=== PATIENT | male | born 1950 | race Caucasian/White ===

== ENCOUNTER 2019-05-24 11:34 | Inpatient (IN) | payer MEDICARE, MEDICAID ==
[~2019-05-24] VITALS: Ht 167.6 cm; Wt 90.9 kg
--- NOTE | 2019-05-24 12:18 | PHYS DOC ---
Past History Past Medical History: Anemia (Iron deficiency), Anxiety, Arthritis, GERD, Hypertension, Schizophrenia Past Medical History Borderline personality disorder, schizoaffective disorder, stiffness of right knee, generalized muscle weakness, cognitive delay, irritable bowel syndrome Limited secondary to baseline cognitive delay Past Surgical History Limited secondary to baseline cognitive delay Smoking: Quit Greater Than 1 Year Alcohol Use: None Drug Use: None Social History Limited secondary to baseline cognitive delay Adult General Chief Complaint Chief Complaint: PSYCH EVALUATION HPI HPI 68-year-old male with past medical history of cognitive delay presents from halfway for medical screening examination for inpatient psychiatric placement with [facility] unit. Patient apparently has been more aggressive with staff at the halfway prompting them to send him for further evaluation. No history of trauma. No history of fever or chills. History of present illness limited secondary to patient's baseline cognitive delay. Review of Systems Review of Systems Constitutional: Denies fever or chills Respiratory: Denies cough or shortness of breath GI: Denies abdominal pain, nausea, or vomiting Review of systems limited secondary to baseline cognitive delay. Physical Exam Physical Exam Constitutional: Well developed, well nourished, no acute distress, non-toxic appearance HENT: Normocephalic, atraumatic, oropharynx moist Eyes: PERRL, EOMI, conjunctiva normal, no discharge Neck: Normal range of motion, no tenderness, supple Cardiovascular: Heart rate normal, regular rhythm Lungs & Thorax: Bilateral breath sounds clear to auscultation, no wheezing Abdomen: Soft, no tenderness Skin: Warm, dry, no erythema, no rash Back: No tenderness, no CVA tenderness Extremities: No tenderness, ROM intact, no edema Neurologic: Alert, confused, slurred speech, slow verbal response, no focal deficits noted Psychologic: Affect flat, judgment normal EKG EKG @1215 NSR at 66bpm, NO ST elevation, RBBB, occasional PAC, QRS 130ms, QT/QTc 404/425ms, nonspecific t wave inversion III and V1-V3 Radiology/Procedures Radiology/Procedures [] Course & Med Decision Making Course & Med Decision Making Pertinent Lab studies reviewed. (See chart for details) Patient presents from halfway for medical screening examination pending inpatient psychiatric placement with [facility]. Vital signs stable upon arrival. EKG stable. Labs obtained and posted to chart. Initial blood sugar slightly low. Patient had reported he was hungry upon arrival. Lunch tray provided. Repeat blood glucose normal. Patient deemed medically clear for continuation with admission to [facility] and further evaluation and treatment with Dr. Golden (psych). Eric Disclaimer Dragon Disclaimer This electronic medical record was generated, in whole or in part, using a voice recognition dictation system. Departure Departure: Impression: Primary Impression: Medical clearance for psychiatric admission Disposition: ADMITTED INPATIENT ([facility]) Condition: STABLE Referrals: JOEL BAUTISTA DO (PCP) TIMBO DILLARD DO May 24, 2019 12:18
[2019-05-24 12:42] LABS: BASO % 1 % (0-3); EOS # 0.3 x10^3/uL (0.0-0.7); EOS % 6 % (0-3); HEMATOCRIT 37.1 % (39.0-53.0); LYMPH # 1.5 x10^3/uL (1.0-4.8); LYMPH % 34 % (24-48); MEAN CORPUSCULAR HEMOGLOBIN 30 pg (25-35); MEAN CORPUSCULAR HGB CONC 32 g/dL (31-37); MEAN CORPUSCULAR VOLUME 92 fL (79-100); MONO # 0.5 x10^3/uL (0.0-1.1); MONO % 12 % (0-9); NEUT % 48 % (31-73); PLATELET COUNT 158 x10^3/uL (140-400); RED BLOOD COUNT 4.05 x10^6/uL (4.30-5.70); RED CELL DISTRIBUTION WIDTH 16.5 % (11.5-14.5); WHITE BLOOD COUNT 4.3 x10^3/uL (4.0-11.0)
[2019-05-24 12:56] LABS: CALCIUM 8.5 mg/dL (8.5-10.1); CREATININE 0.7 mg/dL (0.7-1.3); GFR 112.8
[2019-05-24 12:57] LABS: BARBITURATES NEG (NEG); BENZODIAZEPINES NEG (NEG); CANNABINOIDS NEG (NEG); COCAINE NEG (NEG); METHADONE NEG (NEG); OPIATES NEG (NEG); PHENCYCLIDINE NEG (NEG)
[2019-05-24 12:58] LABS: AMPHETAMINE/METHAMPHETAMINE NEG (NEG)
[2019-05-24 12:59] LABS: VAL ACID 111 mcg/mL (50-100)
[2019-05-24 13:03] LABS: ACETAMIN < 2.0 mcg/mL (10-30); SALIC 0.9 mg/dL (2.8-20.0)
[2019-05-24 13:12] LABS: ALBUMIN 2.9 g/dL (3.4-5.0); ALBUMIN/GLOBULIN RATIO 0.8 (1.0-1.7); MAGNESIUM 1.8 mg/dL (1.8-2.4); TOTAL BILIRUBIN 0.1 mg/dL (0.2-1.0); TOTAL PROTEIN 6.4 g/dL (6.4-8.2)
[2019-05-24 13:16] LABS: BILIRUBIN,URINE NEG (NEG); CLARITY,URINE CLEAR; COLOR,URINE YELLOW; GLUCOSE,URINE NEG (NEG); NITRITE,URINE NEG (NEG); UROBILINOGEN,URINE 0.2 mg/dL (0.2 mg/dL)
[2019-05-24 13:17] LABS: BACTERIA,URINE 0 /HPF (0-FEW); HYALINE CASTS, URINE FEW /HPF
--- NOTE | 2019-05-24 13:30 | EKG ---
[address] [address] Test Date: 2019-05-24 Test Time: 12:15:19 Pat Name: JUAN FERRO Department: Room: Gender: M Channel Program Manager: : 1950 Requested By: TIMBO DILLARD Order Number: [id number] Reading MD: Janusz Keita Measurements Intervals [place] Rate: 66 P: 35 CT: 146 QRS: 19 QRSD: 130 T: 4 QT: 404 QTc: 425 Interpretive Statements SINUS RHYTHM ATRIAL PREMATURE COMPLEX(ES) RIGHT BUNDLE BRANCH BLOCK ABNORMAL ECG Electronically Signed On 06-17-2019 8:36:53 CDT by Janusz Keita
--- NOTE | 2019-05-24 14:00 | NUR ---
Admission Note with Justification for Admission to [facility] Patient admitted to [facility] for protective oversight for emergency stabilization of acute psychiatric crisis. Pt admitted from: Hospital ER Mode of arrival: EMS Accompanied By: EMS Precipitating behaviors that initiated intake and admission: Description of failure of out patient attempts at stabilization in previous setting list behavior and medication trials: medication change, redirection, room change Behaviors and assessment findings upon admission: Patient presented calm with minor obsessions about playing cards. Patient willing to socialize with staff and other residents. Plan: Admit for protective oversight for adjustment and stabilization of medications, behaviors and mood. Intense treatment regimen including groups, medication adjustments, therapy, consistent regimen for ADL's, self care, and sleep hygiene. Daily monitoring by Inpatient staff, Psychiatry, and Medical Physician.
[2019-05-24] MEDS ORDERED: FERR325T14 PO (15:53)
[2019-05-24] MEDS ORDERED: LEVO25TA4 PO (15:53)
[2019-05-24] MEDS ORDERED: LORA-254 PO (15:53)
[2019-05-24] MEDS ORDERED: ACET500C2 PO (15:53)
[2019-05-24] MEDS ORDERED: HALO5AMP2 IM (15:53)
[2019-05-24] MEDS ORDERED: SENN8.8S5 PO (15:53)
[2019-05-24] MEDS ORDERED: TAMS0.4C97 PO (15:53)
[2019-05-24] MEDS ORDERED: OXCA600T9 PO (15:53)
[2019-05-24] MEDS ORDERED: PALI234D IM (15:53)
[2019-05-24] MEDS ORDERED: LORA-254 IM (15:53)
[2019-05-24] MEDS ORDERED: TRAZ-125 PO (15:53)
[2019-05-24] MEDS ORDERED: MAG-27 PO (15:53)
[2019-05-24] MEDS ORDERED: LORA10TA55 PO (15:53)
[2019-05-24] MEDS ORDERED: OMEP20CA16 PO (15:53)
[2019-05-24] MEDS ORDERED: OLAN5TAB9 PO (15:53)
[2019-05-24] MEDS ORDERED: POTA20TA4 PO (15:53)
[2019-05-24] MEDS ORDERED: MEDR2.5T28 PO (15:53)
[2019-05-24] MEDS ORDERED: TOLT4CAP12 PO (15:53)
[2019-05-24] MEDS ORDERED: BENZ2TAB5 PO (15:53)
[2019-05-24] MEDS ORDERED: POLY2500 PO (15:53)
[2019-05-24] MEDS ORDERED: FURO40TA4 PO (15:53)
[2019-05-24] MEDS ORDERED: CALC625T8 PO (15:53)
[2019-05-24] MEDS ORDERED: DIVA-53 PO ×2 (15:53)
[2019-05-24] MEDS ORDERED: MAGN24003 PO (15:53)
[2019-05-24] MEDS ORDERED: FLUT9.9S NS (15:53)
[2019-05-24] MEDS ORDERED: OLAN5TAB3 PO (15:53)
[2019-05-24] MEDS ORDERED: ACETAMINOPHEN 325 MG TABLET PO PRN (16:00)
[2019-05-24] MEDS ORDERED: MAG HYDROX/AL HYDROX/SIMETH 30 ML ORAL.SUSP PO PRN (16:00)
[2019-05-24] MEDS ORDERED: METHYL SALICYLATE/MENTHOL TOPICAL OINTMENT 57GM TUBE. TP PRN (16:00)
[2019-05-24] MEDS ORDERED: SIMETH PO PRN (18:00)
[2019-05-24] MEDS ORDERED: AL HYDROX PO PRN (18:00)
[2019-05-24] MEDS ORDERED: MAGNESIUM HYDROXIDE PO PRN (18:00)
[2019-05-24] MEDS ORDERED: MAG HYDROX PO PRN (18:00)
[2019-05-24 18:13] VITALS: BP 116/76
[2019-05-24] MEDS ORDERED: LORA2VIA6 IM (18:15)
[2019-05-24] MEDS: OLANZapine 5 MG TABLET PO SCH (20:10)
[2019-05-24] MEDS: SENNOSIDES 8.6 MG TABLET PO SCH (20:11)
[2019-05-24] MEDS: BENZTROPINE MESYLATE 1 MG TABLET PO SCH (20:11)
[2019-05-24] MEDS: OXYBUTYNIN CHLORIDE 5 MG TABLET PO SCH (20:12)
[2019-05-24] MEDS: DIVALPROEX ER 500 MG TAB.ER.24H PO SCH (20:12)
[2019-05-24] MEDS: traZODone 100 MG TABLET. PO SCH (20:12)
[2019-05-24] MEDS: LORazepam 1 MG TABLET PO SCH (20:13)
--- NOTE | 2019-05-24 21:18 | PDOC ---
Exam Note: Ramos Note: Please also refer to the separate dictated note~for this date of service dictated separately. Discussed the patient with Nursing staff reviewed the chart.~Reviewed interim history and current functioning. Reviewed vital signs,~Labs/ Radiology~and current medications noted below. Continue current treatment with the changes noted in the dictated addendum note Assessment: Vital Signs/I&O: Vital Signs Date Time Temp Pulse Resp B/P (MAP) Pulse Ox O2 Delivery O2 Flow Rate FiO2 05/24/19 18:13 98.7 59 18 116/76 (89) 99 Room Air Labs: Laboratory Tests Test 05/24/19 12:17 05/24/19 12:20 05/24/19 13:20 Urine Collection Type Unknown Urine Color Yellow Urine Clarity Clear Urine pH 6.0 Urine Specific Duncan 1.015 Urine Protein Neg (NEG-TRACE) Urine Glucose (UA) Neg mg/dL (NEG) Urine Ketones (Stick) Neg mg/dL (NEG) Urine Blood Neg (NEG) Urine Nitrite Neg (NEG) Urine Bilirubin Neg (NEG) Urine Urobilinogen Dipstick 0.2 mg/dL (0.2 mg/dL) Urine Leukocyte Esterase Trace (NEG) Urine RBC 3-5 /HPF (0-2) Urine WBC 5-10 /HPF (0-4) Urine Squamous Epithelial Cells None /LPF Urine Bacteria 0 /HPF (0-FEW) Urine Hyaline Casts Few /HPF Urine Mucus Slight /LPF Urine Opiates Screen Neg (NEG) Urine Methadone Screen Neg (NEG) Urine Barbiturates Neg (NEG) Urine Phencyclidine Screen Neg (NEG) Urine Amphetamine/Methamphetamine Neg (NEG) Urine Benzodiazepines Screen Neg (NEG) Urine Cocaine Screen Neg (NEG) Urine Cannabinoids Screen Neg (NEG) Urine Ethyl Alcohol Neg (NEG) White Blood Count 4.3 x10^3/uL (4.0-11.0) Red Blood Count 4.05 x10^6/uL (4.30-5.70) L Hemoglobin 12.0 g/dL (13.0-17.5) L Hematocrit 37.1 % (39.0-53.0) L Mean Corpuscular Volume 92 fL (79-100) Mean Corpuscular Hemoglobin 30 pg (25-35) Mean Corpuscular Hemoglobin Concent 32 g/dL (31-37) Red Cell Distribution Width 16.5 % (11.5-14.5) H Platelet Count 158 x10^3/uL (140-400) Neutrophils (%) (Auto) 48 % (31-73) Lymphocytes (%) (Auto) 34 % (24-48) Monocytes (%) (Auto) 12 % (0-9) H Eosinophils (%) (Auto) 6 % (0-3) H Basophils (%) (Auto) 1 % (0-3) Neutrophils # (Auto) 2.0 x10^3uL (1.8-7.7) Lymphocytes # (Auto) 1.5 x10^3/uL (1.0-4.8) Monocytes # (Auto) 0.5 x10^3/uL (0.0-1.1) Eosinophils # (Auto) 0.3 x10^3/uL (0.0-0.7) Basophils # (Auto) 0.0 x10^3/uL (0.0-0.2) Prothrombin Time 9.9 SEC (9.4-11.4) Prothrombin Time INR 1.0 (0.9-1.1) Activated Partial Thromboplast Time 24 SEC (23-33) Sodium Level 145 mmol/L (136-145) Potassium Level 4.0 mmol/L (3.5-5.1) Chloride Level 106 mmol/L (98-107) Carbon Dioxide Level 28 mmol/L (21-32) Anion Gap 11 (6-14) Blood Urea Nitrogen 18 mg/dL (8-26) Creatinine 0.7 mg/dL (0.7-1.3) Estimated GFR (Cockcroft-Gault) 112.8 BUN/Creatinine Ratio 26 (6-20) H Glucose Level 66 mg/dL (70-99) L Calcium Level 8.5 mg/dL (8.5-10.1) Magnesium Level 1.8 mg/dL (1.8-2.4) Total Bilirubin 0.1 mg/dL (0.2-1.0) L Aspartate Amino Transferase (AST) 17 U/L (15-37) Alanine Aminotransferase (ALT) 19 U/L (16-63) Alkaline Phosphatase 89 U/L (46-116) Creatine Kinase 34 U/L (39-308) L Creatine Kinase MB (Mass) 1.6 ng/mL (0.0-3.6) Creatine Kinase MB Relative Index 4.7 % (0-4) H Troponin I Quantitative 0.031 ng/mL (0-0.055) Total Protein 6.4 g/dL (6.4-8.2) Albumin 2.9 g/dL (3.4-5.0) L Albumin/Globulin Ratio 0.8 (1.0-1.7) L Salicylates Level 0.9 mg/dL (2.8-20.0) L Salicylate Last Dose Date Unknown Salicylate Last Dose Time Unknown Acetaminophen Level < 2.0 mcg/mL (10-30) L Acetaminophen Last Dose Date Unknown Acetaminophen Last Dose Time Unknown Valproic Acid Level 111 mcg/mL (50-100) H Valproic Acid Last Dose Date 05/24/19 Valproic Acid Last Dose Time 0600 Ethyl Alcohol Level < 10 mg/dL (0-10) Glucose (Fingerstick) 98 mg/dL (70-99) Current Medications: Meds: Current Medications Medications (Trade) Dose Ordered Sig/Kylah Route PRN Reason Start Time Stop Time Status Last Admin Dose Admin Lorazepam (Ativan) 2 mg BID PO 05/24/19 21:00 05/24/19 20:13 Olanzapine (ZyPREXA) 5 mg TID PO 05/24/19 21:00 05/24/19 20:10 Trazodone HCl (Desyrel) 100 mg QHS PO 05/24/19 21:00 05/24/19 20:12 Benztropine Mesylate (Cogentin) 2 mg BID PO 05/24/19 21:00 05/24/19 20:11 Divalproex Sodium (Depakote Er) 1,000 mg QHS PO 05/24/19 21:00 05/24/19 20:12 Oxcarbazepine (Trileptal) 600 mg BID PO 05/24/19 21:00 05/24/19 20:10 Sennosides (Senna) 8.6 mg QHS PO 05/24/19 21:00 05/24/19 20:11 Oxybutynin Chloride (Ditropan) 5 mg [id number] PO 05/24/19 21:00 05/24/19 20:12 I have reviewed the current psychotropics carefully including drug interactions. Risk benefit ratio favors no change other than as noted in my dictated progress note. Diagnosis: Problems: (1) Medical clearance for psychiatric admission (2) Anxiety disorder (3) Schizoaffective disorder, chronic condition with acute exacerbation (4) Borderline intellectual disability NIKKI SHIELDS MD May 24, 2019 21:18
--- NOTE | 2019-05-24 22:00 | NUR ---
Patient is in the hallway outside the nurses station on assumption of care. He appears to be napping comfortably in his wheelchair. Shortly after change of shift, patient began to knock on the window. He complained of being cold. Staff brought him into day room and asked if he wanted a blanket. At that point, he became agitated. Yelling and unable to be redirected. He was brought to the [facility] to deescalate. He continued to yell loudly, repeating "I want to go bed NOW!". This casualty underwriter approached him to ask him why he was so upset. He responded with a glare. Also was asked how he prefers to take his pills, which he did not answer either. He was told that he would be able to go to bed once he had taken his medications and calmed down a bit. He proceeded to continue to yell repeatedly about wanting to go to bed and wanting his medications. This casualty underwriter brought his medications, which he took whole, a few at a time on a spoon. A short time later, staff x2 assisted him to bed, without issue.
[2019-05-25] MEDS: LEVOTHYROXINE 25 MCG TABLET. PO SCH (06:04)
[2019-05-25 06:30] VITALS: BP 134/83
[2019-05-25] MEDS ORDERED: DIVALPROEX ER 500 MG TAB.ER.24H PO SCH (09:00)
[2019-05-25] MEDS: POLYETHYLENE GLYCOL 3350 17 GM PACKET. PO SCH (09:00)
[2019-05-25] MEDS: TAMSULOSIN 0.4 MG CAP.ER.24H. PO SCH (10:00)
[2019-05-25] MEDS: OXYBUTYNIN CHLORIDE 5 MG TABLET PO SCH ×3 (10:00→19:50)
[2019-05-25] MEDS: PANTOPRAZOLE 40 MG TABLET. PO SCH (10:00)
[2019-05-25] MEDS: LORazepam 1 MG TABLET PO SCH ×2 (10:00→19:50)
[2019-05-25] MEDS: FUROSEMIDE 40 MG TABLET PO SCH (10:00)
[2019-05-25] MEDS: FERROUS SULFATE 325 MG TABLET. PO SCH (10:01)
[2019-05-25] MEDS: CETIRIZINE HCL 10 MG TABLET PO SCH (10:01)
[2019-05-25] MEDS: CALCIUM POLYCARBOPHIL 625 MG TABLET PO SCH (10:01)
[2019-05-25] MEDS: OLANZapine 5 MG TABLET PO SCH ×3 (10:01→19:48)
[2019-05-25] MEDS: POTASSIUM CHLORIDE 20 MEQ TABLET.ER. PO SCH (10:02)
[2019-05-25] MEDS: BENZTROPINE MESYLATE 1 MG TABLET PO SCH ×2 (10:02→19:49)
[2019-05-25] MEDS: FLUTICASONE 50MCG/NASAL SPRAY 16GM BOTTLE. NS SCH (10:03)
[2019-05-25 10:16] LABS: THYROID STIM HORMONE (TSH) 3.613 uIU/mL (0.358-3.740)
--- NOTE | 2019-05-25 11:37 | NUR ---
Nursing note: At shift change, pt in hallway demanding to be helped to the bathroom. Pt was redirected and helped in the bathroom. Pt remained calm throughout breakfast and was compliant with his meds whole. He was preoccupied about wanting to play cards, "it's no fun being bored, I need someone to play with me". Pt is currently sitting in the day room conversing with staff. Will continue to monitor.
[2019-05-25 12:07] LABS: THYROXINE 8.1 ug/dL (4.5-12.0)
--- NOTE | 2019-05-25 13:47 | NUR ---
Nursing note: Pt was in the day room when he became disruptive during the activity group. Pt was yelling out at staff and using foul language. He was unable to be redirected, so he was brought to the secure hallway for deescalation. Scheduled 1400 meds were given. Will continue to monitor.
--- NOTE | 2019-05-25 14:07 | CONS ---
DATE OF CONSULTATION: 05/25/2019 REASON FOR CONSULTATION: Medical management. HISTORY OF PRESENT ILLNESS: The patient is a 68-year-old male patient, a resident at [facility], who was admitted on account of being increasingly angry with anger outburst, name calling and yelling at staff, kicking and hitting doors and okeefe, threatening peer and hoping they will , increased agitation and spitting on staff, all this in a background of schizoaffective disorder and intellectual disability. The patient has multiple medical problems including iron-deficiency anemia, gastroesophageal reflux disease, hypertension, irritable bowel syndrome, and muscle weakness. PAST SURGICAL HISTORY: Significant for what seems to be exploratory laparotomy that was complicated by infection with large scar in the midline of the abdomen. PAST PSYCHIATRIC HISTORY: Significant for borderline personality disorder, has also schizoaffective disorder, generalized anxiety disorder, paranoid schizophrenia and intellectual disability. ALLERGIES: He is allergic to AMOXICILLIN, CIPROFLOXACIN, and SOAP. MEDICATIONS: He is currently on loratadine 10 mg once a day, Flomax 0.4 mg daily, ferrous sulfate 325 mg once a day, acetaminophen 500 mg every 6 hours, divalproex 1500 mg daily, divalproex 1000 mg at bedtime, oxcarbazepine 600 mg twice a day. He is on trazodone 100 mg at bedtime, olanzapine for Zyprexa 5 mg 3 times a day, olanzapine 5 mg every 8 hours. Paliperidone palmitate for Invega Sustenna 234 mg in 1.5 mL intramuscular every month, lorazepam 2 mg twice a day, benztropine mesylate 1 mg twice a day, potassium chloride 20 mEq once a day, furosemide 40 mg once a day, Flonase 1 spray to each nostril daily, Mylanta 30 mL every 4 hours as needed, calcium polycarbophil 625 mg daily, magnesium hydroxide for Milk of Magnesia 30 mL p.o. daily p.r.n. for constipation, Senna 8.8 mg at bedtime. He is on omeprazole 20 mg once a day, medroxyprogesterone, he is on 7.5 mg for sexual aggression. He is on levothyroxine sodium 25 mcg once a day and tolterodine tartrate extended release 4 mg at bedtime, and polyethylene glycol 17 grams daily. FAMILY HISTORY: Noncontributory. SOCIAL HISTORY: He is a resident at [facility]. PHYSICAL EXAMINATION: GENERAL: When I saw him, he was sitting comfortably in his wheelchair, in no apparent respiratory distress. There is no pallor, jaundice, cyanosis or thyromegaly. No jugular venous distention. No limb edema. VITAL SIGNS: His heart rate was 72, blood pressure was 134/83, temperature 97.5, respiratory rate was 18 and oxygen saturation was 96%. HEAD, EYES, EARS, NOSE AND THROAT: Showed normocephalic, atraumatic. NECK: Supple. CARDIAC: Normal first and second heart sounds. No gallop, rub or murmur. CHEST: Clear to auscultation. No crepitation or rhonchi. ABDOMEN: Distended, soft with a midline surgical scar. No tenderness. No guarding or rigidity. No organomegaly. Bowel sounds normal. NEUROLOGIC: He is awake, alert, responding appropriately. All cranial nerves are intact. He moves upper extremities to much good extent than lower extremities, apparently he is mostly bed bound. He is apparently a 2-person assist. LABORATORY DATA: Showed a white cell count 4300, hemoglobin 12, hematocrit 37, MCV 92, and platelet count 258,000. His chemistry showed a serum sodium of 145, potassium 4, chloride 106, bicarbonate 28, anion gap of 11, BUN 18, creatinine 0.7, estimated GFR was 112 mL per minute. His glucose was 66, calcium was 8.5, magnesium was 1.8. Serum iron, TIBC and iron saturation are all consistent with iron-deficiency anemia. His total bilirubin, AST, ALT, alkaline phosphatase were normal. His total protein was 6.4, albumin 2.9. His serum triglycerides was 109. Total cholesterol 143, LDL was 69, VLDL was 21, HDL cholesterol was 52 and ratio was 2. His TSH was 3.613. His prothrombin time, INR and aPTT are normal. Urinalysis was essentially unremarkable and toxic screen was negative. IMPRESSION: In summary, this is a 68-year-old male patient, a resident at [facility], who was admitted on account of increased anger outbursts, name calling, yelling at staff, kicking and hitting doors and okeefe, threatening peers and hoping they will , increased agitation, spitting on staff, all this in a background of schizoaffective disorder. Medically, he has multiple medical problems including hypertension, gastroesophageal reflux disease, irritable bowel syndrome, iron-deficiency anemia and muscle weakness and inability to walk. He is mostly wheelchair bound; however, all in all, he seemed to be medically stable. His vital signs are all within normal range and his lab works are also well within acceptable range. PLAN: My plans is obviously to follow all his lab works that are still pending at the time of this dictation and make any necessary recommendation. Thank you, Dr. Golden, for allowing me to participate in the care of this patient. SYDNEY PETERS MD DR: JANEY/shawn JOB#: [id number] / [id number]
[2019-05-25 15:50] VITALS: BP 113/72
[2019-05-25] MEDS: traZODone 100 MG TABLET. PO SCH (19:49)
[2019-05-25] MEDS: SENNOSIDES 8.6 MG TABLET PO SCH (19:49)
[2019-05-25] MEDS: DIVALPROEX ER 500 MG TAB.ER.24H PO SCH (19:49)
--- NOTE | 2019-05-25 21:12 | PDOC ---
Exam Note: Ramos Note: Please also refer to the separate dictated note~for this date of service dictated separately.~Patient seen individually. Discussed the patient with Nursing staff reviewed the chart.~Reviewed interim history and current functioning. Reviewed vital signs,~Labs/ Radiology~and current medications noted below. Continue current treatment with the changes noted in the dictated addendum note Assessment: Vital Signs/I&O: Vital Signs Date Time Temp Pulse Resp B/P (MAP) Pulse Ox O2 Delivery O2 Flow Rate FiO2 05/25/19 15:50 97.6 74 16 113/72 (86) 98 05/24/19 18:13 Room Air I & O 05/24/19 05/24/19 05/25/19 15:00 23:00 07:00 Intake Total 240 ml Balance 240 ml Current Medications: Meds: Current Medications Medications (Trade) Dose Ordered Sig/Kylah Route PRN Reason Start Time Stop Time Status Last Admin Dose Admin Calcium Polycarbophil (Fibercon) 625 mg DAILY PO 05/25/19 09:00 05/25/19 10:01 Ferrous Sulfate (Feosol) 325 mg DAILY PO 05/25/19 09:00 05/25/19 10:01 Furosemide (Lasix) 40 mg DAILY PO 05/25/19 09:00 05/25/19 10:00 Levothyroxine Sodium (Synthroid) 25 mcg DAILY06 PO 05/25/19 06:00 05/25/19 06:04 Medroxyprogesterone Acetate (Provera) 7.5 mg DAILY PO 05/25/19 09:00 05/25/19 10:01 Potassium Chloride (Klor-Con) 20 meq DAILYWBKFT PO 05/25/19 08:00 05/25/19 10:02 Tamsulosin HCl (Flomax) 0.4 mg DAILY PO 05/25/19 09:00 05/25/19 10:00 Divalproex Sodium (Depakote Er) 1,500 mg DAILY PO 05/25/19 09:00 05/25/19 10:01 Fluticasone Propionate (Flonase) 2 spray DAILY NS 05/25/19 09:00 05/25/19 10:03 Cetirizine HCl (ZyrTEC) 10 mg DAILY PO 05/25/19 09:00 05/25/19 10:01 Pantoprazole Sodium (Protonix) 40 mg DAILYAC PO 05/25/19 07:30 05/25/19 10:00 I have reviewed the current psychotropics carefully including drug interactions. Risk benefit ratio favors no change other than as noted in my dictated progress note. Diagnosis: Problems: (1) Medical clearance for psychiatric admission (2) Anxiety disorder (3) Schizoaffective disorder, chronic condition with acute exacerbation (4) Borderline intellectual disability NIKKI SHIELDS MD May 25, 2019 21:12
--- NOTE | 2019-05-25 21:43 | HP ---
ADMIT DATE: 05/24/2019 PSYCHIATRIC ADMISSION HISTORY/EVALUATION IDENTIFYING DATA: The patient is a 68-year-old male referred to us from [facility] in [place], [place] by Dr. Romero, his primary care physician. The patient has a diagnosis of schizoaffective disorder, bipolar type and intellectual disability. He has been having increasing angry outburst, name calling and yelling at staff, kicking, hitting doors and okeefe, threatening peers and hoping they will . He has been spitting at staff. Agitation has been unmanageable at the facility. He has failed outpatient psychiatric interventions resulting in this referral. CHIEF COMPLAINT: "I am okay." The patient has intellectual disability and overall functioning is compromised by this. He is seated in a wheelchair. HISTORY OF PRESENT ILLNESS: The patient has a history of schizoaffective disorder, bipolar type. He has been residing at the above facility for some time, but recently getting more psychotic, agitated. He has had sleep and appetite changes, worsening paranoia. No active suicidal or homicidal ideation. PAST PSYCHIATRIC HISTORY: As above and also has a history of borderline personality disorder. Possible paranoid schizophrenia. ALLERGIES: AMOXIL, CIPRO, AND BAR SOAP. ACCU-CHEKS: None. DIET: Regular, cut meats. Ambulates in wheelchair with 1 or 2-person assist. CODE STATUS: Full code. CURRENT PSYCHOTROPICS: Depakote 500 mg a.m. and 1000 mg at bedtime, Provera 7.5 mg daily, Trileptal 600 mg b.i.d., trazodone 100 mg at bedtime, Zyprexa 5 mg t.i.d., Zyprexa p.r.n., Invega Sustenna 254 mg IM q. monthly, Ativan 2 mg b.i.d. FAMILY HISTORY: Noncontributory. SOCIAL HISTORY: No history of alcohol, drug abuse, physical, sexual or elder abuse. He is not known to be a perpetrator. REACTION TO HOSPITALIZATION: The patient oblivious of this. ASSETS: Supportive living at the above facility. MENTAL STATUS EXAMINATION: The patient was seated in a wheelchair. He was seen in the evening of 05/24/2019. He is oriented to himself, at times situations. Eye contact is poor. Speech moderate latency, often responses monosyllabic. Abstraction fair, computation impaired, language function intact, attention span short. Mood and affect withdrawn. He appears paranoid, quite distractible. No active suicidal or homicidal ideation. LABORATORY DATA: Reviewed. IMPRESSION: Schizoaffective disorder, bipolar type, mixed with psychotic features, intellectual disability, impulse control disorder; anxiety disorder, unspecified. Rest as above. PLAN: Admit to Geropsychiatry Unit at [facility]. I will see the patient daily individually from a psychiatric standpoint. Medical followup with Dr. Leonardo. Continue the patient on his current labs. Check a valproic acid level, adjust to reach therapeutic level. Rest unchanged for now. We may have to adjust his antipsychotics and if clear psychotic symptoms persist despite his current dosage of Invega and Zyprexa, we may have to change the Zyprexa to Risperdal. We will make all these decisions post baseline assessment. Estimated length of stay 10-12 days. DISPOSITION: [facility] back [facility] when [facility]. MAN Jaylene SHIELDS MD DR: VIELKA/shawn JOB#: [id number] / [id number]
--- NOTE | 2019-05-25 23:54 | NUR ---
Pt located in the [facility] this evening. Pt yelling out "I want to go to bed now! Put me to bed now!" Pt informed that he would not be taken to bed until he was given his medications and he stopped yelling. Pt then called this RN a "fucking whore." Pt continued yelling on and off until medication administration. When this RN approached pt, pt apologized for calling names. Pt compliant with whole medications, taken a few at a time. Pt continued to be impatient, hollering out that he was ready for bed until taken to his room. Pt currently sleeping in bed.
[2019-05-26 00:06] LABS: HEMOGLOBIN A1C 4.9 % (4.8-5.6)
[2019-05-26] MEDS: LEVOTHYROXINE 25 MCG TABLET. PO SCH (06:00)
[2019-05-26 06:17] VITALS: BP 117/70
[2019-05-26] MEDS: FERROUS SULFATE 325 MG TABLET. PO SCH (08:02)
[2019-05-26] MEDS: PANTOPRAZOLE 40 MG TABLET. PO SCH (08:02)
[2019-05-26] MEDS: CALCIUM POLYCARBOPHIL 625 MG TABLET PO SCH (08:02)
[2019-05-26] MEDS: POTASSIUM CHLORIDE 20 MEQ TABLET.ER. PO SCH (08:02)
[2019-05-26] MEDS: CETIRIZINE HCL 10 MG TABLET PO SCH (08:02)
[2019-05-26] MEDS: FUROSEMIDE 40 MG TABLET PO SCH (08:02)
[2019-05-26] MEDS: BENZTROPINE MESYLATE 1 MG TABLET PO SCH ×2 (08:02→20:04)
[2019-05-26] MEDS: LORazepam 1 MG TABLET PO SCH ×2 (08:03→20:04)
[2019-05-26] MEDS: TAMSULOSIN 0.4 MG CAP.ER.24H. PO SCH (08:03)
[2019-05-26] MEDS: OLANZapine 5 MG TABLET PO SCH ×3 (08:03→20:05)
[2019-05-26] MEDS: OXYBUTYNIN CHLORIDE 5 MG TABLET PO SCH ×3 (08:03→20:05)
[2019-05-26] MEDS: DIVALPROEX ER 500 MG TAB.ER.24H PO SCH (08:03)
[2019-05-26] MEDS: POLYETHYLENE GLYCOL 3350 17 GM PACKET. PO SCH (08:04)
[2019-05-26] MEDS: FLUTICASONE 50MCG/NASAL SPRAY 16GM BOTTLE. NS SCH (08:04)
--- NOTE | 2019-05-26 09:22 | NUR ---
Patient compliant with medication and assessment. Patient has no further needs at this time. Patient states his stomach hurts after breakfast.
--- NOTE | 2019-05-26 14:53 | NUR ---
Patient made sexually inappropriate remarks to female staff.
[2019-05-26 15:27] VITALS: BP 135/92
[2019-05-26] MEDS: traZODone 100 MG TABLET. PO SCH (20:05)
[2019-05-26] MEDS: DIVALPROEX ER 250 MG TAB.ER.24H. PO SCH (20:05)
[2019-05-26] MEDS: SENNOSIDES 8.6 MG TABLET PO SCH (20:05)
--- NOTE | 2019-05-26 22:24 | PDOC ---
Exam Note: Ramos Note: Please also refer to the separate dictated note~for this date of service dictated separately.~Patient seen individually. Discussed the patient with Nursing staff reviewed the chart.~Reviewed interim history and current functioning. Reviewed vital signs,~Labs/ Radiology~and current medications noted below. Continue current treatment with the changes noted in the dictated addendum note Assessment: Vital Signs/I&O: Vital Signs Date Time Temp Pulse Resp B/P (MAP) Pulse Ox O2 Delivery O2 Flow Rate FiO2 05/26/19 15:27 97.8 86 22 135/92 (106) 98 05/24/19 18:13 Room Air I & O 05/25/19 05/25/19 05/26/19 15:00 23:00 07:00 Intake Total 720 ml 360 ml Balance 720 ml 360 ml Current Medications: Meds: Current Medications Medications (Trade) Dose Ordered Sig/Kylah Route PRN Reason Start Time Stop Time Status Last Admin Dose Admin Divalproex Sodium (Depakote Er) 750 mg QHS PO 05/26/19 21:00 05/26/19 20:05 Divalproex Sodium (Depakote Er) 500 mg DAILY PO 05/26/19 09:00 05/26/19 08:03 I have reviewed the current psychotropics carefully including drug interactions. Risk benefit ratio favors no change other than as noted in my dictated progress note. Diagnosis: Problems: (1) Medical clearance for psychiatric admission (2) Anxiety disorder (3) Schizoaffective disorder, chronic condition with acute exacerbation (4) Borderline intellectual disability (5) Impulse control disorder NIKKI SHIELDS MD May 26, 2019 22:24
--- NOTE | 2019-05-26 22:30 | NUR ---
Pt has been labile all evening. Pt yelling out on and off, cursing and calling staff names and then apologizing. Compliant with whole medications given to him on a spoon. Pt currently sleeping in bed.
[2019-05-27] MEDS: LEVOTHYROXINE 25 MCG TABLET. PO SCH (05:58)
[2019-05-27 06:13] VITALS: BP 136/64
[2019-05-27] MEDS: busPIRone 5 MG TABLET. PO SCH ×3 (08:23→17:09)
[2019-05-27] MEDS: FUROSEMIDE 40 MG TABLET PO SCH (08:23)
[2019-05-27] MEDS: OXYBUTYNIN CHLORIDE 5 MG TABLET PO SCH ×3 (08:24→20:20)
[2019-05-27] MEDS: FERROUS SULFATE 325 MG TABLET. PO SCH (08:24)
[2019-05-27] MEDS: LORazepam 1 MG TABLET PO SCH ×2 (08:24→20:20)
[2019-05-27] MEDS: POLYETHYLENE GLYCOL 3350 17 GM PACKET. PO SCH (08:24)
[2019-05-27] MEDS: POTASSIUM CHLORIDE 20 MEQ TABLET.ER. PO SCH (08:25)
[2019-05-27] MEDS: BENZTROPINE MESYLATE 1 MG TABLET PO SCH ×2 (08:25→20:20)
[2019-05-27] MEDS: CETIRIZINE HCL 10 MG TABLET PO SCH (08:25)
[2019-05-27] MEDS: OLANZapine 5 MG TABLET PO SCH ×3 (08:25→20:20)
[2019-05-27] MEDS: FLUTICASONE 50MCG/NASAL SPRAY 16GM BOTTLE. NS SCH (08:26)
[2019-05-27] MEDS: DIVALPROEX ER 500 MG TAB.ER.24H PO SCH (08:26)
[2019-05-27] MEDS: PANTOPRAZOLE 40 MG TABLET. PO SCH (08:26)
[2019-05-27] MEDS: CALCIUM POLYCARBOPHIL 625 MG TABLET PO SCH (08:26)
[2019-05-27] MEDS: TAMSULOSIN 0.4 MG CAP.ER.24H. PO SCH (08:26)
--- NOTE | 2019-05-27 11:07 | NUR ---
Nursing note: Pt in dining room for morning meds and assessment. He was compliant with his meds whole and cooperative with assessment. Pt was preoccupied about finding someone to play "rummy" with him. Pt has been yelling out on and off this morning about being bored and not having someone to play cards with. He was encouraged to participate in groups this morning. Pt is currently sitting in the day room and has had no other behaviors. Will continue to monitor.
--- NOTE | 2019-05-27 13:07 | NUR ---
PSYCHOSOCIAL ASSESSMENT ADMISSION DATE: 05/24/19 CONTACT INFORMATION: DPOA/Guardian Contact Name: Naa Nuñez, public executive services administrator guardian Contact Phone #: [phone] ETHNIC ORIGIN: REASONS FOR ADMISSION: Aggressive Agitated Homicidal Ideation Poor impulse control Destructive to property ADDITIONAL ADMISSION COMMENTS: Per intake, Gregory has been having increased angry outbursts, name calling and yelling at staff,kicking and hitting doors/okeefe, threatening peers with hopes that they will , agitation, and spitting on staff. REASON FOR ADMISSION IN PATIENT/FAMILY'S OWN WORDS: Per Gregory, "My hips broke." [facility] report out patient interventions have failed and they are unable to manage Gregory at this time. PATIENT/FAMILY EXPECTATIONS FOR ADMISSION: Mood and behavior stabilization. LIVING SITUATION: Patient lives with: [facility] Other living arrangements: [facility] Contact Name: Flash LAURO Contact Address: [address] [place] [address] Contact Phone #: [phone] Contact Fax #: [phone] FAMILY RELATIONS: Marital Status: Single # of Marriages: 0 # of Children: 0 [facility] Family Support: Gregory reports he never and has no children. Additional Comments r/t Family: SIGNIFICANT PSYCHIATRIC/MEDICAL HISTORY: Psychiatric/Treatment History: Gregory reported to have previous in patient psychiatric hospitalizations. [facility] does not know if he has or not. Pertinent Family History: Unknown HISTORICAL DATA: Childhood Environment: Gregory was born in [facility]. He states that he was adopted from an orphanage by Julius and Luis Kang. He later says his parents broke up and he had a step mom named Pam. Gregory reports he had three brothers and three sisters. He shared that all of his sibling, other than his brother Efren ([facility]) in a house fire. Gregory recalled his childhood with fond memories and as "very good." He reports his parents as . Trauma History: None reported Drug Abuse History last 12 months: None reported. Gregory reports he has a history of smoking, denied alcohol or drug use. 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 service: None Holiness background: Gregory reported his samaritan preference as Yarsanism. Sexual orientation: Heterosexual Educational Level: Gregory reported graduating from high school in [place] [facility]. Past/Present Interests/Hobbies: Gregory enjoys playing cards, Monopoly, classic rock music, and shows others how he can wiggle his ears. Financial support/resources: Gregory receives [place] Medicaid assistance. Monthly income: Unknown Person handling finances: Naa Nuñez, guardian Do you have a history of legal problems: None reported Cultural considerations: None reported SOCIAL RELATIONSHIPS-CURRENT/PAST: Psychiatrist: Tele-psychiatrist, Angel Cline PCP: Dr. Ruiz Counselor/Therapist: None at this time [facility]: n/a Support Group: None Speech Communication Instructor/Staffing Mgr: [facility] LAURO Other relationships: Staff at [employer] STRENGTHS & WEAKNESSES: Patient's strengths: Good verbal skills Ambulatory Approachable Patient's weaknesses: Intellectual disability Aggressive Poor family support PRELIMINARY PLAN OF TREATMENT: Preliminary plan: Control Abnormal behavior Medication stabilization Monitor med effects No homicidal ideation Promote coping skills Other preliminary treatment comments: Gregory will be encouraged to participate in and recreational therapy groups while on the unit. DISCHARGE PLANNING: Discharge planning/disposition: [facility] Additional discharge needs identified: Follow up with PCP and tele-psychiatrist ADDITIONAL INFORMATION: Other Pertinent Data: 1:1 with Gregory this morning to introduce self and support related to recent admit. Had observed Gregory earlier in the morning to have a raised tone of voice and verbal aggression directed towards staff because staff was unavailable to play a card game with him. Gregory is alert and was oriented to person and time. He recalled place as "lock up". Orientation provided as to name of hospital. Gregory's speech is garbled and difficult to understand. Uncertain as to the accuracy of what he shared for the above psychosocial. Gregory became tearful during the interview expressing a desire to return to [facility]. Reassurance provided that he would once stable. Inquired with Gregory if he remembered times at [facility] when he became angry and he responded "sometimes." At end of interview, Gregory accepted SW invite to go to the day room for upcoming group activities. Will reach out to legal guardian for additional information and invite to participate in team meeting on 05/30/2019. Addendum: 06/05/19 at 1206 by HERNAN SOUZA SW LAUREN read and approves Psychosocial Assessment.
--- NOTE | 2019-05-27 14:30 | NUR ---
ACTIVITY THERAPY ASSESSMENT Completed based on observation, attempted interview, and [facility] notes. Pt. was in the day room and wanted to play cards, rummy specifically. PIPE FINISHING SUPERVISOR attempted to play cards, Pt. refused to play anything other than rummy. Pt. tried to explain the rules/ scoring and the two attempted to play; however, Pt. was unable to follow the actual concept/guidelines of the game. He did not seem to mind this fact. He interjected a few times how excited he was to get to "go home." He had messy face and hands, drooled as his mouth stayed out and lower lip drooped down. Pt's speech was difficult to understand and PIPE FINISHING SUPERVISOR asked him to repeat himself many times. Notes indicate Pt. can be sexually inappropriate, during interview, Pt. commented that he wanted a kiss from PIPE FINISHING SUPERVISOR. PIPE FINISHING SUPERVISOR reinforced appropriate boundaries and Pt. smiled and joked about it. Pt. talked about wanting to play 'Charles Mix in the Corner,' which PIPE FINISHING SUPERVISOR attempted; however, Pt. was unaware of actual rules. Overall, Pt. was not interested in answering assessment questions. He will need repeat prompting and direct support in groups. He has been observed to be labile- impatient/ yelling out one moment and then quickly apologizing. Pt's note indicate he has an intellectual disability, likes Cameramay and classic [employer] music, and is able to wiggle his ears. Initial goal aimed to increase engagement: Pt. will participate in at least five Activity Therapy groups per week.
[2019-05-27 16:03] VITALS: BP 124/81
--- NOTE | 2019-05-27 16:26 | PN ---
DATE: 05/25/2019 PSYCHIATRIC PROGRESS NOTE This late entry 05/25/2019 covers elements not covered in my initial note. SUBJECTIVE: I met with the patient evening of 05/25/2019. Per YUE Stephens, the patient slept 8 hours previous night. Previous night, he was agitated, yelling, appearing helpless, not cooperative with doing some of the ADLs, he can conceivably do by himself. He is calling nursing staff by rather derogatory profanities "f..., bitch, f..., whore" per Kat. He has been yelling, wanting to go to bed. REVIEW OF SYSTEMS: Ambulation impaired, in wheelchair. No CV, , pulmonary, eye, ENT system symptoms on review. Reliability poor due to his intellectual disability, confusion. MENTAL STATUS EXAMINATION: Oriented to himself, at times situation. Insight, judgment, recent memory is impaired. Language function intact. Speech moderate latency, often responses monosyllabic. No active suicidal or homicidal ideation. LABORATORY DATA: Reviewed. IMPRESSION: Schizoaffective disorder, bipolar type, intellectual disability, impulse control disorder, anxiety disorder, unspecified. PLAN: The patient's valproic acid level is 111 above the upper limit of normal, could be worsening his agitation. We will reduce the Depakote from 500 a.m. and 1000 at bedtime to 500 a.m., 750 at bedtime. Check CBC, CMP, valproic acid level in 3 days. Maintain Provera 7.5 mg a day, Trileptal 600 b.i.d., trazodone 100 at bedtime, Zyprexa 5 mg t.i.d., but we may need to change this and Invega Sustenna ____ mg IM monthly, Ativan 2 mg b.i.d. We may need to taper this. We will adjust further as clinically indicated. NIKKI SHIELDS MD DR: VIELKA/shawn JOB#: [id number] / [id number]
[2019-05-27] MEDS: traZODone 100 MG TABLET. PO SCH (20:20)
[2019-05-27] MEDS: DIVALPROEX ER 250 MG TAB.ER.24H. PO SCH (20:20)
[2019-05-27] MEDS: SENNOSIDES 8.6 MG TABLET PO SCH (20:21)
--- NOTE | 2019-05-27 21:37 | PDOC ---
Exam Note: Ramos Note: Please also refer to the separate dictated note~for this date of service dictated separately.~Patient seen individually. Discussed the patient with Nursing staff reviewed the chart.~Reviewed interim history and current functioning. Reviewed vital signs,~Labs/ Radiology~and current medications noted below. Continue current treatment with the changes noted in the dictated addendum note Assessment: Vital Signs/I&O: Vital Signs Date Time Temp Pulse Resp B/P (MAP) Pulse Ox O2 Delivery O2 Flow Rate FiO2 05/27/19 16:03 97.5 80 16 124/81 (95) 98 05/24/19 18:13 Room Air I & O 05/26/19 05/26/19 05/27/19 15:00 23:00 07:00 Intake Total 720 ml 360 ml Balance 720 ml 360 ml Current Medications: Meds: Current Medications Medications (Trade) Dose Ordered Sig/Kylah Route PRN Reason Start Time Stop Time Status Last Admin Dose Admin Buspirone HCl (Buspar) 5 mg TID@0900,1300,1700 PO 05/27/19 09:00 05/27/19 17:09 I have reviewed the current psychotropics carefully including drug interactions. Risk benefit ratio favors no change other than as noted in my dictated progress note. Diagnosis: Problems: (1) Impulse control disorder (2) Anxiety disorder (3) Schizoaffective disorder, chronic condition with acute exacerbation (4) Borderline intellectual disability NIKKI SHIELDS MD May 27, 2019 21:37
--- NOTE | 2019-05-27 23:06 | NUR ---
Pt located in his room sleeping since shift change. Pt irritable with being woken up to take his medications, repeatedly stating "I want to go back to sleep. Let me go back to sleep." Pt compliant with whole medications and then went right back to sleep.
--- NOTE | 2019-05-28 00:46 | PN ---
DATE: 05/26/2019 PSYCHIATRIC PROGRESS NOTE This late entry 05/26/2019 covers elements not covered in my initial note. SUBJECTIVE: I met with the patient evening of 05/26/2019. The patient slept 6-3/4 hours previous night per YUE Stephens. He has been yelling off and on calling staff by derogatory names and foul language and then apologizes. He has been bumping his wheelchair into other patients', disruptive, anxious, labile in his mood. REVIEW OF SYSTEMS: Ambulation impaired, in wheelchair. No CV, , pulmonary, eye system symptoms on review. MENTAL STATUS EXAM: Oriented to himself, situation. Speech moderate latency, often responses monosyllabic. Eye contact is poor. Psychomotor activity varies. He appears somewhat paranoid and impulsive, dysphoric in his mood at times and labile at other times. No active suicidal or homicidal ideation. Attention span is short. Language function intact. LABORATORY DATA: Reviewed. IMPRESSION: Schizoaffective disorder, bipolar type, intellectual disability, impulse control disorder. PLAN: Depakote has been reduced since it was above the upper limit of normal to see if this would help the agitation, continue 500 a.m., 750 at bedtime along with Provera, Trileptal, trazodone, scheduled Zyprexa, Invega Sustenna, Cogentin and Ativan. We will add BuSpar 5 mg 3 times a day 9, 1 and 5 and then try and taper the Ativan and Cogentin since Ativan could be causing some paradoxical disinhibition as well. MAN Jyalene SHIELDS MD DR: VIELKA/shawn JOB#: [id number] / [id number]
[2019-05-28] MEDS: LEVOTHYROXINE 25 MCG TABLET. PO SCH (06:16)
[2019-05-28 06:19] VITALS: BP 110/65
--- NOTE | 2019-05-28 06:33 | NUR ---
Pt very flirtatious this morning. Pt requested to sing this RN a song called "great big beautiful doll." Pt stated this RN was more beautiful than a bouquet of marisol and he wishes he could be this beautiful. Pt stated he just wanted to "stare at you all day."
[2019-05-28] MEDS: LORazepam 1 MG TABLET PO SCH ×2 (08:50→20:03)
[2019-05-28] MEDS: busPIRone 5 MG TABLET. PO SCH ×3 (08:50→18:00)
[2019-05-28] MEDS: OLANZapine 5 MG TABLET PO SCH ×3 (08:51→20:03)
[2019-05-28] MEDS: OXYBUTYNIN CHLORIDE 5 MG TABLET PO SCH ×3 (08:51→20:02)
[2019-05-28] MEDS: BENZTROPINE MESYLATE 1 MG TABLET PO SCH ×2 (08:51→20:03)
[2019-05-28] MEDS: PANTOPRAZOLE 40 MG TABLET. PO SCH (08:51)
[2019-05-28] MEDS: POTASSIUM CHLORIDE 20 MEQ TABLET.ER. PO SCH (08:51)
[2019-05-28] MEDS: CETIRIZINE HCL 10 MG TABLET PO SCH (08:51)
[2019-05-28] MEDS: DIVALPROEX ER 500 MG TAB.ER.24H PO SCH (08:52)
[2019-05-28] MEDS: TAMSULOSIN 0.4 MG CAP.ER.24H. PO SCH (08:52)
[2019-05-28] MEDS: FERROUS SULFATE 325 MG TABLET. PO SCH (08:52)
[2019-05-28] MEDS: FUROSEMIDE 40 MG TABLET PO SCH (08:53)
[2019-05-28] MEDS: CALCIUM POLYCARBOPHIL 625 MG TABLET PO SCH (08:53)
[2019-05-28] MEDS: POLYETHYLENE GLYCOL 3350 17 GM PACKET. PO SCH (08:53)
[2019-05-28] MEDS: FLUTICASONE 50MCG/NASAL SPRAY 16GM BOTTLE. NS SCH (08:54)
--- NOTE | 2019-05-28 10:22 | NUR ---
Left message for gerson Carr, with intent to review information that Gregory provided for psychosocial assessment and invite to participate in team meeting on 05/30/19. Awaiting return phone call. Addendum: 05/28/19 at 1531 by NAA SOMMERS SW Received return phone call from gerson Jacome. Naa shared that Gregory had lived at [facility] from [phone]. Gregory then moved to [facility] in [facility] from [phone] when he moved to [facility]. Naa is unable to participate in team meeting on 05/30/19 as she has another commitment but is agreeable to have [facility] be involved if they are available.
--- NOTE | 2019-05-28 15:35 | NUR ---
Nursing note: Pt approached this RN in the dining room at breakfast saying "You're so beautiful, I could just look at you all day. We're going to get . When are we getting ?" Pt was able to be redirected at that time. Pt was med compliant and cooperative with assessment. He was yelling out at times this morning about being bored and wanting someone to play cards with him. Pt was given a brianna and remained occupied for a short time, but eventually became inpatient when he requested a specific genre of music and it took staff some time to get it put on. He began to once again yell out and was disruptive in the day room. The brianna was taken away and pt was brought to the secure hallway. The pt remained in the hallway for abut 10 minutes before going to lunch. Pt went to bed shortly after lunch. Pt received 1300 and 1400 meds late d/t pt being asleep. Will continue to monitor.
[2019-05-28 16:02] VITALS: BP 138/81
[2019-05-28] MEDS: hydrOXYzine HCL 25 MG TABLET PO PRN (18:36)
--- NOTE | 2019-05-28 18:42 | NUR ---
Nursing note: Pt became disruptive and started yelling out after supper, cursing, and calling staff names. Pt brought to the secure hallway for deescalation where he continued to yell out and demanding to go to bed. Pt began yelling at this RN "You're a whore! Bitch! Slut! Whore!" Dr. Golden on unit during pt outburst and provided orders. PRN given. When medication administered, pt started crying and became very apologetic, hugging this nurse and asking forgiveness also saying "I'll be quiet as a [employer] mouse." Pt is currently sitting quietly in [facility]. Will continue to monitor.
--- NOTE | 2019-05-28 19:17 | PN ---
DATE: 05/27/2019 PSYCHIATRIC PROGRESS NOTE This late entry 05/27/2019 covers elements not covered in my initial note. SUBJECTIVE: I met with the patient in the evening. Overall, per YUE Archer, the patient slept 6-3/4 hours previous night. Previous night, he was yelling during cares, agitated, labile in his mood, but did redirect later, apologizing to staff. During the day, he has been yelling as well, wanting someone to play cards with him. REVIEW OF SYSTEMS: Ambulation impaired, in wheelchair, complains of some tiredness. No CV, , pulmonary, eye, ENT system symptoms on review. Reliability poor. MENTAL STATUS EXAM: Oriented to himself and situation. Speech has some latency, can be loud at times. Abstraction fair, computation impaired, language function intact, attention span short. Mood and affect remains labile. LABORATORY DATA: Reviewed. IMPRESSION: Schizoaffective disorder, bipolar type, mixed with psychotic features, intellectual disability, impulse control disorder; anxiety disorder, unspecified. PLAN: Continue current psychotropics from initial note. Repeat a valproic acid level. Reduce the Depakote since the prior level was 111 over the upper limit of normal. Continue current psychotropics and he remains on Provera 7.5 mg a day, Trileptal 600 b.i.d., trazodone 100 mg at bedtime, Zyprexa 5 t.i.d., Invega Sustenna, Cogentin and Ativan. May reduce and taper the Cogentin and Ativan in due course. NIKKI SHIELDS MD DR: VIELKA/shawn JOB#: [id number] / [id number]
[2019-05-28] MEDS: traZODone 100 MG TABLET. PO SCH (20:02)
[2019-05-28] MEDS: SENNOSIDES 8.6 MG TABLET PO SCH (20:02)
[2019-05-28] MEDS: DIVALPROEX ER 250 MG TAB.ER.24H. PO SCH (20:03)
--- NOTE | 2019-05-28 21:36 | PDOC ---
Exam Note: Ramos Note: Please also refer to the separate dictated note~for this date of service dictated separately.~Patient seen individually. Discussed the patient with Nursing staff reviewed the chart.~Reviewed interim history and current functioning. Reviewed vital signs,~Labs/ Radiology~and current medications noted below. Continue current treatment with the changes noted in the dictated addendum note Assessment: Vital Signs/I&O: Vital Signs Date Time Temp Pulse Resp B/P (MAP) Pulse Ox O2 Delivery O2 Flow Rate FiO2 05/28/19 16:02 97.8 69 16 138/81 (100) 98 05/24/19 18:13 Room Air I & O 05/27/19 05/27/19 05/28/19 15:00 23:00 07:00 Intake Total 840 ml 60 ml Balance 840 ml 60 ml Current Medications: Meds: Current Medications Medications (Trade) Dose Ordered Sig/Kylah Route PRN Reason Start Time Stop Time Status Last Admin Dose Admin Hydroxyzine HCl (Atarax) 50 mg PRN Q6HRS PRN PO ITCHING 05/28/19 18:45 05/28/19 18:36 I have reviewed the current psychotropics carefully including drug interactions. Risk benefit ratio favors no change other than as noted in my dictated progress note. Diagnosis: Problems: (1) Impulse control disorder (2) Medical clearance for psychiatric admission (3) Anxiety disorder (4) Schizoaffective disorder, chronic condition with acute exacerbation (5) Borderline intellectual disability NIKKI SHIELDS MD May 28, 2019 21:36
--- NOTE | 2019-05-28 23:08 | NUR ---
Pt located in the [facility] this evening. Pt continuously yelling/ screaming that he wants to go to bed. Pt informed that he would be taken to bed after he received his medications. And that he would not receive his medications until he could stop yelling for 5 minutes. Pt eventually compliant, took his medications and was taken to bed.
[2019-05-29] MEDS: LEVOTHYROXINE 25 MCG TABLET. PO SCH (05:52)
[2019-05-29 06:18] VITALS: BP 141/85
[2019-05-29 07:06] LABS: ALBUMIN 2.8 g/dL (3.4-5.0); ALBUMIN/GLOBULIN RATIO 0.7 (1.0-1.7); ALK PHOS 85 U/L (46-116); ALT (SGPT) 24 U/L (16-63); ANION GAP 6 (6-14); AST (SGOT) 27 U/L (15-37); BLOOD UREA NITROGEN 18 mg/dL (8-26); BUN/CREATININE RATIO 23 (6-20); CALCIUM 8.9 mg/dL (8.5-10.1); CARBON DIOXIDE 33 mmol/L (21-32); CHLORIDE 102 mmol/L (98-107); CREATININE 0.8 mg/dL (0.7-1.3); GFR 96.7; GLUCOSE 102 mg/dL (70-99); POTASSIUM 3.9 mmol/L (3.5-5.1); SODIUM 141 mmol/L (136-145); TOTAL BILIRUBIN 0.2 mg/dL (0.2-1.0); TOTAL PROTEIN 6.7 g/dL (6.4-8.2)
[2019-05-29 07:07] LABS: VAL ACID 55 mcg/mL (50-100)
[2019-05-29] MEDS: FERROUS SULFATE 325 MG TABLET. PO SCH (07:58)
[2019-05-29] MEDS: TAMSULOSIN 0.4 MG CAP.ER.24H. PO SCH (07:58)
[2019-05-29] MEDS: POTASSIUM CHLORIDE 20 MEQ TABLET.ER. PO SCH (07:58)
[2019-05-29] MEDS: DIVALPROEX ER 500 MG TAB.ER.24H PO SCH (07:58)
[2019-05-29] MEDS: FUROSEMIDE 40 MG TABLET PO SCH (07:58)
[2019-05-29] MEDS: PANTOPRAZOLE 40 MG TABLET. PO SCH (07:58)
[2019-05-29] MEDS: LORazepam 1 MG TABLET PO SCH ×2 (07:58→19:57)
[2019-05-29] MEDS: OXYBUTYNIN CHLORIDE 5 MG TABLET PO SCH ×3 (07:59→19:57)
[2019-05-29] MEDS: OLANZapine 5 MG TABLET PO SCH ×2 (07:59→13:41)
[2019-05-29] MEDS: busPIRone 5 MG TABLET. PO SCH ×3 (07:59→17:51)
[2019-05-29] MEDS: POLYETHYLENE GLYCOL 3350 17 GM PACKET. PO SCH (07:59)
[2019-05-29] MEDS: CALCIUM POLYCARBOPHIL 625 MG TABLET PO SCH (07:59)
[2019-05-29] MEDS: BENZTROPINE MESYLATE 1 MG TABLET PO SCH ×2 (07:59→19:57)
[2019-05-29] MEDS: CETIRIZINE HCL 10 MG TABLET PO SCH (07:59)
[2019-05-29] MEDS: FLUTICASONE 50MCG/NASAL SPRAY 16GM BOTTLE. NS SCH (09:00)
[2019-05-29 09:03] LABS: BASO % 0 % (0-3); EOS # 0.1 x10^3/uL (0.0-0.7); EOS % 3 % (0-3); HEMATOCRIT 38.6 % (39.0-53.0); HEMOGLOBIN 12.9 g/dL (13.0-17.5); LYMPH % 24 % (24-48); MEAN CORPUSCULAR HEMOGLOBIN 30 pg (25-35); MEAN CORPUSCULAR HGB CONC 33 g/dL (31-37); MEAN CORPUSCULAR VOLUME 91 fL (79-100); MONO # 0.4 x10^3/uL (0.0-1.1); MONO % 10 % (0-9); NEUT # 2.6 x10^3uL (1.8-7.7); NEUT % 63 % (31-73); PLATELET COUNT 162 x10^3/uL (140-400); RED BLOOD COUNT 4.24 x10^6/uL (4.30-5.70); RED CELL DISTRIBUTION WIDTH 16.5 % (11.5-14.5); WHITE BLOOD COUNT 4.1 x10^3/uL (4.0-11.0)
--- NOTE | 2019-05-29 09:31 | PN ---
DATE: 05/28/2019 This late entry date of service 05/28/2019 covers elements not covered in my initial note. SUBJECTIVE: I met with the patient evening of 05/28/2019. Per YUE Gastelum, the patient slept 10 hours previous night. He was in bed, at shift change somewhat irritable with medications. Took his medications later and slept all night. He was yelling in the morning, compliant with medications, sexually inappropriate. By the evening when I met with him, he was extremely labile, yelling, screaming, agitated, banging on doors, had to be placed in the west Hallway to reduce stimuli. Nothing seemed to help very much and we did add hydroxyzine 25 mg 1 or 2 q. 4 hours p.r.n. anxiety, agitation since he is already on the scheduled Ativan and Depakote. He was also sexually inappropriate. REVIEW OF SYSTEMS: Ambulation impaired, in wheelchair. No CV, , pulmonary, eye, ENT system symptoms on review. Reliability varies. MENTAL STATUS EXAM: Oriented to himself and situation. Speech loud, disruptive, abstraction fair, computation impaired, language function intact, attention span short. He is quite paranoid. No suicidal or homicidal ideation. Mood and affect are labile. LABORATORY DATA: Reviewed. IMPRESSION: Schizoaffective disorder, bipolar type, mixed with psychotic features, intellectual disability. Rest unchanged. PLAN: Add hydroxyzine as above. Increase Provera from 7.5 mg a day to 10 mg a day due to his sexually inappropriate behaviors. Maintain Trileptal, Depakote along with scheduled Zyprexa 5 mg t.i.d., trazodone 100 mg at bedtime, Invega Sustenna, Ativan 2 mg b.i.d. scheduled and Cogentin 2 mg b.i.d., BuSpar 5 mg t.i.d. We will make further adjustments as clinically indicated. NIKKI SHIELDS MD DR: VIELKA/shawn JOB#: [id number] / [id number]
--- NOTE | 2019-05-29 09:55 | NUR ---
Patient is located in dining room at time of mediations and assessment. Patient is compliant with medications whole with juice. Patient is hyperverbal during the assessment saying "nurse" over and over. Patient is obsessive over the game "rummy" and asks staff to play the game with him. Paolo continued to call out after breakfast while rolling in his W/C down the cueva saying "natasha, natasha" over and over again. Paolo is currently sitting in day room at this time. Will continue to monitor.
--- NOTE | 2019-05-29 10:44 | NUR ---
Gregory was able to participate in SW group this morning with LAURO assistance by repeating messages so that he was able to hear. Gregory was able to talk about a dog that he previously had named Lady and that he would like to play cards today. He also requested to use the Chari in order to listen to old time rock and roll. Gregory became tearful when he spoke about his father dying and missing him. Support offered. Call placed to LAURO Vidales at [facility], who accepted invite to be involved in team meeting via phone to be held on 05/30/19.
[2019-05-29 12:15] LABS: % BANDS 3 % (0-9); % BASOS 1 % (0-3); % EOS 2 % (0-5); % LYMPHS 29 % (24-48); % MONOS 5 % (0-10); % SEGS 60 % (35-66)
[2019-05-29 12:22] LABS: PLT ESTIMATE ADEQUATE (ADEQUATE)
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
[2019-05-29 15:36] VITALS: BP 137/94
[2019-05-29] MEDS: SENNOSIDES 8.6 MG TABLET PO SCH (19:56)
[2019-05-29] MEDS: risperiDONE 0.5 MG TABLET. PO SCH (19:57)
[2019-05-29] MEDS: DIVALPROEX ER 250 MG TAB.ER.24H. PO SCH (19:58)
[2019-05-29] MEDS: traZODone 100 MG TABLET. PO SCH (19:58)
--- NOTE | 2019-05-29 21:45 | PDOC ---
Exam Note: Ramos Note: Please also refer to the separate dictated note~for this date of service dictated separately.~Patient seen individually. Discussed the patient with Nursing staff reviewed the chart.~Reviewed interim history and current functioning. Reviewed vital signs,~Labs/ Radiology~and current medications noted below. Continue current treatment with the changes noted in the dictated addendum note Assessment: Vital Signs/I&O: Vital Signs Date Time Temp Pulse Resp B/P (MAP) Pulse Ox O2 Delivery O2 Flow Rate FiO2 05/29/19 15:36 97.8 70 16 137/94 (108) 100 05/24/19 18:13 Room Air I & O 05/28/19 05/28/19 05/29/19 15:00 23:00 07:00 Intake Total 960 ml 360 ml Balance 960 ml 360 ml Labs: Laboratory Tests Test 05/29/19 06:36 05/29/19 08:52 Sodium Level 141 mmol/L (136-145) Potassium Level 3.9 mmol/L (3.5-5.1) Chloride Level 102 mmol/L (98-107) Carbon Dioxide Level 33 mmol/L (21-32) H Anion Gap 6 (6-14) Blood Urea Nitrogen 18 mg/dL (8-26) Creatinine 0.8 mg/dL (0.7-1.3) Estimated GFR (Cockcroft-Gault) 96.7 BUN/Creatinine Ratio 23 (6-20) H Glucose Level 102 mg/dL (70-99) H Calcium Level 8.9 mg/dL (8.5-10.1) Total Bilirubin 0.2 mg/dL (0.2-1.0) Aspartate Amino Transferase (AST) 27 U/L (15-37) Alanine Aminotransferase (ALT) 24 U/L (16-63) Alkaline Phosphatase 85 U/L (46-116) Total Protein 6.7 g/dL (6.4-8.2) Albumin 2.8 g/dL (3.4-5.0) L Albumin/Globulin Ratio 0.7 (1.0-1.7) L Valproic Acid Level 55 mcg/mL (50-100) Valproic Acid Last Dose Date 05/28/19 Valproic Acid Last Dose Time 2100 White Blood Count 4.1 x10^3/uL (4.0-11.0) Red Blood Count 4.24 x10^6/uL (4.30-5.70) L Hemoglobin 12.9 g/dL (13.0-17.5) L Hematocrit 38.6 % (39.0-53.0) L Mean Corpuscular Volume 91 fL (79-100) Mean Corpuscular Hemoglobin 30 pg (25-35) Mean Corpuscular Hemoglobin Concent 33 g/dL (31-37) Red Cell Distribution Width 16.5 % (11.5-14.5) H Platelet Count 162 x10^3/uL (140-400) Neutrophils (%) (Auto) 63 % (31-73) Lymphocytes (%) (Auto) 24 % (24-48) Monocytes (%) (Auto) 10 % (0-9) H Eosinophils (%) (Auto) 3 % (0-3) Basophils (%) (Auto) 0 % (0-3) Neutrophils # (Auto) 2.6 x10^3uL (1.8-7.7) Lymphocytes # (Auto) 1.0 x10^3/uL (1.0-4.8) Monocytes # (Auto) 0.4 x10^3/uL (0.0-1.1) Eosinophils # (Auto) 0.1 x10^3/uL (0.0-0.7) Basophils # (Auto) 0.0 x10^3/uL (0.0-0.2) Segmented Neutrophils % 60 % (35-66) Band Neutrophils % 3 % (0-9) Lymphocytes % 29 % (24-48) Monocytes % 5 % (0-10) Eosinophils % 2 % (0-5) Basophils % 1 % (0-3) Platelet Estimate Adequate (ADEQUATE) Current Medications: Meds: Current Medications Medications (Trade) Dose Ordered Sig/Kylah Route PRN Reason Start Time Stop Time Status Last Admin Dose Admin Medroxyprogesterone Acetate (Provera) 10 mg DAILY PO 05/29/19 09:00 05/29/19 08:37 Risperidone (RisperDAL) 0.5 mg TID PO 05/29/19 21:00 05/29/19 19:57 I have reviewed the current psychotropics carefully including drug interactions. Risk benefit ratio favors no change other than as noted in my dictated progress note. Diagnosis: Problems: (1) Impulse control disorder (2) Medical clearance for psychiatric admission (3) Anxiety disorder (4) Schizoaffective disorder, chronic condition with acute exacerbation (5) Borderline intellectual disability (6) Bipolar disorder, curr episode mixed, severe, with psychotic features NIKKI SHIELDS MD May 29, 2019 21:45
--- NOTE | 2019-05-30 00:30 | NUR ---
Nursing Note The patient was located in the day room for his assessment and medication. The patient took his medication whole and was appropriate during interactions with this nurse. The patient asked for headphone to listen to music and was pleased when this nurse provided them. The patient is currently sleeping in his room.
[2019-05-30] MEDS: LEVOTHYROXINE 25 MCG TABLET. PO SCH (05:36)
[2019-05-30 07:05] VITALS: BP 109/63
[2019-05-30] MEDS: POLYETHYLENE GLYCOL 3350 17 GM PACKET. PO SCH (08:54)
[2019-05-30] MEDS: TAMSULOSIN 0.4 MG CAP.ER.24H. PO SCH (08:55)
[2019-05-30] MEDS: BENZTROPINE MESYLATE 1 MG TABLET PO SCH ×2 (08:55→20:22)
[2019-05-30] MEDS: FUROSEMIDE 40 MG TABLET PO SCH (08:55)
[2019-05-30] MEDS: LORazepam 1 MG TABLET PO SCH ×2 (08:56→20:22)
[2019-05-30] MEDS: risperiDONE 0.5 MG TABLET. PO SCH ×3 (08:56→20:22)
[2019-05-30] MEDS: POTASSIUM CHLORIDE 20 MEQ TABLET.ER. PO SCH (08:56)
[2019-05-30] MEDS: busPIRone 5 MG TABLET. PO SCH ×3 (08:56→17:22)
[2019-05-30] MEDS: OXYBUTYNIN CHLORIDE 5 MG TABLET PO SCH ×3 (08:56→20:22)
[2019-05-30] MEDS: CETIRIZINE HCL 10 MG TABLET PO SCH (08:56)
[2019-05-30] MEDS: DIVALPROEX ER 500 MG TAB.ER.24H PO SCH (08:56)
[2019-05-30] MEDS: CALCIUM POLYCARBOPHIL 625 MG TABLET PO SCH (08:56)
[2019-05-30] MEDS: PANTOPRAZOLE 40 MG TABLET. PO SCH (08:57)
[2019-05-30] MEDS: FERROUS SULFATE 325 MG TABLET. PO SCH (08:57)
[2019-05-30] MEDS: FLUTICASONE 50MCG/NASAL SPRAY 16GM BOTTLE. NS SCH (08:57)
--- NOTE | 2019-05-30 09:37 | NUR ---
WEEKLY ACTIVITY THERAPY NOTE Date of Admission: 05/24/2019 Date of AT Assessment: 05/27/2019 Goal aimed: to increase engagement Initial Goal: Pt. will participate in at least five Activity Therapy groups per week. Weekly progress towards goal: goal evaluation begins next week Group participation level: three groups since admission, mostly minimal Weekly highlights: calm and enjoys playing cards 1:1 with staff Behaviors observed: disruptive in group setting, requires direct prompting; however he is difficult to redirect, yelling out, hyper-focused on playing cards, wanders/ poor personal space Plan: no change to goal Beneficial adaptations: wireless headphones/ brianna music, Rummy (cards)
--- NOTE | 2019-05-30 12:59 | TX PLAN ---
Interdisciplinary Tx Plan Admission Information May 24, 2019 at 13:49 Legal Status (on Admission): Voluntary, Court Appointed Guardian DPOA/Guardian Name: Naa Nuñez Contact Verified Code Status: Full Code Allergies: Coded Allergies: amoxicillin (Verified Allergy, Unknown, 05/24/19) ciprofloxacin (Verified Allergy, Unknown, 05/24/19) soap (Verified Allergy, Unknown, 05/24/19) Diagnoses Primary Diagnosis: Schizoaffective d/o, intellectual disability Reasons for Admission: Aggressive, Agitated, Homicidal Ideation, Poor impulse control Problem in Patient's Words: Per Jose Francisco, "My hips broke." Additional Admission Comments: Per [facility] facility, Jose Francisco's aggressive behaviors have escalated to a point that they are unable to manage him at this time. Problems Active Problems: Angry outbursts Sexually inappropriate comments Agitation requiring de-escalation in the quiet cueva Can be disruptve at times during group activities Inactive Problems: Medication compliant Cooperative with nursing assessments Pt Strengths/Limitations Ability for Onia: Poor Cognitive Functioning/Ability: Poor Communication Skills/Ability: Fair Financial Resources: Fair Insight/Judgement: Poor Intellectual Ability: Poor Physical Health: Fair Social Skills: Fair Stability in Family: Poor Verbal Skills: Fair Discharge Criteria Discharge Criteria: Adequate arrangements @DC, Improved behavior, Improved mood/thought Preliminary Discharge Plan Preliminary DC Plan: Shelter Special Precautions Special Precautions: Agitation/Assault Fall Risk: High Initial D/C Plan [facility] Identified Discharge Needs: F/U with PCP and telepsychiatrist Additional Needs Facility will look into getting Jose Francisco headphones in which he can listen to music on. Currently Utilized Resources Currently Utilized Resources/P: 24 hour care at [facility] PCP access Telepsychiatrist access Identified Problems/Hx/Goals Objectives/Short-Term Goals Short Term Goals: Control abnormal behavior, Dec. Aggression, Dec. Outbursts, Medication Stabilization, Monitor Med Effects, Promote Coping Skill Short Term Goals in Patient's: Per [facility], mood and behavior stabilization. Interventions/Frequency Staff Interventions/Frequency&: Nursing provides routine safety checks, adl support, medication administration, and assessments. Psychiatry visits 3-5 times weekly. SW visits twice weekly. Recreational and SW group involvement as Gregory desires. 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 Social: Gregory enjoys playing card games, listening to old time rock and roll music Education: Gregory reported graduating from high school in [employer] [facility] [facility]. Community Follow-up PCP Telepsychiatrist Community Provider/Family Inpu: [facility] participated in treatment team call held on 05/30/19 to coordinate care. Naa Nuñez, guardian, was unable to attend team call. 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
--- NOTE | 2019-05-30 13:24 | NUR ---
Nursing note: Pt in dining room for morning meds and assessment. He was compliant with meds whole and cooperative with assessment. Pt has been preoccupied today about listening to music. He repeatedly asks staff to "fix" the music for him and quickly becomes impatient when it takes a little bit to get it to work. Pt had some inappropriate comments this morning telling this RN "You're my baby doll. If I have to go another day without seeing you, I'm going to go nuts." This inappropriate behavior was discussed with him and pt responded "I'm sorry, but I wouldn't have said it if it wasn't true". After many attempts at redirection, pt was eventually redirected. He is currently in the day room playing rummy. Will continue to monitor.
[2019-05-30 16:18] VITALS: BP 112/65
--- NOTE | 2019-05-30 18:32 | NUR ---
Nursing note: Pt started yelling out in the day room and demanding to go to bed. Staff was busy and was unable to assist pt at that time to bed so he was asked to wait a few minutes. Pt became disruptive and was unable to be redirected. He was brought to the secure cueva where he continued to yell out and use foul language and calling staff names. Pt is currently sitting quietly in the secure cueva. Will continue to monitor.
[2019-05-30] MEDS: DIVALPROEX ER 250 MG TAB.ER.24H. PO SCH (20:22)
[2019-05-30] MEDS: traZODone 100 MG TABLET. PO SCH (20:22)
[2019-05-30] MEDS: SENNOSIDES 8.6 MG TABLET PO SCH (20:25)
--- NOTE | 2019-05-30 21:39 | PDOC ---
Exam Note: Ramos Note: Please also refer to the separate dictated note~for this date of service dictated separately.~Patient seen individually. Discussed the patient with Nursing staff reviewed the chart.~Reviewed interim history and current functioning. Reviewed vital signs,~Labs/ Radiology~and current medications noted below. Continue current treatment with the changes noted in the dictated addendum note Assessment: Vital Signs/I&O: Vital Signs Date Time Temp Pulse Resp B/P (MAP) Pulse Ox O2 Delivery O2 Flow Rate FiO2 05/30/19 16:18 98.1 76 20 112/65 (81) 95 05/24/19 18:13 Room Air I & O 05/29/19 05/29/19 05/30/19 15:00 23:00 07:00 Intake Total 1080 ml 360 ml Balance 1080 ml 360 ml Current Medications: I have reviewed the current psychotropics carefully including drug interactions. Risk benefit ratio favors no change other than as noted in my dictated progress note. Diagnosis: Problems: (1) Impulse control disorder (2) Bipolar disorder, curr episode mixed, severe, with psychotic features (3) Medical clearance for psychiatric admission (4) Anxiety disorder (5) Schizoaffective disorder, chronic condition with acute exacerbation (6) Borderline intellectual disability NIKKI SHIELDS MD May 30, 2019 21:39
--- NOTE | 2019-05-31 03:34 | NUR ---
Nursing Note The patient was calm and compliant with cares and assessment. The patient had an episode of loose stools this shift at shift change. The patient was very pleasant during all interactions this shift. The patient is currently sleeping in his room.
[2019-05-31 05:46] VITALS: BP 106/68
[2019-05-31] MEDS: LEVOTHYROXINE 25 MCG TABLET. PO SCH (06:09)
[2019-05-31] MEDS: POLYETHYLENE GLYCOL 3350 17 GM PACKET. PO SCH (08:59)
[2019-05-31] MEDS: POTASSIUM CHLORIDE 20 MEQ TABLET.ER. PO SCH (09:00)
[2019-05-31] MEDS: CALCIUM POLYCARBOPHIL 625 MG TABLET PO SCH (09:00)
[2019-05-31] MEDS: FUROSEMIDE 40 MG TABLET PO SCH (09:01)
[2019-05-31] MEDS: risperiDONE 0.5 MG TABLET. PO SCH ×3 (09:01→20:49)
[2019-05-31] MEDS: busPIRone 5 MG TABLET. PO SCH ×3 (09:01→17:16)
[2019-05-31] MEDS: BENZTROPINE MESYLATE 1 MG TABLET PO SCH ×2 (09:01→20:50)
[2019-05-31] MEDS: DIVALPROEX ER 500 MG TAB.ER.24H PO SCH (09:01)
[2019-05-31] MEDS: FERROUS SULFATE 325 MG TABLET. PO SCH (09:02)
[2019-05-31] MEDS: LORazepam 1 MG TABLET PO SCH ×2 (09:02→20:50)
[2019-05-31] MEDS: TAMSULOSIN 0.4 MG CAP.ER.24H. PO SCH (09:02)
[2019-05-31] MEDS: PANTOPRAZOLE 40 MG TABLET. PO SCH (09:02)
[2019-05-31] MEDS: OXYBUTYNIN CHLORIDE 5 MG TABLET PO SCH ×3 (09:02→20:49)
[2019-05-31] MEDS: CETIRIZINE HCL 10 MG TABLET PO SCH (09:02)
[2019-05-31] MEDS: FLUTICASONE 50MCG/NASAL SPRAY 16GM BOTTLE. NS SCH (09:03)
--- NOTE | 2019-05-31 11:01 | NUR ---
1:1 with Jose Francisco this morning. He was up in the day room, approached this worker, and proceeded to sing several songs out loud. One of his peers began interacting with him and complimenting him on his singing. Gregory also showed off his ability to wiggle his ears, wiggle his nose, and wiggle both simultaneously. Jose Francisco tends to be needy of staff attention. He does enjoy music and was listening to music with headphones earlier in the day which is an activity he can pursue on his own.
--- NOTE | 2019-05-31 11:50 | NUR ---
Faxed current notes, medication list, and labs to LAURO Vidales at [facility], for review.
[2019-05-31 15:41] VITALS: BP 131/73
--- NOTE | 2019-05-31 15:44 | NUR ---
Location of Patient during Assessment: Behaviors Mood and Affect this shift: compliant with meds, calm, cooperative, can be impatient Medication Compliant: Takes meds whole, w/ water Assessment Compliant: pt is compliant with care treans Response After Interventions:
--- NOTE | 2019-05-31 20:18 | PN ---
DATE: 05/29/2019 PSYCHIATRIC PROGRESS NOTE This late entry 05/28 covers elements not covered in my initial note. SUBJECTIVE: I met with the patient evening of 05/28. Per YUE Avalos, the patient has remained hyperverbal, but not using profanities. He slept 8 hours previous night. Valproic acid level is 55. Rest of the labs unremarkable. REVIEW OF SYSTEMS: Ambulation impaired, in wheelchair. No CV, , pulmonary, eye, ENT system symptoms on review. Reliability poor. MENTAL STATUS EXAM: Oriented to himself. Insight, judgment, recent memory is impaired. Language function intact. Attention span short. Mood and affect remain somewhat labile, but improved. No active suicidal or homicidal ideation. LABORATORY DATA: Reviewed. IMPRESSION: Schizoaffective disorder, bipolar type, intellectual disability. PLAN: Change the Zyprexa 5 mg t.i.d. to Risperdal 0.5 mg 3 times a day. He intermittently is quite psychotic, agitated, aggressive, even though he has been a little better on 05/28 and the Risperdal should be more efficacious for this. Continue rest unchanged. MAN Jaylene SHIELDS MD DR: VIELKA/shawn JOB#: [id number] / [id number]
[2019-05-31] MEDS: traZODone 100 MG TABLET. PO SCH (20:49)
[2019-05-31] MEDS: SENNOSIDES 8.6 MG TABLET PO SCH (20:49)
[2019-05-31] MEDS: DIVALPROEX ER 250 MG TAB.ER.24H. PO SCH (20:50)
--- NOTE | 2019-05-31 21:21 | PDOC ---
Exam Note: Ramos Note: Please also refer to the separate dictated note~for this date of service dictated separately.~Patient seen individually. Discussed the patient with Nursing staff reviewed the chart.~Reviewed interim history and current functioning. Reviewed vital signs,~Labs/ Radiology~and current medications noted below. Continue current treatment with the changes noted in the dictated addendum note Assessment: Vital Signs/I&O: Vital Signs Date Time Temp Pulse Resp B/P (MAP) Pulse Ox O2 Delivery O2 Flow Rate FiO2 05/31/19 15:41 97.8 76 18 131/73 (92) 97 I & O 05/30/19 05/30/19 05/31/19 15:00 23:00 07:00 Intake Total 960 ml 480 ml Balance 960 ml 480 ml Current Medications: I have reviewed the current psychotropics carefully including drug interactions. Risk benefit ratio favors no change other than as noted in my dictated progress note. Diagnosis: Problems: (1) Impulse control disorder (2) Bipolar disorder, curr episode mixed, severe, with psychotic features (3) Medical clearance for psychiatric admission (4) Anxiety disorder (5) Schizoaffective disorder, chronic condition with acute exacerbation (6) Borderline intellectual disability NIKKI SHIELDS MD May 31, 2019 21:21
--- NOTE | 2019-05-31 23:58 | NUR ---
Nursing Note The patient was located in the quiet cueva initially this shift R/T yelling and being disruptive in the day room. The patient was assessed and given medication while in his room. The patient was calm and cooperative with his assessment and medication pass. The patient is currently sleeping in his room.
[2019-06-01] MEDS: LEVOTHYROXINE 25 MCG TABLET. PO SCH (06:00)
[2019-06-01] MEDS: PANTOPRAZOLE 40 MG TABLET. PO SCH (07:30)
[2019-06-01] MEDS: POTASSIUM CHLORIDE 20 MEQ TABLET.ER. PO SCH (08:00)
--- NOTE | 2019-06-01 08:30 | PN ---
DATE: 05/30/2019 PSYCHIATRIC PROGRESS NOTE This late entry 05/30/2019 covers elements not covered in my initial note. SUBJECTIVE: I met with the patient in the evening and staffed a treatment team meeting earlier in the day. Appetite 100%, sleeping average 7 hours. Staff from the senior care at [place] attended the treatment team meeting. We reviewed the patient's diagnosis, progress, ongoing mood lability with some improvement. REVIEW OF SYSTEMS: Ambulation impaired, in wheelchair. Vague somatic symptoms. No CV, , PULMONARY, EYE system symptoms on review. MENTAL STATUS EXAM: Oriented to himself and situation. Speech has some latency, can be rapid at times. Abstraction fair, computation impaired, language function intact. Mood and affect remains somewhat labile. LABORATORY DATA: Reviewed. IMPRESSION: Unchanged from initial note. PLAN: No change from initial note. Valproic acid level therapeutic at 55. We will adjust further as clinically indicated. May need to increase the Risperdal. NIKKI SHIELDS MD DR: VIELKA/shawn JOB#: [id number] / [id number]
--- NOTE | 2019-06-01 08:31 | PN ---
DATE: 05/31/2019 PSYCHIATRIC PROGRESS NOTE This late entry 05/31/2019 covers elements not covered in my initial note. SUBJECTIVE: I met with the patient evening of 05/31/2019. Per nursing report, the patient has been quite anxious, labile in his mood, impatient. Slept 7-1/2 hours previous night. He is a 2-person assist for ambulation. REVIEW OF SYSTEMS: Ambulation impaired, in wheelchair. No CV, , PULMONARY, EYE system symptoms on review. MENTAL STATUS EXAM: Oriented to himself and situation. Speech coherent, can be rapid at times. Abstraction fair, computation impaired, language function intact. Mood and affect somewhat labile, but showing improvement. LABORATORY DATA: Reviewed. IMPRESSION: Unchanged from initial note. PLAN: No change from initial note. MAN Jaylene SHIELDS MD DR: VIELKA/shawn JOB#: [id number] / [id number]
[2019-06-01] MEDS: DIVALPROEX ER 500 MG TAB.ER.24H PO SCH (09:00)
[2019-06-01] MEDS: LORazepam 1 MG TABLET PO SCH ×2 (09:00→21:00)
[2019-06-01] MEDS: TAMSULOSIN 0.4 MG CAP.ER.24H. PO SCH (09:00)
[2019-06-01] MEDS: BENZTROPINE MESYLATE 1 MG TABLET PO SCH ×2 (09:00→21:00)
[2019-06-01] MEDS: risperiDONE 0.5 MG TABLET. PO SCH ×3 (09:00→21:00)
[2019-06-01] MEDS: CETIRIZINE HCL 10 MG TABLET PO SCH (09:00)
[2019-06-01] MEDS: busPIRone 5 MG TABLET. PO SCH ×3 (09:00→16:50)
[2019-06-01] MEDS: FERROUS SULFATE 325 MG TABLET. PO SCH (09:00)
[2019-06-01] MEDS: OXYBUTYNIN CHLORIDE 5 MG TABLET PO SCH ×3 (09:00→21:00)
[2019-06-01] MEDS: CALCIUM POLYCARBOPHIL 625 MG TABLET PO SCH (09:00)
[2019-06-01] MEDS: FUROSEMIDE 40 MG TABLET PO SCH (09:00)
[2019-06-01] MEDS: FLUTICASONE 50MCG/NASAL SPRAY 16GM BOTTLE. NS SCH (09:00)
[2019-06-01] MEDS: POLYETHYLENE GLYCOL 3350 17 GM PACKET. PO SCH (09:00)
[2019-06-01 13:49] VITALS: BP 110/72
[2019-06-01 16:22] VITALS: BP 130/83
--- NOTE | 2019-06-01 17:44 | NUR ---
Nursing Note Pt yells "Nurse, Nurse, Nurse" constantly. When he gets attention of staff, he asks questions like, do you like rock music, or how old are you, do you like winter? Very benign questions, but intrusive none the less. Will interrupt conversations and assessments with other patients to ask these questions. Doesn't take well to redirection either. Will pout and only talk louder to get attention. Told nurses aid that he hoped she woke up tomorrow because she wouldn't give him hot chocolate. Pt in hallway threatening to put himself to bed currently.
[2019-06-01] MEDS: SENNOSIDES 8.6 MG TABLET PO SCH (21:00)
[2019-06-01] MEDS: DIVALPROEX ER 250 MG TAB.ER.24H. PO SCH (21:00)
[2019-06-01] MEDS: traZODone 100 MG TABLET. PO SCH (21:00)
--- NOTE | 2019-06-01 21:11 | PN ---
DATE: 06/01/2019 SUBJECTIVE: The patient was seen today, met with the staff, chart reviewed and also covering for Dr. Golden. The patient continues to have behavior problems, restless, yelling at staff, kicking, hitting doors, also at times threatening. The patient continues to exhibit mood swings, irritability, also increased anxiety. OBSERVATION: VITAL SIGNS: Temperature 97.1, blood pressure 110/72, pulse 76, O2 sat 94. GENERAL: Slept about 8 hours last night. CURRENT MEDICATIONS: The patient's current medications include Invega Sustenna 234 mg q. monthly IM, Risperdal 0.5 mg t.i.d., BuSpar 5 mg t.i.d., Depakote ER 750 mg at night and 500 mg daily. The patient is also on Trileptal 600 mg b.i.d., trazodone 100 mg at night, lorazepam 2 mg b.i.d., also olanzapine 5 mg q.8 hours p.r.n. The patient currently not exhibiting any side effects. The patient is constantly demanding, wanting to go home. The patient also has difficulty with comprehension and also limited vision. The patient tends to be explosive with this temper and also issues with impulse control. LABORATORY DATA: The patient's lab reviewed. ASSESSMENT: AXIS I: 1. Schizoaffective disorder, bipolar type, mixed, with psychotic features. 2. Impulse control disorder, unspecified. 3. Generalized anxiety disorder. AXIS II: Intellectual disability. PLAN: To continue with the treatment. The patient currently not having any side effects to medications. SCOTTIE ROBERT MD DR: JIMMY/shawn JOB#: [id number] / [id number]
[2019-06-02] MEDS: hydrOXYzine HCL 25 MG TABLET PO PRN (03:28)
[2019-06-02 05:19] VITALS: BP 120/71
[2019-06-02] MEDS: LEVOTHYROXINE 25 MCG TABLET. PO SCH (05:22)
[2019-06-02] MEDS: risperiDONE 0.5 MG TABLET. PO SCH ×3 (09:31→20:26)
[2019-06-02] MEDS: POLYETHYLENE GLYCOL 3350 17 GM PACKET. PO SCH (09:31)
[2019-06-02] MEDS: CETIRIZINE HCL 10 MG TABLET PO SCH (09:31)
[2019-06-02] MEDS: PANTOPRAZOLE 40 MG TABLET. PO SCH (09:31)
[2019-06-02] MEDS: OXYBUTYNIN CHLORIDE 5 MG TABLET PO SCH ×3 (09:31→20:24)
[2019-06-02] MEDS: DIVALPROEX ER 500 MG TAB.ER.24H PO SCH (09:31)
[2019-06-02] MEDS: POTASSIUM CHLORIDE 20 MEQ TABLET.ER. PO SCH (09:31)
[2019-06-02] MEDS: FUROSEMIDE 40 MG TABLET PO SCH (09:32)
[2019-06-02] MEDS: CALCIUM POLYCARBOPHIL 625 MG TABLET PO SCH (09:32)
[2019-06-02] MEDS: busPIRone 5 MG TABLET. PO SCH ×3 (09:32→16:57)
[2019-06-02] MEDS: BENZTROPINE MESYLATE 1 MG TABLET PO SCH ×2 (09:32→20:25)
[2019-06-02] MEDS: FERROUS SULFATE 325 MG TABLET. PO SCH (09:32)
[2019-06-02] MEDS: TAMSULOSIN 0.4 MG CAP.ER.24H. PO SCH (09:32)
[2019-06-02] MEDS: LORazepam 1 MG TABLET PO SCH ×2 (09:32→20:25)
[2019-06-02] MEDS: FLUTICASONE 50MCG/NASAL SPRAY 16GM BOTTLE. NS SCH (09:33)
--- NOTE | 2019-06-02 11:31 | NUR ---
Nursing Note Pt calm, and interactive. Pt compliant with meds whole and was appropriate during interactions. Patient asked for headphone to listen to music and was pleased when this nurse provided them. No aggression. No agitation.
--- NOTE | 2019-06-02 13:46 | PN ---
DATE: 06/02/2019 SUBJECTIVE: The patient was seen today, met with the staff, chart reviewed and also covering for Dr. Golden. The patient's behavior remains the same. He is on wheelchair, constantly pacing and also having emotional outbursts, crying spells, constantly wanting to go home. The patient is also having difficulty with impulse control and low frustration tolerance. The patient also is hard of hearing and also poor vision. The patient apparently has not made any threatening behavior towards the staff or other residents. OBSERVATION: VITAL SIGNS: Temperature 97.7, blood pressure 120/71, pulse 78, respirations 20, O2 sat 96%. GENERAL: Slept about 8 hours last night. This patient's appetite is normal. The patient is not presenting with any medical complaints. LABORATORY DATA: The patient's lab reviewed. MEDICATIONS: The patient's current medications include Invega Sustenna 234 mg q. monthly IM, Risperdal 0.5 mg t.i.d. p.o., BuSpar 5 mg t.i.d. p.o. and Depakote ER 750 mg at night and 500 mg daily. The patient is also on Trileptal 600 mg b.i.d., trazodone 100 mg at night and lorazepam 2 mg b.i.d. p.o. The patient is also on olanzapine 5 mg q. 8 hours p.r.n. The patient denies of any side effects to medications. ASSESSMENT: Schizoaffective disorder, bipolar type, mixed with psychotic features; impulse control disorder, unspecified and generalized anxiety disorder. PLAN: To continue with the treatment. The patient is not exhibiting any major problems with not need to change the medication at this time. LENGTH OF STAY: 3-5 days. SCOTTIE ROBERT MD DR: JIMMY/shawn JOB#: [id number] / [id number]
[2019-06-02 15:33] VITALS: BP 150/80
[2019-06-02] MEDS: DIVALPROEX ER 250 MG TAB.ER.24H. PO SCH (20:24)
[2019-06-02] MEDS: traZODone 100 MG TABLET. PO SCH (20:25)
[2019-06-02] MEDS: SENNOSIDES 8.6 MG TABLET PO SCH (20:25)
--- NOTE | 2019-06-02 23:07 | NUR ---
Patient cooperative with assessment and medication administration. Patient took medications whole without difficulty. Patient demanding attention, continually interrupting when this nurse was working with another patient. Impatient when he wanted to go to bed and had to wait for someone to help him. Interactive, no agitation or aggression noted at this time.
[2019-06-03] MEDS: LEVOTHYROXINE 25 MCG TABLET. PO SCH (05:13)
[2019-06-03 05:56] VITALS: BP 114/70
[2019-06-03 07:42] LABS: BASO % 1 % (0-3); EOS # 0.1 x10^3/uL (0.0-0.7); EOS % 3 % (0-3); HEMOGLOBIN 11.6 g/dL (13.0-17.5); LYMPH # 0.9 x10^3/uL (1.0-4.8); LYMPH % 26 % (24-48); MEAN CORPUSCULAR HEMOGLOBIN 30 pg (25-35); MEAN CORPUSCULAR HGB CONC 33 g/dL (31-37); MEAN CORPUSCULAR VOLUME 91 fL (79-100); MONO # 0.5 x10^3/uL (0.0-1.1); MONO % 13 % (0-9); NEUT # 2.1 x10^3uL (1.8-7.7); NEUT % 58 % (31-73); PLATELET COUNT 157 x10^3/uL (140-400); RED BLOOD COUNT 3.84 x10^6/uL (4.30-5.70); RED CELL DISTRIBUTION WIDTH 16.7 % (11.5-14.5); WHITE BLOOD COUNT 3.6 x10^3/uL (4.0-11.0)
[2019-06-03 08:00] LABS: ALBUMIN 2.7 g/dL (3.4-5.0); ALBUMIN/GLOBULIN RATIO 0.8 (1.0-1.7); CALCIUM 8.6 mg/dL (8.5-10.1); CREATININE 0.8 mg/dL (0.7-1.3); GFR 96.7; POTASSIUM 3.6 mmol/L (3.5-5.1); TOTAL BILIRUBIN 0.1 mg/dL (0.2-1.0); TOTAL PROTEIN 6.2 g/dL (6.4-8.2)
[2019-06-03] MEDS: POTASSIUM CHLORIDE 20 MEQ TABLET.ER. PO SCH (08:48)
[2019-06-03] MEDS: CALCIUM POLYCARBOPHIL 625 MG TABLET PO SCH (08:48)
[2019-06-03] MEDS: FERROUS SULFATE 325 MG TABLET. PO SCH (08:48)
[2019-06-03] MEDS: DIVALPROEX ER 500 MG TAB.ER.24H PO SCH (08:48)
[2019-06-03] MEDS: TAMSULOSIN 0.4 MG CAP.ER.24H. PO SCH (08:48)
[2019-06-03] MEDS: PANTOPRAZOLE 40 MG TABLET. PO SCH (08:49)
[2019-06-03] MEDS: FUROSEMIDE 40 MG TABLET PO SCH (08:49)
[2019-06-03] MEDS: BENZTROPINE MESYLATE 1 MG TABLET PO SCH ×2 (08:49→19:35)
[2019-06-03] MEDS: LORazepam 1 MG TABLET PO SCH ×2 (08:49→19:35)
[2019-06-03] MEDS: risperiDONE 0.5 MG TABLET. PO SCH ×3 (08:49→19:36)
[2019-06-03] MEDS: busPIRone 5 MG TABLET. PO SCH ×3 (08:49→15:34)
[2019-06-03] MEDS: OXYBUTYNIN CHLORIDE 5 MG TABLET PO SCH ×3 (08:49→19:35)
[2019-06-03] MEDS: FLUTICASONE 50MCG/NASAL SPRAY 16GM BOTTLE. NS SCH (08:50)
[2019-06-03] MEDS: CETIRIZINE HCL 10 MG TABLET PO SCH (08:50)
[2019-06-03] MEDS: POLYETHYLENE GLYCOL 3350 17 GM PACKET. PO SCH (08:50)
--- NOTE | 2019-06-03 14:09 | NUR ---
Nursing Note Pt demanding, attention seeking, and impatient--wants to play cards all day--however listens and cooperates once needs are met. Pt compliant with meds and cares. No agitation at this time.
[2019-06-03] MEDS: hydrOXYzine HCL 25 MG TABLET PO PRN (15:35)
--- NOTE | 2019-06-03 16:07 | NUR ---
PRN Pt outside the N nurses' station, yelling, demanding to speak w his SW. Pt reassured SW will speak to him once shes available. Pt agitated, crying, tried multiple redirection but difficult to redirect. PRN administered per eMAR.
[2019-06-03 16:30] VITALS: BP 114/67
[2019-06-03] MEDS: DIVALPROEX ER 250 MG TAB.ER.24H. PO SCH (19:35)
[2019-06-03] MEDS: traZODone 100 MG TABLET. PO SCH (19:36)
[2019-06-03] MEDS: SENNOSIDES 8.6 MG TABLET PO SCH (19:36)
--- NOTE | 2019-06-03 21:44 | PDOC ---
Exam Note: Ramos Note: Please also refer to the separate dictated note~for this date of service dictated separately.~Patient seen individually. Discussed the patient with Nursing staff reviewed the chart.~Reviewed interim history and current functioning. Reviewed vital signs,~Labs/ Radiology~and current medications noted below. Continue current treatment with the changes noted in the dictated addendum note Assessment: Vital Signs/I&O: Vital Signs Date Time Temp Pulse Resp B/P (MAP) Pulse Ox O2 Delivery O2 Flow Rate FiO2 06/03/19 16:30 98.6 68 20 114/67 (83) 94 06/02/19 05:19 Room Air I & O 06/02/19 06/02/19 06/03/19 15:00 23:00 07:00 Intake Total 1080 ml 600 ml Balance 1080 ml 600 ml Labs: Laboratory Tests Test 06/03/19 07:07 White Blood Count 3.6 x10^3/uL (4.0-11.0) L Red Blood Count 3.84 x10^6/uL (4.30-5.70) L Hemoglobin 11.6 g/dL (13.0-17.5) L Hematocrit 35.0 % (39.0-53.0) L Mean Corpuscular Volume 91 fL (79-100) Mean Corpuscular Hemoglobin 30 pg (25-35) Mean Corpuscular Hemoglobin Concent 33 g/dL (31-37) Red Cell Distribution Width 16.7 % (11.5-14.5) H Platelet Count 157 x10^3/uL (140-400) Neutrophils (%) (Auto) 58 % (31-73) Lymphocytes (%) (Auto) 26 % (24-48) Monocytes (%) (Auto) 13 % (0-9) H Eosinophils (%) (Auto) 3 % (0-3) Basophils (%) (Auto) 1 % (0-3) Neutrophils # (Auto) 2.1 x10^3uL (1.8-7.7) Lymphocytes # (Auto) 0.9 x10^3/uL (1.0-4.8) L Monocytes # (Auto) 0.5 x10^3/uL (0.0-1.1) Eosinophils # (Auto) 0.1 x10^3/uL (0.0-0.7) Basophils # (Auto) 0.0 x10^3/uL (0.0-0.2) Sodium Level 142 mmol/L (136-145) Potassium Level 3.6 mmol/L (3.5-5.1) Chloride Level 104 mmol/L (98-107) Carbon Dioxide Level 30 mmol/L (21-32) Anion Gap 8 (6-14) Blood Urea Nitrogen 17 mg/dL (8-26) Creatinine 0.8 mg/dL (0.7-1.3) Estimated GFR (Cockcroft-Gault) 96.7 BUN/Creatinine Ratio 21 (6-20) H Glucose Level 86 mg/dL (70-99) Calcium Level 8.6 mg/dL (8.5-10.1) Total Bilirubin 0.1 mg/dL (0.2-1.0) L Aspartate Amino Transferase (AST) 16 U/L (15-37) Alanine Aminotransferase (ALT) 19 U/L (16-63) Alkaline Phosphatase 90 U/L (46-116) Total Protein 6.2 g/dL (6.4-8.2) L Albumin 2.7 g/dL (3.4-5.0) L Albumin/Globulin Ratio 0.8 (1.0-1.7) L Current Medications: Meds: Current Medications Medications (Trade) Dose Ordered Sig/Kylah Route PRN Reason Start Time Stop Time Status Last Admin Dose Admin Benztropine Mesylate (Cogentin) 2 mg QHS PO 06/03/19 21:00 06/03/19 19:35 I have reviewed the current psychotropics carefully including drug interactions. Risk benefit ratio favors no change other than as noted in my dictated progress note. Diagnosis: Problems: (1) Impulse control disorder (2) Bipolar disorder, curr episode mixed, severe, with psychotic features (3) Medical clearance for psychiatric admission (4) Anxiety disorder (5) Schizoaffective disorder, chronic condition with acute exacerbation (6) Borderline intellectual disability NIKKI SHIELDS MD Jun 03, 2019 21:44
[2019-06-04] MEDS: LEVOTHYROXINE 25 MCG TABLET. PO SCH (06:00)
[2019-06-04 06:21] VITALS: BP 113/70
[2019-06-04] MEDS: PANTOPRAZOLE 40 MG TABLET. PO SCH (08:19)
[2019-06-04] MEDS: CETIRIZINE HCL 10 MG TABLET PO SCH (08:19)
[2019-06-04] MEDS: POLYETHYLENE GLYCOL 3350 17 GM PACKET. PO SCH (08:19)
[2019-06-04] MEDS: FERROUS SULFATE 325 MG TABLET. PO SCH (08:20)
[2019-06-04] MEDS: DIVALPROEX ER 500 MG TAB.ER.24H PO SCH (08:23)
[2019-06-04] MEDS: busPIRone 5 MG TABLET. PO SCH ×3 (08:23→18:01)
[2019-06-04] MEDS: POTASSIUM CHLORIDE 20 MEQ TABLET.ER. PO SCH (08:23)
[2019-06-04] MEDS: FUROSEMIDE 40 MG TABLET PO SCH (08:24)
[2019-06-04] MEDS: risperiDONE 0.5 MG TABLET. PO SCH ×3 (08:24→20:44)
[2019-06-04] MEDS: OXYBUTYNIN CHLORIDE 5 MG TABLET PO SCH ×3 (08:24→20:44)
[2019-06-04] MEDS: TAMSULOSIN 0.4 MG CAP.ER.24H. PO SCH (08:24)
[2019-06-04] MEDS: FLUTICASONE 50MCG/NASAL SPRAY 16GM BOTTLE. NS SCH (08:28)
[2019-06-04] MEDS: LORazepam 1 MG TABLET PO SCH ×2 (08:28→20:44)
[2019-06-04] MEDS: BENZTROPINE MESYLATE 1 MG TABLET PO SCH ×2 (08:28→20:44)
[2019-06-04] MEDS: CALCIUM POLYCARBOPHIL 625 MG TABLET PO SCH (08:29)
[2019-06-04] MEDS: OLANZapine 5 MG TABLET PO PRN (13:23)
--- NOTE | 2019-06-04 13:34 | PN ---
DATE: 06/03/2019 PSYCHIATRIC PROGRESS NOTE This late entry 06/03/2019 covers elements not covered in my initial note. SUBJECTIVE: I met with the patient evening of 06/03/2019. The patient did a little better during the day, but by the evening, he was extremely agitated, labile, had to be in the west hallway, disruptive, yelling, screaming. He gets more agitated because he wants to go to bed around 6:00 p.m., then his night meds have to be given to him at 9:00 p.m. We will change the schedule of the night meds to 6:00 p.m. to help with this. REVIEW OF SYSTEMS: Ambulation impaired, in wheelchair. No CV, , pulmonary, eye system symptoms on review. Reliability poor. MENTAL STATUS EXAM: Oriented to himself and situation. Speech moderate latency, often responses monosyllabic. Abstraction fair, computation impaired, language function intact, attention span short. Mood and affect remains intermittently labile. LABORATORY DATA: Reviewed. IMPRESSION: Unchanged from initial note. PLAN: Valproic acid level therapeutic at 55. Continue Depakote current dosage along with Provera, Trileptal, Risperdal, trazodone, Invega Sustenna, Atarax, Ativan 2 mg b.i.d. Reduce Cogentin from 2 mg b.i.d. down to 1.5 in the morning and 2 mg at night. Rest unchanged for now. NIKKI SHIELDS MD DR: VIELKA/shawn JOB#: [id number] / [id number]
--- NOTE | 2019-06-04 14:35 | NUR ---
Pt in dining room for morning meds and assessment. Pt yelling and being disruptive. Pt taken to quiet cueva where he continued to be loud and disruptive, calling staff names, flipping them off. Pt was offered his medications but continued yelling at this nurse. This nurse informed pt he could have meds once he calmed down and quit yelling.
[2019-06-04 15:57] VITALS: BP 139/83
[2019-06-04] MEDS: traZODone 100 MG TABLET. PO SCH (20:44)
[2019-06-04] MEDS: SENNOSIDES 8.6 MG TABLET PO SCH (20:44)
[2019-06-04] MEDS: DIVALPROEX ER 250 MG TAB.ER.24H. PO SCH (20:44)
--- NOTE | 2019-06-04 21:38 | PDOC ---
Exam Note: Ramos Note: Please also refer to the separate dictated note~for this date of service dictated separately.~Patient seen individually. Discussed the patient with Nursing staff reviewed the chart.~Reviewed interim history and current functioning. Reviewed vital signs,~Labs/ Radiology~and current medications noted below. Continue current treatment with the changes noted in the dictated addendum note Assessment: Vital Signs/I&O: Vital Signs Date Time Temp Pulse Resp B/P (MAP) Pulse Ox O2 Delivery O2 Flow Rate FiO2 06/04/19 15:57 98.2 74 18 139/83 (101) 100 06/04/19 06:21 Room Air I & O 06/03/19 06/03/19 06/04/19 15:00 23:00 07:00 Intake Total 720 ml 320 ml Balance 720 ml 320 ml Current Medications: Meds: Current Medications Medications (Trade) Dose Ordered Sig/Kylah Route PRN Reason Start Time Stop Time Status Last Admin Dose Admin Benztropine Mesylate (Cogentin) 1.5 mg DAILY PO 06/04/19 09:00 06/04/19 08:28 I have reviewed the current psychotropics carefully including drug interactions. Risk benefit ratio favors no change other than as noted in my dictated progress note. Diagnosis: Problems: (1) Impulse control disorder (2) Bipolar disorder, curr episode mixed, severe, with psychotic features (3) Medical clearance for psychiatric admission (4) Anxiety disorder (5) Schizoaffective disorder, chronic condition with acute exacerbation (6) Borderline intellectual disability NIKKI SHIELDS MD Jun 04, 2019 21:38
--- NOTE | 2019-06-05 01:21 | NUR ---
Pt in his room for meds and assessment. Pt states repeatedly,"I am so tired. I just want to sleep. My eyes are heavy." Pt pleasant and cooperative for cares and medications. Will continue to monitor.
[2019-06-05] MEDS: LEVOTHYROXINE 25 MCG TABLET. PO SCH (05:32)
[2019-06-05 05:42] VITALS: BP 137/77
[2019-06-05] MEDS: FUROSEMIDE 40 MG TABLET PO SCH (07:46)
[2019-06-05] MEDS: BENZTROPINE MESYLATE 1 MG TABLET PO SCH ×2 (07:46→19:43)
[2019-06-05] MEDS: PANTOPRAZOLE 40 MG TABLET. PO SCH (07:47)
[2019-06-05] MEDS: DIVALPROEX ER 500 MG TAB.ER.24H PO SCH (07:47)
[2019-06-05] MEDS: CETIRIZINE HCL 10 MG TABLET PO SCH (07:47)
[2019-06-05] MEDS: POTASSIUM CHLORIDE 20 MEQ TABLET.ER. PO SCH (07:47)
[2019-06-05] MEDS: risperiDONE 0.5 MG TABLET. PO SCH ×3 (07:47→19:44)
[2019-06-05] MEDS: CALCIUM POLYCARBOPHIL 625 MG TABLET PO SCH (07:47)
[2019-06-05] MEDS: busPIRone 5 MG TABLET. PO SCH ×3 (07:47→17:31)
[2019-06-05] MEDS: POLYETHYLENE GLYCOL 3350 17 GM PACKET. PO SCH (07:48)
[2019-06-05] MEDS: FERROUS SULFATE 325 MG TABLET. PO SCH (07:48)
[2019-06-05] MEDS: LORazepam 1 MG TABLET PO SCH ×2 (07:48→19:43)
[2019-06-05] MEDS: TAMSULOSIN 0.4 MG CAP.ER.24H. PO SCH (07:48)
[2019-06-05] MEDS: OXYBUTYNIN CHLORIDE 5 MG TABLET PO SCH ×3 (07:48→19:43)
[2019-06-05] MEDS: traZODone 50 MG TABLET. PO SCH ×2 (07:53→13:10)
[2019-06-05] MEDS: FLUTICASONE 50MCG/NASAL SPRAY 16GM BOTTLE. NS SCH (07:54)
--- NOTE | 2019-06-05 09:53 | PN ---
DATE: 06/04/2019 PSYCHIATRIC PROGRESS NOTE. This late entry of 06/04/2019 covers the elements not covered in my initial note. SUBJECTIVE: I met with the patient in the evening of 06/04/2019. Per YUE Otero, the patient slept 8-1/2 hours previous night. Per nursing report, the patient has been a "mess". He has been yelling, angry, labile, cursing at staff, calling staff derogatory names, restless, agitated. REVIEW OF SYSTEMS: Ambulation impaired, in wheelchair. No CV, , pulmonary, eye system symptoms on review. He has vague somatic symptoms, fixated, obsessed as I met with him about being discharged. MENTAL STATUS EXAM: Oriented to himself, at times situation. Speech is coherent, rapid, loud at times. Abstraction fair, computation impaired, language function intact, attention span short. Mood and affect labile, paranoid, delusional. LABORATORY DATA: Reviewed. No active suicidal or homicidal ideation. IMPRESSION: Schizoaffective disorder, bipolar type, mixed with psychotic features, intellectual disability; anxiety disorder, unspecified; impulse control disorder, unspecified. PLAN: Start trazodone scheduled 12.5 mg 9 a.m., 1:00 p.m., 5:00 p.m. Continue rest of the psychotropics unchanged. Cogentin has been reduced down to 1.5 mg a.m., 2 mg at bedtime. We will reduce further in due course. Continue Invega Sustenna, Provera, Depakote, Trileptal, Ativan which may need to be reduced, BuSpar Atarax is p.r.n. MAN Jaylene SHIELDS MD DR: VIELKA/shawn JOB#: [id number] / [id number]
--- NOTE | 2019-06-05 09:56 | NUR ---
Patient is located in dining room at time of at time of medication administration and assessment. Patient is pleasant and compliant with assessment and medications. Patient is needy and hyperverbal stating "natasha" over and over again. Patient is asking for help with things multiple times during meal even after staff told patient they would address his needs. Patient is participating in group in day room at this time. Will continue to monitor.
--- NOTE | 2019-06-05 10:44 | NUR ---
1:1 with Gregory in afternoon on 06/04/19 and this morning. Gregory apologized to SW at both interactions for the name calling and use of profanities on the morning of 06/04/19 after SW had encouraged him to calm himself. This morning, discussed with Gregory alternate behavior at times when he becomes angry. Gregory expressed he could go to his room until he calms down. SW encouraged Gregory to do this the next time he feels angry. Gregory participated in SW group this morning and then requested to listen to music on the [employer]. SW provided Chari and headphones per request.
[2019-06-05] MEDS: hydrOXYzine HCL 25 MG TABLET PO PRN (13:11)
[2019-06-05 16:27] VITALS: BP 135/77
[2019-06-05] MEDS: traZODone 100 MG TABLET. PO SCH (19:43)
[2019-06-05] MEDS: SENNOSIDES 8.6 MG TABLET PO SCH (19:43)
[2019-06-05] MEDS: DIVALPROEX ER 250 MG TAB.ER.24H. PO SCH (19:44)
--- NOTE | 2019-06-05 21:57 | PDOC ---
Exam Note: Ramos Note: Please also refer to the separate dictated note~for this date of service dictated separately.~Patient seen individually. Discussed the patient with Nursing staff reviewed the chart.~Reviewed interim history and current functioning. Reviewed vital signs,~Labs/ Radiology~and current medications noted below. Continue current treatment with the changes noted in the dictated addendum note Assessment: Vital Signs/I&O: Vital Signs Date Time Temp Pulse Resp B/P (MAP) Pulse Ox O2 Delivery O2 Flow Rate FiO2 06/05/19 16:27 97.5 76 20 135/77 (96) 95 06/05/19 05:42 Room Air I & O 06/04/19 06/04/19 06/05/19 15:00 23:00 07:00 Intake Total 840 ml 120 ml Balance 840 ml 120 ml Current Medications: Meds: Current Medications Medications (Trade) Dose Ordered Sig/Kylah Route PRN Reason Start Time Stop Time Status Last Admin Dose Admin Trazodone HCl (Desyrel) 12.5 mg TIDWMEALS PO 06/05/19 09:00 06/05/19 17:03 DC 06/05/19 13:10 I have reviewed the current psychotropics carefully including drug interactions. Risk benefit ratio favors no change other than as noted in my dictated progress note. Diagnosis: Problems: (1) Impulse control disorder (2) Bipolar disorder, curr episode mixed, severe, with psychotic features (3) Medical clearance for psychiatric admission (4) Anxiety disorder (5) Schizoaffective disorder, chronic condition with acute exacerbation (6) Borderline intellectual disability NIKKI SHIELDS MD Jun 05, 2019 21:57
--- NOTE | 2019-06-06 01:39 | NUR ---
Last evening pt was sleeping in Wc and requested to go to bed. He was not answering questions but did take meds whole off of a spoon without difficulty. He was cooperative with HS care and has been sleeping well.
[2019-06-06] MEDS: LEVOTHYROXINE 25 MCG TABLET. PO SCH (05:46)
[2019-06-06 05:48] VITALS: BP 111/72
[2019-06-06] MEDS: DIVALPROEX ER 500 MG TAB.ER.24H PO SCH (08:28)
[2019-06-06] MEDS: busPIRone 5 MG TABLET. PO SCH ×3 (08:28→17:06)
[2019-06-06] MEDS: TAMSULOSIN 0.4 MG CAP.ER.24H. PO SCH (08:28)
[2019-06-06] MEDS: risperiDONE 0.5 MG TABLET. PO SCH ×3 (08:28→21:08)
[2019-06-06] MEDS: OXYBUTYNIN CHLORIDE 5 MG TABLET PO SCH ×3 (08:29→21:09)
[2019-06-06] MEDS: FERROUS SULFATE 325 MG TABLET. PO SCH (08:29)
[2019-06-06] MEDS: POTASSIUM CHLORIDE 20 MEQ TABLET.ER. PO SCH (08:29)
[2019-06-06] MEDS: CALCIUM POLYCARBOPHIL 625 MG TABLET PO SCH (08:29)
[2019-06-06] MEDS: BENZTROPINE MESYLATE 1 MG TABLET PO SCH ×2 (08:29→21:08)
[2019-06-06] MEDS: FUROSEMIDE 40 MG TABLET PO SCH (08:29)
[2019-06-06] MEDS: CETIRIZINE HCL 10 MG TABLET PO SCH (08:30)
[2019-06-06] MEDS: PANTOPRAZOLE 40 MG TABLET. PO SCH (08:30)
[2019-06-06] MEDS: LORazepam 1 MG TABLET PO SCH ×2 (08:30→21:09)
[2019-06-06] MEDS: traZODone 50 MG TABLET. PO SCH ×3 (08:30→17:06)
[2019-06-06] MEDS: FLUTICASONE 50MCG/NASAL SPRAY 16GM BOTTLE. NS SCH (08:31)
[2019-06-06] MEDS: POLYETHYLENE GLYCOL 3350 17 GM PACKET. PO SCH (08:38)
--- NOTE | 2019-06-06 11:08 | NUR ---
WEEKLY ACTIVITY THERAPY NOTE Date of Admission: 05/24/2019 Date of AT Assessment: 05/27/2019 Goal aimed: to increase engagement Initial Goal: Pt. will participate in at least five Activity Therapy groups per week. Weekly progress towards goal: 4/5 Group participation level: 2 min, 2 full Weekly highlights: fully engaged in both groups on Monday Behaviors observed: often playing cards with individual staff, wandering often, more redirectable this week, often asking if staff is s 'Mainframe Software Developer.' Plan: no change to goal Beneficial adaptations: wireless headphones/ brianna music, Rummy (cards)
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
--- NOTE | 2019-06-06 14:00 | NUR ---
Social work student (SWS) and pt spent 45 minutes playing cards. SWS has learned to set boundaries with pt, since pt is extremely attention-seeking at times. Pt does not differentiate between positive or negative attention as long as he gets it. SWS has learned to greet pt in the morning and then instruct him of SWS's availability that particular day. This practice sets up the pt's expectations and he then understands why SWS cannot respond to him immediately. Pt has insight into his past actions. For example, he does show remorse when he knows that he has misbehaved or has been rude. He also likes to know when activities will happen, such as playing cards or snacks. Letting him know when something will happen may help him be more patient.
[2019-06-06 15:58] VITALS: BP 117/78
--- NOTE | 2019-06-06 20:16 | PN ---
DATE: 06/05/2019 PSYCHIATRIC PROGRESS NOTE This late entry 06/05/2019 covers elements not covered in my initial note. SUBJECTIVE: I met with the patient in the evening. Per YUE Avalos, the patient slept 8-1/2 hours previous night. He has been hyperverbal, demanding, calling the nursing staff, the B word and yelling, extremely labile in his mood. REVIEW OF SYSTEMS: Ambulation impaired, in wheelchair. No CV, , pulmonary, eye system symptoms on review. MENTAL STATUS EXAM: Oriented to himself and situation. Speech is coherent, abstraction fair, computation impaired, language function intact, attention span short. Mood and affect labile. LABORATORY DATA: Reviewed. IMPRESSION: Unchanged from initial note. PLAN: We initiated trazodone 12.5 mg t.i.d. We will increase to 25 mg t.i.d. Continue rest of the psychotropics unchanged for now. NIKKI SHIELDS MD DR: VIELKA/shawn JOB#: [id number] / [id number]
[2019-06-06] MEDS: DIVALPROEX ER 250 MG TAB.ER.24H. PO SCH (21:08)
[2019-06-06] MEDS: SENNOSIDES 8.6 MG TABLET PO SCH (21:09)
[2019-06-06] MEDS: traZODone 100 MG TABLET. PO SCH (21:09)
--- NOTE | 2019-06-06 22:59 | PDOC ---
Exam Note: Ramos Note: Please also refer to the separate dictated note~for this date of service dictated separately.~Patient seen individually. Discussed the patient with Nursing staff reviewed the chart.~Reviewed interim history and current functioning. Reviewed vital signs,~Labs/ Radiology~and current medications noted below. Continue current treatment with the changes noted in the dictated addendum note Assessment: Vital Signs/I&O: Vital Signs Date Time Temp Pulse Resp B/P (MAP) Pulse Ox O2 Delivery O2 Flow Rate FiO2 06/06/19 15:58 98.6 68 16 117/78 (91) 96 06/05/19 05:42 Room Air I & O 06/05/19 06/05/19 06/06/19 15:00 23:00 07:00 Intake Total 600 ml 840 ml Balance 600 ml 840 ml Current Medications: Meds: Current Medications Medications (Trade) Dose Ordered Sig/Kylah Route PRN Reason Start Time Stop Time Status Last Admin Dose Admin Trazodone HCl (Desyrel) 25 mg TIDWMEALS PO 06/06/19 08:00 06/06/19 17:06 I have reviewed the current psychotropics carefully including drug interactions. Risk benefit ratio favors no change other than as noted in my dictated progress note. Diagnosis: Problems: (1) Impulse control disorder (2) Bipolar disorder, curr episode mixed, severe, with psychotic features (3) Medical clearance for psychiatric admission (4) Anxiety disorder (5) Schizoaffective disorder, chronic condition with acute exacerbation (6) Borderline intellectual disability NIKKI SHIELDS MD Jun 06, 2019 22:59
--- NOTE | 2019-06-07 00:48 | NUR ---
At shift change pt was sleeping in wc. When he awoke he was shouting and cursing at staff demanding to go to bed. Pt placed in quiet room and fell back to sleep.Upon reawakening he took HS meds whole then went to bed and was cooperative with cares.
[2019-06-07] MEDS: LEVOTHYROXINE 25 MCG TABLET. PO SCH (05:41)
[2019-06-07 06:20] VITALS: BP 113/68
[2019-06-07] MEDS: busPIRone 5 MG TABLET. PO SCH ×3 (08:23→17:00)
[2019-06-07] MEDS: TAMSULOSIN 0.4 MG CAP.ER.24H. PO SCH (08:23)
[2019-06-07] MEDS: traZODone 50 MG TABLET. PO SCH ×3 (08:23→17:00)
[2019-06-07] MEDS: FERROUS SULFATE 325 MG TABLET. PO SCH (08:23)
[2019-06-07] MEDS: FUROSEMIDE 40 MG TABLET PO SCH (08:23)
[2019-06-07] MEDS: risperiDONE 0.5 MG TABLET. PO SCH ×3 (08:24→21:26)
[2019-06-07] MEDS: CALCIUM POLYCARBOPHIL 625 MG TABLET PO SCH (08:24)
[2019-06-07] MEDS: POLYETHYLENE GLYCOL 3350 17 GM PACKET. PO SCH (08:24)
[2019-06-07] MEDS: DIVALPROEX ER 500 MG TAB.ER.24H PO SCH (08:24)
[2019-06-07] MEDS: OXYBUTYNIN CHLORIDE 5 MG TABLET PO SCH ×3 (08:24→21:26)
[2019-06-07] MEDS: POTASSIUM CHLORIDE 20 MEQ TABLET.ER. PO SCH (08:24)
[2019-06-07] MEDS: CETIRIZINE HCL 10 MG TABLET PO SCH (08:25)
[2019-06-07] MEDS: BENZTROPINE MESYLATE 1 MG TABLET PO SCH ×2 (08:25→21:26)
[2019-06-07] MEDS: PANTOPRAZOLE 40 MG TABLET. PO SCH (08:25)
[2019-06-07] MEDS: LORazepam 1 MG TABLET PO SCH ×2 (08:26→21:27)
[2019-06-07] MEDS: FLUTICASONE 50MCG/NASAL SPRAY 16GM BOTTLE. NS SCH (08:27)
--- NOTE | 2019-06-07 09:57 | PN ---
DATE: 06/06/2019 PSYCHIATRIC PROGRESS NOTE This late entry 06/06/2019 covers elements not covered in my initial note. SUBJECTIVE: The patient was staffed at a treatment team meeting with the entire team in the morning and Flash, social service staff attended from [facility]. The patient is sleeping 7-1/4 hours. Appetite 100%. He is doing a little better, but he still has episodic yelling, screaming, marked mood lability, having to be placed in the West Hallway, but seems to be gradually improving. REVIEW OF SYSTEMS: Ambulation impaired, in wheelchair. No CV, , pulmonary, eye system symptoms on review. MENTAL STATUS EXAM: Oriented to himself and situation. Speech is coherent, can be rapid at times. Abstraction fair, computation impaired, language function intact. Mood and affect remains labile. LABORATORY DATA: Reviewed. IMPRESSION: Schizoaffective disorder, bipolar type, mixed with psychotic features, intellectual disability. Rest unchanged. PLAN: No change from initial note. MAN Jaylene SHIELDS MD DR: VIELKA/shawn JOB#: [id number] / [id number]
[2019-06-07] MEDS: PHENOL ORAL SPRAY 177ML BOTTLE. PO PRN (15:42)
--- NOTE | 2019-06-07 15:51 | NUR ---
Pt up in for meals and out to groups. Has been asking staff to marrying him. Pt started c/o sore throat this afternoon. T 99.2. Unable to visualized tough as pt has a large proturbant tongue. Order received to swab for strep and order for Chloraseptic spay. Resting quietly in bed at this time.
[2019-06-07 16:20] VITALS: BP 115/71
--- NOTE | 2019-06-07 19:00 | NUR ---
Dr Golden requested pt be screened for perez virus.Notified supervisor mold yard. Faxed up screen document , criteria for testing. Pt met protocol. PPE applied with assistance. Pt had one oropharyngeal swab and one nasal swab. Pt also swabbed for Flu A/B. Pt very resistive with swabs. Specimens obtained and sent to lab.
[2019-06-07 20:46] LABS: INFLUENZA A PATIENT NEGATIVE (NEGATIVE); INFLUENZA B PATIENT NEGATIVE (NEGATIVE)
[2019-06-07] MEDS: SENNOSIDES 8.6 MG TABLET PO SCH (21:26)
[2019-06-07] MEDS: traZODone 100 MG TABLET. PO SCH (21:26)
[2019-06-07] MEDS: ACETAMINOPHEN 500 MG TABLET PO PRN (21:26)
[2019-06-07] MEDS: DIVALPROEX ER 250 MG TAB.ER.24H. PO SCH (21:27)
--- NOTE | 2019-06-07 21:45 | NUR ---
Pt has been sleeping in bed this shift. He was awaken for meds and is drowsy but responsive and said he " feels like shit" he ate ice and cream and pudding took his meds whole and went back to sleep. Vss T 99.2 oral. Tylenol given for CO sore throat.
[2019-06-07 22:16] VITALS: BP 123/75
--- NOTE | 2019-06-07 22:43 | PDOC ---
Exam Note: Ramos Note: Please also refer to the separate dictated note~for this date of service dictated separately.~Discussed the patient with Nursing staff reviewed the chart.~Reviewed interim history and current functioning. Reviewed vital signs,~Labs/ Radiology~and current medications noted below. Continue current treatment with the changes noted in the dictated addendum note Assessment: Vital Signs/I&O: Vital Signs Date Time Temp Pulse Resp B/P (MAP) Pulse Ox O2 Delivery O2 Flow Rate FiO2 06/07/19 22:16 99.2 83 20 123/75 (91) 95 Room Air I & O 06/06/19 06/06/19 06/07/19 15:00 23:00 07:00 Intake Total 600 ml 720 ml Balance 600 ml 720 ml Labs: Laboratory Tests Test 06/07/19 15:00 06/07/19 18:40 Group A Streptococcus Rapid Negative (NEGATIVE) Influenza Type A (Rapid) Negative (NEGATIVE) Influenza Type B (Rapid) Negative (NEGATIVE) Current Medications: Meds: Current Medications Medications (Trade) Dose Ordered Sig/Kylah Route PRN Reason Start Time Stop Time Status Last Admin Dose Admin Throat Lozenges (Chloraseptic) 1 spray PRN Q2HR PRN PO SORE THROAT 06/07/19 15:15 06/07/19 15:42 I have reviewed the current psychotropics carefully including drug interactions. Risk benefit ratio favors no change other than as noted in my dictated progress note. Diagnosis: Problems: (1) Impulse control disorder (2) Bipolar disorder, curr episode mixed, severe, with psychotic features (3) Medical clearance for psychiatric admission (4) Anxiety disorder (5) Schizoaffective disorder, chronic condition with acute exacerbation (6) Borderline intellectual disability NIKKI SHIELDS MD Jun 07, 2019 22:43
[2019-06-08] MEDS ORDERED: ALBUTEROL SULFATE 2.5 MG/3 ML NEBU. NEB PRN (03:45)
--- NOTE | 2019-06-08 04:00 | NUR ---
Pt awake and c/o SOA repositioned and RTTX given. He is more alert this morning. Still co being sick, PRNs given for co sore throat and generalized pain. He requested music and tablet provided playing hits from the 60's.
[2019-06-08] MEDS: hydrOXYzine HCL 25 MG TABLET PO PRN ×2 (04:05→09:30)
[2019-06-08] MEDS: PHENOL ORAL SPRAY 177ML BOTTLE. PO PRN (04:05)
[2019-06-08] MEDS: LEVOTHYROXINE 25 MCG TABLET. PO SCH (04:05)
[2019-06-08] MEDS: ACETAMINOPHEN 500 MG TABLET PO PRN (04:06)
[2019-06-08 04:45] VITALS: BP 108/69
[2019-06-08 06:47] VITALS: BP 146/76
[2019-06-08] MEDS: busPIRone 5 MG TABLET. PO SCH ×3 (09:18→17:47)
[2019-06-08] MEDS: DIVALPROEX ER 500 MG TAB.ER.24H PO SCH (09:18)
[2019-06-08] MEDS: POLYETHYLENE GLYCOL 3350 17 GM PACKET. PO SCH (09:18)
[2019-06-08] MEDS: traZODone 50 MG TABLET. PO SCH ×3 (09:19→17:47)
[2019-06-08] MEDS: CETIRIZINE HCL 10 MG TABLET PO SCH (09:19)
[2019-06-08] MEDS: TAMSULOSIN 0.4 MG CAP.ER.24H. PO SCH (09:19)
[2019-06-08] MEDS: FERROUS SULFATE 325 MG TABLET. PO SCH (09:19)
[2019-06-08] MEDS: OXYBUTYNIN CHLORIDE 5 MG TABLET PO SCH ×3 (09:19→21:20)
[2019-06-08] MEDS: risperiDONE 0.5 MG TABLET. PO SCH ×3 (09:20→21:20)
[2019-06-08] MEDS: CALCIUM POLYCARBOPHIL 625 MG TABLET PO SCH (09:20)
[2019-06-08] MEDS: BENZTROPINE MESYLATE 1 MG TABLET PO SCH ×2 (09:20→21:20)
[2019-06-08] MEDS: FUROSEMIDE 40 MG TABLET PO SCH (09:20)
[2019-06-08] MEDS: PANTOPRAZOLE 40 MG TABLET. PO SCH (09:20)
[2019-06-08] MEDS: POTASSIUM CHLORIDE 20 MEQ TABLET.ER. PO SCH (09:21)
[2019-06-08] MEDS: FLUTICASONE 50MCG/NASAL SPRAY 16GM BOTTLE. NS SCH (09:23)
[2019-06-08] MEDS: LORazepam 1 MG TABLET PO SCH ×2 (09:23→21:20)
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
--- NOTE | 2019-06-08 10:30 | NUR ---
Pt put self on floor in room. Mats placed on floor. Pt lying on floor.
[2019-06-08] MEDS: HALOPERIDOL LACT 5 MG/ML VIAL. IM SCH (11:15)
--- NOTE | 2019-06-08 14:00 | NUR ---
Pt yelling out that he is hungry and wants in wc. Pt up in wc. Tray given. Took meds without difficulty.
[2019-06-08 15:58] VITALS: BP 138/83
--- NOTE | 2019-06-08 16:00 | NUR ---
Pt yelling out he is tired. Wants to return to bed. Pt placed back in bed. Has not had a temp this shift. Condition has not appeared to worsen.
[2019-06-08] MEDS: traZODone 100 MG TABLET. PO SCH (21:20)
[2019-06-08] MEDS: SENNOSIDES 8.6 MG TABLET PO SCH (21:20)
[2019-06-08] MEDS: DIVALPROEX ER 250 MG TAB.ER.24H. PO SCH (21:20)
--- NOTE | 2019-06-08 22:35 | PDOC ---
Exam Note: Ramos Note: Please also refer to the separate dictated note~for this date of service dictated separately. Discussed the patient with Nursing staff reviewed the chart.~Reviewed interim history and current functioning. Reviewed vital signs,~Labs/ Radiology~and current medications noted below. Continue current treatment with the changes noted in the dictated addendum note Assessment: Vital Signs/I&O: Vital Signs Date Time Temp Pulse Resp B/P (MAP) Pulse Ox O2 Delivery O2 Flow Rate FiO2 06/08/19 15:58 97.9 92 17 138/83 (101) 94 06/08/19 06:47 Room Air I & O 06/07/19 06/07/19 06/08/19 15:00 23:00 07:00 Intake Total 960 ml 340 ml 450 ml Balance 960 ml 340 ml 450 ml Current Medications: Meds: Current Medications Medications (Trade) Dose Ordered Sig/Kylah Route PRN Reason Start Time Stop Time Status Last Admin Dose Admin Albuterol Sulfate (Ventolin) 2.5 mg PRN Q4HRS PRN NEB SHORTNESS OF BREATH 06/08/19 03:45 06/08/19 04:07 Haloperidol Lactate (Haldol) 5 mg DAILY IM 06/08/19 11:15 06/08/19 11:15 I have reviewed the current psychotropics carefully including drug interactions. Risk benefit ratio favors no change other than as noted in my dictated progress note. Diagnosis: Problems: (1) Impulse control disorder (2) Bipolar disorder, curr episode mixed, severe, with psychotic features (3) Medical clearance for psychiatric admission (4) Anxiety disorder (5) Schizoaffective disorder, chronic condition with acute exacerbation (6) Borderline intellectual disability NIKKI SHIELDS MD Jun 08, 2019 22:35
--- NOTE | 2019-06-08 23:50 | NUR ---
Pt located in his room all evening, sleeping in bed. Pt irritable when woken up and resistive to medication. Pt eventually compliant with whole medications. Pt denied pain. Stated that he wanted to go back to sleep.
[2019-06-09] MEDS: ACETAMINOPHEN 500 MG TABLET PO PRN (01:17)
[2019-06-09] MEDS: LEVOTHYROXINE 25 MCG TABLET. PO SCH (05:33)
[2019-06-09 06:08] VITALS: BP 140/84
[2019-06-09] MEDS: HALOPERIDOL LACT 5 MG/ML VIAL. IM SCH (09:00)
[2019-06-09] MEDS: risperiDONE 0.5 MG TABLET. PO SCH ×3 (09:04→21:02)
[2019-06-09] MEDS: POLYETHYLENE GLYCOL 3350 17 GM PACKET. PO SCH (09:04)
[2019-06-09] MEDS: CETIRIZINE HCL 10 MG TABLET PO SCH (09:04)
[2019-06-09] MEDS: busPIRone 5 MG TABLET. PO SCH ×3 (09:04→18:30)
[2019-06-09] MEDS: CALCIUM POLYCARBOPHIL 625 MG TABLET PO SCH (09:05)
[2019-06-09] MEDS: LORazepam 1 MG TABLET PO SCH ×2 (09:05→21:03)
[2019-06-09] MEDS: PANTOPRAZOLE 40 MG TABLET. PO SCH (09:05)
[2019-06-09] MEDS: FUROSEMIDE 40 MG TABLET PO SCH (09:05)
[2019-06-09] MEDS: TAMSULOSIN 0.4 MG CAP.ER.24H. PO SCH (09:05)
[2019-06-09] MEDS: POTASSIUM CHLORIDE 20 MEQ TABLET.ER. PO SCH (09:05)
[2019-06-09] MEDS: DIVALPROEX ER 500 MG TAB.ER.24H PO SCH (09:05)
[2019-06-09] MEDS: FLUTICASONE 50MCG/NASAL SPRAY 16GM BOTTLE. NS SCH (09:06)
[2019-06-09] MEDS: FERROUS SULFATE 325 MG TABLET. PO SCH (09:06)
[2019-06-09] MEDS: BENZTROPINE MESYLATE 1 MG TABLET PO SCH ×2 (09:06→21:03)
[2019-06-09] MEDS: OXYBUTYNIN CHLORIDE 5 MG TABLET PO SCH ×3 (09:06→21:03)
[2019-06-09] MEDS: traZODone 50 MG TABLET. PO SCH ×3 (09:06→18:31)
--- NOTE | 2019-06-09 09:39 | RAD ---
EXAM: CHEST 1 VIEW History: Congestion COMPARISON: None available. TECHNIQUE: Single portable radiograph of the chest FINDINGS: The cardiac silhouette is unremarkable. Minimal linear left lung base airspace opacity. The costophrenic sulci are clear and well demarcated. IMPRESSION: Minimal linear left base airspace opacity likely atelectasis or infiltrate. Follow-up to resolution. Electronically signed by: Timur Lund MD (06/09/2019 9:36 AM) [id number]
[2019-06-09 12:20] LABS: ALBUMIN 2.4 g/dL (3.4-5.0); ALBUMIN/GLOBULIN RATIO 0.6 (1.0-1.7); CALCIUM 8.9 mg/dL (8.5-10.1); CREATININE 0.8 mg/dL (0.7-1.3); GFR 96.7; POTASSIUM 4.3 mmol/L (3.5-5.1); TOTAL BILIRUBIN 0.3 mg/dL (0.2-1.0); TOTAL PROTEIN 6.7 g/dL (6.4-8.2)
[2019-06-09 13:50] LABS: BASO % 0 % (0-3); EOS # 0.1 x10^3/uL (0.0-0.7); EOS % 1 % (0-3); LYMPH # 1.3 x10^3/uL (1.0-4.8); LYMPH % 16 % (24-48); MEAN CORPUSCULAR HEMOGLOBIN 30 pg (25-35); MEAN CORPUSCULAR HGB CONC 33 g/dL (31-37); MEAN CORPUSCULAR VOLUME 90 fL (79-100); MONO # 0.8 x10^3/uL (0.0-1.1); MONO % 10 % (0-9); NEUT # 5.9 x10^3uL (1.8-7.7); NEUT % 73 % (31-73); PLATELET COUNT 183 x10^3/uL (140-400); RED BLOOD COUNT 3.98 x10^6/uL (4.30-5.70); RED CELL DISTRIBUTION WIDTH 16.4 % (11.5-14.5); WHITE BLOOD COUNT 8.1 x10^3/uL (4.0-11.0)
[2019-06-09 14:23] LABS: % BANDS 7 % (0-9); % LYMPHS 13 % (24-48); % MONOS 13 % (0-10); % SEGS 67 % (35-66); NUCLEATED RBC 1; PLT ESTIMATE ADEQUATE (ADEQUATE)
[2019-06-09 14:24] LABS: POLYCHROMASIA PRESENT; TOXIC GRANULATION PRESENT
[2019-06-09 14:25] LABS: ANISOCYTOSIS SLIGHT
--- NOTE | 2019-06-09 18:52 | NUR ---
Pt has been isolated to room. Yelling out most times. Pt is now hoarse. Pt has not been febrile. CXR shown to dr Leonardo. No new orders. Has been compliant with meds and cares.
[2019-06-09] MEDS: SENNOSIDES 8.6 MG TABLET PO SCH (21:02)
[2019-06-09] MEDS: traZODone 100 MG TABLET. PO SCH (21:02)
[2019-06-09] MEDS: DIVALPROEX ER 250 MG TAB.ER.24H. PO SCH (21:03)
--- NOTE | 2019-06-09 21:43 | PDOC ---
Exam Note: Ramos Note: Please also refer to the separate dictated note~for this date of service dictated separately. Discussed the patient with Nursing staff reviewed the chart.~Reviewed interim history and current functioning. Reviewed vital signs,~Labs/ Radiology~and current medications noted below. Continue current treatment with the changes noted in the dictated addendum note Assessment: Vital Signs/I&O: Vital Signs Date Time Temp Pulse Resp B/P (MAP) Pulse Ox O2 Delivery O2 Flow Rate FiO2 06/09/19 06:08 97.9 85 20 140/84 (102) 94 06/08/19 06:47 Room Air I & O 06/08/19 06/08/19 06/09/19 15:00 23:00 07:00 Intake Total 0 ml 300 ml Balance 0 ml 300 ml Labs: Laboratory Tests Test 06/09/19 10:30 06/09/19 13:30 Sodium Level 141 mmol/L (136-145) Potassium Level 4.3 mmol/L (3.5-5.1) Chloride Level 105 mmol/L (98-107) Carbon Dioxide Level 27 mmol/L (21-32) Anion Gap 9 (6-14) Blood Urea Nitrogen 18 mg/dL (8-26) Creatinine 0.8 mg/dL (0.7-1.3) Estimated GFR (Cockcroft-Gault) 96.7 BUN/Creatinine Ratio 23 (6-20) H Glucose Level 143 mg/dL (70-99) H Calcium Level 8.9 mg/dL (8.5-10.1) Total Bilirubin 0.3 mg/dL (0.2-1.0) Aspartate Amino Transferase (AST) 27 U/L (15-37) Alanine Aminotransferase (ALT) 13 U/L (16-63) L Alkaline Phosphatase 112 U/L (46-116) Total Protein 6.7 g/dL (6.4-8.2) Albumin 2.4 g/dL (3.4-5.0) L Albumin/Globulin Ratio 0.6 (1.0-1.7) L White Blood Count 8.1 x10^3/uL (4.0-11.0) Red Blood Count 3.98 x10^6/uL (4.30-5.70) L Hemoglobin 12.0 g/dL (13.0-17.5) L Hematocrit 36.0 % (39.0-53.0) L Mean Corpuscular Volume 90 fL (79-100) Mean Corpuscular Hemoglobin 30 pg (25-35) Mean Corpuscular Hemoglobin Concent 33 g/dL (31-37) Red Cell Distribution Width 16.4 % (11.5-14.5) H Platelet Count 183 x10^3/uL (140-400) Neutrophils (%) (Auto) 73 % (31-73) Lymphocytes (%) (Auto) 16 % (24-48) L Monocytes (%) (Auto) 10 % (0-9) H Eosinophils (%) (Auto) 1 % (0-3) Basophils (%) (Auto) 0 % (0-3) Neutrophils # (Auto) 5.9 x10^3uL (1.8-7.7) Lymphocytes # (Auto) 1.3 x10^3/uL (1.0-4.8) Monocytes # (Auto) 0.8 x10^3/uL (0.0-1.1) Eosinophils # (Auto) 0.1 x10^3/uL (0.0-0.7) Basophils # (Auto) 0.0 x10^3/uL (0.0-0.2) Segmented Neutrophils % 67 % (35-66) H Band Neutrophils % 7 % (0-9) Lymphocytes % 13 % (24-48) L Monocytes % 13 % (0-10) H Nucleated Red Blood Cells 1 Toxic Granulation Present Platelet Estimate Adequate (ADEQUATE) Large Platelets Occ Polychromasia Present Anisocytosis Slight Current Medications: I have reviewed the current psychotropics carefully including drug interactions. Risk benefit ratio favors no change other than as noted in my dictated progress note. Diagnosis: Problems: (1) Impulse control disorder (2) Bipolar disorder, curr episode mixed, severe, with psychotic features (3) Medical clearance for psychiatric admission (4) Anxiety disorder (5) Schizoaffective disorder, chronic condition with acute exacerbation (6) Borderline intellectual disability NIKKI SHIELDS MD Jun 09, 2019 21:43
--- NOTE | 2019-06-09 23:36 | NUR ---
Pt located in his room all evening. Pt sleeping but was compliant with whole medications. Pt states that he's not sick and feels better. Pt currently laying in bed listening to music on the brianna.
[2019-06-10] MEDS: LEVOTHYROXINE 25 MCG TABLET. PO SCH (05:15)
[2019-06-10 05:30] VITALS: BP 119/71
[2019-06-10] MEDS: HALOPERIDOL LACT 5 MG/ML VIAL. IM SCH (09:51)
[2019-06-10] MEDS: LORazepam 1 MG TABLET PO SCH ×2 (09:56→20:47)
[2019-06-10] MEDS: FUROSEMIDE 40 MG TABLET PO SCH (09:56)
[2019-06-10] MEDS: TAMSULOSIN 0.4 MG CAP.ER.24H. PO SCH (09:56)
[2019-06-10] MEDS: PANTOPRAZOLE 40 MG TABLET. PO SCH (09:56)
[2019-06-10] MEDS: risperiDONE 0.5 MG TABLET. PO SCH ×3 (09:56→20:46)
[2019-06-10] MEDS: POTASSIUM CHLORIDE 20 MEQ TABLET.ER. PO SCH (09:56)
[2019-06-10] MEDS: FERROUS SULFATE 325 MG TABLET. PO SCH (09:57)
[2019-06-10] MEDS: POLYETHYLENE GLYCOL 3350 17 GM PACKET. PO SCH (09:57)
[2019-06-10] MEDS: OXYBUTYNIN CHLORIDE 5 MG TABLET PO SCH ×3 (09:57→20:47)
[2019-06-10] MEDS: FLUTICASONE 50MCG/NASAL SPRAY 16GM BOTTLE. NS SCH (09:57)
[2019-06-10] MEDS: DIVALPROEX ER 500 MG TAB.ER.24H PO SCH (09:58)
[2019-06-10] MEDS: CETIRIZINE HCL 10 MG TABLET PO SCH (09:58)
[2019-06-10] MEDS: BENZTROPINE MESYLATE 1 MG TABLET PO SCH ×2 (09:58→20:47)
[2019-06-10] MEDS: busPIRone 5 MG TABLET. PO SCH ×3 (09:58→15:38)
[2019-06-10] MEDS: traZODone 50 MG TABLET. PO SCH ×3 (09:59→15:39)
[2019-06-10] MEDS: CALCIUM POLYCARBOPHIL 625 MG TABLET PO SCH (10:00)
--- NOTE | 2019-06-10 10:39 | NUR ---
Notified LAURO Vidales at [facility], and Joanne, public real estate services administrator's public health assistant, of potential exposure to confirmed Covid-19 case. Informed of unit being quarantined thru 06/18/19. LAURO will continue to update [facility] and public real estate services administrator regularly.
--- NOTE | 2019-06-10 13:59 | PN ---
DATE: 06/09/2019 PSYCHIATRIC PROGRESS NOTE This late entry date 06/09/2019 covers elements not covered in my initial note of 06/09/2019. SUBJECTIVE: Per Natalia RN, chest x-ray is negative. The patient remains quite labile, paranoid, has to be still in isolation, received IM Haldol 5 mg, seemed to be helpful. Mood lability persists, but slightly less agitated, even able to take responsibility that he can get out of his room if he is able to control behaviors and his COVID test is negative. IMPRESSION: Schizoaffective disorder, bipolar type, intellectual disability, rule out COVID-19 infection. Rest unchanged. PLAN: Continue current psychotropics including scheduled Haldol for now. MAN Jaylene SHIELDS MD DR: VIELKA/shawn JOB#: [id number] / [id number]
--- NOTE | 2019-06-10 14:00 | PN ---
DATE: 06/07/2019 This late entry 06/07/2019 covers elements not covered in my initial note. SUBJECTIVE: Per YUE Fisher, the patient has been making some sexually suggestive statements, asking nursing staff if they would him. He does have upper respiratory tract infection and has been running a fever and lab studies have been done by Dr. Leonardo and a COVID-19 test has been sent off as well. Apparently, one of the staff members turned up positive for COVID-19 just earlier on the and had received this information from YUE Ziegler, nurse commercial sales manager, evening of 06/07/2019. The patient has been placed in the [facility] to isolate himself and he has been extremely labile in his mood, yelling, screaming, spitting on staff, which is a significant risk given the above Infectious Disease. He has received 2 mg of Ativan p.o. already as part of his 2 mg b.i.d. scheduled Ativan and we will go ahead and start Haldol 5 mg IM daily for his psychotic symptoms, and mood lability. His ambulation is impaired in wheelchair. Mood lability remains fairly prominent. He is otherwise oriented to himself and situation. Speech rapid, loud at times. Abstraction fair, computation impaired. Mood and affect labile. LABORATORY DATA: Reviewed. IMPRESSION: Unchanged from initial note. PLAN: Start the scheduled IM Haldol. Await results of COVID-19 testing. Rest unchanged. MAN Jaylene SHIELDS MD DR: VIELKA/shawn JOB#: [id number] / [id number]
[2019-06-10 16:16] VITALS: BP 149/71
--- NOTE | 2019-06-10 17:38 | NUR ---
Patient in room all shift. Stated he doesn't feel well, VSS. Patient agitated early this shift, yelling out. Scheduled IM Haldol given and patient calmed down. No additional behaviors this shift. Lab advised that the COVID test was done but not the COVID-19 test. CN did another swab and it was taken to the lab. CXR completed and was negative. Patient currently in room listening to music on the [employer]. Will continue to monitor.
[2019-06-10] MEDS: DIVALPROEX ER 250 MG TAB.ER.24H. PO SCH (20:47)
[2019-06-10] MEDS: traZODone 100 MG TABLET. PO SCH (20:47)
[2019-06-10] MEDS: SENNOSIDES 8.6 MG TABLET PO SCH (20:47)
--- NOTE | 2019-06-10 21:45 | PDOC ---
Exam Note: Ramos Note: Please also refer to the separate dictated note~for this date of service dictated separately. Discussed the patient with Nursing staff reviewed the chart.~Reviewed interim history and current functioning. Reviewed vital signs,~Labs/ Radiology~and current medications noted below. Continue current treatment with the changes noted in the dictated addendum note Assessment: Vital Signs/I&O: Vital Signs Date Time Temp Pulse Resp B/P (MAP) Pulse Ox O2 Delivery O2 Flow Rate FiO2 06/10/19 16:16 98.0 83 18 149/71 (97) 96 06/08/19 06:47 Room Air I & O 06/09/19 06/09/19 06/10/19 15:00 23:00 07:00 Intake Total 360 ml 720 ml Balance 360 ml 720 ml Current Medications: I have reviewed the current psychotropics carefully including drug interactions. Risk benefit ratio favors no change other than as noted in my dictated progress note. Diagnosis: Problems: (1) Impulse control disorder (2) Bipolar disorder, curr episode mixed, severe, with psychotic features (3) Medical clearance for psychiatric admission (4) Anxiety disorder (5) Schizoaffective disorder, chronic condition with acute exacerbation (6) Borderline intellectual disability NIKKI SHIELDS MD Jun 10, 2019 21:45
--- NOTE | 2019-06-10 22:48 | NUR ---
Pt laying in bed all evening. Compliant with whole medications. Yelling on and off. States he is not sick anymore. Pt currently laying in bed listening to music on the [employer].
[2019-06-11] MEDS: LEVOTHYROXINE 25 MCG TABLET. PO SCH (05:26)
[2019-06-11 06:22] VITALS: BP 138/87
[2019-06-11] MEDS: OXYBUTYNIN CHLORIDE 5 MG TABLET PO SCH ×3 (09:45→21:08)
[2019-06-11] MEDS: risperiDONE 0.5 MG TABLET. PO SCH ×3 (09:45→21:08)
[2019-06-11] MEDS: DIVALPROEX ER 500 MG TAB.ER.24H PO SCH (09:46)
[2019-06-11] MEDS: traZODone 50 MG TABLET. PO SCH ×3 (09:47→17:36)
[2019-06-11] MEDS: FERROUS SULFATE 325 MG TABLET. PO SCH (09:47)
[2019-06-11] MEDS: PANTOPRAZOLE 40 MG TABLET. PO SCH (09:48)
[2019-06-11] MEDS: TAMSULOSIN 0.4 MG CAP.ER.24H. PO SCH (09:48)
[2019-06-11] MEDS: FUROSEMIDE 40 MG TABLET PO SCH (09:48)
[2019-06-11] MEDS: CETIRIZINE HCL 10 MG TABLET PO SCH (09:48)
[2019-06-11] MEDS: POTASSIUM CHLORIDE 20 MEQ TABLET.ER. PO SCH (09:48)
[2019-06-11] MEDS: LORazepam 1 MG TABLET PO SCH ×2 (09:49→21:08)
[2019-06-11] MEDS: busPIRone 5 MG TABLET. PO SCH ×3 (09:49→17:36)
[2019-06-11] MEDS: CALCIUM POLYCARBOPHIL 625 MG TABLET PO SCH (09:49)
[2019-06-11] MEDS: HALOPERIDOL LACT 5 MG/ML VIAL. IM SCH (09:49)
[2019-06-11] MEDS: BENZTROPINE MESYLATE 1 MG TABLET PO SCH ×2 (09:49→21:08)
[2019-06-11] MEDS: POLYETHYLENE GLYCOL 3350 17 GM PACKET. PO SCH (09:50)
[2019-06-11] MEDS: FLUTICASONE 50MCG/NASAL SPRAY 16GM BOTTLE. NS SCH (09:50)
[2019-06-11 15:35] VITALS: BP 108/67
--- NOTE | 2019-06-11 15:57 | NUR ---
Patient remains in ISO, in bed at assumption of care. Yelling out at the beginning of the shift, saying he was all better. Morning medications given without difficulty. Patient compliant with assessment and medication administration. LCTA but diminished, no complaints of pain or discomfort. Patient in chair for meals. Calm and no further yelling this afternoon. Patient appreciative of care given. Will continue to monitor.
[2019-06-11] MEDS: OLANZapine 5 MG TABLET PO PRN (18:24)
[2019-06-11] MEDS: DIVALPROEX ER 250 MG TAB.ER.24H. PO SCH (21:08)
[2019-06-11] MEDS: traZODone 100 MG TABLET. PO SCH (21:08)
[2019-06-11] MEDS: SENNOSIDES 8.6 MG TABLET PO SCH (21:08)
--- NOTE | 2019-06-11 22:45 | NUR ---
Pt laying in bed this evening. Pt sleeping when approached but was compliant with cares and medications. Pt stated he felt better and was afebrile. Pt then went back to sleep without incident.
[2019-06-12] MEDS: OLANZapine 5 MG TABLET PO PRN (01:45)
--- NOTE | 2019-06-12 01:45 | NUR ---
Pt awake and yelling out. Pt restless, causing his bed alarm to sound numerous times. Pt declined drink or snack. PRN Zyprexa administered. Pt currently laying in bed listening to the [employer]ari.
[2019-06-12] MEDS: LEVOTHYROXINE 25 MCG TABLET. PO SCH (05:25)
[2019-06-12 06:00] VITALS: BP 137/78
--- NOTE | 2019-06-12 07:21 | PDOC ---
Exam Note: Ramos Note: This is a late entry for 06/08/2019. Currently, the unit is shutdown for any admissions and discharges as directed by the Centers for Disease Control (CDC) and the [facility] ([facility]) because of Coronavirus (COVID-19) exposure on the unit. S/O: This note covers elements not covered in my initial note. The patient was reviewed with nursing staff, reviewed the chart and TeleHealth Services provided for this date for the patient. Discussed the patient with YUE Gee. Nursing staff had called me as an emergency earlier. Patient is quite agitated. His Coronavirus swab has been sent and results are awaited. He has been extremely labile in his mood since he had to be isolated on the unit and resents this. He becomes paranoid, psychotic and Haldol 5 mg IM seems to be helping scheduled for this. MSE: Alert, oriented to place, situation. Speech has some latency, coherent. He is quite obsessive, repetitive, wanting to get out of isolation, difficulty with his insight understanding why he has to be in restricted quarters. Abstraction fair. Computation impaired. Language function intact. Mood and affect somewhat labile. Labs: Reviewed. Imp: Schizoaffective disorder bipolar type, mixed with psychotic features. Intellectual disability. Plan: Continue psychotropics mentioned in my initial note. Haldol IM scheduled has been added daily. Assessment: Vital Signs/I&O: Vital Signs Date Time Temp Pulse Resp B/P (MAP) Pulse Ox O2 Delivery O2 Flow Rate FiO2 06/12/19 06:00 98.0 79 20 137/78 (97) 94 06/08/19 06:47 Room Air I & O 06/11/19 06/11/19 06/12/19 15:00 23:00 07:00 Intake Total 360 ml 580 ml Balance 360 ml 580 ml Current Medications: I have reviewed the current psychotropics carefully including drug interactions. Risk benefit ratio favors no change other than as noted in my dictated progress note. Diagnosis: Problems: (1) Impulse control disorder (2) Bipolar disorder, curr episode mixed, severe, with psychotic features (3) Medical clearance for psychiatric admission (4) Anxiety disorder (5) Schizoaffective disorder, chronic condition with acute exacerbation (6) Borderline intellectual disability NIKKI SHIELDS MD Jun 12, 2019 07:21
--- NOTE | 2019-06-12 08:16 | PDOC ---
Exam Note: Ramos Note: This is a late entry for 06/10/2019. Currently, the unit is shutdown for any admissions and discharges as directed by the Centers for Disease Control (CDC) and the [facility] ([facility]) because of Coronavirus (COVID-19) exposure on the unit. S/O: This note covers elements not covered in my initial note. The patient was reviewed with nursing staff, reviewed the chart and TeleHealth Services provided for this date for the patient. Discussed the patient with YUE Allen. His COVID- 19 test has had to be repeated since the proper specimen was not sent. He did receive his IM Haldol 5 mg seems to be better at temperature 98.3 degrees. MSE: Alert, oriented to place, situation. Speech has some latency, coherent. He is quite obsessive. Abstraction fair. Computation impaired. Language function intact. Mood and affect somewhat labile. Labs: Reviewed. Imp: Schizoaffective disorder bipolar type, mixed with psychotic features. Intellectual disability. Plan: No change from my initial note. Assessment: Vital Signs/I&O: Vital Signs Date Time Temp Pulse Resp B/P (MAP) Pulse Ox O2 Delivery O2 Flow Rate FiO2 06/12/19 06:00 98.0 79 20 137/78 (97) 94 06/08/19 06:47 Room Air I & O 06/11/19 06/11/19 06/12/19 15:00 23:00 07:00 Intake Total 360 ml 580 ml Balance 360 ml 580 ml Current Medications: I have reviewed the current psychotropics carefully including drug interactions. Risk benefit ratio favors no change other than as noted in my dictated progress note. Diagnosis: Problems: (1) Impulse control disorder (2) Bipolar disorder, curr episode mixed, severe, with psychotic features (3) Medical clearance for psychiatric admission (4) Anxiety disorder (5) Schizoaffective disorder, chronic condition with acute exacerbation (6) Borderline intellectual disability NIKKI SHIELDS MD Jun 12, 2019 08:16
--- NOTE | 2019-06-12 08:45 | PDOC ---
Exam Note: Ramos Note: This is a late entry for 06/11/2019. Currently, the unit is shutdown for any admissions and discharges as directed by the Centers for Disease Control (CDC) and the [facility] ([facility]) because of Coronavirus (COVID-19) exposure on the unit. S/O: This note covers elements not covered in my initial note. The patient was reviewed with nursing staff, reviewed the chart and TeleHealth Services provided for this date for the patient. The patient was seen on a video-conferencing call coordinated with Thomas TURNER, nursing staff on the unit whose appropriately protected with personal protective equipment and mask on the unit. Discussed the patient with YUE Allen. He slept 9 hours, was yelling in the morning. Received IM Haldol 5 mg scheduled and did better, took a nap in a chair, then responded to music and was less agitated. ROS: Ambulation impaired in wheelchair. No CV, GI/ system symptoms on review. MSE: Oriented to himself, situation. Speech is coherent. Abstraction fair per nursing report. Mood remains somewhat labile but better than before. Much better with the IM Haldol scheduled 5 mg. Paranoia appears better. No suicidal or homicidal ideation. Labs: Reviewed. Imp: Schizoaffective disorder bipolar type, mixed with psychotic features. Intellectual disability. Plan: Continue psychotropics from initial note. Repeat COVID-19 test is awaited. Assessment: Vital Signs/I&O: Vital Signs Date Time Temp Pulse Resp B/P (MAP) Pulse Ox O2 Delivery O2 Flow Rate FiO2 06/12/19 06:00 98.0 79 20 137/78 (97) 94 06/08/19 06:47 Room Air I & O 06/11/19 06/11/19 06/12/19 15:00 23:00 07:00 Intake Total 360 ml 580 ml Balance 360 ml 580 ml Current Medications: I have reviewed the current psychotropics carefully including drug interactions. Risk benefit ratio favors no change other than as noted in my dictated progress note. Diagnosis: Problems: (1) Impulse control disorder (2) Bipolar disorder, curr episode mixed, severe, with psychotic features (3) Medical clearance for psychiatric admission (4) Anxiety disorder (5) Schizoaffective disorder, chronic condition with acute exacerbation (6) Borderline intellectual disability NIKKI SHIELDS MD Jun 12, 2019 08:45
[2019-06-12] MEDS: POLYETHYLENE GLYCOL 3350 17 GM PACKET. PO SCH (08:47)
[2019-06-12] MEDS: FLUTICASONE 50MCG/NASAL SPRAY 16GM BOTTLE. NS SCH (08:47)
[2019-06-12] MEDS: BENZTROPINE MESYLATE 1 MG TABLET PO SCH ×2 (08:48→21:26)
[2019-06-12] MEDS: busPIRone 5 MG TABLET. PO SCH ×3 (08:49→15:51)
[2019-06-12] MEDS: CETIRIZINE HCL 10 MG TABLET PO SCH (08:49)
[2019-06-12] MEDS: FUROSEMIDE 40 MG TABLET PO SCH (08:49)
[2019-06-12] MEDS: POTASSIUM CHLORIDE 20 MEQ TABLET.ER. PO SCH (08:49)
[2019-06-12] MEDS: FERROUS SULFATE 325 MG TABLET. PO SCH (08:49)
[2019-06-12] MEDS: TAMSULOSIN 0.4 MG CAP.ER.24H. PO SCH (08:49)
[2019-06-12] MEDS: DIVALPROEX ER 500 MG TAB.ER.24H PO SCH (08:49)
[2019-06-12] MEDS: HALOPERIDOL LACT 5 MG/ML VIAL. IM SCH (08:49)
[2019-06-12] MEDS: PANTOPRAZOLE 40 MG TABLET. PO SCH (08:50)
[2019-06-12] MEDS: CALCIUM POLYCARBOPHIL 625 MG TABLET PO SCH (08:50)
[2019-06-12] MEDS: risperiDONE 0.5 MG TABLET. PO SCH ×3 (08:50→21:26)
[2019-06-12] MEDS: OXYBUTYNIN CHLORIDE 5 MG TABLET PO SCH ×3 (08:50→21:26)
[2019-06-12] MEDS: traZODone 50 MG TABLET. PO SCH ×3 (08:51→15:51)
[2019-06-12] MEDS: LORazepam 1 MG TABLET PO SCH ×2 (08:52→21:31)
--- NOTE | 2019-06-12 12:52 | NUR ---
IP: patient is PUI for COVID-19, requires contact and droplet precautions unless performing aerosolizing procedure then airborne and contact precautions are utilized.
[2019-06-12 16:18] VITALS: BP 120/70
[2019-06-12] MEDS: NYSTATIN 100,000 UNITS/ML ORAL SUSPENSION 60ML BOTTLE. SWSW SCH ×2 (18:00→21:29)
--- NOTE | 2019-06-12 18:27 | NUR ---
Patient alert and oriented x 2-3 this shift. Patient is cooperative with cares and meds. Continues to yell out through shift. PRN administed x 1 this shift due to patient yelling and crying out.
[2019-06-12] MEDS: traZODone 100 MG TABLET. PO SCH (21:26)
[2019-06-12] MEDS: SENNOSIDES 8.6 MG TABLET PO SCH (21:26)
[2019-06-12] MEDS: DIVALPROEX ER 250 MG TAB.ER.24H. PO SCH (21:31)
--- NOTE | 2019-06-12 22:58 | NUR ---
Nursing Note The patient was located in his room this shift per Isolation protocol. The patient was calm and compliant with his medication and took them whole. The pt was cooperative during his assessment. The patients temp and oxygen were both within normal range. The patient is currently sleeping in his room.
--- NOTE | 2019-06-12 23:06 | PDOC ---
Exam Note: Ramos Note: S/O: This note covers elements not covered in my initial note. The patient was reviewed with nursing staff, reviewed the chart. Discussed with YUE Macedo. The patient remains in isolation because of his COVID-19 being awaited. This has to be repeated since the initial test swab was incorrect. He has been yelling screaming, throwing things. Did receive IM Haldol 5 mg. ROS: Ambulation impaired in wheelchair. No CV, , Pulmonary, Eye system symptoms on review. MSE: Oriented to himself, at times situation. Speech is coherent, can be loud and rapid at times. Abstraction fair. Computation impaired. Language function intact. Attention span short. Mood and affect remains labile. Labs: Reviewed. Imp: Schizoaffective disorder bipolar type, mixed with psychotic features. Intellectual disability. Plan: Unchanged from initial note. Assessment: Vital Signs/I&O: Vital Signs Date Time Temp Pulse Resp B/P (MAP) Pulse Ox O2 Delivery O2 Flow Rate FiO2 06/12/19 16:18 98.3 68 16 120/70 (87) 95 Room Air I & O 06/11/19 06/11/19 06/12/19 15:00 23:00 07:00 Intake Total 360 ml 580 ml Balance 360 ml 580 ml Current Medications: Meds: Current Medications Medications (Trade) Dose Ordered Sig/Kylah Route PRN Reason Start Time Stop Time Status Last Admin Dose Admin Nystatin (Mycostatin) 5 ml QID SWSW 06/12/19 18:00 06/22/19 17:59 06/12/19 21:29 I have reviewed the current psychotropics carefully including drug interactions. Risk benefit ratio favors no change other than as noted in my dictated progress note. Diagnosis: Problems: (1) Impulse control disorder (2) Bipolar disorder, curr episode mixed, severe, with psychotic features (3) Medical clearance for psychiatric admission (4) Anxiety disorder (5) Schizoaffective disorder, chronic condition with acute exacerbation (6) Borderline intellectual disability NIKKI SHIELDS MD Jun 12, 2019 23:06
[2019-06-13] MEDS: LEVOTHYROXINE 25 MCG TABLET. PO SCH (05:42)
[2019-06-13 06:25] VITALS: BP 132/79
[2019-06-13] MEDS: POLYETHYLENE GLYCOL 3350 17 GM PACKET. PO SCH (07:59)
[2019-06-13] MEDS: TAMSULOSIN 0.4 MG CAP.ER.24H. PO SCH (08:00)
[2019-06-13] MEDS: OXYBUTYNIN CHLORIDE 5 MG TABLET PO SCH ×3 (08:00→22:04)
[2019-06-13] MEDS: BENZTROPINE MESYLATE 1 MG TABLET PO SCH ×2 (08:01→22:05)
[2019-06-13] MEDS: busPIRone 5 MG TABLET. PO SCH ×3 (08:04→16:13)
[2019-06-13] MEDS: DIVALPROEX ER 500 MG TAB.ER.24H PO SCH (08:04)
[2019-06-13] MEDS: CALCIUM POLYCARBOPHIL 625 MG TABLET PO SCH (08:05)
[2019-06-13] MEDS: risperiDONE 0.5 MG TABLET. PO SCH ×3 (08:05→22:04)
[2019-06-13] MEDS: FUROSEMIDE 40 MG TABLET PO SCH (08:05)
[2019-06-13] MEDS: CETIRIZINE HCL 10 MG TABLET PO SCH (08:05)
[2019-06-13] MEDS: PANTOPRAZOLE 40 MG TABLET. PO SCH (08:05)
[2019-06-13] MEDS: traZODone 50 MG TABLET. PO SCH ×3 (08:05→16:13)
[2019-06-13] MEDS: FLUTICASONE 50MCG/NASAL SPRAY 16GM BOTTLE. NS SCH (08:06)
[2019-06-13] MEDS: POTASSIUM CHLORIDE 20 MEQ TABLET.ER. PO SCH (08:06)
[2019-06-13] MEDS: FERROUS SULFATE 325 MG TABLET. PO SCH (08:06)
[2019-06-13] MEDS: LORazepam 1 MG TABLET PO SCH ×2 (08:08→22:05)
[2019-06-13] MEDS: NYSTATIN 100,000 UNITS/ML ORAL SUSPENSION 60ML BOTTLE. SWSW SCH ×4 (08:17→22:04)
[2019-06-13] MEDS: HALOPERIDOL LACT 5 MG/ML VIAL. IM SCH (08:18)
[2019-06-13] MEDS ORDERED: PALIPERIDONE PALMITATE 234 MG/1.5 ML SYRINGE KIT. IM SCH (09:00)
--- NOTE | 2019-06-13 11:34 | TX PLAN ---
Interdisciplinary Tx Plan Admission Information May 24, 2019 at 13:49 Legal Status (on Admission): Voluntary, Court Appointed Guardian DPOA/Guardian Name: Naa Nuñez Contact Verified Code Status: Full Code Allergies: Coded Allergies: amoxicillin (Verified Allergy, Unknown, 05/24/19) ciprofloxacin (Verified Allergy, Unknown, 05/24/19) soap (Verified Allergy, Unknown, 05/24/19) Diagnoses Primary Diagnosis: Schizoaffective d/o, intellectual disability Reasons for Admission: Aggressive, Agitated, Homicidal Ideation, Poor impulse control Problem in Patient's Words: Per [place], "My hips broke." Additional Admission Comments: Per [facility] facility, Jose Francisco's aggressive behaviors have escalated to a point that they are unable to manage him at this time. Problems Active Problems: Angry outbursts Sexually inappropriate comments Agitation requiring de-escalation in the quiet cueva Can be disruptve at times during group activities Inactive Problems: Medication compliant Cooperative with nursing assessments Pt Strengths/Limitations Ability for [place]: Poor Cognitive Functioning/Ability: Poor Communication Skills/Ability: Fair Financial Resources: Fair Insight/Judgement: Poor Intellectual Ability: Poor Physical Health: Fair Social Skills: Fair Stability in Family: Poor Verbal Skills: Fair Discharge Criteria Discharge Criteria: Adequate arrangements @DC, Improved behavior, Improved mood/thought Preliminary Discharge Plan Preliminary DC Plan: [facility] Special Precautions Special Precautions: Agitation/Assault Fall Risk: High Initial D/C Plan [facility] Identified Discharge Needs: F/U with PCP and telepsychiatrist Currently Utilized Resources Currently Utilized Resources/P: 24 hour care at [facility] PCP access Telepsychiatrist access Identified Problems/Hx/Goals Objectives/Short-Term Goals Short Term Goals: Control abnormal behavior, Dec. Aggression, Dec. Outbursts, Medication Stabilization, Monitor Med Effects, Promote Coping Skill Short Term Goals in Patient's: Per [facility], mood and behavior stabilization. Interventions/Frequency Staff Interventions/Frequency&: Nursing provides routine safety checks, adl support, medication administration, and assessments. Psychiatry visits 3-5 times weekly. SW visits twice weekly. Recreational and SW group involvement as Gregory desires. 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 Social: Gregory enjoys playing card games, listening to old time rock and roll music Education: Gregory reported graduating from high school in [facility]. Community Follow-up PCP Telepsychiatrist Community Provider/Family Inpu: [facility] participated in treatment team call held on 05/30/19 to coordinate care. Naa Nuñez, guardian, was unable to attend team call. Treatment Plan Explained Patient/Adjunct Communications Faculty Member had this treatment plan explained to him/her as indicated by the signature below and has been given the opportunity to ask questions and make suggestions: Date: Patient/Adjunct Communications Faculty Member Signature: Status Update Update WEEKLY UPDATE/PROGRESS NOTE: Gregory is averaging 75% of meal intakes and 6.5 hours of sleep at night. He has been confined to his room since 06/07/19 awaiting results of Covid-19 testing. Per staff report, Gregory has een provided with a Chari that he is able to listen to music on. Gregory has been compliant with taking his medications. He does yell out at times throughout the day. [facility] has been notified of 14 day quarantine on [facility]. SW will follow up next week and continue to coordinate d/c planning once safe to do so. NAA SOMMERS Jun 13, 2019 11:34
[2019-06-13] MEDS: OLANZapine 5 MG TABLET PO PRN (11:52)
--- NOTE | 2019-06-13 18:00 | NUR ---
Patient put self on floor x 2 this shift. Patient states he did it because he wants out of room. Educated patient on reasons for precautions. Patient did not verbally verified understanding of education. Patient stated that he was not injured and denies hitting head. Vitals assessed and patient currently sitting in chair eating dinner at this time. Patient also yelled loudly on and off through out shift.
[2019-06-13] MEDS: traZODone 100 MG TABLET. PO SCH (22:04)
[2019-06-13] MEDS: DIVALPROEX ER 250 MG TAB.ER.24H. PO SCH (22:04)
[2019-06-13] MEDS: SENNOSIDES 8.6 MG TABLET PO SCH (22:04)
[2019-06-13] MEDS: MAGNESIUM HYDROXIDE 2,400 MG/30 ML ORAL.SUSP. PO PRN (23:44)
--- NOTE | 2019-06-13 23:44 | PDOC ---
Exam Note: Ramos Note: S/O: This note covers elements not covered in my initial note. Discussed the patient with nursing staff, reviewed the chart. In the morning, the patient had treatment team meeting with the entire team nursing staff, social service staff and myself. He was reviewed over the telephone call in the evening with nursing staff as well. Appetite is 75%. Sleeping average is 6-1/2 hours. He continues to have some ongoing mood lability, yelling, screaming at times, difficult to redirect, but does better with the IM Haldol 5 mg and Zyprexa p.r.n. ROS: He is in a wheelchair and per nursing report does complain of some tiredness. No CV, , Pulmonary, Eye system symptoms on review. MSE: Oriented to himself, at times situation. Speech is coherent and rapid at times. Abstraction fair. Computation impaired. Language function intact. Attention span short. Mood and affect remains labile. Labs: Reviewed. Imp: Schizoaffective disorder bipolar type, mixed with psychotic features. Intellectual disability. Plan: Unchanged from initial note. Assessment: Vital Signs/I&O: Vital Signs Date Time Temp Pulse Resp B/P (MAP) Pulse Ox O2 Delivery O2 Flow Rate FiO2 06/13/19 06:25 98.3 84 20 132/79 (96) 92 Room Air I & O 06/12/19 06/12/19 06/13/19 15:00 23:00 07:00 Intake Total 0 ml Balance 0 ml Current Medications: Meds: Current Medications Medications (Trade) Dose Ordered Sig/Kylah Route PRN Reason Start Time Stop Time Status Last Admin Dose Admin Paliperidone Palmitate (Invega Sustenna) 234 mg QMONTH IM 06/13/19 09:00 06/13/19 08:18 I have reviewed the current psychotropics carefully including drug interactions. Risk benefit ratio favors no change other than as noted in my dictated progress note. Diagnosis: Problems: (1) Impulse control disorder (2) Bipolar disorder, curr episode mixed, severe, with psychotic features (3) Medical clearance for psychiatric admission (4) Anxiety disorder (5) Schizoaffective disorder, chronic condition with acute exacerbation (6) Borderline intellectual disability NIKKI SHIELDS MD Jun 13, 2019 23:44
--- NOTE | 2019-06-14 02:56 | NUR ---
Nursing Note The patient was located in his room for his assessment and medication pass. The patient was found to be sitting on the floor in front of his chair. The patient stated he slid from the chair to the ground. The patient yelled and was irritable during HS cares. The patient took his medication whole. The patient is currently sleeping in his room.
[2019-06-14] MEDS: LEVOTHYROXINE 25 MCG TABLET. PO SCH (06:35)
[2019-06-14 06:49] VITALS: BP 138/77
[2019-06-14] MEDS: FLUTICASONE 50MCG/NASAL SPRAY 16GM BOTTLE. NS SCH (08:48)
[2019-06-14] MEDS: NYSTATIN 100,000 UNITS/ML ORAL SUSPENSION 60ML BOTTLE. SWSW SCH ×4 (08:49→21:58)
[2019-06-14] MEDS: POLYETHYLENE GLYCOL 3350 17 GM PACKET. PO SCH (08:49)
[2019-06-14] MEDS: traZODone 50 MG TABLET. PO SCH ×3 (08:49→17:00)
[2019-06-14] MEDS: DIVALPROEX ER 500 MG TAB.ER.24H PO SCH (08:50)
[2019-06-14] MEDS: BENZTROPINE MESYLATE 1 MG TABLET PO SCH ×2 (08:50→21:50)
[2019-06-14] MEDS: POTASSIUM CHLORIDE 20 MEQ TABLET.ER. PO SCH (08:51)
[2019-06-14] MEDS: PANTOPRAZOLE 40 MG TABLET. PO SCH (08:51)
[2019-06-14] MEDS: busPIRone 5 MG TABLET. PO SCH ×3 (08:51→17:00)
[2019-06-14] MEDS: OXYBUTYNIN CHLORIDE 5 MG TABLET PO SCH ×3 (08:51→21:50)
[2019-06-14] MEDS: FUROSEMIDE 40 MG TABLET PO SCH (08:51)
[2019-06-14] MEDS: LORazepam 1 MG TABLET PO SCH ×2 (08:52→21:50)
[2019-06-14] MEDS: CALCIUM POLYCARBOPHIL 625 MG TABLET PO SCH (08:52)
[2019-06-14] MEDS: TAMSULOSIN 0.4 MG CAP.ER.24H. PO SCH (08:52)
[2019-06-14] MEDS: FERROUS SULFATE 325 MG TABLET. PO SCH (08:52)
[2019-06-14] MEDS: CETIRIZINE HCL 10 MG TABLET PO SCH (08:52)
[2019-06-14] MEDS: risperiDONE 0.5 MG TABLET. PO SCH ×3 (08:52→21:50)
[2019-06-14] MEDS: HALOPERIDOL LACT 5 MG/ML VIAL. IM SCH (08:53)
--- NOTE | 2019-06-14 11:41 | NUR ---
Call placed to Naa, public red hat open stack administrator, to provide update on Gregory. Call placed to Flash, [facility], with intent to update. Left message for Flash with request for return phone call. Awaiting call. Addendum: 06/14/19 at 1400 by NAA RESTREPO Spoke to Flash and provided update. Faxed current notes, medication list, and labs for Flash to review.
--- NOTE | 2019-06-14 15:47 | NUR ---
Pt up in bed for meals. Has yelled out intermittently throughout day. Has been compliant with meds and cares. Pt remains in isolation.
[2019-06-14 17:00] VITALS: BP 126/76
[2019-06-14] MEDS: ENOXAPARIN 40 MG/0.4 ML SYRINGE. SQ SCH (21:49)
[2019-06-14] MEDS: traZODone 100 MG TABLET. PO SCH (21:50)
[2019-06-14] MEDS: SENNOSIDES 8.6 MG TABLET PO SCH (21:50)
[2019-06-14] MEDS: DIVALPROEX ER 250 MG TAB.ER.24H. PO SCH (21:51)
--- NOTE | 2019-06-15 02:26 | NUR ---
Nursing Note The patient was located in his room for his assessment and medication pass. The patient took his medication whole and was cooperative for his assessment and HS cares. The patient displayed repetitive speech throughout cares. The patient is currently sleeping in his room.
[2019-06-15] MEDS: LEVOTHYROXINE 25 MCG TABLET. PO SCH (05:46)
[2019-06-15 06:07] VITALS: BP 111/72
[2019-06-15] MEDS: POLYETHYLENE GLYCOL 3350 17 GM PACKET. PO SCH (09:00)
[2019-06-15] MEDS: FUROSEMIDE 40 MG TABLET PO SCH (09:07)
[2019-06-15] MEDS: CETIRIZINE HCL 10 MG TABLET PO SCH (09:07)
[2019-06-15] MEDS: risperiDONE 0.5 MG TABLET. PO SCH ×3 (09:07→21:11)
[2019-06-15] MEDS: OXYBUTYNIN CHLORIDE 5 MG TABLET PO SCH ×3 (09:08→21:11)
[2019-06-15] MEDS: traZODone 50 MG TABLET. PO SCH ×3 (09:09→16:27)
[2019-06-15] MEDS: busPIRone 5 MG TABLET. PO SCH ×3 (09:09→16:27)
[2019-06-15] MEDS: DIVALPROEX ER 500 MG TAB.ER.24H PO SCH (09:09)
[2019-06-15] MEDS: BENZTROPINE MESYLATE 1 MG TABLET PO SCH ×2 (09:09→21:11)
[2019-06-15] MEDS: LORazepam 1 MG TABLET PO SCH ×2 (09:10→21:11)
[2019-06-15] MEDS: FERROUS SULFATE 325 MG TABLET. PO SCH (09:10)
[2019-06-15] MEDS: POTASSIUM CHLORIDE 20 MEQ TABLET.ER. PO SCH (09:10)
[2019-06-15] MEDS: CALCIUM POLYCARBOPHIL 625 MG TABLET PO SCH (09:10)
[2019-06-15] MEDS: FLUTICASONE 50MCG/NASAL SPRAY 16GM BOTTLE. NS SCH (09:10)
[2019-06-15] MEDS: PANTOPRAZOLE 40 MG TABLET. PO SCH (09:10)
[2019-06-15] MEDS: TAMSULOSIN 0.4 MG CAP.ER.24H. PO SCH (09:10)
[2019-06-15] MEDS: HALOPERIDOL LACT 5 MG/ML VIAL. IM SCH (09:11)
[2019-06-15] MEDS: ENOXAPARIN 40 MG/0.4 ML SYRINGE. SQ SCH (09:12)
[2019-06-15] MEDS: NYSTATIN 100,000 UNITS/ML ORAL SUSPENSION 60ML BOTTLE. SWSW SCH ×4 (09:14→21:12)
--- NOTE | 2019-06-15 15:34 | NUR ---
Pt up in bed for meals. Up in chair after lunch. Pt has yelled out intermittently. Has been compliant with meds and cares thus far.
[2019-06-15 16:56] VITALS: BP 133/85
[2019-06-15] MEDS: DIVALPROEX ER 250 MG TAB.ER.24H. PO SCH (21:11)
[2019-06-15] MEDS: traZODone 100 MG TABLET. PO SCH (21:11)
[2019-06-15] MEDS: SENNOSIDES 8.6 MG TABLET PO SCH (21:11)
--- NOTE | 2019-06-15 23:25 | NUR ---
Nursing Note The patient was located in his room sitting in his chair when approached by this nurse for assessment and medication pass. The patient took his medication whole and was pleasant during interactions with this nurse. The patient is currently sleeping in his room.
[2019-06-16] MEDS: LEVOTHYROXINE 25 MCG TABLET. PO SCH (05:53)
[2019-06-16 06:36] VITALS: BP 128/82
--- NOTE | 2019-06-16 07:53 | PDOC ---
Exam Note: Ramos Note: S/O: This note is a late entry for DOS 06/14/2019 covers elements not covered in my initial note. Discussed the patient with nursing staff, reviewed the chart. Discussed with Marlen TURNER. I never talked to him in the evening because he is on the restricted protocol due to COVID-19. He has been yelling at times, screaming but gets agitated, isolated due to his COVID-19 restrictions. He is running no fever. We are still awaiting the COVID-19 screening test. ROS: Per nursing staff impaired ambulation in wheelchair. No CV, , Pulmonary, Eye system symptoms on review. MSE: Oriented to himself, at times situation. Speech is coherent, rapid. Abstraction fair. Computation impaired. Language function intact. Attention span short. Mood and affect remains labile. Labs: Reviewed. Imp: Schizoaffective disorder bipolar type, mixed with psychotic features. Intellectual disability. Plan: Unchanged from initial note. Assessment: Vital Signs/I&O: Vital Signs Date Time Temp Pulse Resp B/P (MAP) Pulse Ox O2 Delivery O2 Flow Rate FiO2 06/16/19 06:36 97.5 63 20 128/82 (97) 93 Room Air I & O 06/15/19 06/15/19 06/16/19 15:00 23:00 07:00 Intake Total 600 ml 360 ml 360 ml Balance 600 ml 360 ml 360 ml Current Medications: I have reviewed the current psychotropics carefully including drug interactions. Risk benefit ratio favors no change other than as noted in my dictated progress note. Diagnosis: Problems: (1) Impulse control disorder (2) Bipolar disorder, curr episode mixed, severe, with psychotic features (3) Medical clearance for psychiatric admission (4) Anxiety disorder (5) Schizoaffective disorder, chronic condition with acute exacerbation (6) Borderline intellectual disability NIKKI SHIELDS MD Jun 16, 2019 07:52
--- NOTE | 2019-06-16 08:18 | PDOC ---
Exam Note: Ramos Note: S/O: This note is a late entry for DOS 06/15/2019 covers elements not covered in my initial note. Discussed the patient with nursing staff, reviewed the chart. Discussed with YUE Delong. He had continued outbursts when he throws things, throws food, compliant with medications. He gets frustrated being in the isolated unit consequent to the COVID-19, probably positive status. ROS: Ambulation impaired in wheelchair. No CV, , Eye system symptoms on review. MSE: Oriented to himself, situation. Speech is coherent, has some latency. Abstraction fair. Computation impaired. Language function intact. Mood and affect remains labile. Labs: Reviewed. Imp: Schizoaffective disorder bipolar type, mixed with psychotic features. Intellectual disability. Plan: Unchanged from initial note. Assessment: Vital Signs/I&O: Vital Signs Date Time Temp Pulse Resp B/P (MAP) Pulse Ox O2 Delivery O2 Flow Rate FiO2 06/16/19 06:36 97.5 63 20 128/82 (97) 93 Room Air I & O 06/15/19 06/15/19 06/16/19 15:00 23:00 07:00 Intake Total 600 ml 360 ml 360 ml Balance 600 ml 360 ml 360 ml Current Medications: I have reviewed the current psychotropics carefully including drug interactions. Risk benefit ratio favors no change other than as noted in my dictated progress note. Diagnosis: Problems: (1) Impulse control disorder (2) Bipolar disorder, curr episode mixed, severe, with psychotic features (3) Medical clearance for psychiatric admission (4) Anxiety disorder (5) Schizoaffective disorder, chronic condition with acute exacerbation (6) Borderline intellectual disability NIKKI SHIELDS MD Jun 16, 2019 08:18
[2019-06-16] MEDS: HALOPERIDOL LACT 5 MG/ML VIAL. IM SCH (08:47)
[2019-06-16] MEDS: PANTOPRAZOLE 40 MG TABLET. PO SCH (08:47)
[2019-06-16] MEDS: ENOXAPARIN 40 MG/0.4 ML SYRINGE. SQ SCH (08:47)
[2019-06-16] MEDS: busPIRone 5 MG TABLET. PO SCH ×3 (08:48→17:06)
[2019-06-16] MEDS: BENZTROPINE MESYLATE 1 MG TABLET PO SCH ×2 (08:48→19:57)
[2019-06-16] MEDS: risperiDONE 0.5 MG TABLET. PO SCH ×3 (08:48→19:57)
[2019-06-16] MEDS: POLYETHYLENE GLYCOL 3350 17 GM PACKET. PO SCH (08:48)
[2019-06-16] MEDS: OXYBUTYNIN CHLORIDE 5 MG TABLET PO SCH ×3 (08:49→19:56)
[2019-06-16] MEDS: TAMSULOSIN 0.4 MG CAP.ER.24H. PO SCH (08:49)
[2019-06-16] MEDS: traZODone 50 MG TABLET. PO SCH ×3 (08:49→17:07)
[2019-06-16] MEDS: LORazepam 1 MG TABLET PO SCH ×2 (08:49→19:57)
[2019-06-16] MEDS: FERROUS SULFATE 325 MG TABLET. PO SCH (08:49)
[2019-06-16] MEDS: CETIRIZINE HCL 10 MG TABLET PO SCH (08:50)
[2019-06-16] MEDS: CALCIUM POLYCARBOPHIL 625 MG TABLET PO SCH (08:50)
[2019-06-16] MEDS: POTASSIUM CHLORIDE 20 MEQ TABLET.ER. PO SCH (08:50)
[2019-06-16] MEDS: FUROSEMIDE 40 MG TABLET PO SCH (08:50)
[2019-06-16] MEDS: NYSTATIN 100,000 UNITS/ML ORAL SUSPENSION 60ML BOTTLE. SWSW SCH ×4 (08:51→19:57)
[2019-06-16] MEDS: FLUTICASONE 50MCG/NASAL SPRAY 16GM BOTTLE. NS SCH (08:51)
[2019-06-16] MEDS: DIVALPROEX ER 500 MG TAB.ER.24H PO SCH (08:51)
[2019-06-16 09:52] LABS: BASO % 0 % (0-3); EOS # 0.2 x10^3/uL (0.0-0.7); EOS % 4 % (0-3); HEMATOCRIT 36.1 % (39.0-53.0); HEMOGLOBIN 12.1 g/dL (13.0-17.5); LYMPH # 1.1 x10^3/uL (1.0-4.8); LYMPH % 22 % (24-48); MEAN CORPUSCULAR HEMOGLOBIN 30 pg (25-35); MEAN CORPUSCULAR HGB CONC 34 g/dL (31-37); MEAN CORPUSCULAR VOLUME 91 fL (79-100); MONO # 0.5 x10^3/uL (0.0-1.1); MONO % 11 % (0-9); NEUT # 3.2 x10^3uL (1.8-7.7); NEUT % 63 % (31-73); PLATELET COUNT 252 x10^3/uL (140-400); RED BLOOD COUNT 3.98 x10^6/uL (4.30-5.70); RED CELL DISTRIBUTION WIDTH 15.7 % (11.5-14.5)
[2019-06-16 09:56] LABS: ALBUMIN 2.6 g/dL (3.4-5.0); ALBUMIN/GLOBULIN RATIO 0.6 (1.0-1.7); CALCIUM 8.9 mg/dL (8.5-10.1); CREATININE 0.9 mg/dL (0.7-1.3); GFR 84.4; POTASSIUM 3.9 mmol/L (3.5-5.1); TOTAL BILIRUBIN 0.2 mg/dL (0.2-1.0); TOTAL PROTEIN 6.8 g/dL (6.4-8.2)
--- NOTE | 2019-06-16 15:36 | NUR ---
Pt condition has been unchanged. Compliant with meds and cares.
[2019-06-16 18:14] VITALS: BP 132/85
[2019-06-16] MEDS: traZODone 100 MG TABLET. PO SCH (19:57)
[2019-06-16] MEDS: SENNOSIDES 8.6 MG TABLET PO SCH (19:57)
[2019-06-16] MEDS: DIVALPROEX ER 250 MG TAB.ER.24H. PO SCH (19:57)
--- NOTE | 2019-06-16 21:03 | NUR ---
Pt located in his room per isolation protocol at shift change. Pt yelling out from his room and during cares this evening. Pt placed himself on the floor while staff attempting to assist him. Pt sustained a small laceration to the posterior side of foot beneath his toe. Gauze applied to the area. Pt arguing with staff, delusional- pt states that another staff member told him that his bed was in the hallway and that's where he sleeps. Several staff members attempted to re-direct him but he was argumentative and yelling. Pt was compliant with his HS medications administered whole and is currently resting quietly in bed.
--- NOTE | 2019-06-16 22:41 | PDOC ---
Exam Note: Ramos Note: S/O: This note covers elements not covered in my initial note. Discussed the patient with nursing staff, reviewed the chart. Nursing report in the morning was by Marlen RN and Alberta RN in the evening. Patient continues to have episodes of yelling, screaming, being quite labile, paranoid at times. He totally detests staying in the isolation room since his COVID-19 screen test is not yet returned and had to be repeated due to a bad specimen. He can be quite abrasive and labile on the unit. ROS: Per nursing report ambulation impaired in wheelchair. He has vague somatic symptoms. No CV, , Pulmonary, Eye system symptoms on review. MSE: Oriented to himself, situation. Speech is coherent, rapid, loud at times. Abstraction fair. Computation impaired. Language function intact. Attention span short. Mood and affect remains labile. Labs: Reviewed. Imp: Schizoaffective disorder bipolar type, mixed with psychotic features. Int ellectual disability. Plan: Continue psychotropics mentioned under his current psychotropics regimen. Assessment: Vital Signs/I&O: Vital Signs Date Time Temp Pulse Resp B/P (MAP) Pulse Ox O2 Delivery O2 Flow Rate FiO2 06/16/19 18:14 97.4 67 18 132/85 (101) 94 Room Air I & O 06/15/19 06/15/19 06/16/19 15:00 23:00 07:00 Intake Total 600 ml 360 ml 360 ml Balance 600 ml 360 ml 360 ml Labs: Laboratory Tests Test 06/16/19 09:10 White Blood Count 5.0 x10^3/uL (4.0-11.0) Red Blood Count 3.98 x10^6/uL (4.30-5.70) L Hemoglobin 12.1 g/dL (13.0-17.5) L Hematocrit 36.1 % (39.0-53.0) L Mean Corpuscular Volume 91 fL (79-100) Mean Corpuscular Hemoglobin 30 pg (25-35) Mean Corpuscular Hemoglobin Concent 34 g/dL (31-37) Red Cell Distribution Width 15.7 % (11.5-14.5) H Platelet Count 252 x10^3/uL (140-400) Neutrophils (%) (Auto) 63 % (31-73) Lymphocytes (%) (Auto) 22 % (24-48) L Monocytes (%) (Auto) 11 % (0-9) H Eosinophils (%) (Auto) 4 % (0-3) H Basophils (%) (Auto) 0 % (0-3) Neutrophils # (Auto) 3.2 x10^3uL (1.8-7.7) Lymphocytes # (Auto) 1.1 x10^3/uL (1.0-4.8) Monocytes # (Auto) 0.5 x10^3/uL (0.0-1.1) Eosinophils # (Auto) 0.2 x10^3/uL (0.0-0.7) Basophils # (Auto) 0.0 x10^3/uL (0.0-0.2) Sodium Level 141 mmol/L (136-145) Potassium Level 3.9 mmol/L (3.5-5.1) Chloride Level 103 mmol/L (98-107) Carbon Dioxide Level 32 mmol/L (21-32) Anion Gap 6 (6-14) Blood Urea Nitrogen 18 mg/dL (8-26) Creatinine 0.9 mg/dL (0.7-1.3) Estimated GFR (Cockcroft-Gault) 84.4 BUN/Creatinine Ratio 20 (6-20) Glucose Level 88 mg/dL (70-99) Calcium Level 8.9 mg/dL (8.5-10.1) Total Bilirubin 0.2 mg/dL (0.2-1.0) Aspartate Amino Transferase (AST) 13 U/L (15-37) L Alanine Aminotransferase (ALT) 12 U/L (16-63) L Alkaline Phosphatase 87 U/L (46-116) Total Protein 6.8 g/dL (6.4-8.2) Albumin 2.6 g/dL (3.4-5.0) L Albumin/Globulin Ratio 0.6 (1.0-1.7) L Current Medications: I have reviewed the current psychotropics carefully including drug interactions. Risk benefit ratio favors no change other than as noted in my dictated progress note. Diagnosis: Problems: (1) Impulse control disorder (2) Bipolar disorder, curr episode mixed, severe, with psychotic features (3) Medical clearance for psychiatric admission (4) Anxiety disorder (5) Schizoaffective disorder, chronic condition with acute exacerbation (6) Borderline intellectual disability NIKKI SHIELDS MD Jun 16, 2019 22:41
[2019-06-17] MEDS: LEVOTHYROXINE 25 MCG TABLET. PO SCH (05:17)
[2019-06-17 06:05] VITALS: BP 134/80
[2019-06-17] MEDS: FLUTICASONE 50MCG/NASAL SPRAY 16GM BOTTLE. NS SCH (08:51)
[2019-06-17] MEDS: NYSTATIN 100,000 UNITS/ML ORAL SUSPENSION 60ML BOTTLE. SWSW SCH ×4 (08:51→20:58)
[2019-06-17] MEDS: ENOXAPARIN 40 MG/0.4 ML SYRINGE. SQ SCH (08:52)
[2019-06-17] MEDS: POLYETHYLENE GLYCOL 3350 17 GM PACKET. PO SCH (08:52)
[2019-06-17] MEDS: CALCIUM POLYCARBOPHIL 625 MG TABLET PO SCH (08:53)
[2019-06-17] MEDS: FUROSEMIDE 40 MG TABLET PO SCH (08:53)
[2019-06-17] MEDS: TAMSULOSIN 0.4 MG CAP.ER.24H. PO SCH (08:53)
[2019-06-17] MEDS: BENZTROPINE MESYLATE 1 MG TABLET PO SCH ×2 (08:54→20:56)
[2019-06-17] MEDS: FERROUS SULFATE 325 MG TABLET. PO SCH (08:54)
[2019-06-17] MEDS: PANTOPRAZOLE 40 MG TABLET. PO SCH (08:54)
[2019-06-17] MEDS: CETIRIZINE HCL 10 MG TABLET PO SCH (08:55)
[2019-06-17] MEDS: POTASSIUM CHLORIDE 20 MEQ TABLET.ER. PO SCH (08:55)
[2019-06-17] MEDS: OXYBUTYNIN CHLORIDE 5 MG TABLET PO SCH ×3 (08:55→20:56)
[2019-06-17] MEDS: traZODone 50 MG TABLET. PO SCH ×3 (08:55→17:24)
[2019-06-17] MEDS: DIVALPROEX ER 500 MG TAB.ER.24H PO SCH (08:55)
[2019-06-17] MEDS: busPIRone 5 MG TABLET. PO SCH ×3 (08:55→17:24)
[2019-06-17] MEDS: LORazepam 1 MG TABLET PO SCH ×2 (08:55→20:55)
[2019-06-17] MEDS: HALOPERIDOL LACT 5 MG/ML VIAL. IM SCH (08:56)
[2019-06-17] MEDS: risperiDONE 0.5 MG TABLET. PO SCH ×3 (08:58→20:55)
--- NOTE | 2019-06-17 15:16 | NUR ---
Patient is alert, oriented to self and knows he is in hospital. Pt is in isolation currently awaiting results of COVID-19 testing. Results still pending as of today. Pt was calm and compliant this morning with cares and medications. RN played cards and listened to music with patient for about 45 minutes. During lunch, patient became very demanding and impatient. Pt yelling repetitive statements, "i need 4 pillows, i need 4 blankets" Pt has been yelling for "Melissa to come play cards again" repetitively despite being told nurse has other cares to do. Pt sitting up in chair now, still yelling. TM.
[2019-06-17 15:59] VITALS: BP 125/84
[2019-06-17] MEDS: traZODone 100 MG TABLET. PO SCH (20:55)
[2019-06-17] MEDS: SENNOSIDES 8.6 MG TABLET PO SCH (20:56)
[2019-06-17] MEDS: DIVALPROEX ER 250 MG TAB.ER.24H. PO SCH (20:56)
--- NOTE | 2019-06-17 22:46 | PDOC ---
Exam Note: Ramos Note: S/O: This note covers elements not covered in my initial note. Discussed the patient with nursing staff, reviewed the chart. Nursing report in the morning was by Melissa TURNER and in the evening with Alberta TURNER. Patient slept 7-3/4 hours. He has been yelling, screaming, quite labile in his mood wanting to get out of the seclusion room where he has been placed while we are awaiting the results of COVID-19 testing. Melissa the nursing staff played cards with him and for this extended period of time he did actually quite well. When he gets agitated he puts himself on the floor. ROS: Ambulation impaired. No CV, , Pulmonary, Eye system symptoms on review. Reliability poor. MSE: Oriented to himself, situation. Speech is coherent, can be rapid, loud at times per nursing report. Abstraction fair. Computation impaired. Language function intact. Attention span short. Mood and affect remains labile. Labs: Reviewed. Imp: Schizoaffective disorder bipolar type, mixed with psychotic features. Intellectual disability. Plan: Continue psychotropics mentioned in the current psychotropic medication list. Assessment: Vital Signs/I&O: Vital Signs Date Time Temp Pulse Resp B/P (MAP) Pulse Ox O2 Delivery O2 Flow Rate FiO2 06/17/19 15:59 97.5 76 20 125/84 (98) 90 Room Air I & O 06/16/19 06/16/19 06/17/19 15:00 23:00 07:00 Intake Total 360 ml 300 ml Balance 360 ml 300 ml Current Medications: I have reviewed the current psychotropics carefully including drug interactions. Risk benefit ratio favors no change other than as noted in my dictated progress note. Diagnosis: Problems: (1) Impulse control disorder (2) Bipolar disorder, curr episode mixed, severe, with psychotic features (3) Medical clearance for psychiatric admission (4) Anxiety disorder (5) Schizoaffective disorder, chronic condition with acute exacerbation (6) Borderline intellectual disability NIKKI SHIELDS MD Jun 17, 2019 22:46
--- NOTE | 2019-06-18 00:18 | NUR ---
Nursing Note The patient was located in his room for his assessment medication pass. The patient was calm and cooperative with medications and his assessment. The patient took his medication whole. The patient is currently sleeping in his room.
[2019-06-18] MEDS: LEVOTHYROXINE 25 MCG TABLET. PO SCH (05:57)
[2019-06-18] MEDS: ACETAMINOPHEN 500 MG TABLET PO PRN (06:12)
[2019-06-18 06:30] VITALS: BP 130/75
--- NOTE | 2019-06-18 06:31 | NUR ---
Nursing Note The patient complained of neck pain this morning and was given PRN Tylenol PER PRN order.
[2019-06-18] MEDS: HALOPERIDOL LACT 5 MG/ML VIAL. IM SCH (07:45)
[2019-06-18] MEDS: OXYBUTYNIN CHLORIDE 5 MG TABLET PO SCH ×3 (07:46→20:46)
[2019-06-18] MEDS: PANTOPRAZOLE 40 MG TABLET. PO SCH (07:46)
[2019-06-18] MEDS: POLYETHYLENE GLYCOL 3350 17 GM PACKET. PO SCH (07:50)
[2019-06-18] MEDS: BENZTROPINE MESYLATE 1 MG TABLET PO SCH ×2 (07:51→20:46)
[2019-06-18] MEDS: DIVALPROEX ER 500 MG TAB.ER.24H PO SCH (07:51)
[2019-06-18] MEDS: FUROSEMIDE 40 MG TABLET PO SCH (07:52)
[2019-06-18] MEDS: traZODone 50 MG TABLET. PO SCH ×3 (07:52→17:00)
[2019-06-18] MEDS: CETIRIZINE HCL 10 MG TABLET PO SCH (07:52)
[2019-06-18] MEDS: risperiDONE 0.5 MG TABLET. PO SCH ×3 (07:52→20:46)
[2019-06-18] MEDS: POTASSIUM CHLORIDE 20 MEQ TABLET.ER. PO SCH (07:52)
[2019-06-18] MEDS: CALCIUM POLYCARBOPHIL 625 MG TABLET PO SCH (07:52)
[2019-06-18] MEDS: ENOXAPARIN 40 MG/0.4 ML SYRINGE. SQ SCH (07:53)
[2019-06-18] MEDS: TAMSULOSIN 0.4 MG CAP.ER.24H. PO SCH (07:53)
[2019-06-18] MEDS: FLUTICASONE 50MCG/NASAL SPRAY 16GM BOTTLE. NS SCH (07:53)
[2019-06-18] MEDS: FERROUS SULFATE 325 MG TABLET. PO SCH (07:53)
[2019-06-18] MEDS: busPIRone 5 MG TABLET. PO SCH ×3 (07:53→17:00)
[2019-06-18] MEDS: LORazepam 1 MG TABLET PO SCH ×2 (07:53→20:48)
[2019-06-18] MEDS: NYSTATIN 100,000 UNITS/ML ORAL SUSPENSION 60ML BOTTLE. SWSW SCH ×4 (07:54→20:45)
[2019-06-18 12:07] LABS: RVP ADENOVIRUS Negative (Negative); RVP INFLUENZA A Negative (Negative); RVP INFLUENZA B Negative (Negative); RVP MATAPNEUMOVIRUS Negative (Negative); RVP PARAINFLUENZA 2 Negative (Negative); RVP PARAINFLUENZA 3 Negative (Negative); RVP RHINOVIRUS Negative (Negative); RVP RSV A Negative (Negative); RVP RSV B Negative (Negative)
[2019-06-18 15:29] VITALS: BP 120/87
--- NOTE | 2019-06-18 17:57 | NUR ---
Patient alert and oriented x 2-3 this shift. Patient is cooperative with cares and meds. Continues to yell out through shift.
[2019-06-18] MEDS: SENNOSIDES 8.6 MG TABLET PO SCH (20:45)
[2019-06-18] MEDS: DIVALPROEX ER 250 MG TAB.ER.24H. PO SCH (20:46)
[2019-06-18] MEDS: traZODone 100 MG TABLET. PO SCH (20:46)
--- NOTE | 2019-06-18 21:52 | PDOC ---
Exam Note: Ramos Note: Please also refer to the separate dictated note~for this date of service dictated separately. Discussed the patient with Nursing staff reviewed the chart.~Reviewed interim history and current functioning. Reviewed vital signs,~Labs/ Radiology~and current medications noted below. Continue current treatment with the changes noted in the dictated addendum note Assessment: Vital Signs/I&O: Vital Signs Date Time Temp Pulse Resp B/P (MAP) Pulse Ox O2 Delivery O2 Flow Rate FiO2 06/18/19 15:29 98.1 67 18 120/87 (98) 94 06/17/19 15:59 Room Air I & O 06/17/19 06/17/19 06/18/19 15:00 23:00 07:00 Intake Total 100 ml 210 ml Balance 100 ml 210 ml Current Medications: I have reviewed the current psychotropics carefully including drug interactions. Risk benefit ratio favors no change other than as noted in my dictated progress note. Diagnosis: Problems: (1) Impulse control disorder (2) Bipolar disorder, curr episode mixed, severe, with psychotic features (3) Medical clearance for psychiatric admission (4) Anxiety disorder (5) Schizoaffective disorder, chronic condition with acute exacerbation (6) Borderline intellectual disability NIKKI SHIELDS MD Jun 18, 2019 21:52
[2019-06-18] MEDS: MAGNESIUM HYDROXIDE 2,400 MG/30 ML ORAL.SUSP. PO PRN (21:55)
[2019-06-19] MEDS: hydrOXYzine HCL 25 MG TABLET PO PRN ×2 (00:38→09:09)
--- NOTE | 2019-06-19 00:47 | NUR ---
Nursing Note The patient was located in his room for his assessment and medication pass. The patient was calm and cooperative with his cares and medication pass. The patient received PRN MOM and prune juice @HS R/T last documented BM of 06/15/19. The patient received PRN Atarax @ 0040 PER PRN order. The patient is currently awake yelling in his room.
[2019-06-19] MEDS: LEVOTHYROXINE 25 MCG TABLET. PO SCH (06:13)
[2019-06-19 06:18] VITALS: BP 123/78
[2019-06-19] MEDS: FLUTICASONE 50MCG/NASAL SPRAY 16GM BOTTLE. NS SCH (09:00)
[2019-06-19] MEDS: CALCIUM POLYCARBOPHIL 625 MG TABLET PO SCH (09:06)
[2019-06-19] MEDS: ENOXAPARIN 40 MG/0.4 ML SYRINGE. SQ SCH (09:06)
[2019-06-19] MEDS: HALOPERIDOL LACT 5 MG/ML VIAL. IM SCH (09:06)
[2019-06-19] MEDS: DIVALPROEX ER 500 MG TAB.ER.24H PO SCH (09:07)
[2019-06-19] MEDS: busPIRone 5 MG TABLET. PO SCH ×3 (09:07→17:43)
[2019-06-19] MEDS: BENZTROPINE MESYLATE 1 MG TABLET PO SCH ×2 (09:07→21:26)
[2019-06-19] MEDS: FERROUS SULFATE 325 MG TABLET. PO SCH (09:08)
[2019-06-19] MEDS: TAMSULOSIN 0.4 MG CAP.ER.24H. PO SCH (09:08)
[2019-06-19] MEDS: risperiDONE 0.5 MG TABLET. PO SCH ×3 (09:08→21:26)
[2019-06-19] MEDS: OXYBUTYNIN CHLORIDE 5 MG TABLET PO SCH ×3 (09:08→21:27)
[2019-06-19] MEDS: POTASSIUM CHLORIDE 20 MEQ TABLET.ER. PO SCH (09:09)
[2019-06-19] MEDS: POLYETHYLENE GLYCOL 3350 17 GM PACKET. PO SCH (09:09)
[2019-06-19] MEDS: PANTOPRAZOLE 40 MG TABLET. PO SCH (09:09)
[2019-06-19] MEDS: FUROSEMIDE 40 MG TABLET PO SCH (09:09)
[2019-06-19] MEDS: NYSTATIN 100,000 UNITS/ML ORAL SUSPENSION 60ML BOTTLE. SWSW SCH ×4 (09:14→21:27)
[2019-06-19] MEDS: traZODone 50 MG TABLET. PO SCH ×3 (09:16→17:43)
[2019-06-19] MEDS: LORazepam 1 MG TABLET PO SCH ×2 (09:16→21:26)
[2019-06-19] MEDS: CETIRIZINE HCL 10 MG TABLET PO SCH (09:17)
--- NOTE | 2019-06-19 10:30 | PDOC ---
Exam Note: Ramos Note: S/O: This note is a late entry for DOS 06/18/2019 covers elements not covered in my initial note. Discussed the patient with nursing staff, reviewed the chart. Nursing report in the morning was by Hellen TURNER and Suzi RN coordinated with rounds in the evening. Patient slept 7-1/4 hours. Patient has been yelling intermittently at times, agitated but part of this because he is in the restricted environment because his COVID-19 test has not yet returned. Nursing staff spent a fair amount of time with him and he does better during that time. ROS: Ambulation impaired. No CV, , Pulmonary, Eye system symptoms on review. Reliability poor. MSE: Patient is in a wheelchair, somewhat loud, disruptive at times. Speech is coherent. Abstraction fair. Computation impaired. Language function intact. Attention span short. Mood and affect remains labile. Labs: Reviewed. Imp: Schizoaffective disorder bipolar type, mixed with psychotic features. Intellectual disability. Plan: Continue psychotropics mentioned in the current psychotropic medication list. Assessment: Vital Signs/I&O: Vital Signs Date Time Temp Pulse Resp B/P (MAP) Pulse Ox O2 Delivery O2 Flow Rate FiO2 06/19/19 06:18 98.5 66 16 123/78 (93) 96 06/17/19 15:59 Room Air I & O 06/18/19 06/18/19 06/19/19 15:00 23:00 07:00 Intake Total 340 ml Balance 340 ml Current Medications: I have reviewed the current psychotropics carefully including drug interactions. Risk benefit ratio favors no change other than as noted in my dictated progress note. Diagnosis: Problems: (1) Impulse control disorder (2) Bipolar disorder, curr episode mixed, severe, with psychotic features (3) Medical clearance for psychiatric admission (4) Anxiety disorder (5) Schizoaffective disorder, chronic condition with acute exacerbation (6) Borderline intellectual disability NIKKI SHIELDS MD Jun 19, 2019 10:30
[2019-06-19 18:15] VITALS: BP 107/72
[2019-06-19] MEDS: SENNOSIDES 8.6 MG TABLET PO SCH (21:26)
[2019-06-19] MEDS: DIVALPROEX ER 250 MG TAB.ER.24H. PO SCH (21:26)
[2019-06-19] MEDS: traZODone 100 MG TABLET. PO SCH (21:26)
--- NOTE | 2019-06-19 21:53 | PDOC ---
Exam Note: Ramos Note: Please also refer to the separate dictated note~for this date of service dictated separately.~Patient seen individually. Discussed the patient with Nursing staff reviewed the chart.~Reviewed interim history and current functioning. Reviewed vital signs,~Labs/ Radiology~and current medications noted below. Continue current treatment with the changes noted in the dictated addendum note Assessment: Vital Signs/I&O: Vital Signs Date Time Temp Pulse Resp B/P (MAP) Pulse Ox O2 Delivery O2 Flow Rate FiO2 06/19/19 18:15 98.1 62 18 107/72 (84) 98 Room Air I & O 06/18/19 06/18/19 06/19/19 15:00 23:00 07:00 Intake Total 340 ml Balance 340 ml Current Medications: I have reviewed the current psychotropics carefully including drug interactions. Risk benefit ratio favors no change other than as noted in my dictated progress note. Diagnosis: Problems: (1) Impulse control disorder (2) Bipolar disorder, curr episode mixed, severe, with psychotic features (3) Medical clearance for psychiatric admission (4) Anxiety disorder (5) Schizoaffective disorder, chronic condition with acute exacerbation (6) Borderline intellectual disability NIKKI SHIELDS MD Jun 19, 2019 21:53
--- NOTE | 2019-06-19 23:57 | NUR ---
Nursing Note The patient was located in his room for his assessment and medication pass. The patient took his medication whole. The patient was yelling prior to his assessment and medication pass as well as after HS cares. The patient is currently sleeping in his room.
[2019-06-20] MEDS: LEVOTHYROXINE 25 MCG TABLET. PO SCH (05:41)
[2019-06-20 05:55] VITALS: BP 116/75
[2019-06-20] MEDS: traZODone 50 MG TABLET. PO SCH ×3 (08:00→16:51)
[2019-06-20] MEDS: POTASSIUM CHLORIDE 20 MEQ TABLET.ER. PO SCH (08:00)
[2019-06-20] MEDS: PANTOPRAZOLE 40 MG TABLET. PO SCH (08:20)
[2019-06-20] MEDS: FLUTICASONE 50MCG/NASAL SPRAY 16GM BOTTLE. NS SCH (08:20)
[2019-06-20] MEDS: LORazepam 1 MG TABLET PO SCH ×2 (08:20→20:12)
[2019-06-20] MEDS: HALOPERIDOL LACT 5 MG/ML VIAL. IM SCH (08:20)
[2019-06-20] MEDS: risperiDONE 0.5 MG TABLET. PO SCH ×3 (08:21→20:13)
[2019-06-20] MEDS: FERROUS SULFATE 325 MG TABLET. PO SCH (08:21)
[2019-06-20] MEDS: FUROSEMIDE 40 MG TABLET PO SCH (08:21)
[2019-06-20] MEDS: OXYBUTYNIN CHLORIDE 5 MG TABLET PO SCH ×3 (08:21→20:14)
[2019-06-20] MEDS: POLYETHYLENE GLYCOL 3350 17 GM PACKET. PO SCH (08:21)
[2019-06-20] MEDS: CALCIUM POLYCARBOPHIL 625 MG TABLET PO SCH (08:21)
[2019-06-20] MEDS: CETIRIZINE HCL 10 MG TABLET PO SCH (08:21)
[2019-06-20] MEDS: busPIRone 5 MG TABLET. PO SCH ×3 (08:21→16:51)
[2019-06-20] MEDS: TAMSULOSIN 0.4 MG CAP.ER.24H. PO SCH (08:21)
[2019-06-20] MEDS: DIVALPROEX ER 500 MG TAB.ER.24H PO SCH (08:21)
[2019-06-20] MEDS: BENZTROPINE MESYLATE 1 MG TABLET PO SCH ×2 (08:21→20:13)
[2019-06-20] MEDS: ENOXAPARIN 40 MG/0.4 ML SYRINGE. SQ SCH (08:22)
[2019-06-20] MEDS: NYSTATIN 100,000 UNITS/ML ORAL SUSPENSION 60ML BOTTLE. SWSW SCH ×4 (08:22→21:00)
--- NOTE | 2019-06-20 10:21 | NUR ---
COVID-19 QUARANTINE ACTIVITY THERAPY NOTE Due to exposure of a positive Covid-19 case, the unit was ordered to have no group activities starting 06/08/2019. Additional test results are pending at this time; therefore, formal groups remain suspended.
--- NOTE | 2019-06-20 10:28 | PDOC ---
Exam Note: Ramos Note: S/O: This note is a late entry for DOS 06/19/2019 covers elements not covered in my initial note. We have had exposure of COVID-19 on the unit consequent to a staff member. The unit was on lockdown per [facility] of Health and Environment ([facility])/Centers for Disease Control (CDC). Three patients had dev eloped fever and other symptoms for which they were screened for the COVID-19, two of which have come back negative, result for one is awaited and one other patient today is running a fever and we are doing a COVID-19 screen for this patient. Per regulations from the CDC/[facility], we are unable to admit or discharge any patients, still all of this is negative and the length of stay has affected not entirely by the clinical situation but by this directive additionally from the [facility]/CDC. Discussed the patient with nursing staff, reviewed the chart. Nursing report in the morning was with Yamilex TURNER. Previous night patient was yelling, labile wanting to be out of restricted environment that he has been placed on account of COVID-19 screen still being completed, not resulted as yet. Also discussed with Bailey TURNER. Patient has been arguing, asking staff to kiss him. He was quite anxious, restless, agitated. Received Atarax at 12.40 p.m. Slept 8-1/4 hours previous night. ROS: Ambulation impaired in wheelchair. No CV, , Pulmonary, Eye system symptoms on review. Mood remains labile. MSE: Oriented to himself and situation. Speech has been loud, rapid, yelling at times. Abstraction fair. Computation impaired. Language function intact. Mood and affect remains intermittently labile. Labs: Reviewed. Imp: Schizoaffective disorder bipolar type, mixed with psychotic features. I ntellectual disability. Plan: No change from initial note. Assessment: Vital Signs/I&O: Vital Signs Date Time Temp Pulse Resp B/P (MAP) Pulse Ox O2 Delivery O2 Flow Rate FiO2 06/20/19 05:55 97.9 72 20 116/75 (89) 96 06/19/19 18:15 Room Air I & O 06/19/19 06/19/19 06/20/19 15:00 23:00 07:00 Intake Total 480 ml 240 ml Balance 480 ml 240 ml Current Medications: I have reviewed the current psychotropics carefully including drug interactions. Risk benefit ratio favors no change other than as noted in my dictated progress note. Diagnosis: Problems: (1) Impulse control disorder (2) Bipolar disorder, curr episode mixed, severe, with psychotic features (3) Medical clearance for psychiatric admission (4) Anxiety disorder (5) Schizoaffective disorder, chronic condition with acute exacerbation (6) Borderline intellectual disability NIKKI SHIELDS MD Jun 20, 2019 10:28
--- NOTE | 2019-06-20 10:29 | TX PLAN ---
Interdisciplinary Tx Plan Admission Information May 24, 2019 at 13:49 Legal Status (on Admission): Voluntary, Court Appointed Guardian DPOA/Guardian Name: Naa Nuñez Contact Verified Code Status: Full Code Allergies: Coded Allergies: amoxicillin (Verified Allergy, Unknown, 05/24/19) ciprofloxacin (Verified Allergy, Unknown, 05/24/19) soap (Verified Allergy, Unknown, 05/24/19) Diagnoses Primary Diagnosis: Schizoaffective d/o, intellectual disability Reasons for Admission: Aggressive, Agitated, Homicidal Ideation, Poor impulse control Problem in Patient's Words: Per [facility]ona, "My hips broke." Additional Admission Comments: [facility], Jose Francisco's aggressive behaviors have escalated to a point that they are unable to manage him at this time. Problems Active Problems: Angry outbursts Sexually inappropriate comments Agitation requiring de-escalation in the quiet cueva Can be disruptve at times during group activities Inactive Problems: Medication compliant Cooperative with nursing assessments Pt Strengths/Limitations Ability for Manor: Poor Cognitive Functioning/Ability: Poor Communication Skills/Ability: Fair Financial Resources: Fair Insight/Judgement: Poor Intellectual Ability: Poor Physical Health: Fair Social Skills: Fair Stability in Family: Poor Verbal Skills: Fair Discharge Criteria Discharge Criteria: Adequate arrangements @DC, Improved behavior, Improved mood/thought Preliminary Discharge Plan Preliminary DC Plan: [facility] Special Precautions Special Precautions: Agitation/Assault Fall Risk: High Initial D/C Plan [facility] Identified Discharge Needs: F/U with PCP and telepsychiatrist Currently Utilized Resources Currently Utilized Resources/P: 24 hour care at [facility] PCP access Telepsychiatrist access Identified Problems/Hx/Goals Objectives/Short-Term Goals Short Term Goals: Control abnormal behavior, Dec. Aggression, Dec. Outbursts, Medication Stabilization, Monitor Med Effects, Promote Coping Skill Short Term Goals in Patient's: Per [facility], mood and behavior stabilization. Interventions/Frequency Staff Interventions/Frequency&: Nursing provides routine safety checks, adl support, medication administration, and assessments. Psychiatry visits 3-5 times weekly. SW visits twice weekly. Recreational and SW group involvement as Gregory desires. 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 Social: Gregory enjoys playing card games, listening to old time rock and roll music Education: Gregory reported graduating from high school in [facility]. Community Follow-up PCP Telepsychiatrist Community Provider/Family Inpu: [facility] participated in treatment team call held on 05/30/19 to coordinate care. Naa Nuñez, guardian, was unable to attend team call. Treatment Plan Explained Patient/Clearing Hand had this treatment plan explained to him/her as indicated by the signature below and has been given the opportunity to ask questions and make suggestions: Date: Patient/Clearing Hand Signature: Status Update Update WEEKLY NOTE/UPDATE: Gregory remains quarantined to his room pending Covid-19 test results. He is averaging 75% of meal intakes and 6.5 hours of sleep at night. Gregory is currently receiving honey thickened liquids due possible aspiration concerns. He has periods of yelling out and being argumentative with staff which may be exacerbated by his having to stay isolated in his room. Call placed to LAURO Vidales at [facility], to provide update. Will fax current notes, medication list, and lab for review. NAA SOMMERS Jun 20, 2019 10:29
--- NOTE | 2019-06-20 10:56 | NUR ---
Nursing Note Pt is still in isolation currently awaiting results of COVID-19 testing. Pt yelling out from his room during shift change. Pt compliant with meds, cares, meals, and assessments. Pt calmed down after breakfast and currently sleeping in his room.
[2019-06-20 17:24] VITALS: BP 122/72
[2019-06-20] MEDS: SENNOSIDES 8.6 MG TABLET PO SCH (20:13)
[2019-06-20] MEDS: DIVALPROEX ER 250 MG TAB.ER.24H. PO SCH (20:14)
[2019-06-20] MEDS: traZODone 100 MG TABLET. PO SCH (20:14)
--- NOTE | 2019-06-20 21:57 | PDOC ---
Exam Note: Ramos Note: Please also refer to the separate dictated note~for this date of service dictated separately.~Patient seen individually. Discussed the patient with Nursing staff reviewed the chart.~Reviewed interim history and current functioning. Reviewed vital signs,~Labs/ Radiology~and current medications noted below. Continue current treatment with the changes noted in the dictated addendum note Assessment: Vital Signs/I&O: Vital Signs Date Time Temp Pulse Resp B/P (MAP) Pulse Ox O2 Delivery O2 Flow Rate FiO2 06/20/19 18:30 99.3 06/20/19 17:24 85 122/72 (89) 96 06/20/19 05:55 20 06/19/19 18:15 Room Air I & O 06/19/19 06/19/19 06/20/19 14:59 22:59 06:59 Intake Total 480 ml 240 ml Balance 480 ml 240 ml Current Medications: Meds: Current Medications Medications (Trade) Dose Ordered Sig/Kylah Route PRN Reason Start Time Stop Time Status Last Admin Dose Admin Lorazepam (Ativan) 1.5 mg HS PO 06/20/19 21:00 06/20/19 20:12 I have reviewed the current psychotropics carefully including drug interactions. Risk benefit ratio favors no change other than as noted in my dictated progress note. Diagnosis: Problems: (1) Impulse control disorder (2) Bipolar disorder, curr episode mixed, severe, with psychotic features (3) Medical clearance for psychiatric admission (4) Anxiety disorder (5) Schizoaffective disorder, chronic condition with acute exacerbation (6) Borderline intellectual disability NIKKI SHIELDS MD Jun 20, 2019 21:57
--- NOTE | 2019-06-21 00:32 | NUR ---
Pt has been in his room this shift. He has been cooperative with meds taken whole. He yelled some during cares but has been sleeping for awhile now.
[2019-06-21] MEDS: LEVOTHYROXINE 25 MCG TABLET. PO SCH (05:43)
[2019-06-21 06:00] VITALS: BP 129/73
--- NOTE | 2019-06-21 06:10 | NUR ---
Covid 19 result NEG. Pt up to WC and brought to day room. He was continually yelling to go to bed, I'm thirsty then spills water on the floor. While being moved to quiet cueva he rolled himself gently out of wc onto floor. He was then placed in QR on mattress for safety where he continues to yell.
[2019-06-21] MEDS: NYSTATIN 100,000 UNITS/ML ORAL SUSPENSION 60ML BOTTLE. SWSW SCH ×4 (08:51→20:06)
[2019-06-21] MEDS: FLUTICASONE 50MCG/NASAL SPRAY 16GM BOTTLE. NS SCH (08:51)
[2019-06-21] MEDS: TAMSULOSIN 0.4 MG CAP.ER.24H. PO SCH (08:51)
[2019-06-21] MEDS: POLYETHYLENE GLYCOL 3350 17 GM PACKET. PO SCH (08:51)
[2019-06-21] MEDS: busPIRone 5 MG TABLET. PO SCH ×3 (08:51→17:00)
[2019-06-21] MEDS: CETIRIZINE HCL 10 MG TABLET PO SCH (08:52)
[2019-06-21] MEDS: risperiDONE 0.5 MG TABLET. PO SCH ×3 (08:52→20:08)
[2019-06-21] MEDS: OXYBUTYNIN CHLORIDE 5 MG TABLET PO SCH ×3 (08:52→20:07)
[2019-06-21] MEDS: FUROSEMIDE 40 MG TABLET PO SCH (08:52)
[2019-06-21] MEDS: BENZTROPINE MESYLATE 1 MG TABLET PO SCH ×2 (08:53→20:06)
[2019-06-21] MEDS: DIVALPROEX ER 500 MG TAB.ER.24H PO SCH (08:53)
[2019-06-21] MEDS: POTASSIUM CHLORIDE 20 MEQ TABLET.ER. PO SCH (08:54)
[2019-06-21] MEDS: FERROUS SULFATE 325 MG TABLET. PO SCH (08:54)
[2019-06-21] MEDS: ENOXAPARIN 40 MG/0.4 ML SYRINGE. SQ SCH (08:54)
[2019-06-21] MEDS: PANTOPRAZOLE 40 MG TABLET. PO SCH (08:54)
[2019-06-21] MEDS: CALCIUM POLYCARBOPHIL 625 MG TABLET PO SCH (08:54)
[2019-06-21] MEDS: traZODone 50 MG TABLET. PO SCH ×3 (08:54→17:00)
[2019-06-21] MEDS: HALOPERIDOL LACT 5 MG/ML VIAL. IM SCH (08:54)
[2019-06-21] MEDS ORDERED: LORazepam 1 MG TABLET PO SCH (09:00)
--- NOTE | 2019-06-21 10:25 | NUR ---
Telephone update provided to LAURO Vidales at [facility], on 06/20/19. Faxed current notes, medication list, and labs on this date for review.
--- NOTE | 2019-06-21 12:45 | PDOC ---
Exam Note: Ramos Note: S/O: This note is a late entry for DOS 06/20/2019 covers elements not covered in my initial note. We are still waiting on the COVID-19 screen on two patients before the unit can be opened for admissions and discharges per the [facility] of Health and Environment ([facility])/Centers for Disease Control (CDC). Discussed the patient with nursing staff, reviewed the chart. Treatment team meeting was done in the morning with social service staff Melissa in Activity Therapy, nursing staff, Yamilex TURNER and myself. We are still awaiting the final results of his COVID-19 screen and in the meantime he remains isolated. This frustrates him and he has been yelling and screaming at times. He seems to have some propensity for aspiration. The Ativan 2 mg b.i.d. might be worsening this but it helps his anxiety and yelling but nevertheless we will reduce it to 2 mg in the morning and 1.5 mg in the evening. ROS: He is in a wheelchair, vague somatic symptoms. No CV, , Pulmonary, Eye system symptoms on review. Reliability varies. MSE: Oriented to himself and situation. Speech has been loud, yelling at times. Abstraction fair. Computation impaired. Language function intact. Mood and affect remains intermittently labile. Labs: Reviewed. Imp: Schizoaffective disorder bipolar type, mixed with psychotic features. I ntellectual disability. Plan: Continue psychotropics from initial note other than what is mentioned above. Assessment: Vital Signs/I&O: Vital Signs Date Time Temp Pulse Resp B/P (MAP) Pulse Ox O2 Delivery O2 Flow Rate FiO2 06/21/19 06:00 98.4 79 16 129/73 (91) 94 06/19/19 18:15 Room Air I & O 06/20/19 06/20/19 06/21/19 15:00 23:00 07:00 Intake Total 250 ml 720 ml Balance 250 ml 720 ml Current Medications: Meds: Current Medications Medications (Trade) Dose Ordered Sig/Kylah Route PRN Reason Start Time Stop Time Status Last Admin Dose Admin Lorazepam (Ativan) 1 mg DAILY PO 06/21/19 09:00 06/21/19 08:53 Lorazepam (Ativan) 1.5 mg HS PO 06/20/19 21:00 06/20/19 20:12 I have reviewed the current psychotropics carefully including drug interactions. Risk benefit ratio favors no change other than as noted in my dictated progress note. Diagnosis: Problems: (1) Impulse control disorder (2) Bipolar disorder, curr episode mixed, severe, with psychotic features (3) Medical clearance for psychiatric admission (4) Anxiety disorder (5) Schizoaffective disorder, chronic condition with acute exacerbation (6) Borderline intellectual disability NIKKI SHIELDS MD Jun 21, 2019 12:45
--- NOTE | 2019-06-21 13:27 | NUR ---
Attempted to see Gregory for 1:1 for socialization. Gregory is now able to come out of his room as Covid-19 test was negative as of 06/20/19. Gregory was sitting up in his wheelchair but sleepy and not responding to this worker's communication. Gregory exhibited no s/s of distress or discomfort. Allowed Gregory to rest. Will attempt to visit at a later time.
--- NOTE | 2019-06-21 14:49 | NUR ---
Pt up mid morning. Yelling out. Ate little of breakfast. Pt very drowsy. Pt laid down after lunch. Resting quietly.
[2019-06-21 16:07] VITALS: BP 138/72
[2019-06-21] MEDS: LORazepam 1 MG TABLET PO SCH (20:06)
[2019-06-21] MEDS: SENNOSIDES 8.6 MG TABLET PO SCH (20:07)
[2019-06-21] MEDS: DIVALPROEX ER 250 MG TAB.ER.24H. PO SCH (20:07)
[2019-06-21] MEDS: traZODone 100 MG TABLET. PO SCH (20:08)
--- NOTE | 2019-06-21 21:45 | NUR ---
Call placed toDR Addendum: 06/21/19 at 2159 by GAY MONTGOMERY RN Ho re temp of 101.5 ax. He dcd some meds, see orders. Pt has been drowsy but responsive and cooperative tonight. Lungs sound clear /diminished. Placed in bed with HOB elevated. PRN tylenol given.
--- NOTE | 2019-06-21 21:57 | PDOC ---
Exam Note: Ramos Note: Please also refer to the separate dictated note~for this date of service dictated separately.~Patient seen individually. Discussed the patient with Nursing staff reviewed the chart.~Reviewed interim history and current functioning. Reviewed vital signs,~Labs/ Radiology~and current medications noted below. Continue current treatment with the changes noted in the dictated addendum note Assessment: Vital Signs/I&O: Vital Signs Date Time Temp Pulse Resp B/P (MAP) Pulse Ox O2 Delivery O2 Flow Rate FiO2 06/21/19 21:30 101.5 06/21/19 16:07 87 16 138/72 (94) 94 06/19/19 18:15 Room Air I & O 06/20/19 06/20/19 06/21/19 15:00 23:00 07:00 Intake Total 250 ml 720 ml Balance 250 ml 720 ml Current Medications: Meds: Current Medications Medications (Trade) Dose Ordered Sig/Kylah Route PRN Reason Start Time Stop Time Status Last Admin Dose Admin Lorazepam (Ativan) 1 mg DAILY PO 06/21/19 09:00 06/21/19 21:51 DC 06/21/19 08:53 I have reviewed the current psychotropics carefully including drug interactions. Risk benefit ratio favors no change other than as noted in my dictated progress note. Diagnosis: Problems: (1) Impulse control disorder (2) Bipolar disorder, curr episode mixed, severe, with psychotic features (3) Anxiety disorder (4) Schizoaffective disorder, chronic condition with acute exacerbation (5) Borderline intellectual disability NIKKI SHIELDS MD Jun 21, 2019 21:57
[2019-06-21] MEDS: ACETAMINOPHEN 500 MG TABLET PO PRN (22:04)
[2019-06-21 22:06] VITALS: BP 152/69
[2019-06-22] MEDS: ACETAMINOPHEN 500 MG TABLET PO PRN (05:16)
[2019-06-22] MEDS: LEVOTHYROXINE 25 MCG TABLET. PO SCH (05:16)
--- NOTE | 2019-06-22 05:20 | NUR ---
PRN tylenol given for temp of 100. F
--- NOTE | 2019-06-22 05:36 | NUR ---
PRN tylenol given temp 100.0. Pt drank 120 cc thick lemon flavored water with assistance
[2019-06-22 05:47] VITALS: BP 131/86
[2019-06-22 06:54] LABS: BASO % 0 % (0-3); EOS % 0 % (0-3); HEMATOCRIT 37.5 % (39.0-53.0); HEMOGLOBIN 12.4 g/dL (13.0-17.5); LYMPH # 0.7 x10^3/uL (1.0-4.8); LYMPH % 11 % (24-48); MEAN CORPUSCULAR HEMOGLOBIN 30 pg (25-35); MEAN CORPUSCULAR HGB CONC 33 g/dL (31-37); MEAN CORPUSCULAR VOLUME 91 fL (79-100); MONO # 0.8 x10^3/uL (0.0-1.1); MONO % 13 % (0-9); NEUT # 4.6 x10^3uL (1.8-7.7); NEUT % 75 % (31-73); PLATELET COUNT 189 x10^3/uL (140-400); RED BLOOD COUNT 4.11 x10^6/uL (4.30-5.70); RED CELL DISTRIBUTION WIDTH 15.9 % (11.5-14.5); WHITE BLOOD COUNT 6.1 x10^3/uL (4.0-11.0)
[2019-06-22 07:32] LABS: ALBUMIN 2.6 g/dL (3.4-5.0); ALBUMIN/GLOBULIN RATIO 0.6 (1.0-1.7); CALCIUM 8.6 mg/dL (8.5-10.1); GFR 74.8; POTASSIUM 4.1 mmol/L (3.5-5.1); TOTAL BILIRUBIN 0.1 mg/dL (0.2-1.0); TOTAL PROTEIN 6.9 g/dL (6.4-8.2)
[2019-06-22] MEDS: POLYETHYLENE GLYCOL 3350 17 GM PACKET. PO SCH (08:38)
[2019-06-22] MEDS: FLUTICASONE 50MCG/NASAL SPRAY 16GM BOTTLE. NS SCH (08:38)
[2019-06-22] MEDS: ENOXAPARIN 40 MG/0.4 ML SYRINGE. SQ SCH (08:38)
[2019-06-22] MEDS: TAMSULOSIN 0.4 MG CAP.ER.24H. PO SCH (08:39)
[2019-06-22] MEDS: PANTOPRAZOLE 40 MG TABLET. PO SCH (08:39)
[2019-06-22] MEDS: FUROSEMIDE 40 MG TABLET PO SCH (08:39)
[2019-06-22] MEDS: DIVALPROEX ER 500 MG TAB.ER.24H PO SCH (08:39)
[2019-06-22] MEDS: CALCIUM POLYCARBOPHIL 625 MG TABLET PO SCH (08:39)
[2019-06-22] MEDS: POTASSIUM CHLORIDE 20 MEQ TABLET.ER. PO SCH (08:39)
[2019-06-22] MEDS: busPIRone 5 MG TABLET. PO SCH ×3 (08:39→17:00)
[2019-06-22] MEDS: BENZTROPINE MESYLATE 1 MG TABLET PO SCH ×2 (08:40→21:00)
[2019-06-22] MEDS: NYSTATIN 100,000 UNITS/ML ORAL SUSPENSION 60ML BOTTLE. SWSW SCH ×2 (08:40→12:58)
[2019-06-22] MEDS: risperiDONE 0.5 MG TABLET. PO SCH ×3 (08:40→21:00)
[2019-06-22] MEDS: CETIRIZINE HCL 10 MG TABLET PO SCH (08:40)
[2019-06-22] MEDS: OXYBUTYNIN CHLORIDE 5 MG TABLET PO SCH ×3 (08:40→21:00)
[2019-06-22] MEDS: FERROUS SULFATE 325 MG TABLET. PO SCH (08:40)
--- NOTE | 2019-06-22 09:39 | RAD ---
EXAM: Chest, single view. HISTORY: Fever. Cough. Diminished lung sounds. COMPARISON: 06/09/2019. FINDINGS: A frontal view of the chest is obtained. There is left lower lobe atelectasis or interstitial infiltrate. This appears slightly increased compared to the prior exam. There is no pleural effusion or pneumothorax. The heart is normal in size. IMPRESSION: Suspected slight interval increase in left lower lobe atelectasis or interstitial infiltrate. Electronically signed by: Uzma Isbell MD (06/22/2019 9:37 AM) [facility]
--- NOTE | 2019-06-22 11:24 | PN ---
DATE: 06/22/2019 ATTENDING PHYSICIANS: Dr. Golden and Dr. Dickey. SUBJECTIVE: I am asked to see this patient for elevated temperature recorded at 101.7 degrees Fahrenheit last night. This morning, it is down to 100.3 degrees Fahrenheit at midnight and at 8:00 this morning, it was 98.8. Patient was seen, examined and extensive history reviewed. MEDICATIONS: Reviewed. FURTHER OBJECTIVE FINDINGS: VITAL SIGNS: Blood pressure today is 131/86, pulse 87 and regular, temperature is now down to 98.0 degrees Fahrenheit, oxygen saturation 94% on room air. HEENT: Head is without trauma. Pupils are reactive. His oropharynx is clear. There is no obstruction despite glossal hypertrophy and hypertrophy of lips which is chronic in nature. NECK: Supple. No stridor. LUNGS: Otherwise clear with good breath sounds. ABDOMEN: Soft. No guarding, no rebound tenderness. EXTREMITIES: Showed no cyanosis or edema. I did not appreciate any open wounds or sores. ASSESSMENT: 1. A 68-year-old gentleman with developmental delay. 2. Impulse control disorder. 3. Bipolar disorder with mixed psychotic features. 4. Anxiety. 5. Schizoaffective disorder, chronic with acute exacerbation. 6. Intellectual disability. 7. Febrile episode last night. PLAN: 1. I ordered a chest x-ray, which I interpreted as unremarkable. Lungs are clear with free of infiltrates. 2. I recommended a UA and a urine culture. 3. He is stable and afebrile now. I would not recommend any antibiotic therapy unless we have a pathogen to treat. We will see what the urine cultures grow. Thank you again for asking me to see this patient in consultation. We should gladly follow along closely. SIRI DICKEY MD DR: KYLAH/shawn JOB#: [id number] / [id number]
[2019-06-22 12:00] LABS: BILIRUBIN,URINE NEG (NEG); CLARITY,URINE HAZY; COLOR,URINE YELLOW; GLUCOSE,URINE NEG (NEG)
[2019-06-22 12:01] LABS: BACTERIA,URINE MOD /HPF (0-FEW); NITRITE,URINE POS (NEG); RBC,URINE OCC /HPF (0-2); SQUAMOUS EPITHELIAL CELL,UR FEW /LPF; UROBILINOGEN,URINE 0.2 mg/dL (0.2 mg/dL); WBC,URINE 20-40 /HPF (0-4)
[2019-06-22 16:31] VITALS: BP 119/71
--- NOTE | 2019-06-22 16:55 | NUR ---
Pt up for lunch. Ate very little. Yelling out intermittently alternating with drowsiness. Still running intermittent low grade fever. Order received for CXR. Dr Alexis here to see. Order for UA and Urine culture. UA pos. Pt placed in quiet cueva as he was cussing at staff. Apologized later.
[2019-06-22] MEDS: DIVALPROEX ER 250 MG TAB.ER.24H. PO SCH (21:00)
[2019-06-22] MEDS: SENNOSIDES 8.6 MG TABLET PO SCH (21:00)
--- NOTE | 2019-06-22 21:38 | PDOC ---
Exam Note: Ramos Note: S/O: This note is a late entry for DOS 06/21/2019 covers elements not covered in my initial note. Discussed the patient with nursing staff, reviewed the chart. The patient was seen on audio-visual rounds in the evening with Thomas TURNER. Nursing report by Melissa TURNER. The patient is out of isolation and restrictio ns since his COVID-19 screen has returned negative. He has been somewhat withdrawn either sedated or yelling when he is awake. ROS: He is in a wheelchair with vague somatic symptoms. No CV, , Pulmonary, Eye system symptoms on review. Reliability varies. MSE: Oriented to himself and situation. Speech has been loud, yelling at times. Abstraction fair. Computation impaired. Language function intact. Mood and affect labile. Labs: Reviewed. Imp: Schizoaffective disorder bipolar type, mixed with psychotic features. Intellectual disability. Plan: Continue psychotropics mentioned in my initial note. If medically he jayme ws some deterioration, we will defer to Dr. Alexis since the patient had some atelectasis in his prior chest x-ray and has been kept in his room for the last 14 days due to the COVID-19 restriction. He is on Ativan 2 mg a.m. and 1.5 mg h.s. and after he has been on that for 3 days we will reduce it to 2 mg a.m and 1 mg h.s. Assessment: Vital Signs/I&O: Vital Signs Date Time Temp Pulse Resp B/P (MAP) Pulse Ox O2 Delivery O2 Flow Rate FiO2 06/22/19 16:31 99.6 86 20 119/71 (87) 97 06/22/19 08:38 Room Air I & O 06/21/19 06/21/19 06/22/19 15:00 23:00 07:00 Intake Total 240 ml 240 ml 360 ml Balance 240 ml 240 ml 360 ml Labs: Laboratory Tests Test 06/22/19 06:14 06/22/19 11:25 White Blood Count 6.1 x10^3/uL (4.0-11.0) Red Blood Count 4.11 x10^6/uL (4.30-5.70) L Hemoglobin 12.4 g/dL (13.0-17.5) L Hematocrit 37.5 % (39.0-53.0) L Mean Corpuscular Volume 91 fL (79-100) Mean Corpuscular Hemoglobin 30 pg (25-35) Mean Corpuscular Hemoglobin Concent 33 g/dL (31-37) Red Cell Distribution Width 15.9 % (11.5-14.5) H Platelet Count 189 x10^3/uL (140-400) Neutrophils (%) (Auto) 75 % (31-73) H Lymphocytes (%) (Auto) 11 % (24-48) L Monocytes (%) (Auto) 13 % (0-9) H Eosinophils (%) (Auto) 0 % (0-3) Basophils (%) (Auto) 0 % (0-3) Neutrophils # (Auto) 4.6 x10^3uL (1.8-7.7) Lymphocytes # (Auto) 0.7 x10^3/uL (1.0-4.8) L Monocytes # (Auto) 0.8 x10^3/uL (0.0-1.1) Eosinophils # (Auto) 0.0 x10^3/uL (0.0-0.7) Basophils # (Auto) 0.0 x10^3/uL (0.0-0.2) Sodium Level 139 mmol/L (136-145) Potassium Level 4.1 mmol/L (3.5-5.1) Chloride Level 100 mmol/L (98-107) Carbon Dioxide Level 31 mmol/L (21-32) Anion Gap 8 (6-14) Blood Urea Nitrogen 28 mg/dL (8-26) H Creatinine 1.0 mg/dL (0.7-1.3) Estimated GFR (Cockcroft-Gault) 74.8 BUN/Creatinine Ratio 28 (6-20) H Glucose Level 131 mg/dL (70-99) H Calcium Level 8.6 mg/dL (8.5-10.1) Total Bilirubin 0.1 mg/dL (0.2-1.0) L Aspartate Amino Transferase (AST) 35 U/L (15-37) Alanine Aminotransferase (ALT) 26 U/L (16-63) Alkaline Phosphatase 84 U/L (46-116) Ammonia 11 mcmol/L (11-34) Total Protein 6.9 g/dL (6.4-8.2) Albumin 2.6 g/dL (3.4-5.0) L Albumin/Globulin Ratio 0.6 (1.0-1.7) L Urine Collection Type U cath Urine Color Yellow Urine Clarity Hazy Urine pH 5.5 Urine Specific Minier 1.020 Urine Protein Neg (NEG-TRACE) Urine Glucose (UA) Neg mg/dL (NEG) Urine Ketones (Stick) Neg mg/dL (NEG) Urine Blood Trace (NEG) Urine Nitrite Pos (NEG) Urine Bilirubin Neg (NEG) Urine Urobilinogen Dipstick 0.2 mg/dL (0.2 mg/dL) Urine Leukocyte Esterase Trace (NEG) Urine RBC Occ /HPF (0-2) Urine WBC 20-40 /HPF (0-4) Urine Squamous Epithelial Cells Few /LPF Urine Bacteria Mod /HPF (0-FEW) Urine Mucus Marked /LPF Current Medications: I have reviewed the current psychotropics carefully including drug interactions. Risk benefit ratio favors no change other than as noted in my dictated progress note. Diagnosis: Problems: (1) Impulse control disorder (2) Bipolar disorder, curr episode mixed, severe, with psychotic features (3) Medical clearance for psychiatric admission (4) Anxiety disorder (5) Schizoaffective disorder, chronic condition with acute exacerbation (6) Borderline intellectual disability NIKKI SHIELDS MD Jun 22, 2019 21:38
--- NOTE | 2019-06-22 21:55 | PDOC ---
Exam Note: Ramos Note: Please also refer to the separate dictated note~for this date of service dictated separately.~Patient seen individually. Discussed the patient with Nursing staff reviewed the chart.~Reviewed interim history and current functioning. Reviewed vital signs,~Labs/ Radiology~and current medications noted below. Continue current treatment with the changes noted in the dictated addendum note Assessment: Vital Signs/I&O: Vital Signs Date Time Temp Pulse Resp B/P (MAP) Pulse Ox O2 Delivery O2 Flow Rate FiO2 06/22/19 16:31 99.6 86 20 119/71 (87) 97 06/22/19 08:38 Room Air I & O 06/21/19 06/21/19 06/22/19 14:59 22:59 06:59 Intake Total 240 ml 240 ml 360 ml Balance 240 ml 240 ml 360 ml Labs: Laboratory Tests Test 06/22/19 06:14 06/22/19 11:25 White Blood Count 6.1 x10^3/uL (4.0-11.0) Red Blood Count 4.11 x10^6/uL (4.30-5.70) L Hemoglobin 12.4 g/dL (13.0-17.5) L Hematocrit 37.5 % (39.0-53.0) L Mean Corpuscular Volume 91 fL (79-100) Mean Corpuscular Hemoglobin 30 pg (25-35) Mean Corpuscular Hemoglobin Concent 33 g/dL (31-37) Red Cell Distribution Width 15.9 % (11.5-14.5) H Platelet Count 189 x10^3/uL (140-400) Neutrophils (%) (Auto) 75 % (31-73) H Lymphocytes (%) (Auto) 11 % (24-48) L Monocytes (%) (Auto) 13 % (0-9) H Eosinophils (%) (Auto) 0 % (0-3) Basophils (%) (Auto) 0 % (0-3) Neutrophils # (Auto) 4.6 x10^3uL (1.8-7.7) Lymphocytes # (Auto) 0.7 x10^3/uL (1.0-4.8) L Monocytes # (Auto) 0.8 x10^3/uL (0.0-1.1) Eosinophils # (Auto) 0.0 x10^3/uL (0.0-0.7) Basophils # (Auto) 0.0 x10^3/uL (0.0-0.2) Sodium Level 139 mmol/L (136-145) Potassium Level 4.1 mmol/L (3.5-5.1) Chloride Level 100 mmol/L (98-107) Carbon Dioxide Level 31 mmol/L (21-32) Anion Gap 8 (6-14) Blood Urea Nitrogen 28 mg/dL (8-26) H Creatinine 1.0 mg/dL (0.7-1.3) Estimated GFR (Cockcroft-Gault) 74.8 BUN/Creatinine Ratio 28 (6-20) H Glucose Level 131 mg/dL (70-99) H Calcium Level 8.6 mg/dL (8.5-10.1) Total Bilirubin 0.1 mg/dL (0.2-1.0) L Aspartate Amino Transferase (AST) 35 U/L (15-37) Alanine Aminotransferase (ALT) 26 U/L (16-63) Alkaline Phosphatase 84 U/L (46-116) Ammonia 11 mcmol/L (11-34) Total Protein 6.9 g/dL (6.4-8.2) Albumin 2.6 g/dL (3.4-5.0) L Albumin/Globulin Ratio 0.6 (1.0-1.7) L Urine Collection Type U cath Urine Color Yellow Urine Clarity Hazy Urine pH 5.5 Urine Specific [place] 1.020 Urine Protein Neg (NEG-TRACE) Urine Glucose (UA) Neg mg/dL (NEG) Urine Ketones (Stick) Neg mg/dL (NEG) Urine Blood Trace (NEG) Urine Nitrite Pos (NEG) Urine Bilirubin Neg (NEG) Urine Urobilinogen Dipstick 0.2 mg/dL (0.2 mg/dL) Urine Leukocyte Esterase Trace (NEG) Urine RBC Occ /HPF (0-2) Urine WBC 20-40 /HPF (0-4) Urine Squamous Epithelial Cells Few /LPF Urine Bacteria Mod /HPF (0-FEW) Urine Mucus Marked /LPF Current Medications: I have reviewed the current psychotropics carefully including drug interactions. Risk benefit ratio favors no change other than as noted in my dictated progress note. Diagnosis: Problems: (1) Impulse control disorder (2) Bipolar disorder, curr episode mixed, severe, with psychotic features (3) Medical clearance for psychiatric admission (4) Anxiety disorder (5) Schizoaffective disorder, chronic condition with acute exacerbation (6) Borderline intellectual disability NIKKI SHIELDS MD Jun 22, 2019 21:55
--- NOTE | 2019-06-23 00:07 | NUR ---
Pt has been in bed this shift mainly sleeping . When awaken for meds he was more alert than last night and cooperative with meds. He was thirsty and drank thickened liq with assistance. Continues to have some temp elevation Lungs clear/ diminished. Urine culture pending.
[2019-06-23] MEDS: hydrOXYzine HCL 25 MG TABLET PO PRN ×3 (00:48→23:26)
[2019-06-23] MEDS: LORazepam 0.5 MG TABLET PO PRN ×2 (00:49→20:24)
--- NOTE | 2019-06-23 00:50 | NUR ---
PRN meds for irritability and anxiety given. Pt awake and trying to get OOB yelling and cursing at staff. PO fluids taken with assistance.
[2019-06-23] MEDS: LEVOTHYROXINE 25 MCG TABLET. PO SCH (05:11)
[2019-06-23 05:56] VITALS: BP 123/67
[2019-06-23] MEDS: CALCIUM POLYCARBOPHIL 625 MG TABLET PO SCH (07:23)
[2019-06-23] MEDS: CETIRIZINE HCL 10 MG TABLET PO SCH (07:23)
[2019-06-23] MEDS: ENOXAPARIN 40 MG/0.4 ML SYRINGE. SQ SCH (07:23)
[2019-06-23] MEDS: OXYBUTYNIN CHLORIDE 5 MG TABLET PO SCH ×3 (07:23→20:21)
[2019-06-23] MEDS: FLUTICASONE 50MCG/NASAL SPRAY 16GM BOTTLE. NS SCH (07:23)
[2019-06-23] MEDS: POLYETHYLENE GLYCOL 3350 17 GM PACKET. PO SCH (07:23)
[2019-06-23] MEDS: busPIRone 5 MG TABLET. PO SCH ×3 (07:23→17:48)
[2019-06-23] MEDS: ACETAMINOPHEN 500 MG TABLET PO PRN ×2 (07:24→23:26)
[2019-06-23] MEDS: POTASSIUM CHLORIDE 20 MEQ TABLET.ER. PO SCH (07:24)
[2019-06-23] MEDS: BENZTROPINE MESYLATE 1 MG TABLET PO SCH ×2 (07:24→20:21)
[2019-06-23] MEDS: FUROSEMIDE 40 MG TABLET PO SCH (07:24)
[2019-06-23] MEDS: PANTOPRAZOLE 40 MG TABLET. PO SCH (07:25)
[2019-06-23] MEDS: FERROUS SULFATE 325 MG TABLET. PO SCH (07:25)
[2019-06-23] MEDS: TAMSULOSIN 0.4 MG CAP.ER.24H. PO SCH (07:25)
[2019-06-23] MEDS: DIVALPROEX ER 500 MG TAB.ER.24H PO SCH (07:25)
[2019-06-23] MEDS: risperiDONE 0.5 MG TABLET. PO SCH ×3 (07:27→20:21)
[2019-06-23 15:57] VITALS: BP 144/67
--- NOTE | 2019-06-23 18:18 | NUR ---
Pt up in chair for meals. Has been yelling out intermittently throughout day. Yelling during meal. When pt removed from DR after offering him the opportunity to control his behavior, pt flipped off staff. Prns utilized with some relief.
[2019-06-23] MEDS: SENNOSIDES 8.6 MG TABLET PO SCH (20:21)
[2019-06-23] MEDS: DIVALPROEX ER 250 MG TAB.ER.24H. PO SCH (20:22)
[2019-06-23] MEDS ORDERED: LORazepam 1 MG TABLET PO SCH (21:00)
--- NOTE | 2019-06-23 23:11 | NUR ---
Nursing Note Pt in hallway, asking staff for water, is loud and insistent with whomever will lend him an ear. Asks repeatedly even after we told him we would get him a drink, constantly asking with no evidence of understanding how intrusive he is. He asked another nurse as she was walking by who put him here, she said she would go check and he stated "You don't have to walk away bitch!!" Now complains of leg pain. Has been in room loudly talking to himself on and off.
[2019-06-24] MEDS: LEVOTHYROXINE 25 MCG TABLET. PO SCH (05:53)
[2019-06-24 06:14] VITALS: BP 117/83
[2019-06-24] MEDS: ACETAMINOPHEN 500 MG TABLET PO PRN ×2 (07:40→17:21)
--- NOTE | 2019-06-24 08:23 | PDOC ---
Exam Note: Ramos Note: S/O: This note is a late entry for DOS 06/22/2019 covers elements not covered in my initial note. Discussed the patient with nursing staff, reviewed the chart. The patient was seen on audio-visual rounds in the evening with Thomas TURNER. Nursing report was with Marlen TURNER. The patient has had a low-grade tempera ture. Dr. Alexis is following him medically. Chest x-ray shows left lower lobe atelectasis. UA C&S is positive. He has been yelling out when assisted with cares. Dr. Alexis had discontinued the patients Ativan, Haldol, and trazodone but we started Ativan p.r.n. to make sure he does not have benzodiazepine withdrawal seizures since he was on 3.5 mg a day. ROS: Ambulation impaired on wheelchair, not very verbally interactive. No CV, , Pulmonary, Eye system symptoms on review. MSE: Oriented to himself and situation. Speech has been loud, yelling at times. Abstraction fair. Computation impaired. Language function intact. Mood and affect labile. Labs: Reviewed. Imp: Schizoaffective disorder bipolar type, mixed with psychotic features. Intellectual disability. Plan: Patient was started again on Ativan p.r.n. to make sure he does not have benzodiazepine withdrawal seizures since he was on 3.5 mg a day. Medical follow-up with Dr. Alexis. Assessment: Vital Signs/I&O: Vital Signs Date Time Temp Pulse Resp B/P (MAP) Pulse Ox O2 Delivery O2 Flow Rate FiO2 06/24/19 06:14 98.0 75 18 117/83 (94) 97 06/22/19 08:38 Room Air I & O 06/23/19 06/23/19 06/24/19 15:00 23:00 07:00 Intake Total 720 ml 480 ml 240 ml Balance 720 ml 480 ml 240 ml Current Medications: I have reviewed the current psychotropics carefully including drug interactions. Risk benefit ratio favors no change other than as noted in my dictated progress note. Diagnosis: Problems: (1) Impulse control disorder (2) Bipolar disorder, curr episode mixed, severe, with psychotic features (3) Medical clearance for psychiatric admission (4) Anxiety disorder (5) Schizoaffective disorder, chronic condition with acute exacerbation (6) Borderline intellectual disability NIKKI SHIELDS MD Jun 24, 2019 08:23
[2019-06-24] MEDS: TAMSULOSIN 0.4 MG CAP.ER.24H. PO SCH (08:36)
[2019-06-24] MEDS: FERROUS SULFATE 325 MG TABLET. PO SCH (08:36)
[2019-06-24] MEDS: risperiDONE 0.5 MG TABLET. PO SCH ×3 (08:36→21:00)
[2019-06-24] MEDS: BENZTROPINE MESYLATE 1 MG TABLET PO SCH ×2 (08:36→21:00)
[2019-06-24] MEDS: ENOXAPARIN 40 MG/0.4 ML SYRINGE. SQ SCH (08:36)
[2019-06-24] MEDS: POLYETHYLENE GLYCOL 3350 17 GM PACKET. PO SCH (08:36)
[2019-06-24] MEDS: busPIRone 5 MG TABLET. PO SCH ×3 (08:36→17:13)
[2019-06-24] MEDS: POTASSIUM CHLORIDE 20 MEQ TABLET.ER. PO SCH (08:37)
[2019-06-24] MEDS: FUROSEMIDE 40 MG TABLET PO SCH (08:37)
[2019-06-24] MEDS: CETIRIZINE HCL 10 MG TABLET PO SCH (08:37)
[2019-06-24] MEDS: PANTOPRAZOLE 40 MG TABLET. PO SCH (08:37)
[2019-06-24] MEDS: DIVALPROEX ER 500 MG TAB.ER.24H PO SCH (08:37)
[2019-06-24] MEDS: OXYBUTYNIN CHLORIDE 5 MG TABLET PO SCH ×3 (08:37→21:00)
[2019-06-24] MEDS: FLUTICASONE 50MCG/NASAL SPRAY 16GM BOTTLE. NS SCH (08:38)
[2019-06-24] MEDS: CALCIUM POLYCARBOPHIL 625 MG TABLET PO SCH (08:38)
--- NOTE | 2019-06-24 08:50 | PDOC ---
Exam Note: Ramos Note: S/O: This note is a late entry for DOS 06/23/2019 covers elements not covered in my initial note. Discussed the patient with nursing staff, reviewed the chart. The patient was seen on audio-visual rounds in the evening with Jeana TURNER. Nursing report was with Marlen TURNER. He has been yelling at times. UA is positive. Chest x-ray was positive, again defer to Dr. Alexis. ROS: Ambulation impaired. No CV, , Eye system symptoms on review. MSE: Oriented to himself and situation. Speech has been loud, yelling at times. Abstraction fair. Computation impaired. Language function intact. Mood and affect labile. Labs: Reviewed. Imp: Schizoaffective disorder bipolar type, mixed with psychotic features. Intellectual disability. Plan: Continue psychotropics as mentioned in my previous note. Assessment: Vital Signs/I&O: Vital Signs Date Time Temp Pulse Resp B/P (MAP) Pulse Ox O2 Delivery O2 Flow Rate FiO2 06/24/19 06:14 98.0 75 18 117/83 (94) 97 06/22/19 08:38 Room Air I & O 06/23/19 06/23/19 06/24/19 14:59 22:59 06:59 Intake Total 720 ml 480 ml 240 ml Balance 720 ml 480 ml 240 ml Current Medications: I have reviewed the current psychotropics carefully including drug interactions. Risk benefit ratio favors no change other than as noted in my dictated progress note. Diagnosis: Problems: (1) Impulse control disorder (2) Bipolar disorder, curr episode mixed, severe, with psychotic features (3) Anxiety disorder (4) Schizoaffective disorder, chronic condition with acute exacerbation (5) Borderline intellectual disability NIKKI SHIELDS MD Jun 24, 2019 08:50
--- NOTE | 2019-06-24 09:42 | NUR ---
Patient is alert, oriented to self. Lung sounds diminished. Pt is demanding and becomes obsessed. For instance, when patient wants a drink of water, he will repeatedly yell for one until he gets it. Pt will not talk about anything else until that need is met. Pt is compliant with medication and cares, however is not helping when transferring to and from wheelchair. Pt weights on staff at times.
--- NOTE | 2019-06-24 13:32 | NUR ---
Notified LAURO Vidales at [facility], of continued unit quarantine at this time. Will continue to update Flash prn. Call placed to Naa Nuñez, public admin/guardian, and left detailed message that the unit quarantine will continue at this time. Requested return phone call should she have any further questions.
[2019-06-24 15:38] VITALS: BP 110/73
--- NOTE | 2019-06-24 17:40 | NUR ---
Pt yelling out about his legs hurting. PRN given per eMAR. Will continue to monitor.
--- NOTE | 2019-06-24 20:00 | NUR ---
Pt has been in in cueva yelling at staff and peers about various things. He was cooperative with Hs cares and took meds without difficulty. He reported some foot pain and was positioned to lessen pain. He is more alert, interactive and appears to be feeling better tonight.
[2019-06-24] MEDS: DIVALPROEX ER 250 MG TAB.ER.24H. PO SCH (21:00)
[2019-06-24] MEDS: SENNOSIDES 8.6 MG TABLET PO SCH (21:00)
--- NOTE | 2019-06-24 22:09 | PDOC ---
Exam Note: Ramos Note: Please also refer to the separate dictated note~for this date of service dictated separately.~Patient seen individually. Discussed the patient with Nursing staff reviewed the chart.~Reviewed interim history and current functioning. Reviewed vital signs,~Labs/ Radiology~and current medications noted below. Continue current treatment with the changes noted in the dictated addendum note Assessment: Vital Signs/I&O: Vital Signs Date Time Temp Pulse Resp B/P (MAP) Pulse Ox O2 Delivery O2 Flow Rate FiO2 06/24/19 15:38 98.5 86 20 110/73 (85) 96 Room Air I & O 06/23/19 06/23/19 06/24/19 15:00 23:00 07:00 Intake Total 720 ml 480 ml 240 ml Balance 720 ml 480 ml 240 ml Current Medications: I have reviewed the current psychotropics carefully including drug interactions. Risk benefit ratio favors no change other than as noted in my dictated progress note. Diagnosis: Problems: (1) Impulse control disorder (2) Bipolar disorder, curr episode mixed, severe, with psychotic features (3) Medical clearance for psychiatric admission (4) Anxiety disorder (5) Schizoaffective disorder, chronic condition with acute exacerbation (6) Borderline intellectual disability NIKIK SHIELDS MD Jun 24, 2019 22:09
[2019-06-25] MEDS: LORazepam 0.5 MG TABLET PO PRN ×2 (00:59→12:44)
[2019-06-25] MEDS: hydrOXYzine HCL 25 MG TABLET PO PRN (00:59)
[2019-06-25] MEDS: ACETAMINOPHEN 500 MG TABLET PO PRN ×3 (01:00→12:45)
--- NOTE | 2019-06-25 01:10 | NUR ---
Pt awake restless irritable and CO foot and leg pain. PRN meds for restlessness and pain given. Also repositioned for comfort and po fluids given.
--- NOTE | 2019-06-25 02:31 | NUR ---
Pt sleeping now.
[2019-06-25] MEDS: LEVOTHYROXINE 25 MCG TABLET. PO SCH (05:40)
[2019-06-25 06:16] VITALS: BP_SYST 77
--- NOTE | 2019-06-25 06:29 | NUR ---
Pt in wc in day room c/o pain PRN given. Pt has intermittent cough and not covering mouth. Face mask placed.
[2019-06-25] MEDS: FUROSEMIDE 40 MG TABLET PO SCH (08:16)
[2019-06-25] MEDS: risperiDONE 0.5 MG TABLET. PO SCH ×3 (08:16→19:44)
[2019-06-25] MEDS: TAMSULOSIN 0.4 MG CAP.ER.24H. PO SCH (08:17)
[2019-06-25] MEDS: PANTOPRAZOLE 40 MG TABLET. PO SCH (08:17)
[2019-06-25] MEDS: BENZTROPINE MESYLATE 1 MG TABLET PO SCH ×2 (08:17→19:44)
[2019-06-25] MEDS: POTASSIUM CHLORIDE 20 MEQ TABLET.ER. PO SCH (08:17)
[2019-06-25] MEDS: FERROUS SULFATE 325 MG TABLET. PO SCH (08:17)
[2019-06-25] MEDS: CETIRIZINE HCL 10 MG TABLET PO SCH (08:17)
[2019-06-25] MEDS: OXYBUTYNIN CHLORIDE 5 MG TABLET PO SCH ×3 (08:17→19:44)
[2019-06-25] MEDS: CALCIUM POLYCARBOPHIL 625 MG TABLET PO SCH (08:17)
[2019-06-25] MEDS: DIVALPROEX ER 500 MG TAB.ER.24H PO SCH (08:18)
[2019-06-25] MEDS: ENOXAPARIN 40 MG/0.4 ML SYRINGE. SQ SCH (08:18)
[2019-06-25] MEDS: busPIRone 5 MG TABLET. PO SCH ×3 (08:18→17:50)
[2019-06-25] MEDS: FLUTICASONE 50MCG/NASAL SPRAY 16GM BOTTLE. NS SCH (08:46)
[2019-06-25] MEDS: POLYETHYLENE GLYCOL 3350 17 GM PACKET. PO SCH (08:46)
[2019-06-25] MEDS ORDERED: ALBUTEROL SULFATE 8GM INHALER. INH PRN (10:00)
--- NOTE | 2019-06-25 12:45 | NUR ---
Pt increasingly agitated. Throwing food on floor and calling staff names, PRN ativan given x1.
--- NOTE | 2019-06-25 14:37 | NUR ---
Pt generally cooperative this shift, but does not like thickened liquids. Will discuss with MD ferreira possible speech eval to determine necessity. Pt eats and takes meds whole without issues. After lunch, pt stated he "just didn't feel good" and c/o bilateral leg pain. Temperature and O2 taken at that time were WNL. Pt given PRN tylenol and taken to room to rest.
--- NOTE | 2019-06-25 15:20 | NUR ---
Pt resting in bed, appears to be rather lethargic. Pt will follow staff with eyes, but will not respond verbally to questions. Vital signs are stable. Charge nurse aware--will continue to monitor.
[2019-06-25 15:41] VITALS: BP 116/71
--- NOTE | 2019-06-25 15:55 | NUR ---
Pt is alert and talking with RN. States he feels much better after a nap.
[2019-06-25] MEDS: DIVALPROEX ER 250 MG TAB.ER.24H. PO SCH (19:44)
[2019-06-25] MEDS: SENNOSIDES 8.6 MG TABLET PO SCH (19:44)
--- NOTE | 2019-06-25 21:40 | NUR ---
Nursing Note The patient was noted to have a Temperature of 99.9, O2 of 92% Room air@2154 05/25/19 and a temperature of 100.5, O2 of 95%@2220. The patient was noted to have a cough and coarse lung sounds at the time of his assessment this shift. The patient is currently on thickened liquids R/T witnessed choking/coughing during meal times. Dr. Martinez was called and informed of the patients status @2238 05/25/19. No further action prescribed by physician at this time.
--- NOTE | 2019-06-25 21:43 | PDOC ---
Exam Note: Ramos Note: Please also refer to the separate dictated note~for this date of service dictated separately.~Patient seen individually. Discussed the patient with Nursing staff reviewed the chart.~Reviewed interim history and current functioning. Reviewed vital signs,~Labs/ Radiology~and current medications noted below. Continue current treatment with the changes noted in the dictated addendum note Assessment: Vital Signs/I&O: Vital Signs Date Time Temp Pulse Resp B/P (MAP) Pulse Ox O2 Delivery O2 Flow Rate FiO2 06/25/19 15:41 98.5 79 14 116/71 (86) 94 Room Air I & O 06/24/19 06/24/19 06/25/19 15:00 23:00 07:00 Intake Total 480 ml 600 ml Balance 480 ml 600 ml Current Medications: I have reviewed the current psychotropics carefully including drug interactions. Risk benefit ratio favors no change other than as noted in my dictated progress note. Diagnosis: Problems: (1) Impulse control disorder (2) Bipolar disorder, curr episode mixed, severe, with psychotic features (3) Medical clearance for psychiatric admission (4) Anxiety disorder (5) Schizoaffective disorder, chronic condition with acute exacerbation (6) Borderline intellectual disability NIKKI SHIELDS MD Jun 25, 2019 21:43
[2019-06-26] MEDS: LEVOTHYROXINE 25 MCG TABLET. PO SCH (06:02)
[2019-06-26 06:14] VITALS: BP 109/69
[2019-06-26] MEDS: ACETAMINOPHEN 500 MG TABLET PO PRN ×2 (06:51→10:32)
--- NOTE | 2019-06-26 07:43 | PDOC ---
Exam Note: Ramos Note: S/O: This note is a late entry for DOS 06/24/2019 covers elements not covered in my initial note. Discussed the patient with nursing staff, reviewed the chart. The patient was seen on audio-visual rounds in the evening with Melissa TURNER. Nursing report was with Melissa TURNER. Urine C&S is awaited. He still appears lethargic, tired, withdrawn, lying in his bed. Lung sounds are somewhat diminished. O2 sats are unremarkable. Defer medical management to Dr. Leonardo/Dr. Alexis. ROS: Ambulation impaired. No CV, , Eye system symptoms on review. MSE: Oriented reasonably. Speech has been loud, yelling at times. Abstraction fair. Computation impaired. Language function intact. Mood and affect labile. Labs: Reviewed. Imp: Schizoaffective disorder bipolar type, mixed with psychotic features. Intellectual disability. Plan: Continue psychotropics as mentioned in my previous note. Assessment: Vital Signs/I&O: VS - Last 72 Hours, by Label Date Time Temp Pulse Resp B/P (MAP) Pulse Ox O2 Delivery O2 Flow Rate FiO2 06/26/19 06:14 99.5 91 20 109/69 (82) 93 06/25/19 15:41 98.5 79 14 116/71 (86) 94 Room Air 06/25/19 06:16 98.2 75 20 77/ 94 06/24/19 15:38 98.5 86 20 110/73 (85) 96 Room Air 06/24/19 06:14 98.0 75 18 117/83 (94) 97 06/23/19 15:57 97.4 98 20 144/67 (92) 98 Vital Signs Date Time Temp Pulse Resp B/P (MAP) Pulse Ox O2 Delivery O2 Flow Rate FiO2 06/26/19 06:14 99.5 91 20 109/69 (82) 93 06/25/19 15:41 Room Air I & O 06/25/19 06/25/19 06/26/19 15:00 23:00 07:00 Intake Total 360 ml 120 ml Balance 360 ml 120 ml Current Medications: I have reviewed the current psychotropics carefully including drug interactions. Risk benefit ratio favors no change other than as noted in my dictated progress note. Diagnosis: Problems: (1) Impulse control disorder (2) Bipolar disorder, curr episode mixed, severe, with psychotic features (3) Medical clearance for psychiatric admission (4) Anxiety disorder (5) Schizoaffective disorder, chronic condition with acute exacerbation (6) Borderline intellectual disability NIKKI SHIELDS MD Jun 26, 2019 07:43
[2019-06-26 07:56] LABS: HEMATOCRIT 37.8 % (39.0-53.0); HEMOGLOBIN 12.6 g/dL (13.0-17.5); RED BLOOD COUNT 4.16 x10^6/uL (4.30-5.70); RED CELL DISTRIBUTION WIDTH 15.2 % (11.5-14.5); WHITE BLOOD COUNT 2.8 x10^3/uL (4.0-11.0)
--- NOTE | 2019-06-26 08:05 | PDOC ---
Exam Note: Ramos Note: S/O: This note is a late entry for DOS 06/25/2019 covers elements not covered in my initial note. Discussed the patient with nursing staff, reviewed the chart. The patient was seen on audio-visual rounds in the evening with Thomas TURNER. Nursing report was with Suzi TURNER. He slept 5-3/4 hours. He has had cou gh. COVID-19 screen has been negative but he does seem to have lung congestion. Urine C&S is still awaited. He has been yelling at times. During lunch time he threw his food on the floor, was agitated in the morning, calling rather derogatory names towards nursing staff. Received Ativan p.r.n. and then did much better. He has been afebrile recently but we will continue to monitor this and will defer to Dr. Alexis from a medical standpoint. ROS: Ambulation impaired. No CV, , Eye system symptoms on review. MSE: Patient was quite interactive with me on audio-visual rounds, seemed a little less tired than yesterday. Reasonably oriented. Speech has been loud, yelling at times. Abstraction fair. Computation impaired. Language function intact. Mood and affect labile. Labs: Reviewed. Imp: Schizoaffective disorder bipolar type, mixed with psychotic features. Intellectual disability. Plan: Continue psychotropics as mentioned in my previous note. Assessment: Vital Signs/I&O: Vital Signs Date Time Temp Pulse Resp B/P (MAP) Pulse Ox O2 Delivery O2 Flow Rate FiO2 06/26/19 06:14 99.5 91 20 109/69 (82) 93 06/25/19 15:41 Room Air I & O 06/25/19 06/25/19 06/26/19 15:00 23:00 07:00 Intake Total 360 ml 120 ml Balance 360 ml 120 ml Labs: Laboratory Tests Test 06/26/19 07:33 White Blood Count 2.8 x10^3/uL (4.0-11.0) L Red Blood Count 4.16 x10^6/uL (4.30-5.70) L Hemoglobin 12.6 g/dL (13.0-17.5) L Hematocrit 37.8 % (39.0-53.0) L Mean Corpuscular Volume 91 fL (79-100) Mean Corpuscular Hemoglobin 30 pg (25-35) Mean Corpuscular Hemoglobin Concent 33 g/dL (31-37) Red Cell Distribution Width 15.2 % (11.5-14.5) H Platelet Count 137 x10^3/uL (140-400) L Current Medications: I have reviewed the current psychotropics carefully including drug interactions. Risk benefit ratio favors no change other than as noted in my dictated progress note. Diagnosis: Problems: (1) Impulse control disorder (2) Bipolar disorder, curr episode mixed, severe, with psychotic features (3) Medical clearance for psychiatric admission (4) Anxiety disorder (5) Schizoaffective disorder, chronic condition with acute exacerbation (6) Borderline intellectual disability NIKKI SHIELDS MD Jun 26, 2019 08:05
[2019-06-26 08:07] LABS: CALCIUM 8.6 mg/dL (8.5-10.1); GFR 74.8; POTASSIUM 3.7 mmol/L (3.5-5.1)
[2019-06-26] MEDS: POLYETHYLENE GLYCOL 3350 17 GM PACKET. PO SCH (08:18)
[2019-06-26] MEDS: risperiDONE 0.5 MG TABLET. PO SCH (08:19)
[2019-06-26] MEDS: DIVALPROEX ER 500 MG TAB.ER.24H PO SCH (08:19)
[2019-06-26] MEDS: CALCIUM POLYCARBOPHIL 625 MG TABLET PO SCH (08:19)
[2019-06-26] MEDS: TAMSULOSIN 0.4 MG CAP.ER.24H. PO SCH (08:19)
[2019-06-26] MEDS: CETIRIZINE HCL 10 MG TABLET PO SCH (08:19)
[2019-06-26] MEDS: PANTOPRAZOLE 40 MG TABLET. PO SCH (08:20)
[2019-06-26] MEDS: POTASSIUM CHLORIDE 20 MEQ TABLET.ER. PO SCH (08:20)
[2019-06-26] MEDS: FERROUS SULFATE 325 MG TABLET. PO SCH (08:20)
[2019-06-26] MEDS: busPIRone 5 MG TABLET. PO SCH (08:20)
[2019-06-26] MEDS: OXYBUTYNIN CHLORIDE 5 MG TABLET PO SCH (08:20)
[2019-06-26] MEDS: BENZTROPINE MESYLATE 1 MG TABLET PO SCH (08:20)
[2019-06-26] MEDS: ENOXAPARIN 40 MG/0.4 ML SYRINGE. SQ SCH (08:21)
[2019-06-26] MEDS: FLUTICASONE 50MCG/NASAL SPRAY 16GM BOTTLE. NS SCH (09:00)
[2019-06-26] MEDS: FUROSEMIDE 40 MG TABLET PO SCH (09:00)
--- NOTE | 2019-06-26 09:19 | RAD ---
EXAM: Chest, single view. HISTORY: Aspiration pneumonia COMPARISON: 06/22/2019 FINDINGS: A frontal view of the chest is obtained. There is suspected stable left lower lobe infiltrate. There is no pleural effusion or pneumothorax. The heart is normal in size. IMPRESSION: Stable suspected left lower lobe infiltrate. Electronically signed by: Uzma Isbell MD (06/26/2019 9:16 AM) [facility]
--- NOTE | 2019-06-26 09:19 | NUR ---
Patient is alert. Compliant with meds and cares. Pts tempt this morining is 101.5. Pt in general seems to be more fatigued this morning than when this nurse had him on Monday. Pt has cough that is moist, non productive. Lung sounds are clear, but diminished. Pt is 94% on RA. Labs this morning showed WBCs that are low, and platelets trending down slowly. Pt placed in room, xray ordered. Keeping patient in his room for now. WCTM.
--- NOTE | 2019-06-26 11:28 | NUR ---
RN went into patients room to administer tylenol. Pt is not responding. Does open eyes but has delayed response in blinking, breathing, attempted painful stimuli, no response. Pt did this yesterday for and episode lasting approximately 15-[address] Leonardo notified of this episode, pts symptoms and low WBC count, order to test for COVID and get stat ABGs. RN called by [employer], pt leaning completely on left side in wheelchair, still not responding, has spontaneous blinking. Left pupil < right pupil. Rapid response called. Pt put in bed, stat CT of head done. Pt did start crying during this. Pt did start fighting when swabbed for COVID, and yelled out when stuck for labs. Pt is currently in ICU bed 4. ABGs being drawn, EKG ordered. Dr Leonardo notified that RR called and transfer to ICU.
[2019-06-26] MEDS ORDERED: ALBU2.5V8 IH (11:32)
[2019-06-26] MEDS ORDERED: BENZ2TAB5 PO (11:33)
[2019-06-26] MEDS ORDERED: ENOX40DI SQ (11:34)
--- NOTE | 2019-06-26 11:35 | RAD ---
CT HEAD WO CONTRAST History: Unresponsive Comparison: None. Technique: Noncontrast CT imaging was performed of the head. Exposure: One or more of the following individualized dose reduction techniques were utilized for this examination: 1. Automated exposure control 2. Adjustment of the mA and/or kV according to patient size 3. Use of iterative reconstruction technique. Findings: Motion degraded examination requiring repeat imaging. No intracranial hemorrhage. No mass effect. No hydrocephalus. Mild brain parenchymal volume loss. Mild foci of decreased attenuation within the hemispheric white matter, most often due to chronic microvascular ischemia. Cutaneous lesion along the left nares. Imaged orbits are unremarkable. Bilateral maxillary sinus mucosal thickening. Mastoid air cells are clear. No acute calvarial fracture. Impression: 1. No acute intracranial abnormality. Electronically signed by: Lorenzo Mcmahan DO (06/26/2019 11:32 AM) [id number]
[2019-06-26] MEDS ORDERED: METH28OI2 TP (11:36)
[2019-06-26] MEDS ORDERED: OXCA600T9 PO (11:37)
--- NOTE | 2019-06-26 11:40 | NUR ---
Transition Record was faxed to follow-up provider with the following elements: Reason for admission, procedures, tests, principal diagnosis, pending studies, patient instructions, 10/10 contact information for unit, phone number to obtain pending test results, plan for follow-up care, physician follow-up, advanced directive information, and medication list with dose, duration and instructions. This information was included in the following documents: History and physical, lab results, study results, progress notes, social work planning form, DC instruction form, patient visit summary, and medication reconciliation form. Date & time record faxed: 06/26/19 [id number] Record faxed to: [facility] ICU Record discussed with/ report given to: YUE Donohue
[2019-06-26] MEDS ORDERED: PHEN20SP PO (11:43)
[2019-06-26] MEDS ORDERED: BUSP5TAB PO (11:44)
--- NOTE | 2019-06-26 11:44 | EKG ---
[address] [address] Test Date: 2019-06-26 Test Time: 11:34:40 Pat Name: JUAN FERRO Department: Room: [address] [place] [address] Gender: M Bed Operator: : [id number] Requested By: SYDNEY PETERS Order Number: [id number] Reading MD: Thomas Villalobos Measurements Intervals [place] Rate: 85 P: -12 SC: 154 QRS: 50 QRSD: 132 T: 35 QT: 386 QTc: 460 Interpretive Statements SINUS RHYTHM RIGHT BUNDLE BRANCH BLOCK RVH WITH REPOLARIZATION ABNORMALITY Electronically Signed On 06-27-2019 8:45:06 CDT by Thomas Villalobos
[2019-06-26] MEDS ORDERED: HYDR50TA PO (11:46)
[2019-06-26] MEDS ORDERED: RISP0.5T24 PO (11:46)
--- NOTE | 2019-06-26 12:09 | NUR ---
Call placed to LAURO Vidales at [facility], to inform of Gregory's change in medical condition and transfer to ICU on this date. Call placed to Naa Nuñez, public cognos administrator/guardian, to inform of the above.
--- NOTE | 2019-06-27 10:06 | PDOC ---
Exam Note: Ramos Note: This is a late entry for DOD 06/26/2019. Please also refer to the separate dictated note~for this date of service dictated separately.~Patient seen individually. Discussed the patient with Nursing staff reviewed the chart.~Reviewed interim history and current functioning. Reviewed vital signs,~Labs/ Radiology~and current medications noted below. Continue current treatment with the changes noted in the dictated addendum note Assessment: Vital Signs/I&O: Vital Signs Date Time Temp Pulse Resp B/P (MAP) Pulse Ox O2 Delivery O2 Flow Rate FiO2 06/26/19 07:45 101.5 95 Room Air 06/26/19 06:14 91 20 109/69 (82) I & O 06/26/19 06/26/19 06/27/19 15:00 23:00 07:00 Intake Total 240 ml Balance 240 ml Labs: Laboratory Tests Test 06/26/19 11:21 Prothrombin Time 14.2 SEC (9.4-11.4) H Prothrombin Time INR 1.4 (0.9-1.1) H Lactic Acid Level 1.2 mmol/L (0.4-2.0) Coronavirus (COVID-19)(PCR) See separate report Current Medications: I have reviewed the current psychotropics carefully including drug interactions. Risk benefit ratio favors no change other than as noted in my dictated progress note. Diagnosis: Problems: (1) Impulse control disorder (2) Bipolar disorder, curr episode mixed, severe, with psychotic features (3) Anxiety disorder (4) Schizoaffective disorder, chronic condition with acute exacerbation (5) Borderline intellectual disability (6) Respiratory distress NIKKI SHIELDS MD Jun 27, 2019 10:05
--- NOTE | 2019-07-04 11:42 | DS ---
DATE OF DISCHARGE: 06/26/2019 DISCHARGE SUMMARY AND PSYCHIATRIC PROGRESS NOTE This late entry, 06/26/2019, covers elements not covered in my initial note. I had dictated this summary previously, but cannot be found in the system and I am re-dictating. REASON FOR ADMISSION: Please refer to the admission history for details. Briefly, the patient is a 68-year-old male referred to us from [facility] by his primary care physician, on account of acute exacerbation of his schizoaffective disorder, bipolar type within the context of intellectual disability. The patient was having angry outburst, name calling, yelling at staff, kicking and hitting doors and okeefe, threatening peers, making statements that he hoped they would . He was increasingly agitated, spitting on staff. He was deemed dangerous, unmanageable at the facility resulting in this referral. SIGNIFICANT FINDINGS AND CLINICAL COURSE: Following admission, the patient was seen daily individually by myself from a psychiatric standpoint, medical followup per Dr. Leonardo. The patient was extremely agitated initially, loud, disruptive, yelling, repetitive and obsessive. Adjustments were made in his psychotropics and he seemed to do better on a combination of Depakote, trazodone, Provera for his sexually inappropriate behaviors, Trileptal, Risperdal. The Ativan was being tapered. He was also on Invega Sustenna 254 mg IM monthly, Ativan was being tapered as was the Cogentin and he was on BuSpar. The Haldol IM had to be used in between because oral psychotropics were ineffective, but this was ultimately discontinued. Gradually, he was doing better relatively but then had a medical backsliding with being somewhat drowsy and was transferred to the medical/surgical floor for further management, especially since there had been an exposure of COVID-19 on our unit. Prior to discharge, ambulation impaired, in wheelchair. Vague somatic symptoms. REVIEW OF SYSTEMS: No CV, , pulmonary, eye system symptoms on review. MENTAL STATUS EXAM: Oriented to himself, situation at times. Speech moderate latency, often responses monosyllabic. Abstraction fair, computation impaired, language function intact. Mood and affect withdrawn, somewhat labile, intermittent yelling was persistent. FINAL DIAGNOSES: Schizoaffective disorder, bipolar type, mixed with psychotic features, in partial remission, intellectual disability, probable pneumonia. Rest unchanged from admission. DISCHARGE MEDICATIONS: Please refer to the MRAD. DISCHARGE INSTRUCTIONS: Psychiatric and medical followup on the medical/surgical floor ICU. Time for discharge day management greater than 30 minutes. NIKKI SHIELDS MD DR: VIELKA/shawn JOB#: [id number] / [id number]
== END 2019-06-26 11:39 | disposition short-term general hospital (02) | DRG 885 ==
LOC: ER 11:34 → GEROPSY 13:49
PROVIDERS: ADMIT Psychiatry & Neurology Psychiatry; ATTEND Psychiatry & Neurology Psychiatry
DX: F25.0 Schizoaffective disorder, bipolar type (principal); F60.3 Borderline personality disorder; F63.9 Impulse disorder, unspecified; D50.9 Iron deficiency anemia, unspecified; F41.1 Generalized anxiety disorder; F79 Unspecified intellectual disabilities; H54.7 Unspecified visual loss; H91.90 Unspecified hearing loss, unspecified ear; I10 Essential (primary) hypertension; K21.9 Gastro-esophageal reflux disease without esophagitis; K58.9 Irritable bowel syndrome, unspecified; Z79.899 Other long term (current) drug therapy; Z87.891 Personal history of nicotine dependence; M19.90 Unspecified osteoarthritis, unspecified site; Z88.8 Allergy status to other drugs, medicaments and biological substances; Z91.018 Allergy to other foods; Z03.818 Encounter for observation for suspected exposure to other biological agents ruled out; Z99.3 Dependence on wheelchair
CPT/HCPCS: 36415; 70450; 71045; 80048; 80053; 80061; 80164; 80307; 80329; 81001; 82140; 82306; 82553; 82607; 82947; 83036; 83540; 83550; 83605; 83735; 84436; 84443; 84480; 84484; 85007; 85025; 85027; 85610; 85730; 86592; 87070; 87086; 87186; 87633; 87635; 87804; 87880; 93005; 94640; G0480; J1630; J1650; J2426; J7613; 97530; 99285-25

== ENCOUNTER 2019-06-26 12:33 | Inpatient (IN) | payer MEDICARE, MEDICAID ==
[~2019-06-26] VITALS: Ht 167.6 cm; Wt 87.3 kg
[2019-06-26] VITALS (7 sets, daily range): BP systolic 95–144; BP diastolic 46–75
[~2019-06-26 12:33] MED LIST: ACET500C2 PO; ALBU2.5V8 IH; BENZ2TAB5 PO; BUSP5TAB PO; CALC625T8 PO; DIVA-53 PO; ENOX40DI SQ; FERR325T14 PO; FLUT9.9S NS; FURO40TA4 PO; HALO5AMP2 IM; HYDR50TA PO; LEVO25TA4 PO; LORA-254 IM; LORA-254 PO; LORA10TA55 PO; LORA2VIA6 IM; MAG-27 PO; MAGN24003 PO; MEDR2.5T28 PO; METH28OI2 TP; OLAN5TAB3 PO; OLAN5TAB9 PO; OMEP20CA16 PO; OXCA600T9 PO; PALI234D IM; PHEN20SP PO; POLY2500 PO; POTA20TA4 PO; RISP0.5T24 PO; SENN8.8S5 PO; TAMS0.4C97 PO; TOLT4CAP12 PO; TRAZ-125 PO
--- NOTE | 2019-06-26 14:03 | NUR ---
IP: patient pending COVID-19 test, requires contact and airborne precautions.
[2019-06-26] MEDS ORDERED: ALBUTEROL SULFATE 2.5 MG/3 ML NEBU. IH PRN (14:30)
[2019-06-26] MEDS ORDERED: PHENOL ORAL SPRAY 177ML BOTTLE. PO PRN (14:30)
--- NOTE | 2019-06-26 15:13 | NUR ---
The patient, JUAN FERRO, 68 y/o, M admitted by SYDNEY PETERS MD, was given written information regarding hospital policies, unit procedures and contact persons. Valuables were checked and left with patient at bedside. Patient has been evaluated by Dr. Peters upon arrival from [facility] to ICU4. Pending Covid 19 results.
[2019-06-26] MEDS ORDERED: MAG HYDROX/AL HYDROX/SIMETH 30 ML ORAL.SUSP PO PRN (15:30)
[2019-06-26] MEDS ORDERED: MAGNESIUM HYDROXIDE 2,400 MG/30 ML ORAL.SUSP. PO PRN (15:30)
[2019-06-26] MEDS ORDERED: METHYL SALICYLATE/MENTHOL TOPICAL OINTMENT 57GM TUBE. TP PRN (15:30)
[2019-06-26] MEDS: busPIRone 5 MG TABLET. PO SCH (17:00)
[2019-06-26] MEDS: ACETAMINOPHEN 500 MG TABLET PO PRN (17:06)
[2019-06-26] MEDS: hydrOXYzine HCL 25 MG TABLET PO PRN (17:06)
[2019-06-26] MEDS: LORazepam 0.5 MG TABLET PO PRN (17:06)
--- NOTE | 2019-06-26 18:13 | HP ---
ADMIT DATE: 06/26/2019 HISTORY OF PRESENT ILLNESS: The patient is a 68-year-old male patient who was seen at the [facility] and was apparently noted to be unresponsive, was also febrile and apparently has had lab work done today which showed that his white cell count is down to 2800 and his platelet down also to 137. According to nursing staff, febrile up to 101.5 and apparently has had a chest x-ray. In fact, he had a CT scan of the head without contrast, which showed no acute intracranial abnormality and showed that there is no intracranial hemorrhage, no mass effect, no hydrocephalus, mild brain parenchymal volume loss, mild foci of decreased attenuation within the hemispheric white matter, most often due to chronic microvascular ischemia. He has cutaneous lesions along the left naris. The orbits are unremarkable. Bilateral maxillary sinus mucosal thickening, mastoid air cells are clear, no acute calvarial fracture. Given the fever, hypoxia, and the fact that he has leukopenia and thrombocytopenia and altered mental status, the patient was transferred to the ICU for further evaluation and treatment. The patient himself has intellectual disability, does not give any useful information. PAST MEDICAL HISTORY: Significant for iron deficiency anemia, gastroesophageal reflux disease, hypertension and irritable bowel syndrome and muscle weakness. PAST SURGICAL HISTORY: Significant for what seemed to be exploratory laparotomy that was complicated by infection with large scar in the midline of the abdomen. PAST PSYCHIATRIC HISTORY: Significant for borderline personality disorder, has also schizoaffective disorder, generalized anxiety disorder, paranoid schizophrenia and intellectual disability. ALLERGIES: He is allergic to AMOXICILLIN, CIPROFLOXACIN AND SOAP. FAMILY HISTORY: Noncontributory. SOCIAL HISTORY: He is a resident at [facility]. MEDICATIONS: He is on the following medications: He is on loratadine 10 mg once a day, albuterol sulfate 2 puffs every 4 hours, tamsulosin 0.4 mg daily, ferrous sulfate 325 mg once a day, Lovenox 40 mg daily. He is on analgesic balm 1 g topically 4 times a day, acetaminophen 500 mg every 6 hours, divalproex sodium 500 mg daily, divalproex 750 mg at bedtime, oxcarbazepine 600 mg twice a day, Olanzapine 5 mg every 8 hours, paliperidone palmitate 234 mg in 1.5 mL disposable syringe given once a month, risperidone 0.5 mg 3 times a day, lorazepam 0.5 mg every 4 hours, buspirone 5 mg at 9:00, 1:00 and 5:00 in the afternoon, hydroxyzine 50 mg every 6 hours, benztropine mesylate 1.5 mg daily, benztropine 2 mg at bedtime, potassium chloride (Klor-Con) 20 mEq once a day, furosemide 40 mg once a day, and Flonase 2 sprays to each nostril once a day. He is on phenol Chloraseptic 1 spray every 2 hours, ____ 30 mL every 4 hours, calcium polycarbophil Fiber-Lax 625 mg daily, milk of magnesia 30 mL p.o. daily, senna 1 tablet at bedtime, omeprazole 20 mg daily, medroxyprogesterone acetate 10 mg daily, levothyroxine sodium 25 mg p.o. daily, tolterodine 4 mg at bedtime, polyethylene glycol 17 g daily. PHYSICAL EXAMINATION: GENERAL: On arrival to the ICU, apparently, the patient was more awake and alert. There is no pallor, jaundice, cyanosis, or thyromegaly. No jugular venous distension. No limb edema. VITAL SIGNS: His heart rate was 85, blood pressure was 144/75, temperature was 98.4, respiratory rate was 17 and oxygen saturation was 94%. HEAD, EYES, EARS, NOSE AND THROAT: Showed normocephalic, atraumatic. NECK: Supple. HEART: Showed normal first and second heart sounds. No gallop or murmur. CHEST: Clear to auscultation. No crepitation or rhonchi. ABDOMEN: Distended, soft, nontender. NEUROLOGIC: He is demented, but all his cranial nerves were intact. Bed bound and chair bound. LABORATORY DATA: As of this morning showed a white cell count 2800, hemoglobin 12.6, hematocrit 37.8, MCV 91, and platelet count of 137,000. His chemistry showed a serum sodium 137, potassium 3.7, chloride 98, bicarbonate 33, anion gap of 6, BUN 23, creatinine 1, estimated GFR was 75 mL per minute. His glucose 120, calcium was 98. His prothrombin time, INR and aPTT were all normal. ASSESSMENT AND PLAN: He had extensive serology including group A streptococcus rhinovirus respiratory syncytial virus, alpha and beta parainfluenza 1213, influenza A and B, human metapneumovirus, COVID-19 PCR were all negative before. Apparently he was swabbed again to test for COVID-19 as he spiked his temperature, has leukopenia and [facility] other [facility] have tested positive for coronavirus. My plan is to reconcile all his medication and await the result of his COVID-19. Obviously, if it is negative, we will be able to discharge him back to his ____. SYDNEY PETERS MD DR: JANEY/shawn JOB#: [id number] / [id number]
[2019-06-26] MEDS ORDERED: OXCARBAZEPINE 600 MG PO SCH (21:00)
[2019-06-26] MEDS: OXYBUTYNIN CHLORIDE 5 MG TABLET PO SCH (21:08)
[2019-06-26] MEDS: risperiDONE 0.5 MG TABLET. PO SCH (21:08)
[2019-06-26] MEDS: BENZTROPINE MESYLATE 1 MG TABLET PO SCH (21:09)
[2019-06-26] MEDS: SENNOSIDES 8.6 MG TABLET PO SCH (21:09)
[2019-06-27] VITALS (21 sets, daily range): BP systolic 90–145; BP diastolic 41–86
[2019-06-27] MEDS: LORazepam 0.5 MG TABLET PO PRN ×2 (02:46→21:00)
[2019-06-27] MEDS: ACETAMINOPHEN 500 MG TABLET PO PRN ×2 (02:46→14:33)
--- NOTE | 2019-06-27 03:19 | NUR ---
Pt awake, yelling out repeatedly. Brief wet, pt changed and repositioned in bed. Pt continues to yell out, believes it is morning and time to get up. Unable to reorient to time and situation. Increasingly agitated with redirection from staff. Pt given PRN Ativan per order.
[2019-06-27] MEDS: LEVOTHYROXINE 25 MCG TABLET. PO SCH (04:58)
[2019-06-27 06:43] LABS: BASO % 0 % (0-3); EOS % 0 % (0-3); HEMATOCRIT 34.5 % (39.0-53.0); HEMOGLOBIN 11.5 g/dL (13.0-17.5); LYMPH # 0.7 x10^3/uL (1.0-4.8); LYMPH % 29 % (24-48); MEAN CORPUSCULAR HEMOGLOBIN 30 pg (25-35); MEAN CORPUSCULAR HGB CONC 33 g/dL (31-37); MEAN CORPUSCULAR VOLUME 90 fL (79-100); MONO # 0.2 x10^3/uL (0.0-1.1); MONO % 10 % (0-9); NEUT # 1.4 x10^3uL (1.8-7.7); NEUT % 61 % (31-73); PLATELET COUNT 114 x10^3/uL (140-400); RED BLOOD COUNT 3.84 x10^6/uL (4.30-5.70); RED CELL DISTRIBUTION WIDTH 15.3 % (11.5-14.5); WHITE BLOOD COUNT 2.3 x10^3/uL (4.0-11.0)
[2019-06-27 07:04] LABS: ALBUMIN 2.2 g/dL (3.4-5.0); ALBUMIN/GLOBULIN RATIO 0.5 (1.0-1.7); CALCIUM 8.1 mg/dL (8.5-10.1); CREATININE 0.8 mg/dL (0.7-1.3); GFR 96.7; TOTAL BILIRUBIN 0.1 mg/dL (0.2-1.0); TOTAL PROTEIN 6.5 g/dL (6.4-8.2)
[2019-06-27 08:22] LABS: % ATYL 2 % (0-0); % BANDS 11 % (0-9); % LYMPHS 28 % (24-48); % MONOS 9 % (0-10); % SEGS 50 % (35-66)
[2019-06-27] MEDS: ENOXAPARIN 40 MG/0.4 ML SYRINGE. SQ SCH (08:25)
[2019-06-27] MEDS: busPIRone 5 MG TABLET. PO SCH ×3 (08:25→17:00)
[2019-06-27 08:26] LABS: PLT ESTIMATE DECREASED (ADEQUATE)
[2019-06-27] MEDS: CALCIUM POLYCARBOPHIL 625 MG TABLET PO SCH (08:26)
[2019-06-27] MEDS: OXYBUTYNIN CHLORIDE 5 MG TABLET PO SCH ×3 (08:26→21:00)
[2019-06-27] MEDS: FUROSEMIDE 40 MG TABLET PO SCH (08:26)
[2019-06-27] MEDS: CETIRIZINE HCL 10 MG TABLET PO SCH (08:26)
[2019-06-27] MEDS: TAMSULOSIN 0.4 MG CAP.ER.24H. PO SCH (08:26)
[2019-06-27] MEDS: PANTOPRAZOLE 40 MG TABLET. PO SCH (08:27)
[2019-06-27] MEDS: FERROUS SULFATE 325 MG TABLET. PO SCH (08:27)
[2019-06-27] MEDS: POTASSIUM CHLORIDE 20 MEQ TABLET.ER. PO SCH (08:27)
[2019-06-27] MEDS: risperiDONE 0.5 MG TABLET. PO SCH ×3 (08:27→21:01)
[2019-06-27] MEDS: BENZTROPINE MESYLATE 0.5 MG TABLET PO SCH (08:31)
[2019-06-27] MEDS: DIVALPROEX ER 500 MG TAB.ER.24H PO SCH (08:31)
[2019-06-27] MEDS: medroxyPROGESTERone 5 MG TABLET PO SCH (08:32)
[2019-06-27] MEDS: FLUTICASONE 50MCG/NASAL SPRAY 16GM BOTTLE. NS SCH (08:32)
[2019-06-27] MEDS: ALBUTEROL SULFATE 8GM INHALER. INH PRN (08:33)
[2019-06-27] MEDS: POLYETHYLENE GLYCOL 3350 17 GM PACKET. PO SCH (08:45)
[2019-06-27] MEDS: OLANZapine 5 MG TABLET PO PRN (13:02)
--- NOTE | 2019-06-27 15:04 | NUR ---
PATIENT BECAME UPSET AROUND LUNCH TIME, YELLING AND CRYING, STATED HE IS NOT FEELING RIGHT, STATED SOMETHING BAD WILL HAPPEN TO HIM. ZYPREXA PRN FOR AGITATION ADMINISTERED, PATIENT WAS ABLE TO GET SOME REST AND SLEEP AFTER LUNCH.
--- NOTE | 2019-06-27 18:14 | PN ---
DATE: 06/27/2019 SUBJECTIVE: The patient is resting, slightly propped up, sleeping comfortably, has been yelling the whole day. He did eventually receive some Ativan and when I saw him, he was sleeping comfortably. The nursing staff did not voice any concern except the fact that he has been restless and agitated. PHYSICAL EXAMINATION: GENERAL: When I examined him, he was somewhat pale. No jaundice, cyanosis or thyromegaly, jugular venous distention. No limb edema. VITAL SIGNS: His heart rate was 62, blood pressure was 95/47, temperature was 98.5, respiratory rate was 14 and oxygen saturation was 92%. HEAD, EYES, EARS, NOSE AND THROAT: Normocephalic, atraumatic. NECK: Supple. HEART: Showed normal first and second sounds. No gallop or murmur. CHEST: Clear to auscultation. No crepitation or rhonchi. ABDOMEN: Distended, soft, nontender. NEUROLOGIC: He is sleepy, but arousable. All his cranial nerves are intact. He moves extremities without difficulty, although he is mostly bedbound. His intake and output ____ recorded. LABORATORY WORK: This morning showed a serum sodium 138, potassium 4, chloride 101, bicarbonate 34, anion gap of 3, BUN 21, creatinine 0.8, estimated GFR was 97 mL per minute. Glucose was 83, calcium was 8.1. Total bilirubin, AST, ALT, alkaline phosphatase were normal. Total protein 6.5, albumin was 2.2. His white cell count was 2300, hemoglobin 11.5, hematocrit 34.5, MCV 90 and platelet count of 114,000. ASSESSMENT: 1. Acute hypoxic respiratory failure, 2. Pneumonia related to COVID-19. 3. Gastroesophageal reflux disease. 4. Hypertension. 5. Iron deficiency anemia. 6. Irritable bowel syndrome. 7. Muscle weakness. 8. Leukopenia and thrombocytopenia. SYDNEY PETERS MD DR: JANEY/shawn JOB#: [id number] / [id number]
[2019-06-27] MEDS: SENNOSIDES 8.6 MG TABLET PO SCH (21:00)
[2019-06-27] MEDS: BENZTROPINE MESYLATE 1 MG TABLET PO SCH (21:01)
[2019-06-27] MEDS: DIVALPROEX ER 250 MG TAB.ER.24H. PO SCH (21:02)
[2019-06-28] VITALS (16 sets, daily range): BP systolic 93–138; BP diastolic 43–71
[2019-06-28] MEDS: ACETAMINOPHEN 500 MG TABLET PO PRN ×2 (02:10→15:28)
--- NOTE | 2019-06-28 05:33 | NUR ---
Pt has been restless throughout the night but able to have periods of sleep. Pt remains on 2L NC o2. AM labs to be drawn and reviewed. Pt requested tylenol through the night for leg pain.
[2019-06-28] MEDS: LEVOTHYROXINE 25 MCG TABLET. PO SCH (05:55)
[2019-06-28 06:14] LABS: HEMATOCRIT 35.8 % (39.0-53.0); HEMOGLOBIN 11.8 g/dL (13.0-17.5); RED BLOOD COUNT 3.99 x10^6/uL (4.30-5.70); WHITE BLOOD COUNT 2.3 x10^3/uL (4.0-11.0)
[2019-06-28 06:30] LABS: ALBUMIN 2.3 g/dL (3.4-5.0); ALBUMIN/GLOBULIN RATIO 0.5 (1.0-1.7); CALCIUM 8.5 mg/dL (8.5-10.1); CREATININE 0.8 mg/dL (0.7-1.3); GFR 96.7; POTASSIUM 3.9 mmol/L (3.5-5.1); TOTAL BILIRUBIN 0.1 mg/dL (0.2-1.0); TOTAL PROTEIN 6.8 g/dL (6.4-8.2)
[2019-06-28] MEDS: OXYBUTYNIN CHLORIDE 5 MG TABLET PO SCH ×3 (07:47→21:28)
[2019-06-28] MEDS: busPIRone 5 MG TABLET. PO SCH ×3 (07:47→17:00)
[2019-06-28] MEDS: CETIRIZINE HCL 10 MG TABLET PO SCH (07:47)
[2019-06-28] MEDS: TAMSULOSIN 0.4 MG CAP.ER.24H. PO SCH (07:48)
[2019-06-28] MEDS: FERROUS SULFATE 325 MG TABLET. PO SCH (07:48)
[2019-06-28] MEDS: CALCIUM POLYCARBOPHIL 625 MG TABLET PO SCH (07:48)
[2019-06-28] MEDS: PANTOPRAZOLE 40 MG TABLET. PO SCH (07:48)
[2019-06-28] MEDS: POTASSIUM CHLORIDE 20 MEQ TABLET.ER. PO SCH (07:48)
[2019-06-28] MEDS: POLYETHYLENE GLYCOL 3350 17 GM PACKET. PO SCH (07:48)
[2019-06-28] MEDS: FUROSEMIDE 40 MG TABLET PO SCH (07:48)
[2019-06-28] MEDS: FLUTICASONE 50MCG/NASAL SPRAY 16GM BOTTLE. NS SCH (07:50)
[2019-06-28] MEDS: risperiDONE 0.5 MG TABLET. PO SCH ×3 (07:51→21:28)
[2019-06-28] MEDS: ENOXAPARIN 40 MG/0.4 ML SYRINGE. SQ SCH (07:52)
[2019-06-28] MEDS: medroxyPROGESTERone 5 MG TABLET PO SCH (07:52)
[2019-06-28] MEDS: DIVALPROEX ER 500 MG TAB.ER.24H PO SCH (07:53)
[2019-06-28] MEDS: BENZTROPINE MESYLATE 0.5 MG TABLET PO SCH (07:53)
--- NOTE | 2019-06-28 15:00 | NUR ---
Patient given PRN tylenol, states he was achy and wanted medicine for his leg. Patient yelled out most of the day stating he was lonely and wanted someone in his room. Spoke with [facility] in regards to getting radio for patient as he is requesting device. Will discuss with DR PETERS in regards to positive COVID and placing patient on zithro and plaqanuil.
[2019-06-28] MEDS: OLANZapine 5 MG TABLET PO PRN (15:15)
--- NOTE | 2019-06-28 19:50 | PN ---
DATE: 06/28/2019 SUBJECTIVE: The patient is sitting slightly propped up in bed, in no apparent respiratory distress. He is constantly yelling, asking that he wants to go home; however, he obviously tested positive for KGQP-[id number]-5 RNA; however, he is afebrile, hemodynamically stable. He is maintaining his oxygen saturations 95% on 2 liters of oxygen. PHYSICAL EXAMINATION: GENERAL: When I examined him this afternoon, he looked well and was clearly in no apparent respiratory distress. VITAL SIGNS: Heart rate was 71, blood pressure was 138/66, temperature 97.1, respiratory rate was 18 and oxygen saturation was 95% on 2 liters of oxygen. HEAD, EYES, EARS, NOSE AND THROAT: Showed normocephalic, atraumatic. NECK: Supple. HEART: Showed normal first and second heart sounds. No gallop, rub or murmur. CHEST: Clear to auscultation. No crepitation or rhonchi. ABDOMEN: Distended, soft, nontender. NEUROLOGIC: He is demented, but without any obvious lateralizing sign. His intake was 616. No output was recorded. LABORATORY DATA: His lab work this morning showed a serum sodium 141, potassium 3.9, chloride 102, bicarbonate 34, anion gap of 5, BUN 18, creatinine 0.8, estimated GFR was 97 mL per minute. His glucose was 91, calcium was 8.5. Total bilirubin, AST, ALT, alkaline phosphatase were normal. Total protein is 6.8 and albumin 2.3. His white cell count was 3300, hemoglobin 11.8, hematocrit 36, MCV 90 and platelet count of 116,000. ASSESSMENT: 1. Acute hypoxic respiratory failure. 2. Pneumonia related to COVID-19. 3. Gastroesophageal reflux disease. 4. Hypertension. 5. Iron deficiency anemia. 6. Irritable bowel syndrome. 7. Muscle weakness. 8. Leukopenia and thrombocytopenia. PLAN: The plan is obviously to start him on the Plaquenil and Zithromax. We will follow his labs closely and decide on further management accordingly. SYDNEY PETERS MD DR: JANEY/shawn JOB#: [id number] / [id number]
[2019-06-28] MEDS: DIVALPROEX ER 250 MG TAB.ER.24H. PO SCH (21:27)
[2019-06-28] MEDS: SENNOSIDES 8.6 MG TABLET PO SCH (21:28)
[2019-06-28] MEDS: HYDROXYCHLOROQUINE (PROGRAM) 200 MG TABLET PO SCH (21:28)
[2019-06-28] MEDS: BENZTROPINE MESYLATE 1 MG TABLET PO SCH (21:28)
[2019-06-29] VITALS (9 sets, daily range): BP systolic 96–138; BP diastolic 48–98
[2019-06-29] MEDS: LORazepam 0.5 MG TABLET PO PRN (02:47)
[2019-06-29] MEDS: LEVOTHYROXINE 25 MCG TABLET. PO SCH (05:32)
[2019-06-29 06:22] LABS: HEMOGLOBIN 11.7 g/dL (13.0-17.5); RED BLOOD COUNT 4.01 x10^6/uL (4.30-5.70); RED CELL DISTRIBUTION WIDTH 15.4 % (11.5-14.5); WHITE BLOOD COUNT 2.4 x10^3/uL (4.0-11.0)
--- NOTE | 2019-06-29 06:24 | NUR ---
Pt has slept for periods of time throughout shift. Remains on 2L o2 per NC. Afebrile during shift. Pt was started on Covid + oral meds. pt Tolerating frequent turns in bed. Pending am labs to review.
[2019-06-29 06:35] LABS: ALBUMIN 2.2 g/dL (3.4-5.0); ALBUMIN/GLOBULIN RATIO 0.5 (1.0-1.7); CALCIUM 8.5 mg/dL (8.5-10.1); CREATININE 0.7 mg/dL (0.7-1.3); GFR 112.8; POTASSIUM 3.8 mmol/L (3.5-5.1); TOTAL BILIRUBIN 0.1 mg/dL (0.2-1.0); TOTAL PROTEIN 6.8 g/dL (6.4-8.2)
[2019-06-29] MEDS: OLANZapine 5 MG TABLET PO PRN (08:44)
[2019-06-29] MEDS: busPIRone 5 MG TABLET. PO SCH ×3 (08:46→17:15)
[2019-06-29] MEDS: DIVALPROEX ER 500 MG TAB.ER.24H PO SCH (08:47)
[2019-06-29] MEDS: TAMSULOSIN 0.4 MG CAP.ER.24H. PO SCH (08:47)
[2019-06-29] MEDS: POTASSIUM CHLORIDE 20 MEQ TABLET.ER. PO SCH (08:47)
[2019-06-29] MEDS: CALCIUM POLYCARBOPHIL 625 MG TABLET PO SCH (08:48)
[2019-06-29] MEDS: CETIRIZINE HCL 10 MG TABLET PO SCH (08:48)
[2019-06-29] MEDS: medroxyPROGESTERone 5 MG TABLET PO SCH (08:48)
[2019-06-29] MEDS: FUROSEMIDE 40 MG TABLET PO SCH (08:48)
[2019-06-29] MEDS: PANTOPRAZOLE 40 MG TABLET. PO SCH (08:48)
[2019-06-29] MEDS: OXYBUTYNIN CHLORIDE 5 MG TABLET PO SCH ×3 (08:48→20:00)
[2019-06-29] MEDS: risperiDONE 0.5 MG TABLET. PO SCH ×3 (08:49→20:00)
[2019-06-29] MEDS: BENZTROPINE MESYLATE 0.5 MG TABLET PO SCH (08:49)
[2019-06-29] MEDS: HYDROXYCHLOROQUINE (PROGRAM) 200 MG TABLET PO SCH (08:49)
[2019-06-29] MEDS: ENOXAPARIN 40 MG/0.4 ML SYRINGE. SQ SCH (08:49)
[2019-06-29] MEDS: POLYETHYLENE GLYCOL 3350 17 GM PACKET. PO SCH (08:49)
[2019-06-29] MEDS: FERROUS SULFATE 325 MG TABLET. PO SCH (08:49)
[2019-06-29] MEDS: FLUTICASONE 50MCG/NASAL SPRAY 16GM BOTTLE. NS SCH (08:50)
[2019-06-29] MEDS ORDERED: AZITHROMYCIN 250 MG TABLET. PO SCH (09:00)
--- NOTE | 2019-06-29 13:10 | PN ---
DATE: 06/29/2019 SUBJECTIVE: The patient is resting slightly propped up in bed, sleeping comfortably. He is very lethargic, apparently was given Zyprexa this morning, he was extremely agitated, yelling insistently. PHYSICAL EXAMINATION: GENERAL: When I saw him this afternoon, he looked well and was clearly in no apparent respiratory distress. No pallor, jaundice, cyanosis, or thyromegaly. No jugular venous distension. No limb edema. VITAL SIGNS: Heart rate was 67, blood pressure was 116/65, temperature was 97.7, respiratory rate was 11 and oxygen saturation was 94% on 2 liters of oxygen by nasal cannula. HEAD, EYES, EARS, NOSE AND THROAT: Showed normocephalic, atraumatic. NECK: Supple. HEART: Showed normal first and second heart sounds. No gallop, rub or murmur. CHEST: Clear to auscultation. No crepitation or rhonchi. ABDOMEN: Distended, soft, nontender. No guarding or rigidity. No organomegaly. All hernial orifice intact. Bowel sounds normal. NEUROLOGIC: He is very lethargic, but arousable. All cranial nerves are intact. He moves extremities without difficulty. He is mostly bedbound, chair bound. His intake was 413. No output was recorded. LABORATORY DATA: As of this morning showed a white cell count of 2400, hemoglobin 11.7, hematocrit 36, MCV 90 and platelet count of 131,000. Serum sodium was 143, potassium 3.8, chloride 103, bicarbonate 35, anion gap of 5, BUN 17, creatinine 0.7, estimated GFR was 112 mL per minute. Glucose was 93, calcium was 8.5. Total bilirubin, AST, ALT, alkaline phosphatase were normal. Total protein was 6.8, albumin was 2.2. ASSESSMENT: 1. Acute hypoxic respiratory failure. 2. Pneumonia related to COVID-19. 3. Gastroesophageal reflux disease. 4. Hypertension. 5. Iron deficiency anemia. 6. Irritable bowel syndrome. 7. Muscle weakness. 8. Leukopenia and thrombocytopenia. PLAN: We did start him on Plaquenil and Zithromax as per protocol. We will follow his labs closely and decide further management. SYDNEY PETERS MD DR: JANEY/shawn JOB#: [id number] / [id number]
--- NOTE | 2019-06-29 15:44 | NUR ---
Patient agitated this AM, zyprexa given with good results. Patient has remained afebrile and has not c/o any pain. VSS. Bed bath and compete bed change completed and patient stated that this made him feel better. Dry cough noted. Poor appetite noted, takes fluids adequately. incontinent of bowel and bladder most of the time. No further concerns at this time. Will continue to monitor and care per plan of care.
[2019-06-29] MEDS: SENNOSIDES 8.6 MG TABLET PO SCH (20:00)
[2019-06-29] MEDS: DIVALPROEX ER 250 MG TAB.ER.24H. PO SCH (20:00)
[2019-06-29] MEDS: BENZTROPINE MESYLATE 1 MG TABLET PO SCH (20:01)
[2019-06-30] VITALS (8 sets, daily range): BP systolic 101–124; BP diastolic 44–92
[2019-06-30] MEDS: LORazepam 0.5 MG TABLET PO PRN ×2 (00:37→17:24)
[2019-06-30] MEDS: LEVOTHYROXINE 25 MCG TABLET. PO SCH (05:04)
--- NOTE | 2019-06-30 06:56 | NUR ---
Pt had a restful night. Required a dose of ativan. Pt continues in SR. VSS and afebrile. Pt ready to go home.
[2019-06-30] MEDS: ENOXAPARIN 40 MG/0.4 ML SYRINGE. SQ SCH (07:27)
[2019-06-30] MEDS: FLUTICASONE 50MCG/NASAL SPRAY 16GM BOTTLE. NS SCH (07:27)
[2019-06-30] MEDS: BENZTROPINE MESYLATE 0.5 MG TABLET PO SCH (07:28)
[2019-06-30] MEDS: TAMSULOSIN 0.4 MG CAP.ER.24H. PO SCH (07:28)
[2019-06-30] MEDS: POTASSIUM CHLORIDE 20 MEQ TABLET.ER. PO SCH (07:28)
[2019-06-30] MEDS: busPIRone 5 MG TABLET. PO SCH ×3 (07:28→17:25)
[2019-06-30] MEDS: medroxyPROGESTERone 5 MG TABLET PO SCH (07:29)
[2019-06-30] MEDS: FERROUS SULFATE 325 MG TABLET. PO SCH (07:32)
[2019-06-30] MEDS: CALCIUM POLYCARBOPHIL 625 MG TABLET PO SCH (07:33)
[2019-06-30] MEDS: CETIRIZINE HCL 10 MG TABLET PO SCH (07:33)
[2019-06-30] MEDS: PANTOPRAZOLE 40 MG TABLET. PO SCH (07:33)
[2019-06-30] MEDS: risperiDONE 0.5 MG TABLET. PO SCH ×3 (07:33→20:45)
[2019-06-30] MEDS: OXYBUTYNIN CHLORIDE 5 MG TABLET PO SCH ×3 (07:34→20:45)
[2019-06-30] MEDS: FUROSEMIDE 40 MG TABLET PO SCH (07:34)
[2019-06-30] MEDS: POLYETHYLENE GLYCOL 3350 17 GM PACKET. PO SCH (07:35)
[2019-06-30] MEDS: DIVALPROEX ER 500 MG TAB.ER.24H PO SCH (07:35)
[2019-06-30] MEDS: AZITHROMYCIN 250 MG TABLET. PO SCH (07:37)
--- NOTE | 2019-06-30 13:29 | PN ---
DATE: SUBJECTIVE: The patient is resting, slightly propped up in bed, in no apparent respiratory distress. He is awake, alert, continued to be very restless, at times agitated, otherwise seems to be stable. PHYSICAL EXAMINATION: GENERAL: When I examined him, he was somewhat pale, but no jaundice, cyanosis or thyromegaly. No jugular venous distention. No lower limb edema. VITAL SIGNS: His heart rate was 66, blood pressure was 122/63, temperature was 98.6, respiratory rate was 18 and oxygen saturation was 94% on 2 liters of oxygen. HEAD, EYES, EARS, NOSE AND THROAT: Showed normocephalic, atraumatic. NECK: Supple. HEART: Showed normal first and second heart sounds with no gallop, rub or murmur. CHEST: Clear to auscultation. No crepitation or rhonchi. ABDOMEN: Distended, soft, nontender. NEUROLOGIC: There is no obvious lateralizing sign; however, he is known to have dementia and intellectual disability. His intake was 1060, output was 150. LABORATORY DATA: As of yesterday, his white cell count was 2400, hemoglobin 11.7, hematocrit 36, MCV 90 and platelet count of 131,000. His serum sodium was 143, potassium 3.8, chloride 103, bicarbonate 35, anion gap of 5, BUN 17, creatinine 0.7, estimated GFR was 112 mL per minute. His glucose was 93, calcium was 8.5. Total bilirubin, AST, ALT, alkaline phosphatase were normal. Total protein 6.8, albumin 2.2. ASSESSMENT: 1. Acute hypoxic respiratory failure. 2. Pneumonia related to COVID-19. 3. Gastroesophageal reflux disease. 4. Hypertension. 5. Iron deficiency anemia. 6. Irritable bowel syndrome. 7. Muscle weakness. 8. Leukopenia and thrombocytopenia, slowly improving. PLAN: To continue with the current plan of management. We will repeat his lab work tomorrow and we will discuss with the wrapper caser tomorrow regarding disposition. SYDNEY PETERS MD DR: JANEY/shawn JOB#: [id number] / [id number]
[2019-06-30] MEDS: ACETAMINOPHEN 500 MG TABLET PO PRN (20:45)
[2019-06-30] MEDS: DIVALPROEX ER 250 MG TAB.ER.24H. PO SCH (20:45)
[2019-06-30] MEDS: BENZTROPINE MESYLATE 1 MG TABLET PO SCH (20:45)
[2019-06-30] MEDS: hydrOXYzine HCL 25 MG TABLET PO PRN (20:45)
[2019-06-30] MEDS: SENNOSIDES 8.6 MG TABLET PO SCH (20:46)
--- NOTE | 2019-06-30 21:00 | NUR ---
Pt c/o generalized achiness. Pt repositioned in bed x2 assist and PRN Tylenol given per request.
[2019-07-01] VITALS (9 sets, daily range): BP systolic 114–127; BP diastolic 51–67
[2019-07-01] MEDS: LEVOTHYROXINE 25 MCG TABLET. PO SCH (05:02)
[2019-07-01 06:27] LABS: HEMATOCRIT 36.8 % (39.0-53.0); HEMOGLOBIN 12.2 g/dL (13.0-17.5); RED BLOOD COUNT 4.06 x10^6/uL (4.30-5.70); RED CELL DISTRIBUTION WIDTH 15.1 % (11.5-14.5); WHITE BLOOD COUNT 3.1 x10^3/uL (4.0-11.0)
[2019-07-01 06:40] LABS: ALBUMIN 2.2 g/dL (3.4-5.0); ALBUMIN/GLOBULIN RATIO 0.4 (1.0-1.7); CALCIUM 8.7 mg/dL (8.5-10.1); CREATININE 0.9 mg/dL (0.7-1.3); GFR 84.4; POTASSIUM 3.8 mmol/L (3.5-5.1); TOTAL BILIRUBIN 0.1 mg/dL (0.2-1.0); TOTAL PROTEIN 7.2 g/dL (6.4-8.2)
[2019-07-01] MEDS: busPIRone 5 MG TABLET. PO SCH ×3 (08:34→18:23)
[2019-07-01] MEDS: PANTOPRAZOLE 40 MG TABLET. PO SCH (08:34)
[2019-07-01] MEDS: BENZTROPINE MESYLATE 0.5 MG TABLET PO SCH (08:35)
[2019-07-01] MEDS: POTASSIUM CHLORIDE 20 MEQ TABLET.ER. PO SCH (08:36)
[2019-07-01] MEDS: FERROUS SULFATE 325 MG TABLET. PO SCH (08:36)
[2019-07-01] MEDS: DIVALPROEX ER 500 MG TAB.ER.24H PO SCH (08:36)
[2019-07-01] MEDS: TAMSULOSIN 0.4 MG CAP.ER.24H. PO SCH (08:36)
[2019-07-01] MEDS: OXYBUTYNIN CHLORIDE 5 MG TABLET PO SCH ×3 (08:36→19:53)
[2019-07-01] MEDS: FUROSEMIDE 40 MG TABLET PO SCH (08:37)
[2019-07-01] MEDS: CETIRIZINE HCL 10 MG TABLET PO SCH (08:37)
[2019-07-01] MEDS: AZITHROMYCIN 250 MG TABLET. PO SCH (08:37)
[2019-07-01] MEDS: medroxyPROGESTERone 5 MG TABLET PO SCH (08:37)
[2019-07-01] MEDS: risperiDONE 0.5 MG TABLET. PO SCH ×3 (08:37→19:53)
[2019-07-01] MEDS: OLANZapine 5 MG TABLET PO PRN (08:38)
[2019-07-01] MEDS: LORazepam 0.5 MG TABLET PO PRN (08:38)
[2019-07-01] MEDS: hydrOXYzine HCL 25 MG TABLET PO PRN ×2 (08:38→19:54)
[2019-07-01] MEDS: ENOXAPARIN 40 MG/0.4 ML SYRINGE. SQ SCH (08:38)
[2019-07-01] MEDS: FLUTICASONE 50MCG/NASAL SPRAY 16GM BOTTLE. NS SCH (08:38)
[2019-07-01] MEDS: POLYETHYLENE GLYCOL 3350 17 GM PACKET. PO SCH (08:39)
[2019-07-01] MEDS: CALCIUM POLYCARBOPHIL 625 MG TABLET PO SCH (08:39)
--- NOTE | 2019-07-01 16:31 | PN ---
DATE: 07/01/2019 SUBJECTIVE: The patient is very angry and happy today as he thought he is going back to his facility today. Unfortunately, the facility will take him on 07/04/2019 and we could not really reasoned him no matter how we tried, but he is generally doing much better. He is stable hemodynamically, afebrile. His white cell count is steadily rising. His oxygen saturation was 94% on room air. PHYSICAL EXAMINATION: GENERAL: When I examined him, he looked well and was clearly in no apparent respiratory distress. No pallor, jaundice, cyanosis or thyromegaly. No jugular venous distention. No limb edema. VITAL SIGNS: His heart rate was 74, blood pressure was 118/67, temperature was 97.6, respiratory rate was 18 and oxygen saturation was 94% on room air. The rest of clinical exam is stable, has not really changed. His intake was 820, output was 400. LABORATORY DATA: As of this morning, his serum sodium was 142, potassium 3.8, chloride 101, bicarbonate 37, anion gap of 4, BUN 21, creatinine 0.9, estimated GFR was 84 mL per minute. His glucose was 85, calcium was 8.7. Total bilirubin, AST, ALT, alkaline phosphatase were normal. Total protein was 7.2, albumin was 2.2. His white cell count was 3100, hemoglobin 12, hematocrit 36, MCV 91, and platelet count of 179,000. ASSESSMENT: 1. Acute hypoxic respiratory failure, resolved. 2. Pneumonia related to COVID-19 resolving. 3. Gastroesophageal reflux disease. 4. Hypertension. 5. Iron deficiency anemia. 6. Irritable bowel syndrome. 7. Muscle weakness. 8. Leukopenia and thrombocytopenia slowly improving. PLAN: Obviously to continue with current plan of management. He will be discharged back to his facility on 07/04/2019. SYDNEY PETERS MD DR: JANEY/shawn JOB#: [id number] / [id number]
[2019-07-01] MEDS: ACETAMINOPHEN 500 MG TABLET PO PRN (19:54)
[2019-07-01] MEDS: BENZTROPINE MESYLATE 1 MG TABLET PO SCH (19:54)
[2019-07-01] MEDS: DIVALPROEX ER 250 MG TAB.ER.24H. PO SCH (19:54)
[2019-07-01] MEDS: SENNOSIDES 8.6 MG TABLET PO SCH (19:54)
--- NOTE | 2019-07-01 20:30 | NUR ---
Pt afebrile, VSS. Pt upset he could not be discharged home today. Frequently yelling out and tearful, difficult to console. Pt incontinent of bowel, with large loose BM. Pt cleansed and linens changed x2 assist. Pt able to help with turning self in bed, but requires frequent encouragement. Pt reports he is uncomfortable and wants something for leg pain. BLE elevated on 2 pillows and PRN Tylenol given.
[2019-07-02] VITALS (7 sets, daily range): BP systolic 102–139; BP diastolic 47–102
[2019-07-02] MEDS: LORazepam 0.5 MG TABLET PO PRN (00:35)
--- NOTE | 2019-07-02 02:16 | NUR ---
Pt not sleeping well tonight. Repeatedly calling out. Pt wishes to go home and is inconsolable. PRN ativan administered. VSS, afebrile.
[2019-07-02] MEDS: LEVOTHYROXINE 25 MCG TABLET. PO SCH (05:11)
[2019-07-02] MEDS: medroxyPROGESTERone 5 MG TABLET PO SCH (08:25)
[2019-07-02] MEDS: CALCIUM POLYCARBOPHIL 625 MG TABLET PO SCH (08:25)
[2019-07-02] MEDS: BENZTROPINE MESYLATE 0.5 MG TABLET PO SCH (08:25)
[2019-07-02] MEDS: TAMSULOSIN 0.4 MG CAP.ER.24H. PO SCH (08:25)
[2019-07-02] MEDS: risperiDONE 0.5 MG TABLET. PO SCH ×3 (08:25→20:14)
[2019-07-02] MEDS: busPIRone 5 MG TABLET. PO SCH ×3 (08:26→18:53)
[2019-07-02] MEDS: CETIRIZINE HCL 10 MG TABLET PO SCH (08:26)
[2019-07-02] MEDS: DIVALPROEX ER 500 MG TAB.ER.24H PO SCH (08:26)
[2019-07-02] MEDS: OXYBUTYNIN CHLORIDE 5 MG TABLET PO SCH ×3 (08:26→20:14)
[2019-07-02] MEDS: PANTOPRAZOLE 40 MG TABLET. PO SCH (08:26)
[2019-07-02] MEDS: POTASSIUM CHLORIDE 20 MEQ TABLET.ER. PO SCH (08:26)
[2019-07-02] MEDS: FERROUS SULFATE 325 MG TABLET. PO SCH (08:26)
[2019-07-02] MEDS: AZITHROMYCIN 250 MG TABLET. PO SCH (08:26)
[2019-07-02] MEDS: FLUTICASONE 50MCG/NASAL SPRAY 16GM BOTTLE. NS SCH (08:27)
[2019-07-02] MEDS: FUROSEMIDE 40 MG TABLET PO SCH (08:27)
[2019-07-02] MEDS: ENOXAPARIN 40 MG/0.4 ML SYRINGE. SQ SCH (08:27)
[2019-07-02] MEDS: POLYETHYLENE GLYCOL 3350 17 GM PACKET. PO SCH (08:27)
--- NOTE | 2019-07-02 14:49 | NUR ---
Patient doing well today, states "i am nehemias happy i get to go home, i could cry" Explained that he will be expecting to go home on Morning. Patients vitals remain stable so far this shift, afebrile and denies complaints of pain or discomfort. Continues to require max assist with feeds and adls.
--- NOTE | 2019-07-02 19:06 | PN ---
DATE: 07/02/2019 SUBJECTIVE: The patient is resting, slightly propped up in bed, sleeping comfortably, in no apparent distress. He continues to be agitated occasionally. He is generally stable. OBJECTIVE: GENERAL: On examining him today, he was pale, but no jaundice, cyanosis or thyromegaly. No jugular venous distention. No limb edema. VITAL SIGNS: His heart rate was 65, blood pressure 122/65, temperature was 97.5, respiratory rate 22, and oxygen saturation was 98% on 2 liters of oxygen. HEAD, EYES, EARS, NOSE AND THROAT: Showed normocephalic, atraumatic. NECK: Supple. HEART: Normal first and second heart sounds. No gallop or murmur. CHEST: Clear to auscultation. No crepitation or rhonchi. ABDOMEN: Distended, soft, nontender. NEUROLOGIC: He is demented, but without any obvious lateralizing sign. He is nonambulatory and he is mostly bedbound, chair bound. His intake over the last 24 hours was 816, no output was recorded. LABORATORY DATA: His most recent lab work showed a serum sodium 142, potassium 3.8, chloride 101, bicarbonate 27, anion gap of 4, BUN 21, creatinine 0.9, estimated GFR was 84 mL per minute. His glucose was 85, calcium was 8.7. Total bilirubin, AST, ALT, alkaline phosphatase were normal. Total protein 7.2, albumin 2.2. His total white cell count is 3100, hemoglobin 12, hematocrit 36, MCV 91, and platelet count 279. ASSESSMENT: 1. Acute hypoxic respiratory failure, resolved. 2. Pneumonia related to COVID-19, resolving. 3. Gastroesophageal reflux disease. 4. Hypertension. 5. Iron deficiency anemia. 6. Irritable bowel syndrome. 7. Muscle weakness. 8. Leukopenia and thrombocytopenia, slowly improving. PLAN: Obviously continue with current plan of management. He will be discharged back to his facility on 07/05/2019. SYDNEY PETERS MD DR: JANEY/shawn JOB#: [id number] / [id number]
[2019-07-02] MEDS: LACTOBACILLUS RHAMNOSUS GG 1 CAPSULE. PO SCH (20:14)
[2019-07-02] MEDS: BENZTROPINE MESYLATE 1 MG TABLET PO SCH (20:14)
[2019-07-02] MEDS: DIVALPROEX ER 250 MG TAB.ER.24H. PO SCH (20:14)
[2019-07-02] MEDS: SENNOSIDES 8.6 MG TABLET PO SCH (20:15)
[2019-07-03 04:29] VITALS: BP 114/60
--- NOTE | 2019-07-03 05:37 | NUR ---
Pt able to sleep/rest first half of shift but has been awake and hollering out for better part of last several hours. Pt enjoys chocolate ensure. Need frequent reminders to keep oxygen on. Pt afebrile other vitals stable and no c/o pain during shift. Tolerating frequent turns and changing of wet briefs. Pt stated several times, "I get to go home today" and asking to pack up his things. I reminded him that it's on he gets to go home. Pt continues on SR on monitor.
[2019-07-03] MEDS: LEVOTHYROXINE 25 MCG TABLET. PO SCH (06:20)
[2019-07-03] MEDS: busPIRone 5 MG TABLET. PO SCH ×3 (07:48→16:58)
[2019-07-03] MEDS: ENOXAPARIN 40 MG/0.4 ML SYRINGE. SQ SCH (07:49)
[2019-07-03] MEDS: DIVALPROEX ER 500 MG TAB.ER.24H PO SCH (07:49)
[2019-07-03] MEDS: medroxyPROGESTERone 5 MG TABLET PO SCH (07:49)
[2019-07-03] MEDS: POTASSIUM CHLORIDE 20 MEQ TABLET.ER. PO SCH (07:49)
[2019-07-03] MEDS: LACTOBACILLUS RHAMNOSUS GG 1 CAPSULE. PO SCH ×2 (07:49→19:51)
[2019-07-03] MEDS: PANTOPRAZOLE 40 MG TABLET. PO SCH (07:50)
[2019-07-03] MEDS: BENZTROPINE MESYLATE 0.5 MG TABLET PO SCH (07:50)
[2019-07-03] MEDS: OXYBUTYNIN CHLORIDE 5 MG TABLET PO SCH ×3 (07:50→19:51)
[2019-07-03] MEDS: POLYETHYLENE GLYCOL 3350 17 GM PACKET. PO SCH (07:50)
[2019-07-03] MEDS: LORazepam 0.5 MG TABLET PO PRN ×2 (07:50→16:58)
[2019-07-03] MEDS: FUROSEMIDE 40 MG TABLET PO SCH (07:50)
[2019-07-03] MEDS: risperiDONE 0.5 MG TABLET. PO SCH ×3 (07:50→19:51)
[2019-07-03] MEDS: CETIRIZINE HCL 10 MG TABLET PO SCH (07:50)
[2019-07-03] MEDS: AZITHROMYCIN 250 MG TABLET. PO SCH (07:50)
[2019-07-03] MEDS: TAMSULOSIN 0.4 MG CAP.ER.24H. PO SCH (07:50)
[2019-07-03] MEDS: FERROUS SULFATE 325 MG TABLET. PO SCH (07:50)
[2019-07-03] MEDS: CALCIUM POLYCARBOPHIL 625 MG TABLET PO SCH ×2 (07:51→09:00)
[2019-07-03] MEDS: FLUTICASONE 50MCG/NASAL SPRAY 16GM BOTTLE. NS SCH (07:51)
[2019-07-03 11:00] VITALS: BP 120/66
[2019-07-03 15:00] VITALS: BP 112/63
--- NOTE | 2019-07-03 16:08 | PN ---
DATE: 07/03/2019 ATTENDING PHYSICIAN: Dr. Leonardo. SUBJECTIVE: "I want to go home," according to the patient. He is agitated requiring his meds. We have to calm him down. He denied any respiratory distress. He has adequate saturations on 2 liters of nasal cannula. OBJECTIVE FINDINGS: VITAL SIGNS: Today, his heart rate was 70 per minute, blood pressure is 130 systolic. Temperature was 98.0 degrees Fahrenheit, respiratory rate 20, unlabored, oxygen saturation adequate at 2 liters nasal cannula. HEENT: Head is without trauma. Pupils are reactive. Sclerae nonicteric. Oropharynx clear. NECK: Supple, no bruits. LUNGS: Good breath sounds. CARDIOVASCULAR: Showed regular heart tones. No gallops. ABDOMEN: Minimally distended, soft, nontender, no guarding, rebound tenderness. EXTREMITIES: Show no cyanosis or edema. NEUROLOGIC: Patient is not aware of person, place or time. There are no obvious localizing signs. He is nonambulatory, mostly bed bound and chair bound. LABORATORY DATA: From yesterday were reviewed. ASSESSMENT: 1. A 68-year-old gentleman with acute hypoxic respiratory failure, resolved. 2. Pneumonia related to COVID-19 coronavirus resolving. 3. Gastroesophageal reflux disease. 4. Iron deficiency anemia. 5. Irritable bowel syndrome. 6. Essential hypertension. 7. Schizophrenia with cognitive disorder. 8. Essential hypertension. PLAN: 1. Continue medicines as ordered. 2. Diet as tolerated. 3. Re-swab nares for coronavirus per his facility. 4. Tentative discharge planning to senior care tomorrow. SIRI DICKEY MD DR: KYLAH/shawn JOB#: [id number] / [id number] SYDNEY Garnica MD
--- NOTE | 2019-07-03 17:59 | NUR ---
pt very agitated and being verbally aggressive this am, apologized and started to cooperate to take his morning meds, and allow me to do vital signs and change his brief. pt refused to eat all of his meals today, stated "ma'am im just not very hungry and i dont like the food here anyways". i asked if there was anything i could order for him that he would like and he said Lisa steak and mashed potatoes, he received this for dinner and still refused to eat stating "im just not very hungry and you cant make me eat". pt was calm and cooperative this afternoon while he had his headphones in listening to music and allowed me to give him a bed bath and change his linens and brief. pt has been yelling out all day for anything that he needed even with having his call light right next to him and he was instructed on how to use it. throughout the day i continued my teaching on the importance of turning him, changing him, and eating. pt instructed all day to also keep his oxygen on and pt continues to take it off stating "i dont need that on, take it out of my nose!" regardless of having education on the importance of leaving it on. Addendum: 07/03/19 at 1812 by JEMMA MILTON RN RN at this time saw that pt had his oxygen off again, went into his room and was looking for it to put back on but was unable to find it. searching everywhere i found it hidden under his blanket behind him. pt had pulled it out of his nose and also pulled it off the wall, wadded it up and tried hiding it to avoid reapplication. Addendum: 07/03/19 at 1816 by JEMMA MILTON RN RN once i found the oxygen i reapplied.
[2019-07-03] MEDS: BENZTROPINE MESYLATE 1 MG TABLET PO SCH (19:50)
[2019-07-03] MEDS: OLANZapine 5 MG TABLET PO PRN (19:50)
[2019-07-03] MEDS: DIVALPROEX ER 250 MG TAB.ER.24H. PO SCH (19:51)
[2019-07-03] MEDS: SENNOSIDES 8.6 MG TABLET PO SCH (19:52)
[2019-07-03 20:12] VITALS: BP 132/61
[2019-07-03 23:55] VITALS: BP 116/62
[2019-07-04 04:33] VITALS: BP 130/73
--- NOTE | 2019-07-04 04:36 | NUR ---
Did pt cares for 399, changed brief and repositioned to left side, pt desat to mid 80s instructed to take a few deep breaths and cough, loose cough but unable to expectorate. Increase o2 up to 4L per NC continued to instruct pt to take deep breaths and cough, improved to about 91-93% so repositioned pt back onto right side and immediately sats improved. Currently sats of 97% on 4L o2. Pt did sleep comfortably all shift until 399 cares. Pt remains afebrile and SR on monitor. Pending covid 19 test results back today, this will be the first result since previous positive. Pt has been given ensures throughout shift and he really likes them. Pt still thinks he is leaving today and gets verbally aggressive when trying to explain to him that it won't be today, very upset and almost to tears. Tried to console him and asked if he wanted to listen to his music with his headphones and he did. He is currently resting comfortably in bed.
[2019-07-04] MEDS: LEVOTHYROXINE 25 MCG TABLET. PO SCH (05:48)
[2019-07-04 08:00] VITALS: BP 137/75
[2019-07-04 08:23] VITALS: BP 130/73
[2019-07-04] MEDS: PANTOPRAZOLE 40 MG TABLET. PO SCH (08:27)
[2019-07-04] MEDS: POTASSIUM CHLORIDE 20 MEQ TABLET.ER. PO SCH (08:28)
[2019-07-04] MEDS: TAMSULOSIN 0.4 MG CAP.ER.24H. PO SCH (08:28)
[2019-07-04] MEDS: CALCIUM POLYCARBOPHIL 625 MG TABLET PO SCH (08:28)
[2019-07-04] MEDS: FUROSEMIDE 40 MG TABLET PO SCH (08:28)
[2019-07-04] MEDS: LACTOBACILLUS RHAMNOSUS GG 1 CAPSULE. PO SCH ×2 (08:29→19:46)
[2019-07-04] MEDS: busPIRone 5 MG TABLET. PO SCH ×3 (08:29→16:54)
[2019-07-04] MEDS: DIVALPROEX ER 500 MG TAB.ER.24H PO SCH (08:29)
[2019-07-04] MEDS: OXYBUTYNIN CHLORIDE 5 MG TABLET PO SCH (08:29)
[2019-07-04] MEDS: medroxyPROGESTERone 5 MG TABLET PO SCH (08:30)
[2019-07-04] MEDS: LORazepam 0.5 MG TABLET PO PRN ×3 (08:30→19:47)
[2019-07-04] MEDS: BENZTROPINE MESYLATE 0.5 MG TABLET PO SCH (08:30)
[2019-07-04] MEDS: hydrOXYzine HCL 25 MG TABLET PO PRN ×2 (08:30→16:54)
[2019-07-04] MEDS: FERROUS SULFATE 325 MG TABLET. PO SCH (08:30)
[2019-07-04] MEDS: CETIRIZINE HCL 10 MG TABLET PO SCH (08:30)
[2019-07-04] MEDS: risperiDONE 0.5 MG TABLET. PO SCH ×3 (08:30→19:47)
[2019-07-04] MEDS: FLUTICASONE 50MCG/NASAL SPRAY 16GM BOTTLE. NS SCH (08:31)
[2019-07-04] MEDS: ENOXAPARIN 40 MG/0.4 ML SYRINGE. SQ SCH (08:31)
[2019-07-04] MEDS: POLYETHYLENE GLYCOL 3350 17 GM PACKET. PO SCH (08:31)
[2019-07-04] MEDS: OLANZapine 5 MG TABLET PO PRN ×2 (10:56→16:54)
--- NOTE | 2019-07-04 11:00 | NUR ---
Lab called, covid swab is positive. Pt's facility will not take him back unless he has [address] Alexis stated we do not know when pt can have a negative results after treatment. Pt has completed treatment for covid. He has been symptom free for over 72 hours, no fevers. Pt is stable. CM called facility again with this information. Facility will not take pt back until 14 days from the time he swabbed positive. Pt has been here for 8 days currently in ICU. Pt is very upset and angry about not getting to go home. Stating he has been here 2 whole months and he just wants to go home. Pt also states he is not sick anymore and wants to go home.
[2019-07-04 12:32] VITALS: BP 131/72
--- NOTE | 2019-07-04 13:46 | PN ---
DATE: 07/04/2019 ATTENDING PHYSICIANS: Yokasta Leonardo MD and Siri Dickey MD SUBJECTIVE: "I want to go home." According to the patient, he remains agitated, he does not understand why the [facility] at [place] will not accept him. Unfortunately, a repeat the swab remained positive for the COVID-19 coronavirus. He is asymptomatic and has been treated for such infection. He has no respiratory distress. He is eating adequately. OBJECTIVE FINDINGS: VITAL SIGNS: Today, he is afebrile. His blood pressure is 130/73, temperature 96.8 degrees Fahrenheit, oxygen saturation 95% on 2 liters of nasal cannula. HEENT: Head is without trauma. Pupils are reactive. Sclerae is nonicteric. Oropharynx clear. NECK: Supple, no bruits. LUNGS: Good breath sounds. CARDIOVASCULAR: Showed regular heart tones. ABDOMEN: Soft. EXTREMITIES: Show no edema. NEUROLOGIC: The patient is very agitated, stating repeatedly I want to go home. He has no insight as to why the chcf will not take him. ASSESSMENT: 1. A 68-year-old gentleman with acute hypoxic respiratory failure, resolved. 2. Pneumonia related to COVID-19 coronavirus, improving. 3. Gastroesophageal reflux disease. 4. Iron-deficiency anemia. 5. Irritable bowel syndrome. 6. Schizoaffective disorder with cognitive dysfunction. 7. Essential hypertension. PLAN: 1. Meds were reviewed and I did simplify some of the p.r.n. meds. 2. Diet as tolerated. 3. We are trying to get him to go back to his previous [facility] in [place], [place]. SIRI DICKEY MD DR: KYLAH/shawn JOB#: [id number] / [id number]
[2019-07-04 14:55] VITALS: BP 113/79
[2019-07-04] MEDS: DIVALPROEX ER 250 MG TAB.ER.24H. PO SCH (19:46)
[2019-07-04] MEDS: SENNOSIDES 8.6 MG TABLET PO SCH (19:47)
[2019-07-04 20:07] VITALS: BP 135/77
[2019-07-05 02:13] VITALS: BP 146/76
[2019-07-05] MEDS: OLANZapine 5 MG TABLET PO PRN (03:58)
[2019-07-05] MEDS: LEVOTHYROXINE 25 MCG TABLET. PO SCH (05:18)
--- NOTE | 2019-07-05 06:24 | NUR ---
Pt remained on RA all shift sats >93%. pt afebrile, no c/o pain. Pt did have moments of outbursts of anger when being changed and turned. Pt was able to rest/sleep during first 7 hours or so of shift but has been awake for the last several hours.
[2019-07-05] MEDS: TAMSULOSIN 0.4 MG CAP.ER.24H. PO SCH (08:13)
[2019-07-05] MEDS: busPIRone 5 MG TABLET. PO SCH ×3 (08:14→17:19)
[2019-07-05] MEDS: DIVALPROEX ER 500 MG TAB.ER.24H PO SCH (08:14)
[2019-07-05] MEDS: LACTOBACILLUS RHAMNOSUS GG 1 CAPSULE. PO SCH ×2 (08:14→20:26)
[2019-07-05] MEDS: PANTOPRAZOLE 40 MG TABLET. PO SCH (08:14)
[2019-07-05] MEDS: risperiDONE 0.5 MG TABLET. PO SCH ×3 (08:14→20:26)
[2019-07-05] MEDS: FUROSEMIDE 40 MG TABLET PO SCH (08:15)
[2019-07-05] MEDS: POTASSIUM CHLORIDE 20 MEQ TABLET.ER. PO SCH (08:15)
[2019-07-05] MEDS: BENZTROPINE MESYLATE 0.5 MG TABLET PO SCH (08:15)
[2019-07-05] MEDS: POLYETHYLENE GLYCOL 3350 17 GM PACKET. PO SCH (08:16)
[2019-07-05] MEDS: FLUTICASONE 50MCG/NASAL SPRAY 16GM BOTTLE. NS SCH (08:16)
[2019-07-05 08:52] VITALS: BP 155/66
--- NOTE | 2019-07-05 10:35 | PN ---
DATE: 07/05/2019 ATTENDING PHYSICIAN: Dr. Leonardo. SUBJECTIVE: "I want to get out of the hospital." The patient remains agitated when I approached him. He is crying that he wants to leave the hospital. He has no insight as to why he cannot and the facility would not take him until next week. OBJECTIVE FINDINGS: VITAL SIGNS: He is afebrile, temperature is 97.2 degrees Fahrenheit, blood pressure is 146/76 and his heart rate is 79 per minute. Room air saturation 93%. HEENT: Head is without trauma. Pupils are reactive. Sclerae are nonicteric. Oropharynx is clear. NECK: Supple. LUNGS: Otherwise clear with good breath sounds. CARDIOVASCULAR: Showed regular heart tones. No gallops. ABDOMEN: Soft. No guarding or rebound tenderness. EXTREMITIES: Show no cyanosis or edema. NEUROLOGIC: Pleasantly confused and less agitated today. ASSESSMENT: 1. A 68-year-old gentleman with acute hypoxic respiratory failure, resolved. 2. Pneumonia related to COVID-19 coronavirus, improving. 3. Iron deficiency anemia, stable. 4. Gastroesophageal reflux disease, stable. 5. History of irritable bowel syndrome. 6. Schizoaffective disorder with definite cognitive dysfunction. 7. Essential hypertension, controlled. PLAN: 1. Meds reviewed again and will continue his scheduled meds. 2. Diet as tolerated. 3. Long time spent trying to reassure him that we are trying to get him out of the hospital as soon as the facility can take him. SIRI DICKEY MD DR: KYLAH/shawn JOB#: [id number] / [id number]
--- NOTE | 2019-07-05 10:46 | NUR ---
Patient resting in bed, continues to assist nurse with repositioning for ADLS and toileting when incontinent. Patient was polite this morning when caring for nurse but was making inappropriate comments to nurse, asking "can i see you go pee, does your watch you go pee?" Discussed with physician in regards to discontinuation of Provera, states that there is no reason to have it. Patient is aware that he is making remarks and then will apologize after being inappropriate.
[2019-07-05 13:08] VITALS: BP 126/66
[2019-07-05 18:09] VITALS: BP 140/72
[2019-07-05 19:38] VITALS: BP 122/67
[2019-07-05] MEDS: LORazepam 0.5 MG TABLET PO PRN (20:26)
[2019-07-05] MEDS: DIVALPROEX ER 250 MG TAB.ER.24H. PO SCH (20:27)
[2019-07-05] MEDS: SENNOSIDES 8.6 MG TABLET PO SCH (20:27)
--- NOTE | 2019-07-05 20:50 | NUR ---
At beginning of shift when assessing pt and changing brief d/t being wet, pt continued to holler out and respond with verbally inappropriate comments calling me nasty names. He even spit out and said, "I hope you and go to hell!" I quickly did my cares for him while reminding him that was inappropriate to talk to me that way. He even raised his fist to me and said he would hit me. Like twenty minutes later he hollered out after I left and I called into his room via speaker call system and he said I could come in now and he was sorry. I told him he would have to wait now until I got his night meds and juice and would come back in then.
[2019-07-06 02:30] VITALS: BP 140/71
[2019-07-06] MEDS: ALBUTEROL SULFATE 8GM INHALER. INH PRN ×2 (04:50→14:00)
[2019-07-06] MEDS: LEVOTHYROXINE 25 MCG TABLET. PO SCH (04:57)
[2019-07-06] MEDS: POLYETHYLENE GLYCOL 3350 17 GM PACKET. PO SCH (07:37)
[2019-07-06 07:45] VITALS: BP 133/56
[2019-07-06] MEDS: busPIRone 5 MG TABLET. PO SCH ×3 (07:47→17:00)
[2019-07-06] MEDS: hydrOXYzine HCL 25 MG TABLET PO PRN (07:48)
[2019-07-06] MEDS: DIVALPROEX ER 500 MG TAB.ER.24H PO SCH (07:48)
[2019-07-06] MEDS: FUROSEMIDE 40 MG TABLET PO SCH (07:49)
[2019-07-06] MEDS: LORazepam 0.5 MG TABLET PO PRN ×2 (07:49→13:15)
[2019-07-06] MEDS: risperiDONE 0.5 MG TABLET. PO SCH ×3 (07:49→20:54)
[2019-07-06] MEDS: LACTOBACILLUS RHAMNOSUS GG 1 CAPSULE. PO SCH ×2 (07:49→20:54)
[2019-07-06] MEDS: TAMSULOSIN 0.4 MG CAP.ER.24H. PO SCH (07:50)
[2019-07-06] MEDS: OLANZapine 5 MG TABLET PO PRN (07:50)
[2019-07-06] MEDS: POTASSIUM CHLORIDE 20 MEQ TABLET.ER. PO SCH (07:50)
[2019-07-06] MEDS: PANTOPRAZOLE 40 MG TABLET. PO SCH (07:50)
[2019-07-06] MEDS: FLUTICASONE 50MCG/NASAL SPRAY 16GM BOTTLE. NS SCH (07:51)
[2019-07-06] MEDS: BENZTROPINE MESYLATE 0.5 MG TABLET PO SCH (07:51)
--- NOTE | 2019-07-06 08:30 | NUR ---
Patient is yelling out. "I need to Poop" over and over again. Pt is obsessed with his headphones and wants to use them constantly, and gets upset when they need charged. PRN Ativan, Zyprexa and Atarax given. Will continue to monitor.
[2019-07-06 14:51] VITALS: BP 124/57
[2019-07-06 18:39] VITALS: BP 115/81
[2019-07-06] MEDS: DIVALPROEX ER 250 MG TAB.ER.24H. PO SCH (20:54)
[2019-07-06] MEDS: SENNOSIDES 8.6 MG TABLET PO SCH (20:54)
--- NOTE | 2019-07-06 20:57 | PN ---
DATE: 07/06/2019 ATTENDING PHYSICIAN: Dr. Leonardo. SUBJECTIVE: The patient is more agitated today, wanting to go home. He is threatening and using expletives, "I want to get out of the hospital." Unfortunately, he has no insight as to why he cannot leave the facility and that his previous detention in [place], [place] will not take him because his last COVID-19 swab remained positive. OBJECTIVE FINDINGS: VITAL SIGNS: He is afebrile. He has no other complaints. His blood pressure is 133/56, pulse is 68 and regular, temperature 97.0 degrees Fahrenheit, oxygen saturation 93% on room air. HEENT: Head is without trauma. Pupils are reactive. Sclerae nonicteric. Oropharynx clear. NECK: No stridor. LUNGS: Otherwise clear. CARDIOVASCULAR: Showed regular heart tones. No obvious gallops. Peripheral pulses are palpable and full. ABDOMEN: Soft, scaphoid. EXTREMITIES: Show no cyanosis or edema. NEUROLOGIC: The patient remains confused and a little more agitated today. ASSESSMENT: A 68-year-old gentleman with: 1. Acute hypoxic respiratory failure, resolved. 2. COVID-19 coronavirus pneumonia, treated. 3. Iron deficiency anemia, chronic. 4. Gastroesophageal reflux disease, stable. 5. History of irritable bowel syndrome, chronic. 6. Longstanding schizoaffective disorder with severe cognitive dysfunction. 7. Essential hypertension, normotensive. PLAN: 1. Meds reviewed and we will continue as scheduled. 2. Diet as tolerated. 3. Long discussion with the patient, but unfortunately he does not remember what I said today or tomorrow. We are waiting for the skilled facility to take him sometime next week, if they are able. We will repeat a swab of his nares when appropriate. SIRI DICKEY MD DR: KYLAH/shawn JOB#: [id number] / [id number] SYDNEY Garnica MD
[2019-07-06 21:13] VITALS: BP 103/52
[2019-07-07] MEDS: LEVOTHYROXINE 25 MCG TABLET. PO SCH (05:31)
[2019-07-07 05:45] VITALS: BP 124/71
--- NOTE | 2019-07-07 06:00 | NUR ---
Patient had an uneventful night, no inappropriate comments or questions. Patient does yell out when he wants something, but he has been easy to redirect. Patient cooperative with most cares, he does continue to refuse being turned however.
[2019-07-07] MEDS: LACTOBACILLUS RHAMNOSUS GG 1 CAPSULE. PO SCH ×2 (07:27→21:13)
[2019-07-07] MEDS: LORazepam 0.5 MG TABLET PO PRN ×2 (07:28→21:18)
[2019-07-07] MEDS: busPIRone 5 MG TABLET. PO SCH ×3 (07:28→17:00)
[2019-07-07] MEDS: PANTOPRAZOLE 40 MG TABLET. PO SCH (07:28)
[2019-07-07] MEDS: BENZTROPINE MESYLATE 0.5 MG TABLET PO SCH (07:28)
[2019-07-07] MEDS: OLANZapine 5 MG TABLET PO PRN (07:28)
[2019-07-07] MEDS: TAMSULOSIN 0.4 MG CAP.ER.24H. PO SCH (07:28)
[2019-07-07] MEDS: POTASSIUM CHLORIDE 20 MEQ TABLET.ER. PO SCH (07:28)
[2019-07-07] MEDS: hydrOXYzine HCL 25 MG TABLET PO PRN (07:28)
[2019-07-07] MEDS: FUROSEMIDE 40 MG TABLET PO SCH (07:28)
[2019-07-07] MEDS: DIVALPROEX ER 500 MG TAB.ER.24H PO SCH (07:29)
[2019-07-07] MEDS: POLYETHYLENE GLYCOL 3350 17 GM PACKET. PO SCH (07:30)
[2019-07-07] MEDS: risperiDONE 0.5 MG TABLET. PO SCH ×3 (07:30→21:14)
[2019-07-07] MEDS: FLUTICASONE 50MCG/NASAL SPRAY 16GM BOTTLE. NS SCH (07:31)
--- NOTE | 2019-07-07 10:00 | PN ---
DATE: 07/07/2019 ATTENDING PHYSICIAN: Dr. Dickey. SUBJECTIVE: The patient is actually calmer with me this morning. He is not asking to go home repeatedly. He understands that we are trying our best to get him placed. He has no new complaints. He has not been inappropriate in his behavior or language with me. OBJECTIVE FINDINGS: VITAL SIGNS: Quite stable. He is afebrile. His blood pressure is 124/71, temperature 97.8 degrees Fahrenheit, oxygen saturation 93% on room air. HEENT: Head is without trauma. Pupils are reactive. Sclerae nonicteric. Oropharynx clear. NECK: Supple. LUNGS: Quite clear without any wheezing, rales or rhonchi. CARDIOVASCULAR: Showed regular heart tones. No obvious gallops. Peripheral pulses are palpable and full. ABDOMEN: Soft, nontender, no organomegaly. Bowel sounds are normoactive. EXTREMITIES: Showed no cyanosis or edema. NEUROLOGIC: The patient is limited capability and insight. He has no focal deficits. Speech is fluent. ASSESSMENT: 1. A 68-year-old gentleman with acute hypoxemic respiratory failure, resolved. 2. COVID-19 coronavirus pneumonia, treated. 3. Iron deficiency anemia, chronic, stable. 4. Gastroesophageal reflux disease, stable. 5. History of irritable bowel syndrome. 6. Longstanding schizoaffective disorder with severe cognitive dysfunction. 7. Behavioral disturbances related to schizophrenia. 8. Essential hypertension, stable. PLAN: 1. Meds are reviewed. 2. Diet as tolerated. 3. Long discussion with the patient, we are waiting for negative swabs to return, so [facility]. SIRI DICKEY MD DR: KYLAH/shawn JOB#: [id number] / [id number]
[2019-07-07 12:32] VITALS: BP 140/69
[2019-07-07 16:00] VITALS: BP 143/64
[2019-07-07] MEDS: SENNOSIDES 8.6 MG TABLET PO SCH (21:00)
[2019-07-07] MEDS: DIVALPROEX ER 250 MG TAB.ER.24H. PO SCH (21:14)
[2019-07-07 21:41] VITALS: BP 125/70
[2019-07-08] VITALS (8 sets, daily range): BP systolic 96–129; BP diastolic 51–93
[2019-07-08] MEDS: LEVOTHYROXINE 25 MCG TABLET. PO SCH (05:30)
[2019-07-08] MEDS: risperiDONE 0.5 MG TABLET. PO SCH ×3 (07:55→19:33)
[2019-07-08] MEDS: PANTOPRAZOLE 40 MG TABLET. PO SCH (07:55)
[2019-07-08] MEDS: DIVALPROEX ER 500 MG TAB.ER.24H PO SCH (07:55)
[2019-07-08] MEDS: FUROSEMIDE 40 MG TABLET PO SCH (07:55)
[2019-07-08] MEDS: TAMSULOSIN 0.4 MG CAP.ER.24H. PO SCH (07:55)
[2019-07-08] MEDS: LORazepam 0.5 MG TABLET PO PRN ×3 (07:55→19:32)
[2019-07-08] MEDS: POTASSIUM CHLORIDE 20 MEQ TABLET.ER. PO SCH (07:55)
[2019-07-08] MEDS: busPIRone 5 MG TABLET. PO SCH ×3 (07:56→17:12)
[2019-07-08] MEDS: FLUTICASONE 50MCG/NASAL SPRAY 16GM BOTTLE. NS SCH (07:56)
[2019-07-08] MEDS: POLYETHYLENE GLYCOL 3350 17 GM PACKET. PO SCH (07:56)
[2019-07-08] MEDS: BENZTROPINE MESYLATE 0.5 MG TABLET PO SCH (07:56)
[2019-07-08] MEDS: ALBUTEROL SULFATE 8GM INHALER. INH PRN (07:56)
[2019-07-08] MEDS: LACTOBACILLUS RHAMNOSUS GG 1 CAPSULE. PO SCH ×2 (07:56→19:33)
--- NOTE | 2019-07-08 10:16 | PN ---
DATE: 07/08/2019 ATTENDING PHYSICIAN: Dr. Leonardo. SUBJECTIVE: Very calm today and pleasant. He is still insisting on going home. He has not been inappropriate with me. He denied any chest pain, cough, fevers or discomfort. OBJECTIVE FINDINGS: VITAL SIGNS: He has been afebrile all week. Her blood pressure is stable. Heart rate is not elevated. He has adequate saturation of 92% on room air. HEENT: Head is without trauma. Pupils reactive. Oropharynx clear. NECK: Supple, no bruits. LUNGS: Actually quite clear. CARDIOVASCULAR: Showed regular heart tones. ABDOMEN: Soft, nontender to palpation. EXTREMITIES: Show no cyanosis or edema. NEUROLOGIC: The patient has limited capability and insight. He is not agitated. He has no focal deficit. ASSESSMENT: 1. A 68-year-old gentleman with acute hypoxemic respiratory failure, resolved. 2. COVID-19 coronavirus pneumonia, treated and improved. I think he is convalescing. 3. Iron deficiency anemia. 4. History of irritable bowel syndrome. 5. Gastroesophageal reflux disease. 6. Longstanding schizoaffective disorder with severe cognitive dysfunction. 7. Behavior disturbances related to schizophrenia. PLAN: 1. Meds again reviewed. 2. Diet as tolerated. 3. We will re-swab him later this week pending the requirements of getting him discharged back to the residential. SIRI DICKEY MD DR: KYLAH/shawn JOB#: [id number] / [id number] SYDNEY Garnica MD
--- NOTE | 2019-07-08 11:59 | NUR ---
LAURO received a call from Enmanuel, the historical records administrator with [place], who wanted to clarify the information told to [place], in their business office. LAURO explained that LAURO on [facility] is working on discharges for either the or the for the following individuals: LG, VG and LM. These 3 individuals have been quarantined on [facility] for over a month now and the unit will plan to discharge early next week if all continues as planned. Enmanuel questioned LAURO on 2 other residents (e.g. MM and RK). LAURO explained that those two individuals are downstairs on the medical floor and will have different criteria for discharging pt. LAURO encouraged Enmanuel to have contact with Vita Villagomez, RN/CM, who would be able to assist him with those two individuals. Enmanuel reports being told that SW would be out of the office until further notice. LAURO explained that LAURO would be out until at least Ced AM; however, Vita will be here daily from 8-12. Both parties were aware and agreed that the three [facility] individuals will be swabbed prior to discharge, as that has been directed to them by their health department. LAURO will plan to follow up on those test results once completed.
--- NOTE | 2019-07-08 14:25 | NUR ---
pt being very inappropriate and yelling today. pt yells for everything he wants instead of using his call light despite numerous attempts at re-teaching him how to use it. pt stating inappropriate comments and cussing at all of the nurses on the unit. gave pt something to drink and within reach, made sure his brief was dry, pulled him up in bed, straightened his bedding, made sure his heels were floated, offered to turn him, made sure call light and anything he needs is within reach, currently charging his headphones. pt content at this moment, will continue to monitor.
[2019-07-08] MEDS: SENNOSIDES 8.6 MG TABLET PO SCH (19:16)
[2019-07-08] MEDS: DIVALPROEX ER 250 MG TAB.ER.24H. PO SCH (19:33)
--- NOTE | 2019-07-08 20:20 | NUR ---
Pt hitting the call light continuously. Attempted to educate the pt that the nurse was preparing to come into the room, but needed a moment to gather up supplies. Pt yelling and cursing at staff, continuing to hit his call light. When assessing pt, pt continued to be demanding and short with staff. Encouraged pt be patient that we would get thing straightened out. PRN Ativan given as ordered.
[2019-07-09 04:22] VITALS: BP 130/65
[2019-07-09] MEDS: LEVOTHYROXINE 25 MCG TABLET. PO SCH (05:32)
[2019-07-09 06:00] VITALS: BP 133/63
[2019-07-09] MEDS: POLYETHYLENE GLYCOL 3350 17 GM PACKET. PO SCH (07:20)
[2019-07-09] MEDS: PANTOPRAZOLE 40 MG TABLET. PO SCH (08:04)
[2019-07-09] MEDS: OLANZapine 5 MG TABLET PO PRN (08:04)
[2019-07-09] MEDS: DIVALPROEX ER 500 MG TAB.ER.24H PO SCH (08:04)
[2019-07-09] MEDS: risperiDONE 0.5 MG TABLET. PO SCH ×3 (08:04→19:52)
[2019-07-09] MEDS: FUROSEMIDE 40 MG TABLET PO SCH (08:04)
[2019-07-09] MEDS: BENZTROPINE MESYLATE 0.5 MG TABLET PO SCH (08:04)
[2019-07-09] MEDS: TAMSULOSIN 0.4 MG CAP.ER.24H. PO SCH (08:04)
[2019-07-09] MEDS: POTASSIUM CHLORIDE 20 MEQ TABLET.ER. PO SCH (08:04)
[2019-07-09] MEDS: FLUTICASONE 50MCG/NASAL SPRAY 16GM BOTTLE. NS SCH (08:05)
[2019-07-09] MEDS: hydrOXYzine HCL 25 MG TABLET PO PRN ×2 (08:05→14:00)
[2019-07-09] MEDS: LACTOBACILLUS RHAMNOSUS GG 1 CAPSULE. PO SCH ×2 (08:05→19:52)
[2019-07-09] MEDS: busPIRone 5 MG TABLET. PO SCH ×3 (08:05→17:00)
[2019-07-09] MEDS: LORazepam 0.5 MG TABLET PO PRN ×2 (08:05→19:52)
[2019-07-09 09:08] LABS: ALBUMIN 2.3 g/dL (3.4-5.0); ALBUMIN/GLOBULIN RATIO 0.5 (1.0-1.7); CALCIUM 9.1 mg/dL (8.5-10.1); CREATININE 0.6 mg/dL (0.7-1.3); GFR 134.8; TOTAL BILIRUBIN 0.2 mg/dL (0.2-1.0); TOTAL PROTEIN 7.4 g/dL (6.4-8.2)
[2019-07-09 09:10] LABS: POTASSIUM 4.6 mmol/L (3.5-5.1)
[2019-07-09 09:33] LABS: BASO % 0 % (0-3); EOS # 0.1 x10^3/uL (0.0-0.7); EOS % 1 % (0-3); HEMOGLOBIN 11.9 g/dL (13.0-17.5); LYMPH # 1.3 x10^3/uL (1.0-4.8); LYMPH % 24 % (24-48); MEAN CORPUSCULAR HEMOGLOBIN 30 pg (25-35); MEAN CORPUSCULAR HGB CONC 33 g/dL (31-37); MEAN CORPUSCULAR VOLUME 91 fL (79-100); MONO # 0.6 x10^3/uL (0.0-1.1); MONO % 11 % (0-9); NEUT # 3.5 x10^3uL (1.8-7.7); NEUT % 64 % (31-73); PLATELET COUNT 338 x10^3/uL (140-400); RED BLOOD COUNT 3.95 x10^6/uL (4.30-5.70); RED CELL DISTRIBUTION WIDTH 15.1 % (11.5-14.5); WHITE BLOOD COUNT 5.5 x10^3/uL (4.0-11.0)
--- NOTE | 2019-07-09 10:18 | PN ---
DATE: 07/09/2019 ATTENDING PHYSICIAN: Dr. Leonardo. SUBJECTIVE: Alert, calm today, still wanting to go home. He has a repetitive speech, a lot of time he just does not register what I tell him. OBJECTIVE FINDINGS: VITAL SIGNS: The patient has been afebrile. His blood pressure today is 133/63, pulse 60 and regular, oxygen saturation 94% on room air. HEENT: Head is without trauma. Pupils are reactive. Sclerae nonicteric. Oropharynx is clear. NECK: Supple, no bruits. LUNGS: Clear. CARDIOVASCULAR: Showed regular heart tones. ABDOMEN: Soft, nontender to palpation. EXTREMITIES: Showed no cyanosis or edema. NEUROLOGIC: Limited insight. He is not agitated. He has been appropriate with me. ASSESSMENT: 1. A 68-year-old gentleman with acute hypoxemic respiratory failure, resolved. 2. COVID-19 coronavirus pneumonia, treated. 3. Iron deficiency anemia. 4. History of irritable bowel syndrome. 5. Gastroesophageal reflux disease. 6. Longstanding schizoaffective disorder with cognitive dysfunction. 7. Behavioral dysfunction related to schizophrenia. PLAN: 1. Diet as tolerated. 2. Meds were reviewed. 3. We are waiting for negative swab so we can discharge him to the retirement. SIRI DICKEY MD DR: KYLAH/shawn JOB#: [id number] / [id number]
[2019-07-09 11:00] VITALS: BP 134/67
--- NOTE | 2019-07-09 14:09 | NUR ---
LAURO contacted Enmanuel, server administrator of [facility] and discussed concerns for pt testing. While the hospital would like to discharge pt, both parties are trying hard to work with one another and the health department quarantine policies. Enmanuel is concerned that the tests are being completed too soon and the pt would not, based off the health department guidelines, be eligible for discharge until the 30. LAURO explained that with pt being on the medical floor, their guidelines will be different. So LAURO cannot attest to how far apart the test can be completed. LAURO also discussed the factor that pt has a guardian and if the facility does not feel they can take pt back, that would also add in the factor of needing to find placement. Enmanuel reports that they do wish to have pt back; however, just want to ensure that pt has 2 negative tests before that time. LAURO expressed more concern that pt is a possible carrier. Pt has had 2 positive cases; however, his vitals are stable and he is not exhibiting any symptoms. LAURO then encouraged Enmanuel to determine their game plan in the event that pt comes back to them as a carrier. Both parties mentioned bringing it up to the health department to clarify what happens if he is a carrier and how that could impact placement. As it stands pt will have another swab this week and he will speak with the RN/CM about those results. Enmanuel asked for the [facility] Department and will have his health department underwriting service representative speak with them, so that all parties are on the same page in finalizing discharge plans for pt when that happens.
[2019-07-09 16:47] VITALS: BP 133/72
[2019-07-09] MEDS: SENNOSIDES 8.6 MG TABLET PO SCH (19:12)
[2019-07-09] MEDS: DIVALPROEX ER 250 MG TAB.ER.24H. PO SCH (19:52)
[2019-07-09 20:01] VITALS: BP 146/73
[2019-07-09 23:08] VITALS: BP 104/60
[2019-07-10 02:12] VITALS: BP 123/69
--- NOTE | 2019-07-10 04:00 | NUR ---
O2 levels noted in mid to high 80s. Pt placed on 2L via NC.
[2019-07-10] MEDS: LEVOTHYROXINE 25 MCG TABLET. PO SCH (06:00)
--- NOTE | 2019-07-10 06:26 | NUR ---
Nursing Pediatric Physician Assistant notified of positive covid. Lab noted ICU nurse of patient's positive covid results. At 0610, ICU nurse informed me of numerous attempts to contact Dr. Alexis per pager and per telephone (using various telephones on unit as well as a cell phone). Pages not answered and busy tones obtained when calling Dr. Alexis.
[2019-07-10 06:44] VITALS: BP 137/73
[2019-07-10] MEDS: TAMSULOSIN 0.4 MG CAP.ER.24H. PO SCH (07:49)
[2019-07-10] MEDS: LORazepam 0.5 MG TABLET PO PRN ×3 (07:49→19:42)
[2019-07-10] MEDS: busPIRone 5 MG TABLET. PO SCH ×3 (07:49→17:00)
[2019-07-10] MEDS: FUROSEMIDE 40 MG TABLET PO SCH (07:49)
[2019-07-10] MEDS: risperiDONE 0.5 MG TABLET. PO SCH ×3 (07:50→19:42)
[2019-07-10] MEDS: OLANZapine 5 MG TABLET PO PRN (07:50)
[2019-07-10] MEDS: POTASSIUM CHLORIDE 20 MEQ TABLET.ER. PO SCH (07:50)
[2019-07-10] MEDS: BENZTROPINE MESYLATE 0.5 MG TABLET PO SCH (07:50)
[2019-07-10] MEDS: hydrOXYzine HCL 25 MG TABLET PO PRN (07:50)
[2019-07-10] MEDS: FLUTICASONE 50MCG/NASAL SPRAY 16GM BOTTLE. NS SCH (07:51)
[2019-07-10] MEDS: DIVALPROEX ER 500 MG TAB.ER.24H PO SCH (07:51)
[2019-07-10] MEDS: LACTOBACILLUS RHAMNOSUS GG 1 CAPSULE. PO SCH ×2 (07:51→19:42)
[2019-07-10] MEDS: PANTOPRAZOLE 40 MG TABLET. PO SCH (07:51)
[2019-07-10] MEDS: ALBUTEROL SULFATE 8GM INHALER. INH PRN (07:51)
[2019-07-10] MEDS: POLYETHYLENE GLYCOL 3350 17 GM PACKET. PO SCH (08:51)
[2019-07-10 11:10] VITALS: BP 126/60
--- NOTE | 2019-07-10 11:11 | NUR ---
LAURO contacted Naa, pt guardian to give her an update on pt testing and having 3 test being positive they may have to consider pt as a positive carrier. Naa asked if there was a test and if that test has been ran. LAURO is not sure and will follow up on this in plans to give Naa a returned call and results of pt test once returned today. Naa expressed upset that she was never notified that pt first test was positive and reports that in a long conversation with Enmanuel, Protective Signal Operator of [email or web address], and they are not able to accept pt back as long as he continues to have positive tests. "I will support them, as they have to look out for other residents and staff". Naa expressed concern that no one will take pt if he remains positive. LAURO explained that in the [facility] area, facilities are taking those who are positive and has a certain wing to maintain them. Even if pt is a carrier, they may be able to set forth a plan of action that will allow him to participate yet protect others. Naa does not wish to have pt placed in [place] or [place] as she reports that is too far away and would prefer a smaller community if possible; please note that pt was in [place], [place], an hour away from the guardian who lives in [place], [place]. She reports that she will have to receive help from "the [facility] social workers" to find placement. LAURO assured Naa that from here on out, she would work with this SW in finding placement and for any tests that get ran; as well as updates on potential placement.
[2019-07-10 15:00] VITALS: BP 135/89
--- NOTE | 2019-07-10 18:23 | PN ---
DATE: 07/10/2019 SUBJECTIVE: The patient is resting, slightly propped up in bed, in no apparent distress. He denied any complaint. The nursing staff did not voice any concern except that he continued to be yelling consistently. He is also becoming extremely sexually inappropriate. PHYSICAL EXAMINATION: GENERAL: When I examined him, he looked pale, but no jaundice, cyanosis or thyromegaly. No jugular venous distention. No lower limb edema. VITAL SIGNS: His heart rate was 66, blood pressure was 126/60, temperature was 95.5, respiratory rate was 16, and oxygen saturation was 96% on room air. The rest of clinical exam is stable. His intake was 916, output was recorded. LABORATORY DATA: His lab work as of yesterday showed a white cell count of 5500, hemoglobin 12, hematocrit 36, MCV 91, and platelet count of 338,000. His serum sodium was 139, potassium 4.6, chloride 101, bicarbonate 32, anion gap of 6, BUN 31, creatinine 0.6, estimated GFR was 134 mL per minute. His glucose was 83, calcium was 9.1. Total bilirubin, AST, ALT, alkaline phosphatase were normal. Total protein 7.4, albumin was 2.3. ASSESSMENT: 1. Acute hypoxic respiratory failure that has resolved. 2. COVID-19 coronavirus pneumonia, treated and completed a course of Zithromax as well as hydroxychloroquine. 3. Iron deficiency anemia. 4. History of irritable bowel syndrome. 5. Gastroesophageal reflux disease. 6. Longstanding schizoaffective disorder, cognitive dysfunction. 7. Behavioral disorder. PLAN: Continue with his current medication. I did start him on medroxyprogesterone for his sexually inappropriateness. Unfortunately, his COVID-19 by PCR was still positive as of yesterday and obviously no custodial facility will accept him as long as he is positive. SYDNEY PETERS MD DR: JANEY/shawn JOB#: [id number] / [id number]
[2019-07-10] MEDS: SENNOSIDES 8.6 MG TABLET PO SCH (19:24)
[2019-07-10] MEDS: DIVALPROEX ER 250 MG TAB.ER.24H. PO SCH (19:42)
[2019-07-10 19:55] VITALS: BP 118/62
[2019-07-10 22:40] VITALS: BP 139/62
[2019-07-11] VITALS (7 sets, daily range): BP systolic 104–147; BP diastolic 50–74
[2019-07-11] MEDS: LEVOTHYROXINE 25 MCG TABLET. PO SCH (05:30)
--- NOTE | 2019-07-11 05:57 | NUR ---
Pt is very short with staff. Resistive to cares stating, "I want to go to sleep! I am not dirty! You don't need to change me.". Pt curses and yells at staff when they attempt to explain that his skin will break down if we leave him dirty. Pt frequently yelling out when asked by staff what we can to help pt screams, "Shut your mouth".
[2019-07-11] MEDS: medroxyPROGESTERone 5 MG TABLET PO SCH (08:04)
[2019-07-11] MEDS: busPIRone 5 MG TABLET. PO SCH ×3 (08:04→17:00)
[2019-07-11] MEDS: TAMSULOSIN 0.4 MG CAP.ER.24H. PO SCH (08:04)
[2019-07-11] MEDS: PANTOPRAZOLE 40 MG TABLET. PO SCH (08:04)
[2019-07-11] MEDS: risperiDONE 0.5 MG TABLET. PO SCH ×3 (08:04→20:20)
[2019-07-11] MEDS: POTASSIUM CHLORIDE 20 MEQ TABLET.ER. PO SCH (08:05)
[2019-07-11] MEDS: DIVALPROEX ER 500 MG TAB.ER.24H PO SCH (08:05)
[2019-07-11] MEDS: FUROSEMIDE 40 MG TABLET PO SCH (08:05)
[2019-07-11] MEDS: BENZTROPINE MESYLATE 0.5 MG TABLET PO SCH (08:05)
[2019-07-11] MEDS: POLYETHYLENE GLYCOL 3350 17 GM PACKET. PO SCH (08:06)
[2019-07-11] MEDS: LACTOBACILLUS RHAMNOSUS GG 1 CAPSULE. PO SCH ×2 (08:06→20:21)
[2019-07-11] MEDS: FLUTICASONE 50MCG/NASAL SPRAY 16GM BOTTLE. NS SCH (08:07)
[2019-07-11] MEDS ORDERED: POLYETHYLENE GLYCOL 3350 17 GM PACKET. PO PRN (08:15)
--- NOTE | 2019-07-11 13:14 | PN ---
DATE: 07/11/2019 SUBJECTIVE: The patient is resting, slightly propped up in bed, in no apparent respiratory distress. Awake, alert, seems to be much less agitated today. OBJECTIVE: GENERAL: On examining him, he was pale, but no jaundice, cyanosis or thyromegaly. No jugular venous distention. No limb edema. VITAL SIGNS: His heart rate was 66, blood pressure 147/74, temperature was 96.5, respiratory rate was 16, and oxygen saturation was 96%. HEAD, EYES, EARS, NOSE AND THROAT: Normocephalic, atraumatic. NECK: Supple. HEART: Showed normal first and second heart sounds. No gallop, rub or murmur. CHEST: Clear to auscultation. No crepitation or rhonchi. ABDOMEN: Distended, soft, nontender. NEUROLOGIC: He was awake, alert. All his cranial nerves are intact. He moves upper extremities to much greater extent than his lower extremities. He is mostly bedbound, chair bound. His intake was 630, no output was recorded. LABORATORY DATA: His most recent white cell count was 5500, hemoglobin 12, hematocrit 36, MCV 91, and platelet count 338,000. His serum sodium was 139, potassium 4.6, chloride 101, bicarbonate 32, anion gap of 6, BUN 31, creatinine 0.6, estimated GFR was 134 mL per minute. His glucose was 83, calcium was 9.1. Total bilirubin, AST, ALT, alkaline phosphatase were normal. Total protein 7.4, albumin was 2.3. The patient was apparently positive for COVID-19 three times on 06/26/2019, 07/03/2019 and 07/09/2019. ASSESSMENT: 1. Acute hypoxic respiratory failure that has resolved. 2. COVID-19 coronavirus pneumonia, treated and completed the course of Zithromax as well as hydroxychloroquine. 3. Iron-deficiency anemia. 4. History of irritable bowel syndrome. 5. Gastroesophageal reflux disease. 6. Longstanding schizoaffective disorder. 7. Cognitive dysfunction with behavioral disturbances. PLAN: To continue with his current medication. Given the fact that he has been positive on 3 consecutive times, do not know whether he is a carrier, I will do some literature research and see if this state or this representation is one of the outcomes of infection. SYDNEY PETERS MD DR: Doretha JOB#: [id number] / [id number]
--- NOTE | 2019-07-11 16:02 | NUR ---
LAURO left a message for Naa at the Public Solutions Engineer's office to give her an update on pt and to inform her that pt test did come back positive. LAURO has sent out referrals per requested and will continue to aid in finding pt placement.
--- NOTE | 2019-07-11 16:09 | NUR ---
Placement referrals sent: [facility] -- not accepting anyone outside of [facility] -- not accepting any admits Stephanie -- [facility] -- [facility] -- [facility] -- [facility] -- [facility] -- [facility] -- [facility] -- [facility] -- [facility] -- [facility] -- Will continue to send referrals as needed.
[2019-07-11] MEDS: hydrOXYzine HCL 25 MG TABLET PO PRN (20:20)
[2019-07-11] MEDS: DIVALPROEX ER 250 MG TAB.ER.24H. PO SCH (20:21)
[2019-07-11] MEDS: SENNOSIDES 8.6 MG TABLET PO SCH (20:21)
[2019-07-12 00:30] VITALS: BP 124/62
[2019-07-12] MEDS: LEVOTHYROXINE 25 MCG TABLET. PO SCH (04:39)
[2019-07-12 05:03] VITALS: BP 136/62
--- NOTE | 2019-07-12 05:22 | NUR ---
Pt calm and cooperative through noc. Awoke this AM in a disagreeable mood, shouting at staff to "drop !" Able to redirect while providing cares.
[2019-07-12] MEDS: busPIRone 5 MG TABLET. PO SCH ×3 (07:07→17:09)
[2019-07-12] MEDS: FLUTICASONE 50MCG/NASAL SPRAY 16GM BOTTLE. NS SCH (07:07)
[2019-07-12 07:46] VITALS: BP 135/74
[2019-07-12] MEDS: DIVALPROEX ER 500 MG TAB.ER.24H PO SCH (08:17)
[2019-07-12] MEDS: TAMSULOSIN 0.4 MG CAP.ER.24H. PO SCH (08:17)
[2019-07-12] MEDS: medroxyPROGESTERone 5 MG TABLET PO SCH (08:17)
[2019-07-12] MEDS: BENZTROPINE MESYLATE 0.5 MG TABLET PO SCH (08:17)
[2019-07-12] MEDS: POTASSIUM CHLORIDE 20 MEQ TABLET.ER. PO SCH (08:17)
[2019-07-12] MEDS: risperiDONE 0.5 MG TABLET. PO SCH ×3 (08:18→20:10)
[2019-07-12] MEDS: FUROSEMIDE 40 MG TABLET PO SCH (08:18)
[2019-07-12] MEDS: LACTOBACILLUS RHAMNOSUS GG 1 CAPSULE. PO SCH ×2 (08:18→20:10)
[2019-07-12] MEDS: PANTOPRAZOLE 40 MG TABLET. PO SCH (08:18)
[2019-07-12] MEDS: OLANZapine 5 MG TABLET PO PRN (13:39)
--- NOTE | 2019-07-12 15:56 | PN ---
DATE: SUBJECTIVE: The patient is resting slightly propped up in bed, in no apparent distress. He continued to be extremely unhappy about the fact that he is still here and would like to get out of here. Unfortunately, his COVID-19 test has been positive for the third time. PHYSICAL EXAMINATION: GENERAL: On examining him, he looked well and was clearly in no apparent respiratory distress. No pallor, jaundice, cyanosis, or thyromegaly. No jugular venous distension. No lower limb edema. VITAL SIGNS: His heart rate was 61, blood pressure was 135/74, temperature was 97.9, respiratory rate was 12 and oxygen saturation was 96%. HEAD, EYES, EARS, NOSE AND THROAT: Showed normocephalic, atraumatic. NECK: Supple. HEART: Showed normal first and second heart sounds. No gallop, rub or murmur. CHEST: Clear to auscultation. No crepitation or rhonchi. ABDOMEN: Distended, soft and nontender. NEUROLOGIC: He was obviously awake, alert, without any obvious lateralizing sign, although he is mostly chair bound, bed bound. His intake and output are incompletely recorded. LABORATORY DATA: His most recent lab work showed a white cell count 5500, hemoglobin 12, hematocrit 36, MCV 91, and platelet count 338,000. His serum sodium was 139, potassium 4.6, chloride 101, bicarbonate 32, anion gap of 6, BUN 31 and creatinine 0.6. ASSESSMENT: 1. Acute hypoxic respiratory failure, it has resolved. 2. COVID-19 coronavirus pneumonia, treated and completed a course of Zithromax as well as hydroxychloroquine. 3. Iron deficiency anemia. 4. History of irritable bowel syndrome. 5. Gastroesophageal reflux disease. 6. Longstanding Schizoaffective disorder. 7. Cognitive dysfunction with behavioral disturbances. PLAN: To continue with current medication. Unfortunately, given that his test was positive for third consecutive time, no facility will accept him with that and positive test. SYDNEY PETERS MD DR: JANEY/shawn JOB#: [id number] / [id number]
[2019-07-12 18:00] VITALS: BP 125/81
--- NOTE | 2019-07-12 18:38 | NUR ---
Patient had a pleasant day with staff, cooperative with ADLS and able to feel self with finger foods and drinks. Patient recieved PRN Zyprexa due to yelling at staff nurse and physician stating "i want to go home, this isnt right and i should be leaving... I am all better and i shouldnt be confinded to this room anymore... thats not right." Patient was very upset and was able to calm down once nurse talked with patient.
[2019-07-12] MEDS: hydrOXYzine HCL 25 MG TABLET PO PRN (20:10)
[2019-07-12] MEDS: DIVALPROEX ER 250 MG TAB.ER.24H. PO SCH (20:10)
[2019-07-12 20:29] VITALS: BP 132/61
[2019-07-12] MEDS: SENNOSIDES 8.6 MG TABLET PO SCH (21:00)
[2019-07-13 00:31] VITALS: BP 128/63
[2019-07-13] MEDS: LEVOTHYROXINE 25 MCG TABLET. PO SCH (04:52)
[2019-07-13 05:19] VITALS: BP 119/52
--- NOTE | 2019-07-13 05:44 | NUR ---
Pt slept well through the noc. Awoke in a pleasant mood, interacting appropriately with staff while providing cares. VSS, afebrile. Pt continent vs incontinent of B+B. Pt did utilize urinal when offered.
[2019-07-13] MEDS: medroxyPROGESTERone 5 MG TABLET PO SCH (08:13)
[2019-07-13] MEDS: risperiDONE 0.5 MG TABLET. PO SCH ×3 (08:13→20:12)
[2019-07-13] MEDS: LACTOBACILLUS RHAMNOSUS GG 1 CAPSULE. PO SCH ×2 (08:13→20:12)
[2019-07-13] MEDS: busPIRone 5 MG TABLET. PO SCH ×3 (08:13→16:53)
[2019-07-13] MEDS: TAMSULOSIN 0.4 MG CAP.ER.24H. PO SCH (08:13)
[2019-07-13] MEDS: PANTOPRAZOLE 40 MG TABLET. PO SCH (08:13)
[2019-07-13] MEDS: hydrOXYzine HCL 25 MG TABLET PO PRN (08:14)
[2019-07-13] MEDS: POTASSIUM CHLORIDE 20 MEQ TABLET.ER. PO SCH (08:14)
[2019-07-13] MEDS: FUROSEMIDE 40 MG TABLET PO SCH (08:14)
[2019-07-13] MEDS: DIVALPROEX ER 500 MG TAB.ER.24H PO SCH (08:14)
[2019-07-13] MEDS: BENZTROPINE MESYLATE 0.5 MG TABLET PO SCH (08:15)
[2019-07-13] MEDS: FLUTICASONE 50MCG/NASAL SPRAY 16GM BOTTLE. NS SCH (08:15)
[2019-07-13] MEDS ORDERED: OLANZapine IM 10 MG VIAL. IM PRN (18:30)
--- NOTE | 2019-07-13 19:01 | NUR ---
Pt agitated with staff, spitting, name calling, unable to redirect. Dr Leonardo notified, order given for 2.5mg im zyprexa. Security called to unit to help with de-escalation.
--- NOTE | 2019-07-13 20:04 | PN ---
DATE: 07/13/2019 SUBJECTIVE: The patient continued to obviously yelling consistently; however, by the time I saw him this afternoon, he was very tired and sleepy. He hemodynamically is stable and afebrile. PHYSICAL EXAMINATION: GENERAL: When I examined him this afternoon, he looked well and was clearly in no apparent respiratory distress. He was slightly pale, but no jaundice, cyanosis or thyromegaly. No jugular venous distention or limb edema. VITAL SIGNS: His heart rate was 84, blood pressure was 119/52, temperature was 98, respiratory rate was 16, and oxygen saturation was 94%. HEAD, EYES, EARS, NOSE AND THROAT: Showed normocephalic, atraumatic. NECK: Supple. HEART: Showed normal first and second heart sounds. No gallop or murmur. CHEST: Clear to auscultation. No crepitation or rhonchi. ABDOMEN: Distended, soft, nontender. NEUROLOGIC: He is grossly stable. His intake over the last 24 hours was 2000, output was 250. LABORATORY DATA: His most recent white cell count was 5500, hemoglobin 12, hematocrit 36, MCV 91, and platelet count 338,000. His chemistries showed a serum sodium 136, potassium 4.6, chloride 101, bicarbonate 32, anion gap of 6, BUN 31, creatinine 0.6. ASSESSMENT: 1. Acute hypoxic respiratory failure, resolved. 2. COVID-19, coronavirus pneumonia, treated and completed the course of Zithromax as well as hydroxychloroquine. 3. Iron-deficiency anemia. 4. History of irritable bowel syndrome. 5. Gastroesophageal reflux disease. 6. Longstanding schizoaffective disorder. 7. Cognitive dysfunction with behavioral disturbance. The plan is to continue with current plan of management. Unfortunately, he tested positive for 3 consecutive times and no facility will accept him with that positive tests. I will repeat his labs tomorrow and hopefully he can be placed in a care home facility sooner. SYDNEY PETERS MD DR: JANEY/shawn JOB#: [id number] / [id number]
[2019-07-13] MEDS: DIVALPROEX ER 250 MG TAB.ER.24H. PO SCH (20:12)
[2019-07-13] MEDS: SENNOSIDES 8.6 MG TABLET PO SCH (20:12)
[2019-07-13 20:45] VITALS: BP 129/62
--- NOTE | 2019-07-13 21:09 | NUR ---
IM zyprexa minimally effective. Pt still verbally aggressive when approached by staff to provide cares, "get the fuck out. I just want to sleep!" Pt is visibly soiled. Explained to pt that he could not be left soiled and he would be able to sleep as soon as cares were completed. Pt agreeable after much coaxing. Brief and linens changed. VSS. Lights dimmed and pt now resting on his left side.
[2019-07-14 01:01] VITALS: BP 104/50
[2019-07-14] MEDS: LEVOTHYROXINE 25 MCG TABLET. PO SCH (05:03)
[2019-07-14 06:08] LABS: HEMATOCRIT 35.7 % (39.0-53.0); HEMOGLOBIN 11.8 g/dL (13.0-17.5); RED BLOOD COUNT 3.91 x10^6/uL (4.30-5.70); RED CELL DISTRIBUTION WIDTH 15.1 % (11.5-14.5); WHITE BLOOD COUNT 5.3 x10^3/uL (4.0-11.0)
[2019-07-14 06:25] VITALS: BP 112/63
[2019-07-14 06:26] LABS: ALBUMIN 2.4 g/dL (3.4-5.0); ALBUMIN/GLOBULIN RATIO 0.5 (1.0-1.7); CREATININE 0.8 mg/dL (0.7-1.3); GFR 96.7; TOTAL BILIRUBIN 0.1 mg/dL (0.2-1.0); TOTAL PROTEIN 7.4 g/dL (6.4-8.2)
--- NOTE | 2019-07-14 06:28 | NUR ---
Pt slept in later than usual this AM and when awoken by staff for lab draw, pt is in a much improved mood. Pt allowed lab draw and tolerated well. Brief and linens changed. Pt apologetic for behaviors of last evening, stating, "I was just in a bad mood. I get that way sometimes."
[2019-07-14] MEDS: busPIRone 5 MG TABLET. PO SCH ×3 (08:08→17:02)
[2019-07-14] MEDS: medroxyPROGESTERone 5 MG TABLET PO SCH (08:08)
[2019-07-14] MEDS: TAMSULOSIN 0.4 MG CAP.ER.24H. PO SCH (08:08)
[2019-07-14] MEDS: risperiDONE 0.5 MG TABLET. PO SCH ×3 (08:09→19:18)
[2019-07-14] MEDS: FUROSEMIDE 40 MG TABLET PO SCH (08:09)
[2019-07-14] MEDS: PANTOPRAZOLE 40 MG TABLET. PO SCH (08:09)
[2019-07-14] MEDS: BENZTROPINE MESYLATE 0.5 MG TABLET PO SCH (08:09)
[2019-07-14] MEDS: hydrOXYzine HCL 25 MG TABLET PO PRN (08:09)
[2019-07-14] MEDS: POTASSIUM CHLORIDE 20 MEQ TABLET.ER. PO SCH (08:10)
[2019-07-14] MEDS: DIVALPROEX ER 500 MG TAB.ER.24H PO SCH (08:10)
[2019-07-14] MEDS ORDERED: PALIPERIDONE PALMITATE 234 MG/1.5 ML SYRINGE KIT. IM SCH (09:00)
[2019-07-14] MEDS: LACTOBACILLUS RHAMNOSUS GG 1 CAPSULE. PO SCH ×2 (09:00→19:19)
[2019-07-14] MEDS: FLUTICASONE 50MCG/NASAL SPRAY 16GM BOTTLE. NS SCH (09:00)
--- NOTE | 2019-07-14 09:24 | NUR ---
Pt up in Broda chair this morning for breakfast. Pt apologized to this nurse for his behavior yesterday. Pt seemed to be very remorseful and continued to apologize during morning cares.
[2019-07-14] MEDS: OLANZapine 5 MG TABLET PO PRN ×2 (14:01→17:01)
--- NOTE | 2019-07-14 14:13 | PN ---
DATE: 07/14/2019 SUBJECTIVE: The patient is resting slightly propped up in bed, in no apparent respiratory distress. He continues to be extremely frustrated as he is unable to get out of the hospital, has been here for a long time and I really sympathize with him. Unfortunately, his COVID-19 test has been positive for 3 consecutive times and his last test still pending at the time of this dictation and unfortunately with his cognitive impairment, it is difficult to use reason with him, although we emphasized that we all us sympathize with him. PHYSICAL EXAMINATION: GENERAL: When I saw him today, he looked well and was clearly in no apparent respiratory distress. He was slightly pale, but no jaundice, cyanosis or thyromegaly. No jugular venous distention. No limb edema. VITAL SIGNS: His heart rate was 61, blood pressure was 112/63, temperature was 98.1, respiratory rate was 13 and oxygen saturation was 93%. HEAD, EYES, EARS, NOSE AND THROAT: Normocephalic, atraumatic. NECK: Supple. HEART: Showed normal first and second heart sounds. No gallop or murmur. CHEST: Clear to auscultation. No crepitation or rhonchi. ABDOMEN: Distended, soft, nontender. NEUROLOGIC: He was awake, alert, responding appropriately. All cranial nerves intact. He moves upper extremities without difficulty, has functional paraplegia, is mostly bedbound, chair bound. His intake over the last 24 hours was 1930, output was 500. LABORATORY DATA: As of this morning, his white cell count was 5300, hemoglobin 12, hematocrit 36, MCV 91, and platelet count 368,000. His chemistry showed a serum sodium 140, potassium 4, chloride 102, bicarbonate 33, anion gap of 5, BUN 26, creatinine 0.8, estimated GFR was 96 mL per minute, his glucose was 84, calcium was 9. Total bilirubin, AST, ALT, alkaline phosphatase were normal. Total protein 7.4, albumin 2.4. ASSESSMENT: 1. Acute hypoxic respiratory failure, resolved. 2. COVID-19 coronavirus pneumonia, treated and completed the course of Zithromax as well as hydroxychloroquine. 3. Iron deficiency anemia. 4. History of irritable bowel syndrome. 5. Gastroesophageal reflux disease. 6. Longstanding schizoaffective disorder. 7. Cognitive dysfunction with behavioral disturbances. PLAN: To continue with current plan of management. His COVID test was sent yesterday and if it is negative, that obviously help in placing him in the half-way facility sooner. SYDNEY PETERS MD DR: JANEY/shawn JOB#: [id number] / [id number]
[2019-07-14] MEDS ORDERED: BISACODYL TAB 5 MG TABLET.DR. PO ONE (16:58)
[2019-07-14] MEDS ORDERED: BISACODYL TAB 5 MG TABLET.DR. PO PRN (17:00)
[2019-07-14 19:12] VITALS: BP 138/78
[2019-07-14] MEDS: DIVALPROEX ER 250 MG TAB.ER.24H. PO SCH (19:19)
[2019-07-14] MEDS: SENNOSIDES 8.6 MG TABLET PO SCH (19:20)
[2019-07-15] MEDS: LEVOTHYROXINE 25 MCG TABLET. PO SCH (05:53)
--- NOTE | 2019-07-15 06:01 | NUR ---
Pt. remained stable with no events overnight. Slept on and off requiring a couple of brief changes.
[2019-07-15] MEDS: FUROSEMIDE 40 MG TABLET PO SCH (08:00)
[2019-07-15] MEDS: busPIRone 5 MG TABLET. PO SCH ×3 (08:00→16:42)
[2019-07-15] MEDS: PANTOPRAZOLE 40 MG TABLET. PO SCH (08:00)
[2019-07-15] MEDS: TAMSULOSIN 0.4 MG CAP.ER.24H. PO SCH (08:01)
[2019-07-15] MEDS: POTASSIUM CHLORIDE 20 MEQ TABLET.ER. PO SCH (08:01)
[2019-07-15] MEDS: medroxyPROGESTERone 5 MG TABLET PO SCH (08:01)
[2019-07-15] MEDS: risperiDONE 0.5 MG TABLET. PO SCH ×3 (08:02→20:29)
[2019-07-15] MEDS: hydrOXYzine HCL 25 MG TABLET PO PRN ×2 (08:02→16:42)
[2019-07-15] MEDS: LACTOBACILLUS RHAMNOSUS GG 1 CAPSULE. PO SCH ×2 (08:02→20:29)
[2019-07-15] MEDS: BENZTROPINE MESYLATE 0.5 MG TABLET PO SCH (08:02)
[2019-07-15] MEDS: DIVALPROEX ER 500 MG TAB.ER.24H PO SCH (08:02)
[2019-07-15] MEDS: FLUTICASONE 50MCG/NASAL SPRAY 16GM BOTTLE. NS SCH (08:45)
[2019-07-15 09:03] VITALS: BP 132/73
[2019-07-15] MEDS: LORazepam 0.5 MG TABLET PO PRN ×3 (10:48→20:29)
[2019-07-15] MEDS: OLANZapine 5 MG TABLET PO PRN ×2 (12:39→20:29)
--- NOTE | 2019-07-15 12:55 | NUR ---
Placement referrals sent: [facility] -- not accepting anyone outside of [facility] -- not accepting any admits Stephanie -- [facility] -- [facility] -- [facility] -- denied [facility] -- denied [facility] -- [facility] -- [facility] -- [facility] -- [facility] -- [facility] -- Will continue to send referrals as needed.
--- NOTE | 2019-07-15 15:04 | NUR ---
SW placed follow up calls to the following facilities to obtain admission decision: [facility]- Spoke to Ebony who reported the DON had declined for admit. [facility]- Spoke to Maxine who reported inability to admit at this time. [facility]- Spoke to Mandy who reported Lauren, their director of ancillary services, is out of the facility today. Left message with request for return phone call. [facility]- Spoke to Mo[facility] who declined admit as they don't take any behaviors. [facility]- Spoke to Alberta who reported no male bed availability at this time. Stephanie- Spoke to JOSHUA Hunter, who declined related to inability to meet [facility]'s needs. Awaiting return call from [facility]. If [facility] declines, will follow up with guardian to discuss where she prefers for referrals to be sent next.
--- NOTE | 2019-07-15 18:27 | PN ---
DATE: 07/15/2019 SUBJECTIVE: The patient continues unfortunately to yell ____ that has been here for a long time. He is bored and apparently has had 2 tests negative for COVID, he should be also afebrile without any Tylenol for 3 consecutive days before he can be discharged. PHYSICAL EXAMINATION: GENERAL: When I examined him this afternoon, he looked well and was clearly in no apparent respiratory distress. No pallor, jaundice, cyanosis or thyromegaly. No jugular venous distention. No limb edema. VITAL SIGNS: His heart rate was 76, blood pressure was 132/73, temperature 97.4, respiratory rate was 20, and oxygen saturation was 96% on room air. HEAD, EYES, EARS, NOSE AND THROAT: Showed normocephalic, atraumatic. NECK: Supple. HEART: Showed normal first and second heart sounds with no gallop, rub or murmur. CHEST: Clear to auscultation. No crepitation or rhonchi. ABDOMEN: Distended, soft, nontender. No guarding or rigidity. No organomegaly. All hernial orifice intact. Bowel sounds normal. NEUROLOGIC: He is awake, alert, responding appropriately. He moves upper extremities without difficulty, but has functional paraplegia. His intake and output are incompletely recorded. LABORATORY DATA: As of yesterday showed a white cell count 5300, hemoglobin 11, hematocrit 35, MCV 91, and platelet count 368,000. His chemistry showed a serum sodium 140, potassium 4, chloride 102, bicarbonate 33, anion gap of 5, BUN 26, creatinine 0.8, estimated GFR was 96 mL per minute. His glucose was 84, calcium was 9. Total bilirubin, AST, ALT, alkaline phosphatase were normal. Total protein was 7.4, albumin 2.4. ASSESSMENT: 1. Acute hypoxic respiratory failure, resolved, COVID-19, coronavirus pneumonia, treated and completed the course of Zithromax as well as hydroxychloroquine. Patient is afebrile, hemodynamically stable. His white cell count is normal. 3. Iron deficiency anemia. 4. History of irritable bowel syndrome. 5. Gastroesophageal reflux disease. 6. Longstanding schizoaffective disorder. 7. Cognitive dysfunction with behavioral disturbances. PLAN: To await the result of the COVID-19 test. SYDNEY PETERS MD DR: Doretha JOB#: [id number] / [id number]
[2019-07-15] MEDS: SENNOSIDES 8.6 MG TABLET PO SCH (20:29)
[2019-07-15] MEDS: DIVALPROEX ER 250 MG TAB.ER.24H. PO SCH (20:29)
[2019-07-15 21:03] VITALS: BP 123/60
[2019-07-16] MEDS: LEVOTHYROXINE 25 MCG TABLET. PO SCH (04:35)
--- NOTE | 2019-07-16 05:50 | NUR ---
Patient agitated at HS, calling staff names and telling PATIENT SUPPORT ASSISTANT and this nurse to get out of his room. PRN meds given with HS meds. Patient took medications without difficulty and allowed PATIENT SUPPORT ASSISTANT and this nurse to change his brief . Brief and gown changed in am and patient began name calling when told he would have to wait for a few minutes for us to get his headphones to work. Patient called and apologized for behavior. Will continue to monitor.
[2019-07-16 07:29] VITALS: BP 136/63
[2019-07-16] MEDS: medroxyPROGESTERone 5 MG TABLET PO SCH (08:08)
[2019-07-16] MEDS: POTASSIUM CHLORIDE 20 MEQ TABLET.ER. PO SCH (08:08)
[2019-07-16] MEDS: risperiDONE 0.5 MG TABLET. PO SCH ×3 (08:08→20:00)
[2019-07-16] MEDS: PANTOPRAZOLE 40 MG TABLET. PO SCH (08:08)
[2019-07-16] MEDS: busPIRone 5 MG TABLET. PO SCH ×3 (08:09→17:03)
[2019-07-16] MEDS: BENZTROPINE MESYLATE 0.5 MG TABLET PO SCH (08:09)
[2019-07-16] MEDS: DIVALPROEX ER 500 MG TAB.ER.24H PO SCH (08:09)
[2019-07-16] MEDS: FUROSEMIDE 40 MG TABLET PO SCH (08:09)
[2019-07-16] MEDS: FLUTICASONE 50MCG/NASAL SPRAY 16GM BOTTLE. NS SCH (08:09)
[2019-07-16] MEDS: LACTOBACILLUS RHAMNOSUS GG 1 CAPSULE. PO SCH ×2 (08:09→20:00)
[2019-07-16] MEDS: TAMSULOSIN 0.4 MG CAP.ER.24H. PO SCH (08:09)
[2019-07-16] MEDS: LORazepam 0.5 MG TABLET PO PRN ×4 (08:09→23:53)
--- NOTE | 2019-07-16 12:24 | NUR ---
LAURO attempted to contact Enmanuel, finance administrator at [facility], to discuss the potential for pt to return there in the event that pt has 2 negative results. According to Enmanuel's records, pt last positive was on the . LAURO explained that pt was swabbed yesterday with a negative test result this morning. Enmanuel will make a few phone calls and call LAURO back shortly.
--- NOTE | 2019-07-16 13:31 | NUR ---
LAURO received a call from Enmanuel, sales office administrator at [facility], to discuss pt negative test result. Enmanuel reports that he spoke with Augustina, the finishing wire sawyer and the health department. They all agreed that as long as pt had 2 negative test results back to back, they would be more than happy to accept pt back. Enmanuel did express concern in making sure that the nurses were intermediate swabbing pt just to get a negative test; in which LAURO responded that it would be unethical to do so and not recommended. Enmanuel agreed but knows that "they want him out very badly" and just wants to make sure that "the testing procedure was done correctly". LAURO will gather the tests to show that 2 different nurses completed the tests and will send them to Enmanuel. He is still waiting to hear back from Augustina and will call LAURO back with a final answer on admission. LAURO did inform Enmanuel that another test will be performed and received within the next day or so. And LAURO will get those results to him as well.
--- NOTE | 2019-07-16 16:39 | PN ---
DATE: 07/16/2019 SUBJECTIVE: The patient is sitting up, propped up in bed, in no apparent distress, awake, alert, other than being bored. He denied any other complaint. The nursing staff did not voice any concern and stated generally remained hemodynamically stable. Unfortunately, he continued to have positive COVID-19 testing. PHYSICAL EXAMINATION: GENERAL: On examining him, he looked well and was clearly in no apparent respiratory distress. No pallor, jaundice, cyanosis or thyromegaly. No jugular venous distention. No limb edema. VITAL SIGNS: Her heart rate was 60, blood pressure was 136/63, temperature was 97.3, respiratory rate was 16, and oxygen saturation was 97% on room air. HEAD, EYES, EARS, NOSE AND THROAT: Showed normocephalic, atraumatic. NECK: Supple. CARDIAC: Normal first and second heart sounds. No gallop, rub or murmur. CHEST: Clear to auscultation. No crepitation or rhonchi. ABDOMEN: Distended, soft, nontender. NEUROLOGICALLY: He is awake, alert, responding appropriately. All cranial nerves are intact. He moves upper extremities without difficulty. He is mostly bedbound, chair bound. His intake over the last 24 hours was 600, no output was recorded. LABORATORY DATA: His most recent lab work showed a serum sodium 140, potassium 4, chloride 102, bicarbonate 33, anion gap of 5, BUN 26, creatinine 0.8, estimated GFR was 96 mL per minute, his glucose was 84, calcium was 9. Total bilirubin, AST, ALT, alkaline phosphatase were normal. Total protein 7.4, albumin 2.5. His white cell count 5300, hemoglobin 12, hematocrit 36, MCV 91, and platelet count 368,000. ASSESSMENT: 1. Acute hypoxic respiratory failure, resolved. 2. COVID-19, coronavirus pneumonia, treated and completed a course of Zithromax as well as hydroxychloroquine. The patient is afebrile, hemodynamically stable. His white cell count is normal. 3. Iron-deficiency anemia. 4. History of irritable bowel syndrome. 5. Gastroesophageal reflux disease. 6. Longstanding schizoaffective disorder. 7. Cognitive dysfunction with behavioral disturbances. 8. Persistently positive COVID-19. Apparently, his COVID-19 test on 07/13/2019 was positive and on 07/15/2019 was negative. SYDNEY PETERS MD DR: JANEY/shawn JOB#: [id number] / [id number]
[2019-07-16] MEDS: SENNOSIDES 8.6 MG TABLET PO SCH (19:56)
[2019-07-16 20:00] VITALS: BP 113/55
[2019-07-16] MEDS: DIVALPROEX ER 250 MG TAB.ER.24H. PO SCH (20:00)
--- NOTE | 2019-07-17 00:27 | NUR ---
Pt yelling at staff and restless in bed. Pt brief is dry at this time. Pt given PRN Ativan with apple juice.
[2019-07-17] MEDS: LEVOTHYROXINE 25 MCG TABLET. PO SCH (05:02)
[2019-07-17 05:48] VITALS: BP 130/79
[2019-07-17 08:00] VITALS: BP 148/77
[2019-07-17] MEDS: PANTOPRAZOLE 40 MG TABLET. PO SCH (08:03)
[2019-07-17] MEDS: POTASSIUM CHLORIDE 20 MEQ TABLET.ER. PO SCH (08:03)
[2019-07-17] MEDS: FUROSEMIDE 40 MG TABLET PO SCH (08:03)
[2019-07-17] MEDS: busPIRone 5 MG TABLET. PO SCH ×3 (08:03→16:12)
[2019-07-17] MEDS: LORazepam 0.5 MG TABLET PO PRN ×4 (08:03→22:33)
[2019-07-17] MEDS: DIVALPROEX ER 500 MG TAB.ER.24H PO SCH (08:03)
[2019-07-17] MEDS: TAMSULOSIN 0.4 MG CAP.ER.24H. PO SCH (08:03)
[2019-07-17] MEDS: LACTOBACILLUS RHAMNOSUS GG 1 CAPSULE. PO SCH ×2 (08:04→19:52)
[2019-07-17] MEDS: medroxyPROGESTERone 5 MG TABLET PO SCH (08:04)
[2019-07-17] MEDS: FLUTICASONE 50MCG/NASAL SPRAY 16GM BOTTLE. NS SCH (08:04)
[2019-07-17] MEDS: BENZTROPINE MESYLATE 0.5 MG TABLET PO SCH (08:04)
[2019-07-17] MEDS: risperiDONE 0.5 MG TABLET. PO SCH ×3 (08:04→19:52)
--- NOTE | 2019-07-17 11:00 | PN ---
DATE: 07/17/2019 ATTENDING PHYSICIAN: Dr. Leonardo. SUBJECTIVE: He was very happy to learn that we have a date in mind for discharge. It is Monday afternoon. He is very bored. No respiratory complaints. He is actually calm and more appropriate today. OBJECTIVE: VITAL SIGNS: His blood pressure today is 130/79, pulse is 86 and regular, temperature 97.6, room air saturation 95%. HEENT: Head is without trauma. Pupils are reactive. Sclerae are nonicteric. Oropharynx clear. No stridor, no obstruction. LUNGS: Clear. CARDIOVASCULAR: Showed regular heart tones. ABDOMEN: Soft, nontender. NEUROLOGIC: Awake and appropriate. No focal deficits. SKIN: Warm and dry without any lesions. LABORATORY DATA: He has had 2 negative COVID-19 swabs back to back now. ASSESSMENT: 1. Acute hypoxemic respiratory failure, resolved. 2. COVID-19 coronavirus pneumonia, treated. 3. Iron deficiency anemia. 4. Irritable bowel syndrome. 5. Gastroesophageal reflux disease. 6. Longstanding schizoaffective disorder. 7. Cognitive dysfunction with behavior disturbance. 8. Persistently positive COVID-19 swab. He has now had 2 negative swabs. PLAN: 1. Continue same regimen. 2. We called the shelter and a tentative date has been set up for Monday afternoon. SIRI DICKEY MD DR: KYLAH/shawn JOB#: [id number] / [id number]
[2019-07-17 11:16] VITALS: BP 127/55
[2019-07-17 16:00] VITALS: BP 128/72
[2019-07-17 19:45] VITALS: BP 115/58
[2019-07-17] MEDS: DIVALPROEX ER 250 MG TAB.ER.24H. PO SCH (19:52)
[2019-07-17] MEDS: SENNOSIDES 8.6 MG TABLET PO SCH (19:52)
--- NOTE | 2019-07-17 22:48 | NUR ---
While changing incontinent pt, pt becomes very verbally aggressive towards staff. Pt cursing at staff, demanding we leave him alone. Attempted explain to pt that we can not leave him in a soiled brief. Pt then began attempting to hit and spit on staff. Pt cursing, "That's what women do!, I will hurt you so bad you will be in the hospital six months." Anytime staff would step closer pt would resume attempting to hit and spit. Called for assistance. Pt changed x4 assist. PRN Ativan given as ordered.
[2019-07-18] MEDS: LORazepam 0.5 MG TABLET PO PRN (03:43)
[2019-07-18] MEDS: LEVOTHYROXINE 25 MCG TABLET. PO SCH (04:26)
[2019-07-18 06:05] VITALS: BP 133/64
[2019-07-18] MEDS: LACTOBACILLUS RHAMNOSUS GG 1 CAPSULE. PO SCH ×2 (08:31→20:32)
[2019-07-18] MEDS: medroxyPROGESTERone 5 MG TABLET PO SCH (08:31)
[2019-07-18] MEDS: TAMSULOSIN 0.4 MG CAP.ER.24H. PO SCH (08:32)
[2019-07-18] MEDS: FUROSEMIDE 40 MG TABLET PO SCH (08:32)
[2019-07-18] MEDS: risperiDONE 0.5 MG TABLET. PO SCH ×3 (08:32→20:33)
[2019-07-18] MEDS: busPIRone 5 MG TABLET. PO SCH ×3 (08:32→17:22)
[2019-07-18] MEDS: POTASSIUM CHLORIDE 20 MEQ TABLET.ER. PO SCH (08:32)
[2019-07-18] MEDS: PANTOPRAZOLE 40 MG TABLET. PO SCH (08:32)
[2019-07-18] MEDS: BENZTROPINE MESYLATE 0.5 MG TABLET PO SCH (08:33)
[2019-07-18] MEDS: DIVALPROEX ER 500 MG TAB.ER.24H PO SCH (08:34)
[2019-07-18] MEDS: FLUTICASONE 50MCG/NASAL SPRAY 16GM BOTTLE. NS SCH (08:34)
[2019-07-18 09:19] VITALS: BP 143/69
--- NOTE | 2019-07-18 10:20 | PN ---
DATE: 07/18/2019 ATTENDING PHYSICIAN: Dr. Leonardo. SUBJECTIVE: The patient is a little more aggressive this morning. He is not listening to the nursing staff and very anxious to leave. OBJECTIVE FINDINGS: VITAL SIGNS: He is afebrile, blood pressure and vital signs are stable. Oxygen saturation adequate. He has had 2 negative swabs now for COVID-19 coronavirus. Oxygen saturations are quite adequate. He is eating adequately. HEENT: No trauma. Pupils are reactive. No stridor. Oropharynx clear. NECK: Supple. LUNGS: Clear. CARDIOVASCULAR: Showed regular heart tones. No obvious gallops. ABDOMEN: Soft, nontender. Bowel sounds are normoactive. EXTREMITIES: Showed no cyanosis or edema. NEUROLOGIC: Very agitated, very little insight. SKIN: Warm and dry. ASSESSMENT: 1. Acute hypoxemic respiratory failure, resolved. 2. COVID-19 coronavirus pneumonia, treated. 3. Irritable bowel syndrome. 4. Iron deficiency anemia. 5. Longstanding schizoaffective disorder. 6. Cognitive dysfunction and behavior disturbance. PLAN: 1. Continue current regimen. 2. We are trying to get him placed in a jail in [place]. We will discharge him when they are able to take him. SIRI DICKEY MD DR: KYLAH/shawn JOB#: [id number] / [id number]
[2019-07-18] MEDS: OLANZapine 5 MG TABLET PO PRN (10:46)
[2019-07-18 17:30] VITALS: BP 142/73
--- NOTE | 2019-07-18 17:36 | NUR ---
No behavioral episodes noted with patient today, patient appreciative of staff and continues to state to nurses that he is "lonely and wants someone to talk too." Patient has been in the same room since 06/25 so it is understandable of patient being upset and wanting to see staff and leave room. Patient occasionally yelled out for nurse to come into room to talk, nurse did explain that if patient has behavioral episodes then he will not be able to discharge facility, patient verbalized understanding and stated "I dont want that i want to be at home with my friends. Im sorry i acted that way." Nurse asked if patient was feeling anxious, patient stated yes and prn zyprexa was given with effectiveness.
[2019-07-18] MEDS: SENNOSIDES 8.6 MG TABLET PO SCH (20:32)
[2019-07-18] MEDS: DIVALPROEX ER 250 MG TAB.ER.24H. PO SCH (20:32)
[2019-07-18] MEDS: hydrOXYzine HCL 25 MG TABLET PO PRN (20:33)
[2019-07-18 20:42] VITALS: BP 103/50
[2019-07-19] MEDS: LEVOTHYROXINE 25 MCG TABLET. PO SCH (04:49)
[2019-07-19 05:28] VITALS: BP 146/78
--- NOTE | 2019-07-19 05:40 | NUR ---
Pt calm and cooperative with cares. Pt had large BM, able to change x1 assist with pt turning himself in bed. Slept well and awoke this AM in pleasant mood. Pt sitting up in bed with headphones on, singing along to a 50's radio station.
[2019-07-19] MEDS: OLANZapine 5 MG TABLET PO PRN (08:08)
[2019-07-19] MEDS: PANTOPRAZOLE 40 MG TABLET. PO SCH (08:08)
[2019-07-19] MEDS: TAMSULOSIN 0.4 MG CAP.ER.24H. PO SCH (08:09)
[2019-07-19] MEDS: DIVALPROEX ER 500 MG TAB.ER.24H PO SCH (08:09)
[2019-07-19] MEDS: BENZTROPINE MESYLATE 0.5 MG TABLET PO SCH (08:09)
[2019-07-19] MEDS: POTASSIUM CHLORIDE 20 MEQ TABLET.ER. PO SCH (08:09)
[2019-07-19] MEDS: busPIRone 5 MG TABLET. PO SCH ×3 (08:09→16:33)
[2019-07-19] MEDS: medroxyPROGESTERone 5 MG TABLET PO SCH (08:09)
[2019-07-19] MEDS: risperiDONE 0.5 MG TABLET. PO SCH ×3 (08:09→21:11)
[2019-07-19] MEDS: LACTOBACILLUS RHAMNOSUS GG 1 CAPSULE. PO SCH ×2 (08:09→21:11)
[2019-07-19] MEDS: FUROSEMIDE 40 MG TABLET PO SCH (08:10)
--- NOTE | 2019-07-19 08:15 | NUR ---
Patient is alert and oriented to self and place, knows he has been here nearly three months. Pt repeatedly telling nurse that he is leaving today because the doctor said so. RN told patient that we were waiting to see if his facility will take him back today, RN had gotten in report that it may be Monday per the facilities request. Patient was adamant that he was leaving since the doctor said so. Does not understand that there is more to him leaving than when the doctor says. Pt denies pain, took medications without issues. Is anxious about leaving, but compliant with cares. RN told patient she would call his disease case manager, Carol, and find out for sure if he was leaving. WCTM.
--- NOTE | 2019-07-19 08:47 | NUR ---
RN spoke with Carol, patient is in fact not leaving until Monday. Pt pushed call light and asked nurse if she had talked to family independence case manager. RN informed patient that she had and told him that the facility cannot take him until Monday. Pt responded with, "God Dammit! Im pissed! Im beyond pissed! Get the hell out of my room!". Pt continuing to yell in room, called this RN back to room, patient began yelling at this RN, RN told him its not her fault that he can't go, pt responded "It is to your fault dammit" So RN left room, pt flipped RN off. Pt continuing to yell. Pt was given a PRN zyprexa with his morning medications in preparation for patient finding out that we was in fact not leaving today as patient was told by doctor. This RN has cared for this patient multiple times throughout his 3 months stay between [facility] and ICU. Pt has been isolated for weeks, is getting very lonely and tired of isolation as evidence by this RN heard patient yelling earlier this week "Im lonely, Im so lonely", has been wanting to leave for the last 6 weeks but dates keep getting pushed back. Pt is beyond frustrated and ready to get back to life as normal as possible. JANEY.
[2019-07-19] MEDS: FLUTICASONE 50MCG/NASAL SPRAY 16GM BOTTLE. NS SCH (09:00)
--- NOTE | 2019-07-19 10:15 | NUR ---
LAURO received call from Enmanuel, it application administrator at [place], to discuss pt discharge for Monday. Enmanuel questioned if pt would be able to discharge with a mask and a gown on Monday; LAURO explained that LAURO was not sure at this point about the gown but knew that discharging with a mask was acceptable. LAURO will check in with nursing on his request about pt getting a gown. Enmanuel also mentioned that transport wanted to leave as early as possible. LAURO informed him that as long as the staff knew a roundabout time, they would have pt ready and waiting. Enmanuel figured transport would leave roughly 0800 and be there by 10 if not 1030. He will double check with transport, while LAURO double checks with nursing; LAURO to contact Enmanuel back with answers to his request.
--- NOTE | 2019-07-19 10:17 | PN ---
DATE: 07/19/2019 ATTENDING PHYSICIAN: Dr. Dickey. SUBJECTIVE: The patient is very agitated, screaming and yelling, "I want to get out of here." We had informed him this morning that he would not be discharged until Monday. OBJECTIVE FINDINGS: VITAL SIGNS: Showed he is afebrile, temperature 96.7 degrees Fahrenheit, blood pressure is 146/78 mmHg, oxygen saturation 96% on room air. LUNGS: Good breath sounds despite his agitation. CARDIOVASCULAR: Showed regular heart tones. ABDOMEN: Soft. EXTREMITIES: No edema. NEUROLOGIC: We found him very agitated and screaming. ASSESSMENT: 1. A 68-year-old gentleman with hypoxemic respiratory failure, resolved. 2. COVID-19 coronavirus pneumonia, resolved. 3. Profound schizophrenia and cognitive dysfunction with significant behavior disorder. 4. Anemia of iron deficiency. 5. Irritable bowel syndrome. PLAN: 1. Diet as tolerated. 2. We are trying to get him placed in [facility]. Evidently, this will not occur today until Monday. SIRI DICKEY MD DR: KYLAH/shawn JOB#: [id number] / [id number]
--- NOTE | 2019-07-19 10:30 | NUR ---
LAURO returned call to Enmanuel, sql database administrator from [place], to finalize all discharge plans for Monday. Enmanuel reports that they will look for discharge between 0900 and 0930. LAURO informed Enmanuel that for sure pt can have a mask; however, they can no longer provide a gown, in which he understood as protection of needed PPE. LAURO explained that nursing will walk pt out once transport arrives. Enmanuel was thankful for the arrangements and will plan to have everything set up for pt on Monday.
--- NOTE | 2019-07-19 12:21 | NUR ---
LAURO attempted to contact Naa, pt guardian, at the office and was not able to reach her. LAURO then attempted to contact pt guardian on her cell phone. Due to a generic voicemail, LAURO did not leave a message. LAURO will try back after lunch to give her an update on pt status and his moving back to [place] on Monday.
--- NOTE | 2019-07-19 12:44 | NUR ---
RN took patient outside in wheelchair with mask on to get some fresh air and a large cup of thickened orange juice. Pt is behaving better now. Sitting in wheelchair in room, watching TV and singing. Is able to wheel himself around room and look out the window. JANEY
[2019-07-19 16:58] VITALS: BP 113/65
[2019-07-19] MEDS: DIVALPROEX ER 250 MG TAB.ER.24H. PO SCH (21:11)
[2019-07-19] MEDS: SENNOSIDES 8.6 MG TABLET PO SCH (21:11)
[2019-07-19 21:29] VITALS: BP 108/63
[2019-07-20] MEDS: LEVOTHYROXINE 25 MCG TABLET. PO SCH (05:55)
--- NOTE | 2019-07-20 06:42 | NUR ---
Pt. remained stable overnight and slept from beginning of the shift until 0615. Remains forgetful and requires repeated reassurance. Hollers out for help and repeats the same thing over and over.
[2019-07-20] MEDS: FUROSEMIDE 40 MG TABLET PO SCH (08:08)
[2019-07-20] MEDS: POTASSIUM CHLORIDE 20 MEQ TABLET.ER. PO SCH (08:08)
[2019-07-20] MEDS: TAMSULOSIN 0.4 MG CAP.ER.24H. PO SCH (08:08)
[2019-07-20] MEDS: BENZTROPINE MESYLATE 0.5 MG TABLET PO SCH (08:08)
[2019-07-20] MEDS: busPIRone 5 MG TABLET. PO SCH ×3 (08:09→18:38)
[2019-07-20] MEDS: medroxyPROGESTERone 5 MG TABLET PO SCH (08:09)
[2019-07-20] MEDS: LORazepam 0.5 MG TABLET PO PRN ×2 (08:09→15:25)
[2019-07-20] MEDS: PANTOPRAZOLE 40 MG TABLET. PO SCH (08:09)
[2019-07-20] MEDS: LACTOBACILLUS RHAMNOSUS GG 1 CAPSULE. PO SCH ×2 (08:09→21:40)
[2019-07-20] MEDS: DIVALPROEX ER 500 MG TAB.ER.24H PO SCH (08:11)
[2019-07-20] MEDS: FLUTICASONE 50MCG/NASAL SPRAY 16GM BOTTLE. NS SCH (08:14)
[2019-07-20] MEDS: risperiDONE 0.5 MG TABLET. PO SCH ×3 (08:14→21:40)
[2019-07-20 08:17] VITALS: BP 123/69
[2019-07-20] MEDS: OLANZapine 5 MG TABLET PO PRN (15:25)
[2019-07-20] MEDS: hydrOXYzine HCL 25 MG TABLET PO PRN (15:30)
[2019-07-20 19:45] VITALS: BP 108/57
[2019-07-20] MEDS: SENNOSIDES 8.6 MG TABLET PO SCH (21:39)
[2019-07-20] MEDS: DIVALPROEX ER 250 MG TAB.ER.24H. PO SCH (21:43)
[2019-07-20 23:11] VITALS: BP 121/61
--- NOTE | 2019-07-20 23:52 | PN ---
DATE: 07/20/2019 ATTENDING PHYSICIAN: Dr. Dickey. SUBJECTIVE: Very calm today. He remembered he is being discharged on Monday. He states that he has been here 93 days already. OBJECTIVE FINDINGS: GENERAL: The patient is afebrile. VITAL SIGNS: His blood pressure was 123/69, oxygen saturation 97% on room air, temperature 97.5 degrees Fahrenheit. HEENT: Head is without trauma. He has the lip swelling, which is chronic. NECK: Supple. LUNGS: Clear. CARDIOVASCULAR: Regular heart tones. ABDOMEN: Soft. EXTREMITIES: Without edema. NEUROLOGIC: Pleasantly confused, but appropriate today. ASSESSMENT: 1. A 68-year-old gentleman with COVID-19, coronavirus pneumonia resolved. 2. Hypoxemic respiratory failure, resolved. 3. Profound schizoaffective disorder with cognitive dysfunction. 4. Significant social behavior disorder. 5. Anemia of iron deficiency. 6. Irritable bowel syndrome. PLAN: 1. Continue meds as prescribed. 2. I have done his paperwork. 3. Tentative plans for discharge on Monday at 10:00 a.m. SIRI DICKEY MD DR: KYLAH/shawn JOB#: [id number] / [id number]
[2019-07-21 04:23] VITALS: BP 130/70
--- NOTE | 2019-07-21 04:35 | NUR ---
Pt slept most of shift but is awake now and watching tv. He continues on RA sats >94%. Pt afebrile and VSS. Continue with POC.
[2019-07-21] MEDS: LEVOTHYROXINE 25 MCG TABLET. PO SCH (06:02)
[2019-07-21] MEDS: TAMSULOSIN 0.4 MG CAP.ER.24H. PO SCH (08:04)
[2019-07-21] MEDS: LORazepam 0.5 MG TABLET PO PRN (08:04)
[2019-07-21] MEDS: busPIRone 5 MG TABLET. PO SCH ×3 (08:04→17:00)
[2019-07-21] MEDS: LACTOBACILLUS RHAMNOSUS GG 1 CAPSULE. PO SCH ×2 (08:04→20:51)
[2019-07-21] MEDS: POTASSIUM CHLORIDE 20 MEQ TABLET.ER. PO SCH (08:04)
[2019-07-21] MEDS: BENZTROPINE MESYLATE 0.5 MG TABLET PO SCH (08:05)
[2019-07-21] MEDS: PANTOPRAZOLE 40 MG TABLET. PO SCH (08:05)
[2019-07-21] MEDS: DIVALPROEX ER 500 MG TAB.ER.24H PO SCH (08:05)
[2019-07-21] MEDS: hydrOXYzine HCL 25 MG TABLET PO PRN (08:05)
[2019-07-21] MEDS: FUROSEMIDE 40 MG TABLET PO SCH (08:05)
[2019-07-21] MEDS: risperiDONE 0.5 MG TABLET. PO SCH ×3 (08:06→20:51)
[2019-07-21] MEDS: medroxyPROGESTERone 5 MG TABLET PO SCH (08:06)
[2019-07-21] MEDS: FLUTICASONE 50MCG/NASAL SPRAY 16GM BOTTLE. NS SCH (08:07)
--- NOTE | 2019-07-21 12:08 | PN ---
DATE: 07/21/2019 ATTENDING PHYSICIAN: Dr. Dickey SUBJECTIVE: Calm today, cooperative. He is happy at tentative plans on being discharged. OBJECTIVE FINDINGS: VITAL SIGNS: The patient is afebrile. His blood pressure is 130/70, pulse is 65 and regular, oxygen saturation 95% on room air. HEENT: Head is without trauma. Pupils are reactive. Oropharynx clear. NECK: Supple. LUNGS: Clear. CARDIOVASCULAR: Showed regular heart tones. ABDOMEN: Soft. EXTREMITIES: Without edema. NEUROLOGIC: Pleasantly confused, but cooperative. ASSESSMENT: A 68-year-old gentleman with: 1. COVID-19 coronavirus pneumonia, resolved. 2. Hypoxemic respiratory failure, resolved. 3. Schizoaffective disorder with cognitive dysfunction. 4. Social behavior disorder. 5. Anemia. 6. Irritable bowel syndrome. PLAN: 1. Diet as tolerated. 2. Tentative plans for discharge to facility tomorrow morning. SIRI DICKEY MD DR: KYLAH/shawn JOB#: [id number] / [id number]
[2019-07-21] MEDS: SENNOSIDES 8.6 MG TABLET PO SCH (20:51)
[2019-07-21] MEDS: DIVALPROEX ER 250 MG TAB.ER.24H. PO SCH (20:55)
[2019-07-21 21:11] VITALS: BP 114/63
[2019-07-22 04:24] VITALS: BP 148/63
[2019-07-22] MEDS: LEVOTHYROXINE 25 MCG TABLET. PO SCH (05:33)
[2019-07-22] MEDS: LACTOBACILLUS RHAMNOSUS GG 1 CAPSULE. PO SCH (07:54)
[2019-07-22] MEDS: PANTOPRAZOLE 40 MG TABLET. PO SCH (07:54)
[2019-07-22] MEDS: medroxyPROGESTERone 5 MG TABLET PO SCH (07:54)
[2019-07-22] MEDS: FUROSEMIDE 40 MG TABLET PO SCH (07:54)
[2019-07-22] MEDS: TAMSULOSIN 0.4 MG CAP.ER.24H. PO SCH (07:54)
[2019-07-22] MEDS: busPIRone 5 MG TABLET. PO SCH (07:54)
[2019-07-22] MEDS: risperiDONE 0.5 MG TABLET. PO SCH (07:55)
[2019-07-22] MEDS: DIVALPROEX ER 500 MG TAB.ER.24H PO SCH (07:55)
[2019-07-22] MEDS: BENZTROPINE MESYLATE 0.5 MG TABLET PO SCH (07:55)
[2019-07-22] MEDS: FLUTICASONE 50MCG/NASAL SPRAY 16GM BOTTLE. NS SCH (07:55)
[2019-07-22] MEDS: POTASSIUM CHLORIDE 20 MEQ TABLET.ER. PO SCH (07:55)
--- NOTE | 2019-07-22 08:30 | NUR ---
Patient plan is to discharge today, patient aware and continues to state how happy he is to go home. Patients belongings gathered and patient dressed. Patient denies complaints at this time, no behavioral issues so far this shift.
--- NOTE | 2019-07-22 09:18 | DS ---
DATE OF DISCHARGE: 07/22/2019 ATTENDING PHYSICIAN: Dr. Leonardo. FINAL DISCHARGE DIAGNOSES: 1. Acute hypoxemic respiratory failure, resolved. 2. COVID-19 positive coronavirus pneumonia, treated. 3. Longstanding schizoaffective disorder with behavioral agitation. 4. Iron deficiency anemia, stable. 5. Gastroesophageal reflux disease. 6. Essential hypertension. 7. Irritable bowel syndrome. 8. Significant intellectual learning disabilities. HISTORY AND PHYSICAL: This is a 68-year-old gentleman from an out of town long term. He was [facility] for behavioral issues. At that time, during the hospitalization, he developed fevers up to 101.5 degrees Fahrenheit, bilateral infiltrates on chest x-ray, hypoxemia and eventually tested positive for COVID-19 coronavirus. He was transferred to the ICU on 06/26/2019. PHYSICAL EXAMINATION: Please see the dictated note. PERTINENT LABORATORY AND X-RAY STUDIES: Numerous here. Prior to discharge, his hemoglobin remained stable at 11.8 g/dL with a white count of 5300. Chemistry panel showed normal sodium of 140, potassium 4.0 mEq per liter. Creatinine normal at 0.8 mg/dL, nonfasting blood sugar 84. Transaminases, total protein and albumin are all within normal range. Chest x-ray and CT scan as noted. COURSE IN THE HOSPITAL: The patient was treated accordingly with antibiotics and Zithromax. He had his standard course of the coronavirus treatment. He did well. Supplemental medications were continued and tapered. His diet was advanced. He was quite stable. In fact, he was stable the last 14 days of hospitalization, but because of the long term requirements they required the quarantine period. Therefore, on the hospital day, the patient was discharged by transport to his facility in [place], [place]. His medication lists are unchanged. They include the following: He will continue his albuterol as needed, benztropine mesylate, BuSpar, calcium, Depakote 500 mg daily and 750 at bedtime, ferrous sulfate, fluticasone, Lasix 40 mg daily, hydroxyzine, Synthroid, loratadine, Ativan p.r.n., magnesium, medroxyprogesterone acetate for sexual aggression, olanzapine, omeprazole, oxcarbazepine 600 mg b.i.d., Invega, potassium, MiraLax, Risperdal, senna, Flomax and tolterodine, dose is unchanged. He remains a full code. He has a state appointed guardian. The patient was then discharged from our hospital to return to his long-term care facility in stable condition with explicit instructions and followup care. TOTAL DISCHARGE TIME SPENT: 41 minutes. SIRI DICKEY MD DR: KYLAH/shawn JOB#: [id number] / [id number] SYDNEY Garnica MD
--- NOTE | 2019-07-22 09:20 | NUR ---
Patients transportation arrived, ambulated off unit via wheelchair with discharge package and personal belongings. Report given to Joanne at [facility] [phone]
--- NOTE | 2019-07-22 12:50 | NUR ---
Hung contacted at [phone] and spoke with Anette, small business representative for patient specialty bed machine operator picker, confirmation number [id number], Enedina TURNER notified.
== END 2019-07-22 09:20 | DRG 177 ==
LOC: OBSVTOIN 12:33 → ICU 12:33 → INTOOBSV 12:33 → ICU 07-11 09:51
PROVIDERS: ADMIT Internal Medicine; ATTEND Internal Medicine
PROC: 5A09357 Assistance with Respiratory Ventilation, Less than 24 Consecutive Hours, Continuous Positive Airway Pressure (ICD-10-PCS; principal; 2019-06-28)
DX: U07.1 COVID-19 (principal); J12.89 Other viral pneumonia; J96.01 Acute respiratory failure with hypoxia; F20.0 Paranoid schizophrenia; D50.9 Iron deficiency anemia, unspecified; D69.6 Thrombocytopenia, unspecified; F09 Unspecified mental disorder due to known physiological condition; F41.1 Generalized anxiety disorder; F60.3 Borderline personality disorder; F79 Unspecified intellectual disabilities; I10 Essential (primary) hypertension; K21.9 Gastro-esophageal reflux disease without esophagitis; K58.9 Irritable bowel syndrome, unspecified; Z79.899 Other long term (current) drug therapy; Z88.8 Allergy status to other drugs, medicaments and biological substances; Z74.01 Bed confinement status
CPT/HCPCS: 36415; 80053; 85007; 85025; 85027; 87635; J0456; J1650; J2426; J3490